=== PATIENT | male | born 1950 | race Two or more races ===

== ENCOUNTER 2016-11-21 19:10 | Inpatient (IN) | payer MEDICARE, OTHER ==
--- NOTE | 2016-11-21 21:05 | RADIOLOGY REPORT (SQ) ---
EXAM DESCRIPTION: CHEST PA/LAT COMPLETED DATE/TIME: 11/21/2016 8:31 pm REASON FOR STUDY: Fever COMPARISON: 01/08/2016. EXAM PARAMETERS: NUMBER OF VIEWS: two views TECHNIQUE: Digital Frontal and Lateral radiographic views of the chest acquired. RADIATION DOSE: NA LIMITATIONS: none FINDINGS: LUNGS AND PLEURA: No opacities, masses or pneumothorax. No pleural effusion. MEDIASTINUM AND HILAR STRUCTURES: No masses or contour abnormalities. HEART AND VASCULAR STRUCTURES: Heart normal size. No evidence for failure. BONES: No acute findings. HARDWARE: None in the chest. OTHER: No other significant finding. IMPRESSION: NO SIGNIFICANT RADIOGRAPHIC FINDING IN THE CHEST. TECHNICAL DOCUMENTATION: JOB ID: [id number] [employer]- All Rights Reserved
[2016-11-21 21:17] LABS: ABSOLUTE LYMPHOCYTES (AUTO) 0.5 10^3/uL (0.5-4.7); ABSOLUTE NEUT (AUTO) 6.3 10^3/uL (1.7-8.2); BASOPHILS % (AUTO) 0.3 % (0-2); EOSINOPHILS % (AUTO) 0.6 % (0-6); HEMOGLOBIN 8.4 g/dL (13.5-17.0); HGB HCT DIFFERENCE 1.2; LYMPHOCYTES % (AUTO) 5.9 % (13-45); MEAN CORPUSCULAR HEMOGLOBIN 34.7 pg (27.0-33.4); MEAN CORPUSCULAR VOLUME 99 fl (80-97); MONOCYTES % (AUTO) 12.4 % (3-13); RED BLOOD COUNT 2.42 10^6/uL (4.35-5.55); SEGMENTED NEUTROPHILS % (AUTO) 80.8 % (42-78); WHITE BLOOD COUNT 7.8 10^3/uL (4.0-10.5)
[2016-11-21 21:34] LABS: ALANINE AMINOTRANSFERASE 192 U/L (21-72); ALBUMIN 3.7 g/dL (3.5-5.0); ALKALINE PHOSPHATASE 188 U/L (38-126); ANION GAP 13 (5-19); ASPARTATE AMINO TRANSFERASE 322 U/L (17-59); BILIRUBIN,DIRECT 2.4 mg/dL (0.0-0.4); BILIRUBIN,TOTAL 5.4 mg/dL (0.2-1.3); BLOOD UREA NITROGEN 41 mg/dL (7-20); CALCIUM 8.4 mg/dL (8.4-10.2); CARBON DIOXIDE 21 mmol/L (22-30); CHLORIDE 99 mmol/L (98-107); GLUCOSE 317 mg/dL (75-110); POTASSIUM 4.7 mmol/L (3.6-5.0); SODIUM 132.8 mmol/L (137-145); TOTAL PROTEIN 7.6 g/dL (6.3-8.2)
[2016-11-21 21:38] LABS: PROTHROMBIN TIME 14.9 SEC (11.4-15.4)
[2016-11-21 22:25] LABS: APPEARANCE,URINE SLIGHTLY-CLOUDY; BILIRUBIN,URINE NEGATIVE (NEGATIVE); GLUCOSE, URINE 50 mg/dL (NEGATIVE); KETONES,URINE NEGATIVE (NEGATIVE); LEUKOCYTE ESTERASE,URINE SMALL (NEGATIVE); NITRITE,URINE NEGATIVE (NEGATIVE); PROTEIN,URINE 30 mg/dL (NEGATIVE); URINE SPECIFIC GRAVITY 1.018
--- NOTE | 2016-11-22 00:22 | ER Document Report ---
ED General - General Chief Complaint: Fever Stated Complaint: FEVER Time Seen by Provider: 11/21/16 19:41 TRAVEL OUTSIDE OF THE [place] IN LAST 30 DAYS: No - HPI Notes: This is a 66-year-old male with hepatocellular cancer of the liver who presents via EMS from home with fever that began yesterday. Fever has been up to 103.6 F. He had a paracentesis yesterday which he does get weekly on . Appears she is getting other treatment chemotherapy or similar as well. He did have some chills but denies any other clear source. He has been a little bit incontinent of urine which is uncommon for him as well he has had no cough or cold symptoms. He did have a exposure to a child with cold yesterday. Exposure otherwise except for his travels to his oncologist Dr. Elisabeth phillips [phone] in [place] where he receives his treatments. He denies abdominal pain or other new discomfort. - Related Data Allergies/Adverse Reactions: Penicillins Allergy (Intermediate, Verified 11/21/16 19:20) Passed out Past Medical History - Social History Smoking Status: Never Smoker Chew tobacco use (# tins/day): No Frequency of alcohol use: None Drug Abuse: None Family History: None Patient has suicidal ideation: No Patient has homicidal ideation: No - Past Medical History Cardiac Medical History: Reports: Hx Hypertension Endocrine Medical History: Reports: Hx Diabetes Mellitus Type 1, Hx Diabetes Mellitus Type 2 Renal/ Medical History: Denies: Hx Peritoneal Dialysis Past Surgical History: Reports: Hx Cardiac Catheterization, Hx Cholecystectomy - Immunizations Hx Diphtheria, Pertussis, Tetanus Vaccination: Yes Review of Systems - Review of Systems -: Yes All other systems reviewed and negative Physical Exam - Vital signs Vitals: Temp Pulse Resp BP Pulse Ox 99.4 F 109 H 20 139/70 H 100 11/21/16 19:20 11/21/16 19:20 11/21/16 19:20 11/21/16 19:20 11/21/16 19:20 Interpretation: Tachycardic - Notes Notes: GENERAL: VS as per nursing doc. chronically ill appearing in no acute distress. Pitcher 99.4F HEAD: Atraumatic, normocephalic. EYES: Pupils equal round and reactive to light, extraocular movements intact, Scleral icterus noted, no conjunctival injection or discharge. ENT: Nares patent, oropharynx clear without exudates, moist mucous membranes. NECK: Normal range of motion, supple without lymphadenopathy. LUNGS: Fine bibasilar crackles but good movement otherwise HEART: Tachycardic, regular without murmur ABDOMEN: Ascites noted, no evidence of tenderness at all even to deep palpation no guarding, no rebound. No masses appreciated. No Hamel sign. BACK: No CVA tenderness. EXTREMITIES: Normal range of motion, no calf tenderness, no edema. NEUROLOGICAL: No meningeal signs, normal speech. Normal sensory and motor exams. PSYCH: Normal mood, normal affect. SKIN: Warm, dry, jaundice noted Course - Re-evaluation Re-evalutation: 11/22/16 00:27 Laboratory studies I have are compared to 10 months ago which is the last we have. He is somewhat more anemic and he has definitely had increases in his liver function tests. I do not see any signs of SBP as he has no tenderness. He is technically afebrile here and appears nontoxic. I have contacted his physician and am awaiting a call back. 11/22/16 01:[address] Leyva from [facility]. They have been unable to get a hold of the patient's regular attending but want to keep trying in particular because their computer system is causing difficulty as they cannot access records apparently. 11/22/16 01:56 I spoke again with Dr. Head whom did talk to Dr. Perez. They felt the patient needed to be admitted for infectious workup and to ensure no development of SBP. Clinically there is no abdominal tenderness. The patient is on Nivolumab given as an infusion every 2 weeks as well. They report you can get some transaminitis as well as fever with this. - Vital Signs Vital signs: Temp Pulse Resp BP Pulse Ox 100.5 F H 97 18 130/58 H 100 11/22/16 00:00 11/22/16 01:00 11/22/16 01:00 11/22/16 01:00 11/22/16 01:00 - Laboratory Result Diagrams: 11/21/16 20:45 11/21/16 20:45 Laboratory results interpreted by me: 11/21/16 11/21/16 11/21/16 20:45 20:45 22:05 RBC 2.42 L Hgb 8.4 L Hct 24.0 L MCV 99 H MCH 34.7 H RDW 16.0 H Plt Count 133 L Seg Neutrophils % 80.8 H Lymphocytes % 5.9 L Sodium 132.8 L Carbon Dioxide 21 L BUN 41 H Creatinine 1.70 H Est GFR ( Amer) 49 L Est GFR (Non-Af Amer) 41 L Glucose 317 H Total Bilirubin 5.4 H Direct Bilirubin 2.4 H AST 322 H ALT 192 H Alkaline Phosphatase 188 H Urine Protein 30 H Urine Glucose (UA) 50 H Urine Urobilinogen 4.0 H Ur Leukocyte Esterase SMALL H Urine Ascorbic Acid 40 H - Diagnostic Test Radiology reviewed: Image reviewed, Reports reviewed - NAD - Consults Dr. Jakub Lofton #1 Time consulted: 01:54 - No answer. Will call again. Reason for consultation: 11/22/16 02:[address] Jakub Lofton #2 Time consulted: 02:20 - Discussed with Dr. Lofton who will evaluate/admit patient Discharge - Discharge Clinical Impression: Acute febrile illness, Malignant neoplasm of liver Ascites Qualifiers: Ascites type: other type Qualified Code(s): R18.8 - Other ascites Condition: Stable Disposition: ADMITTED INPATIENT Admitting Provider: Hospitalist Unit Admitted: Medical Floor
[2016-11-22] MEDS ORDERED: MAGNESIUM HYDROXIDE SUSP 30 ML UDCUP PO PRN (03:02)
[2016-11-22] MEDS ORDERED: DEXTROSE 40% GEL 15 GM TUBE PO PRN ×2 (03:02)
[2016-11-22] MEDS ORDERED: DEXTROSE 50%-WATER 25 GM/50 ML DISP.SYRIN IV PRN ×2 (03:02)
[2016-11-22] MEDS ORDERED: GLUCAGON,HUMAN RECOMB 1 MG INJ IM PRN (03:02)
[2016-11-22] MEDS ORDERED: ONDANSETRON HCL INJ/PF 4 MG/2 ML SDV IV PRN (03:02)
[2016-11-22] MEDS ORDERED: CEFOTAXIME 2 GM IV PRN (03:08)
[2016-11-22] MEDS ORDERED: CEFOTAXIME SODIUM 2 GM in DEXTROSE 5%-WATER 50 ML IV ONE (03:15)
--- NOTE | 2016-11-22 03:28 | PDOC H&P ---
History of Present Illness Admission Date/PCP: 11/22/16 02:51 GEORGIA EMANUEL MD Patient complains of: Fever and anorexia History of Present Illness: VELVET WILLS SR is a 66 year old male with a past medical history of diabetes , Wu and hepatocellular carcinoma who is an oncology patient of Dr. Barber in [place] phone #[phone]. The patient has received 2 cycles of immunotherapy with Nivolumab. Last infusion was approximately 1 week ago, paracentesis with albumin every week most recent 48 hours ago. He subsequently had poor p.o. intake fever and malaise prompting him to seek evaluation emergency room where he found to have a fever of 101.3, markedly abnormal LFTs, jaundice and acute renal failure with a creatinine of 1.7. Patient adamantly denies headache, photophobia, stiff neck, sore throat, chest pain, shortness of breath, nausea, vomiting, abdominal pain, diarrhea, dysuria or joint pain. Given his findings he referred to the hospitalist for admission. Past Medical History Cardiac Medical History: Reports: Hypertension Endocrine Medical History: Reports: Diabetes Mellitus Type 1, Diabetes Mellitus Type 2 Malignancy Medical History: Reports: Liver Cancer GI Medical History: Reports: Cirrhosis Past Surgical History Past Surgical History: Reports: Cardiac Catheterization, Cholecystectomy Social History Information Source: Patient Smoking Status: Never Smoker Frequency of Alcohol Use: Rare Hx Recreational Drug Use: No Drugs: None Hx Prescription Drug Abuse: No - Advance Directive Resuscitation Status: Full Code Family History Family History: Hypertension Parental Family History Reviewed: Yes Children Family History Reviewed: Yes Sibling(s) Family History Reviewed.: Yes Medication/Allergy Home Medications: Amlodipine Besylate 1 tab PO DAILY 10/29/15 Ascorbic Acid [Vitamin C 500 mg Tablet] 3 tab PO DAILY 10/29/15 Cetirizine HCl [Zyrtec] 10 mg PO DAILY 10/29/15 Esomeprazole Magnesium [Nexium] 40 mg PO DAILY 10/29/15 Propranolol HCl 40 mg PO DAILY 10/29/15 Sitagliptin Phos/Metformin HCl [Janumet 50-1,000 mg Tablet] 1 each PO BID Ursodiol 3 tab PO DAILY 10/29/15 Furosemide [Lasix 40 mg Tablet] 40 mg PO BID #180 tablet 11/02/15 Spironolactone [Aldactone 25 mg Tablet] 50 mg PO BID #360 tablet 11/02/15 Allergies/Adverse Reactions: Penicillins Allergy (Intermediate, Verified 11/21/16 19:20) Passed out Review of Systems Constitutional: PRESENT: anorexia, chills, fatigue, fever(s), weakness Eyes: PRESENT: other - Jaundice. ABSENT: visual disturbances Ears: ABSENT: hearing changes Cardiovascular: ABSENT: chest pain, dyspnea on exertion, edema, orthropnea, palpitations Respiratory: ABSENT: cough, hemoptysis Gastrointestinal: ABSENT: abdominal pain, constipation, diarrhea, hematemesis, hematochezia, nausea, vomiting Genitourinary: ABSENT: dysuria, hematuria Integumentary: ABSENT: rash, wounds Neurological: ABSENT: abnormal gait, abnormal speech, confusion, dizziness, focal weakness, syncope Psychiatric: ABSENT: anxiety, depression, homidical ideation, suicidal ideation Endocrine: ABSENT: cold intolerance, heat intolerance, polydipsia, polyuria Hematologic/Lymphatic: ABSENT: easy bleeding, easy bruising Physical Exam Vital Signs: Temp Pulse Resp BP Pulse Ox 99.7 F 90 18 124/39 L 100 11/22/16 03:00 11/22/16 03:00 11/22/16 03:00 11/22/16 03:00 11/22/16 03:00 General appearance: PRESENT: no acute distress, cooperative, other - Chronically ill-appearing and jaundiced Head exam: PRESENT: atraumatic, normocephalic Eye exam: PRESENT: PERRLA, scleral icterus Ear exam: PRESENT: normal external ear exam Mouth exam: PRESENT: moist, tongue midline Neck exam: ABSENT: carotid bruit, JVD, lymphadenopathy, thyromegaly Respiratory exam: PRESENT: clear to auscultation art, crackles, symmetrical. ABSENT: rales, rhonchi, tachypnea, wheezes Cardiovascular exam: PRESENT: RRR. ABSENT: diastolic murmur, rubs, systolic murmur Pulses: PRESENT: normal dorsalis pedis pul GI/Abdominal exam: PRESENT: ascites, diminished bowel sounds, distended, hypoactive bowel sounds. ABSENT: firm, guarding, hernia, rebound, rigid Rectal exam: PRESENT: deferred Extremities exam: PRESENT: full ROM, +1 edema. ABSENT: calf tenderness, clubbing, pedal edema Neurological exam: PRESENT: alert, awake, oriented to person, oriented to place , oriented to time, oriented to situation, CN II-XII grossly intact. ABSENT: motor sensory deficit Psychiatric exam: PRESENT: appropriate affect, normal mood. ABSENT: homicidal ideation, suicidal ideation Skin exam: PRESENT: dry, intact, warm. ABSENT: cyanosis, rash Results Impressions: Chest X-Ray 11/21/16 20:06 IMPRESSION: NO SIGNIFICANT RADIOGRAPHIC FINDING IN THE CHEST. Assessment & Plan - Diagnosis (1) SBP (spontaneous bacterial peritonitis) Is this a current diagnosis for this admission?: YesPlan: Complicated by recent paracentesis blood cultures obtained empiric treatment with cefotaxime initiated. Consider albumin will order paracentesis. Follow- up Chem-12, CBC and consultation with oncologist Dr. Barber. (2) Acute renal failure Is this a current diagnosis for this admission?: YesPlan: Unclear cause though appears significantly prerenal. He received a IV fluid challenge avoiding nephrotoxic meds and doses reevaluation of chemistry. (3) Hepatocellular carcinoma Is this a current diagnosis for this admission?: YesPlan: Consultation with Dr. 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 - Time Time Spent: 50 to 70 Minutes - Inpatient Certification Medical Necessity: Need Close Monitoring Due to Risk of Patient Decompensation
[2016-11-22] MEDS ORDERED: CEFOTAXIME INJ 1 GM VIAL ONE (03:39)
[2016-11-22] MEDS: NORMAL SALINE 1000 ML 1,000 ML IV SCH ×2 (05:37→10:02)
[2016-11-22] MEDS ORDERED: HEPARIN SOD (PORCINE) 5,000 UNIT/ML 1 ML SYRINGE SUBCUT SCH (06:00)
[2016-11-22 08:00] LABS: ABSOLUTE EOSINOPHILS # (AUTO) 0.1 10^3/uL (0.0-0.6); ABSOLUTE LYMPHOCYTES (AUTO) 0.4 10^3/uL (0.5-4.7); ABSOLUTE MONOCYTES (AUTO) 0.9 10^3/uL (0.1-1.4); ABSOLUTE NEUT (AUTO) 5.7 10^3/uL (1.7-8.2); BASOPHILS % (AUTO) 0.2 % (0-2); EOSINOPHILS % (AUTO) 1.7 % (0-6); HEMATOCRIT 20.4 % (37.9-51.0); HGB HCT DIFFERENCE 0.9; LYMPHOCYTES % (AUTO) 5.6 % (13-45); MEAN CORPUSCULAR HEMOGLOBIN 34.8 pg (27.0-33.4); MEAN CORPUSCULAR HGB CONC 34.7 g/dL (32.0-36.0); MEAN CORPUSCULAR VOLUME 100 fl (80-97); MONOCYTES % (AUTO) 13.1 % (3-13); RED BLOOD COUNT 2.04 10^6/uL (4.35-5.55); RED CELL DISTRIBUTION WIDTH 15.8 % (11.5-14.0); SEGMENTED NEUTROPHILS % (AUTO) 79.4 % (42-78); WHITE BLOOD COUNT 7.2 10^3/uL (4.0-10.5)
[2016-11-22 08:19] LABS: ALANINE AMINOTRANSFERASE 147 U/L (21-72); ALBUMIN 2.8 g/dL (3.5-5.0); ALKALINE PHOSPHATASE 146 U/L (38-126); ANION GAP 10 (5-19); ASPARTATE AMINO TRANSFERASE 220 U/L (17-59); BILIRUBIN,DIRECT 2.5 mg/dL (0.0-0.4); BILIRUBIN,TOTAL 5.7 mg/dL (0.2-1.3); BLOOD UREA NITROGEN 41 mg/dL (7-20); CALCIUM 7.7 mg/dL (8.4-10.2); CARBON DIOXIDE 20 mmol/L (22-30); CHLORIDE 100 mmol/L (98-107); CREATININE RESULT 1.45 mg/dL (0.52-1.25); GLUCOSE 234 mg/dL (75-110); HEMOGLOBIN 7.1 g/dL (13.5-17.0); POTASSIUM 4.7 mmol/L (3.6-5.0); SODIUM 130.3 mmol/L (137-145); TOTAL PROTEIN 6.3 g/dL (6.3-8.2)
[2016-11-22] MEDS: CEFOTAXIME SODIUM 2 GM in DEXTROSE 5%-WATER 50 ML IV SCH ×2 (10:01→22:32)
[2016-11-22] MEDS: DOCUSATE SODIUM 100 MG CAPSULE PO SCH ×2 (10:03→17:33)
[2016-11-22] MEDS ORDERED: NORMAL SALINE 250 ML IV PRN ×2 (10:32)
[2016-11-22] MEDS ORDERED: INSULIN GLARGINE,HUM.REC.ANLOG 300 UNIT/3 ML INSULN.PEN SUBCUT PRN (13:49)
[2016-11-22] MEDS ORDERED: CETIRIZINE 10 MG TABLET PO PRN (13:49)
[2016-11-22] MEDS ORDERED: FLUTICASONE NASAL SPRAY 50 MCG/SPRY 120 SPRAY/16 GM NASL PRN (13:49)
--- NOTE | 2016-11-22 14:03 | PDOC PROGRESS REPORT ---
Subjective Progress Note for:: 11/22/16 Subjective:: Patient was seen on morning rounds. He is resting comfortably in bed. His is at the bedside. He denies fevers or chills overnight. He denies cough, congestion or sore throat. He denies nausea, vomiting or abdominal pain. He denies any arthralgias or myalgias. We discussed his anemi. He does have a history of iron deficiency anemia, but had a severe epistaxis when he was in the hospital in [place] on . He has required transfusions previously. Remaining review of systems are negative. Physical Exam Vital Signs: Temp Pulse Resp BP Pulse Ox 98.2 F 88 18 115/54 L 98 11/22/16 11:27 11/22/16 11:27 11/22/16 11:27 11/22/16 11:27 11/22/16 11:27 Intake & Output 11/21/16 11/22/16 11/23/16 06:59 06:59 06:59 Weight 74.3 kg General appearance: PRESENT: no acute distress, well-developed, well-nourished, other Eye exam: PRESENT: conjunctiva pale, scleral icterus Ear exam: PRESENT: normal external ear exam Mouth exam: PRESENT: moist, tongue midline Neck exam: ABSENT: carotid bruit, JVD, lymphadenopathy, thyromegaly Respiratory exam: PRESENT: clear to auscultation atr. ABSENT: rales, rhonchi, wheezes Cardiovascular exam: PRESENT: RRR. ABSENT: diastolic murmur, rubs, systolic murmur Pulses: PRESENT: normal dorsalis pedis pul Vascular exam: PRESENT: normal capillary refill GI/Abdominal exam: PRESENT: normal bowel sounds, soft. ABSENT: distended, guarding, mass, organolmegaly, rebound, tenderness Rectal exam: PRESENT: deferred Extremities exam: PRESENT: full ROM. ABSENT: calf tenderness, clubbing, pedal edema Psychiatric exam: PRESENT: appropriate affect, normal mood. ABSENT: homicidal ideation, suicidal ideation Skin exam: PRESENT: dry, jaundice, warm Results Laboratory Results: 11/22/16 07:15 11/22/16 07:15 11/22/16 11/22/16 11/22/16 07:15 07: 07:15 WBC 7.2 RBC 2.04 L Hgb 7.1 L Hct 20.4 L MCV 100 H MCH 34.8 H MCHC 34.7 RDW 15.8 H Plt Count 113 L Seg Neutrophils % 79.4 H Lymphocytes % 5.6 L Monocytes % 13.1 H Eosinophils % 1.7 Basophils % 0.2 Absolute Neutrophils 5.7 Absolute Lymphocytes 0.4 L Absolute Monocytes 0.9 Absolute Eosinophils 0.1 Absolute Basophils 0.0 Retic Count (auto) 4.00 H Absolute Retic 0.081 Sodium 130.3 L Potassium 4.7 Chloride 100 Carbon Dioxide 20 L Anion Gap 10 BUN 41 H Creatinine 1.45 H Est GFR ( Amer) 59 L Est GFR (Non-Af Amer) 49 L Glucose 234 H Calcium 7.7 L Iron TIBC % Saturation Ferritin Total Bilirubin 5.7 H AST 220 H ALT 147 H Alkaline Phosphatase 146 H Total Protein 6.3 Albumin 2.8 L Vitamin B12 Folate Blood Type Antibody Screen 11/22/16 11/22/16 07:15 10:55 WBC RBC Hgb Hct MCV MCH MCHC RDW Plt Count Seg Neutrophils % Lymphocytes % Monocytes % Eosinophils % Basophils % Absolute Neutrophils Absolute Lymphocytes Absolute Monocytes Absolute Eosinophils Absolute Basophils Retic Count (auto) Absolute Retic Sodium Potassium Chloride Carbon Dioxide Anion Gap BUN Creatinine Est GFR ( Amer) Est GFR (Non-Af Amer) Glucose Calcium Iron 43.3 L TIBC 187 L % Saturation 23 Ferritin 174.00 Total Bilirubin AST ALT Alkaline Phosphatase Total Protein Albumin Vitamin B12 886.0 Folate 19.10 Blood Type O POSITIVE Antibody Screen NEGATIVE Impressions: Chest X-Ray 11/21/16 20:06 IMPRESSION: NO SIGNIFICANT RADIOGRAPHIC FINDING IN THE CHEST. Assessment & Plan - Diagnosis (1) Febrile illness, acute Is this a current diagnosis for this admission?: YesPlan: Patient was started on empiric IV antibiotics for possible SBP. He has no abdominal pain present time. A nausea either. Upper respiratory symptoms or dysuria. Cultures are pending. May be a side effect of his chemotherapy according to his oncologist (2) Acute renal failure Qualifiers: Acute renal failure type: unspecified Qualified Code(s): N17.9 - Acute kidney failure, unspecified Is this a current diagnosis for this admission?: YesPlan: Improving with IV hydration. Likely prerenal secondary to poor oral intake (3) Hyponatremia Is this a current diagnosis for this admission?: YesPlan: Secondary to dehydration (4) SBP (spontaneous bacterial peritonitis) Is this a current diagnosis for this admission?: Yes (5) Anemia Qualifiers: Anemia type: iron deficiency Is this a current diagnosis for this admission?: YesPlan: Patient with history of iron deficiency anemia and recent severe epistaxis. Hgb down to 7.1 from 8.4 most likely dilutional from IV fluids. Patient is agreeable to transfusion (6) Hepatocellular carcinoma Is this a current diagnosis for this admission?: YesPlan: Presently just completed second chemo cycle (7) Ascites Qualifiers: Ascites type: malignant Qualified Code(s): R18.0 - Malignant ascites Is this a current diagnosis for this admission?: YesPlan: Patient underwent paracentesis on in [place] (8) Thrombocytopenia Is this a current diagnosis for this admission?: YesPlan: Secondary to hepatocellular carcinoma - Time Time Spent with patient: 25-34 minutes Critical Time spent with patient: 15-24 minutes Medications reviewed and adjusted accordingly: Yes
[2016-11-22] MEDS ORDERED: ACETAMINOPHEN 325 MG TABLET PO PRN (16:15)
[2016-11-22] MEDS: INSULIN LISPRO 100 UNIT/ML 3 ML VIAL SUBCUT PRN ×2 (16:37→22:48)
[2016-11-22] MEDS: ACETAMINOPHEN 325 MG TABLET PO PRN (16:37)
[2016-11-22] MEDS: RIFAXIMIN 550 MG TABLET PO SCH (17:33)
[2016-11-22] MEDS: FERROUS SULFATE 325 MG TABLET PO SCH (17:34)
[2016-11-22] MEDS ORDERED: XIFAXAN PO SCH (18:00)
[2016-11-23 00:01] LABS: ABSOLUTE EOSINOPHILS # (AUTO) 0.1 10^3/uL (0.0-0.6); ABSOLUTE LYMPHOCYTES (AUTO) 0.4 10^3/uL (0.5-4.7); ABSOLUTE MONOCYTES (AUTO) 0.8 10^3/uL (0.1-1.4); BASOPHILS % (AUTO) 0.3 % (0-2); EOSINOPHILS % (AUTO) 1.7 % (0-6); HEMATOCRIT 24.5 % (37.9-51.0); HEMOGLOBIN 8.6 g/dL (13.5-17.0); HGB HCT DIFFERENCE 1.3; LYMPHOCYTES % (AUTO) 6.8 % (13-45); MEAN CORPUSCULAR HEMOGLOBIN 34.2 pg (27.0-33.4); MEAN CORPUSCULAR HGB CONC 35.3 g/dL (32.0-36.0); MEAN CORPUSCULAR VOLUME 97 fl (80-97); MONOCYTES % (AUTO) 12.2 % (3-13); RED BLOOD COUNT 2.53 10^6/uL (4.35-5.55); RED CELL DISTRIBUTION WIDTH 15.8 % (11.5-14.0); WHITE BLOOD COUNT 6.3 10^3/uL (4.0-10.5)
[2016-11-23] MEDS: CEFOTAXIME SODIUM 2 GM in DEXTROSE 5%-WATER 50 ML IV SCH ×3 (03:35→17:24)
[2016-11-23 05:29] LABS: ABSOLUTE EOSINOPHILS # (AUTO) 0.2 10^3/uL (0.0-0.6); ABSOLUTE LYMPHOCYTES (AUTO) 0.4 10^3/uL (0.5-4.7); ABSOLUTE MONOCYTES (AUTO) 0.8 10^3/uL (0.1-1.4); ABSOLUTE NEUT (AUTO) 5.1 10^3/uL (1.7-8.2); BASOPHILS % (AUTO) 0.2 % (0-2); EOSINOPHILS % (AUTO) 2.6 % (0-6); HEMATOCRIT 26.4 % (37.9-51.0); HGB HCT DIFFERENCE 0.6; LYMPHOCYTES % (AUTO) 5.8 % (13-45); MEAN CORPUSCULAR HEMOGLOBIN 33.5 pg (27.0-33.4); MEAN CORPUSCULAR HGB CONC 34.3 g/dL (32.0-36.0); MEAN CORPUSCULAR VOLUME 98 fl (80-97); MONOCYTES % (AUTO) 12.8 % (3-13); RED CELL DISTRIBUTION WIDTH 16.2 % (11.5-14.0); SEGMENTED NEUTROPHILS % (AUTO) 78.6 % (42-78); WHITE BLOOD COUNT 6.5 10^3/uL (4.0-10.5)
[2016-11-23 05:41] LABS: ALANINE AMINOTRANSFERASE 123 U/L (21-72); ALBUMIN 2.8 g/dL (3.5-5.0); ALKALINE PHOSPHATASE 150 U/L (38-126); ANION GAP 10 (5-19); ASPARTATE AMINO TRANSFERASE 136 U/L (17-59); BILIRUBIN,DIRECT 3.5 mg/dL (0.0-0.4); BILIRUBIN,TOTAL 7.2 mg/dL (0.2-1.3); BLOOD UREA NITROGEN 40 mg/dL (7-20); CALCIUM 7.7 mg/dL (8.4-10.2); CARBON DIOXIDE 18 mmol/L (22-30); CHLORIDE 102 mmol/L (98-107); CREATININE RESULT 1.32 mg/dL (0.52-1.25); GLUCOSE 218 mg/dL (75-110); POTASSIUM 4.7 mmol/L (3.6-5.0); TOTAL PROTEIN 6.4 g/dL (6.3-8.2)
[2016-11-23] MEDS: FERROUS SULFATE 325 MG TABLET PO SCH ×2 (09:55→17:25)
[2016-11-23] MEDS: RIFAXIMIN 550 MG TABLET PO SCH ×2 (09:55→17:25)
[2016-11-23] MEDS: SPIRONOLACTONE 25 MG TABLET PO SCH (09:55)
[2016-11-23] MEDS: LANSOPRAZOLE 15 MG TAB.RAP.DR PO SCH (09:55)
[2016-11-23] MEDS: DOCUSATE SODIUM 100 MG CAPSULE PO SCH ×2 (09:56→17:25)
[2016-11-23] MEDS: INSULIN LISPRO 100 UNIT/ML 3 ML VIAL SUBCUT PRN ×3 (09:56→23:30)
[2016-11-23] MEDS ORDERED: (PENDING PHARMACY ID) (Pantoprazole Sodium [Protonix] 20 MG) PO SCH (10:00)
[2016-11-23] MEDS ORDERED: (PENDING PHARMACY ID) (Spironolactone [Aldactone] 50 MG) PO SCH (10:00)
--- NOTE | 2016-11-23 11:14 | PDOC PROGRESS REPORT ---
Subjective Progress Note for:: 11/23/16 Subjective:: Patient was seen on morning rounds. He is resting comfortably in bed. He states he feels better than he did yesterday, not as weak. He denies fevers or chills overnight. He denies any nausea or abdominal pain. He denies cough, congestion or sore throat. He denies any arthralgias or myalgias. Rest of the review of systems are unremarkable. Physical Exam Vital Signs: Temp Pulse Resp BP Pulse Ox 98.6 F 77 17 109/46 L 99 11/23/16 03:32 11/23/16 07:00 11/23/16 03:32 11/23/16 03:32 11/23/16 03:32 Intake & Output 11/22/16 11/23/16 11/24/16 06:59 06:59 06:59 Intake Total 2730 Output Total 800 Balance 1930 Weight 74.3 kg 79.2 kg General appearance: PRESENT: no acute distress, well-developed, well-nourished Head exam: PRESENT: atraumatic, normocephalic Eye exam: PRESENT: conjunctiva pale, scleral icterus Ear exam: PRESENT: normal external ear exam Mouth exam: PRESENT: moist, tongue midline Neck exam: ABSENT: carotid bruit, JVD, lymphadenopathy, thyromegaly Respiratory exam: PRESENT: clear to auscultation art. ABSENT: rales, rhonchi, wheezes Cardiovascular exam: PRESENT: RRR. ABSENT: diastolic murmur, rubs, systolic murmur Pulses: PRESENT: normal dorsalis pedis pul Vascular exam: PRESENT: normal capillary refill GI/Abdominal exam: PRESENT: normal bowel sounds, soft. ABSENT: distended, guarding, mass, organolmegaly, rebound, tenderness Rectal exam: PRESENT: deferred Extremities exam: PRESENT: full ROM. ABSENT: calf tenderness, clubbing, pedal edema Musculoskeletal exam: PRESENT: ambulatory, full ROM Neurological exam: PRESENT: alert, awake, oriented to person, oriented to place , oriented to time, oriented to situation, CN II-XII grossly intact. ABSENT: motor sensory deficit Psychiatric exam: PRESENT: appropriate affect, normal mood. ABSENT: homicidal ideation, suicidal ideation Skin exam: PRESENT: dry, jaundice, petechiae, warm Results Laboratory Results: 11/23/16 05:12 11/23/16 05:12 11/22/16 11/22/16 11/23/16 10:55 23:50 05:12 WBC 6.3 6.5 RBC 2.53 L 2.70 L Hgb 8.6 L 9.0 L Hct 24.5 L 26.4 L MCV 97 98 H MCH 34.2 H 33.5 H MCHC 35.3 34.3 RDW 15.8 H 16.2 H Plt Count 108 L 117 L Seg Neutrophils % 79.0 H 78.6 H Lymphocytes % 6.8 L 5.8 L Monocytes % 12.2 12.8 Eosinophils % 1.7 2.6 Basophils % 0.3 0.2 Absolute Neutrophils 5.0 5.1 Absolute Lymphocytes 0.4 L 0.4 L Absolute Monocytes 0.8 0.8 Absolute Eosinophils 0.1 0.2 Absolute Basophils 0.0 0.0 Sodium Potassium Chloride Carbon Dioxide Anion Gap BUN Creatinine Est GFR ( Amer) Est GFR (Non-Af Amer) Glucose Calcium Total Bilirubin AST ALT Alkaline Phosphatase Total Protein Albumin Blood Type O POSITIVE Antibody Screen NEGATIVE 11/23/16 05:12 WBC RBC Hgb Hct MCV MCH MCHC RDW Plt Count Seg Neutrophils % Lymphocytes % Monocytes % Eosinophils % Basophils % Absolute Neutrophils Absolute Lymphocytes Absolute Monocytes Absolute Eosinophils Absolute Basophils Sodium 130.0 L Potassium 4.7 Chloride 102 Carbon Dioxide 18 L Anion Gap 10 BUN 40 H Creatinine 1.32 H Est GFR ( Amer) > 60 Est GFR (Non-Af Amer) 54 L Glucose 218 H Calcium 7.7 L Total Bilirubin 7.2 H AST 136 H ALT 123 H Alkaline Phosphatase 150 H Total Protein 6.4 Albumin 2.8 L Blood Type Antibody Screen Impressions: Chest X-Ray 11/21/16 20:06 IMPRESSION: NO SIGNIFICANT RADIOGRAPHIC FINDING IN THE CHEST. Assessment & Plan - Diagnosis (1) Febrile illness, acute Is this a current diagnosis for this admission?: YesPlan: Patient was started on empiric IV antibiotics for possible SBP. He has no abdominal pain at the present time. He has no nausea, vomiting or diarrhea. He has had no upper respiratory symptoms or dysuria. Blood cultures x 2 are negative at 24 hrs. Urine culture shows 10,000-20,000 colonies of gm pos cocci. Fever may be a side effect of his chemotherapy according to his oncologist (2) Acute renal failure Qualifiers: Acute renal failure type: unspecified Qualified Code(s): N17.9 - Acute kidney failure, unspecified Is this a current diagnosis for this admission?: YesPlan: Improving with IV hydration. Likely prerenal secondary to poor oral intake (3) Hyponatremia Is this a current diagnosis for this admission?: YesPlan: It did not improve with hydration. 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 Will check serum osmolality (4) SBP (spontaneous bacterial peritonitis) Is this a current diagnosis for this admission?: YesPlan: Continue claforan for now (5) Anemia Qualifiers: Anemia type: iron deficiency Is this a current diagnosis for this admission?: YesPlan: Patient with history of iron deficiency anemia. He did have severe epistaxis according to his on . He was transfused 2 units or PRBCs yesterday. Hgb 9.0 today. No overt bleeding (6) Hepatocellular carcinoma Is this a current diagnosis for this admission?: Yes (7) Ascites Qualifiers: Ascites type: malignant Qualified Code(s): R18.0 - Malignant ascites Is this a current diagnosis for this admission?: Yes (8) Thrombocytopenia Is this a current diagnosis for this admission?: Yes - Time Time Spent with patient: 25-34 minutes Critical Time spent with patient: 15-24 minutes Medications reviewed and adjusted accordingly: Yes
[2016-11-23] MEDS: ACETAMINOPHEN 325 MG TABLET PO PRN ×2 (17:49→22:23)
[2016-11-24] MEDS: CEFOTAXIME SODIUM 2 GM in DEXTROSE 5%-WATER 50 ML IV SCH ×3 (02:46→16:53)
[2016-11-24] MEDS: INSULIN LISPRO 100 UNIT/ML 3 ML VIAL SUBCUT PRN ×4 (08:08→22:08)
[2016-11-24 08:19] LABS: ABSOLUTE EOSINOPHILS # (AUTO) 0.3 10^3/uL (0.0-0.6); ABSOLUTE LYMPHOCYTES (AUTO) 0.4 10^3/uL (0.5-4.7); ABSOLUTE MONOCYTES (AUTO) 0.8 10^3/uL (0.1-1.4); ABSOLUTE NEUT (AUTO) 4.3 10^3/uL (1.7-8.2); BASOPHILS % (AUTO) 0.2 % (0-2); EOSINOPHILS % (AUTO) 5.3 % (0-6); HEMATOCRIT 27.8 % (37.9-51.0); HEMOGLOBIN 9.6 g/dL (13.5-17.0); LYMPHOCYTES % (AUTO) 6.1 % (13-45); MEAN CORPUSCULAR HEMOGLOBIN 34.1 pg (27.0-33.4); MEAN CORPUSCULAR HGB CONC 34.6 g/dL (32.0-36.0); MEAN CORPUSCULAR VOLUME 99 fl (80-97); MONOCYTES % (AUTO) 13.4 % (3-13); RED BLOOD COUNT 2.81 10^6/uL (4.35-5.55); RED CELL DISTRIBUTION WIDTH 16.4 % (11.5-14.0); WHITE BLOOD COUNT 5.7 10^3/uL (4.0-10.5)
[2016-11-24] MEDS: SPIRONOLACTONE 25 MG TABLET PO SCH (09:38)
[2016-11-24] MEDS: FERROUS SULFATE 325 MG TABLET PO SCH ×2 (09:38→16:52)
[2016-11-24] MEDS: DOCUSATE SODIUM 100 MG CAPSULE PO SCH ×2 (09:39→16:53)
[2016-11-24] MEDS: RIFAXIMIN 550 MG TABLET PO SCH ×2 (09:39→16:52)
[2016-11-24] MEDS: LANSOPRAZOLE 15 MG TAB.RAP.DR PO SCH (09:39)
--- NOTE | 2016-11-24 13:54 | PDOC PROGRESS REPORT ---
Subjective Progress Note for:: 11/24/16 Subjective:: Patient was seen on morning rounds. He is resting comfortably in bed. He states he feels better than he did yesterday. He remains weak. He has a hard time rolling over in bed according to nursing staff without He denies fevers or chills overnight. He denies any nausea, vomiting or diarrhea. His abdomen is beginning to feel full. He underwent paracentesis on , which he states he does every week now. He denies cough, congestion or sore throat. He denies any arthralgias or myalgias. Rest of the review of systems are unremarkable. Physical Exam Vital Signs: Temp Pulse Resp BP Pulse Ox 97.9 F 82 18 127/55 H 96 11/24/16 12:18 11/24/16 12:18 11/24/16 12:18 11/24/16 12:18 11/24/16 12:18 Intake & Output 11/23/16 11/24/16 11/25/16 06:59 06:59 06:59 Intake Total 2730 1300 Output Total 800 225 Balance 1930 1075 Weight 79.2 kg 90.4 kg General appearance: PRESENT: no acute distress, well-developed, well-nourished Head exam: PRESENT: atraumatic, normocephalic Eye exam: PRESENT: PERRLA, scleral icterus Ear exam: PRESENT: normal external ear exam Mouth exam: PRESENT: moist, neck supple, tongue midline Neck exam: ABSENT: carotid bruit, JVD, lymphadenopathy, thyromegaly Respiratory exam: PRESENT: clear to auscultation art. ABSENT: rales, rhonchi, wheezes Cardiovascular exam: PRESENT: RRR. ABSENT: diastolic murmur, rubs, systolic murmur Pulses: PRESENT: normal carotid pulses, normal radial pulses Vascular exam: PRESENT: normal capillary refill GI/Abdominal exam: PRESENT: ascites, normal bowel sounds, soft Rectal exam: PRESENT: deferred Extremities exam: PRESENT: full ROM. ABSENT: calf tenderness, clubbing, pedal edema Musculoskeletal exam: PRESENT: ambulatory, full ROM Neurological exam: PRESENT: alert, awake, oriented to person, oriented to place , oriented to time, oriented to situation, CN II-XII grossly intact. ABSENT: motor sensory deficit Psychiatric exam: PRESENT: appropriate affect, normal mood. ABSENT: homicidal ideation, suicidal ideation Skin exam: PRESENT: dry, intact, jaundice, petechiae, warm Results Laboratory Results: 11/24/16 07:59 11/23/16 05:12 11/24/16 07:59 WBC 5.7 RBC 2.81 L Hgb 9.6 L Hct 27.8 L MCV 99 H MCH 34.1 H MCHC 34.6 RDW 16.4 H Plt Count 133 L Seg Neutrophils % 75.0 Lymphocytes % 6.1 L Monocytes % 13.4 H Eosinophils % 5.3 Basophils % 0.2 Absolute Neutrophils 4.3 Absolute Lymphocytes 0.4 L Absolute Monocytes 0.8 Absolute Eosinophils 0.3 Absolute Basophils 0.0 Impressions: Chest X-Ray 11/21/16 20:06 IMPRESSION: NO SIGNIFICANT RADIOGRAPHIC FINDING IN THE CHEST. Assessment & Plan - Diagnosis (1) Febrile illness, acute Is this a current diagnosis for this admission?: YesPlan: Patient was started on empiric IV antibiotics for possible SBP, they began the day after his paracentesis. He has no abdominal pain at the present time. He has no nausea, vomiting or diarrhea. He has had no upper respiratory symptoms or dysuria. Blood cultures x 2 are negative at 48 hrs. Urine culture shows 10, 000-20,000 colonies of gm pos cocci. Fever may be a side effect of his chemotherapy according to his oncologist. (2) Acute renal failure Qualifiers: Acute renal failure type: unspecified Qualified Code(s): N17.9 - Acute kidney failure, unspecified Is this a current diagnosis for this admission?: YesPlan: Improving with IV hydration. Likely prerenal secondary to poor oral intake (3) Hyponatremia Is this a current diagnosis for this admission?: YesPlan: It did not improve with hydration. 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 Will check serum osmolality (4) SBP (spontaneous bacterial peritonitis) Is this a current diagnosis for this admission?: YesPlan: Continue claforan for now, not likely with no abdominal pain or leucocytosis (5) Anemia Qualifiers: Anemia type: iron deficiency Is this a current diagnosis for this admission?: YesPlan: Patient with history of iron deficiency anemia. He did have severe epistaxis according to his on at his paracentesis. He was transfused 2 units or PRBCs on 11/22. Hgb 9.6 today. No overt bleeding (6) Hepatocellular carcinoma Is this a current diagnosis for this admission?: YesPlan: Presently just completed second chemo cycle and is due for another cycle on Thursday. Attempted to contact his oncologist's office in [place], Dr Perez [phone], line was busy will attempt later (7) Ascites Qualifiers: Ascites type: malignant Qualified Code(s): R18.0 - Malignant ascites Is this a current diagnosis for this admission?: YesPlan: Patient underwent paracentesis on in [place]. He has been doing this now weekly from his cirrhosis from GRACIA for over the last year (8) Thrombocytopenia Is this a current diagnosis for this admission?: YesPlan: Secondary to hepatocellular carcinoma. Presently stable no bleeding (9) GRACIA (nonalcoholic steatohepatitis) Is this a current diagnosis for this admission?: YesPlan: Patient was diagnosed with GRACIA 5 years ago. He has had ascites and esophageal varices that have been banded over the last year. His provider relations advocate is Dr Klein in [place] - Time Time Spent with patient: 25-34 minutes Critical Time spent with patient: 15-24 minutes Medications reviewed and adjusted accordingly: Yes
[2016-11-24] MEDS ORDERED: MAGNESIUM HYDROXIDE SUSP 30 ML UDCUP PO PRN (14:27)
[2016-11-24] MEDS ORDERED: ONDANSETRON HCL INJ/PF 4 MG/2 ML SDV IV PRN (14:28)
[2016-11-24] MEDS: INSULIN GLARGINE,HUM.REC.ANLOG 300 UNIT/3 ML INSULN.PEN SUBCUT SCH (22:08)
[2016-11-25] MEDS: CEFOTAXIME SODIUM 2 GM in DEXTROSE 5%-WATER 50 ML IV SCH (02:56)
[2016-11-25 05:07] LABS: ALANINE AMINOTRANSFERASE 95 U/L (21-72); ALBUMIN 2.7 g/dL (3.5-5.0); ALKALINE PHOSPHATASE 175 U/L (38-126); ANION GAP 10 (5-19); ASPARTATE AMINO TRANSFERASE 101 U/L (17-59); BILIRUBIN,DIRECT 2.3 mg/dL (0.0-0.4); BILIRUBIN,TOTAL 3.5 mg/dL (0.2-1.3); BLOOD UREA NITROGEN 43 mg/dL (7-20); CALCIUM 7.5 mg/dL (8.4-10.2); CARBON DIOXIDE 18 mmol/L (22-30); CHLORIDE 98 mmol/L (98-107); CREATININE RESULT 1.69 mg/dL (0.52-1.25); GLUCOSE 267 mg/dL (75-110); POTASSIUM 4.9 mmol/L (3.6-5.0); SODIUM 125.8 mmol/L (137-145); TOTAL PROTEIN 6.5 g/dL (6.3-8.2)
[2016-11-25] MEDS: LANSOPRAZOLE 15 MG TAB.RAP.DR PO SCH (06:00)
[2016-11-25] MEDS: INSULIN LISPRO 100 UNIT/ML 3 ML VIAL SUBCUT PRN ×3 (06:43→21:31)
[2016-11-25] MEDS ORDERED: PROMETHAZINE HCL 25 MG SUPP.RECT PR PRN (09:03)
[2016-11-25] MEDS: INSULIN GLARGINE,HUM.REC.ANLOG 300 UNIT/3 ML INSULN.PEN SUBCUT SCH ×2 (09:16→21:31)
[2016-11-25] MEDS: RIFAXIMIN 550 MG TABLET PO SCH ×2 (09:20→17:06)
[2016-11-25] MEDS: FERROUS SULFATE 325 MG TABLET PO SCH ×2 (09:20→17:06)
[2016-11-25] MEDS: SPIRONOLACTONE 25 MG TABLET PO SCH (09:21)
[2016-11-25] MEDS: DOCUSATE SODIUM 100 MG CAPSULE PO SCH ×2 (09:21→17:02)
[2016-11-25] MEDS: LEVOFLOXACIN 500 MG TABLET PO SCH (11:21)
--- NOTE | 2016-11-25 14:33 | PROGRESS NOTE E ---
Progress Note NAME: VELVET WILLS : 1950 AGE: 66Y DATE: 11/25/2016 ROOM: 534 SUBJECTIVE: The patient is lying in bed. He states that he does feel much better today than admission. The patient denies any nausea or vomiting. No diarrhea, shortness of breath, dizziness, or chest pain. No fevers or chills. The patient is very stoic. He has been afebrile. His blood pressure has been in a good range and the patient does not voice any other concerns at this time. REVIEW OF SYSTEMS: Rest of the review of systems negative. MEDICATIONS: Have been reviewed. PHYSICAL EXAMINATION: GENERAL: The patient is a 66-year-old male who is awake, alert, and oriented to person, place, time, and situation. He is verbal, conversational, and does not appear to be in any acute distress. VITAL SIGNS: Temperature 98.1, pulse 81, respirations 17, blood pressure 126/60, oxygen saturation is 96% on room air. SKIN: Warm and dry. No rash. He is not diaphoretic. He is jaundiced. HEENT: Sclerae are icterus. JVP is at the level of the right clavicle. Tongue is midline. Neck is supple. CARDIOVASCULAR: Heart is regular. There is no murmur or rub. CHEST: Clear, symmetrical, unlabored. ABDOMEN: Tight with ascites but no area of focal tenderness. EXTREMITIES: No clubbing, cyanosis, edema. PSYCHIATRIC: Appropriate affect. Pleasant mood. DIAGNOSTICS: Lab values are as follow: Hematology obtained on 11/24/2016: WBCs are 5.7, hemoglobin is 9.6, hematocrit is 27.8, platelet count is 133,000. Coagulation obtained on 11/21/2016: PT is 14.9. INR is 1.09. Chemistry obtained on 11/25/2016: Sodium is 125, potassium 4.9, chloride is 98, carbon dioxide 18, BUN 43, creatinine is 1.69, glucose is 67, osmolality is 288, calcium is 7.5, total bilirubin is 3.5, AST 101, ALT is 95, alk phos 175, total protein is 3.5, albumin 2.7. IMPRESSION AND PLAN: 1. HEPATOCELLULAR CARCINOMA. The patient has completed a second chemo cycle and is due for another on Thursday. Have attempted to reach to his oncologist at [place], Dr. Perez, at . Have left a message and awaiting the phone call. 2. ASCITES SECONDARY TO GRACIA. The patient does undergo paracentesis. This is scheduled on in [place]. The patient and family would like this transferred to [place] if possible due to transportation. Will determine who the patient sees in [place] and who orders this and see if this can be done at this facility. Regardless, will go ahead an proceed with this weeks paracentesis and follow. 3. HYPONATREMIA. This appears to be syndrome of inappropriate antidiuretic hormone due to the patient's malignancy. Will just continue to monitor. 4. ACUTE RENAL FAILURE. Appears to be prerenal azotemia secondary to poor intake. This improved with hydration. 5. ENTEROCOCCUS FAECALIS GROUP D URINARY TRACT INFECTION. Will start patient on a renal dose of Levaquin and follow. 6. THROMBOCYTOPENIA SECONDARY TO THE PATIENT'S LIVER DYSFUNCTION. No evidence of garima bleeding. 7. ANEMIA OF UNDERLYING CHRONIC DISEASE. Has improved with transfusion. DISPOSITION: The patient is a FULL CODE. Pending patient's symptomatology and diagnostic findings, will reevaluate in the a.m. for discharge. Do appreciate Palliative Care input on this as this has been recommended by Oncology. Time spent on this followup including assessment, plan, physical examination, patient education, review of records, and collaboration with outside speciality support is 35 minutes. DICTATING PHYSICIAN: VERN KYLE NP [id number] PHY#: [id number] ID: [id number] JOB#: [id number] ACCT: [id number] cc: >
--- NOTE | 2016-11-25 23:24 | Palliative Consultation Report ---
Consultation From:: LATONYA [facility] - [facility] HPI: PM Palliaitve Care Visit 11/25/16 1:15- 2:05 Appreciate consult request for romario unfortunate 66 year old man who has been diagnosed with hepatocellular carcinoma after a very healthy life. He receives treatment from [facility] for his cancer and has been getting paracentesis weekly at [facility] in [place]. Mr. Valle says after his paracentesis last week, he developed a nose bleed. He started feeling very bad and was not even mentally clear. He was told that he could go to ER but he went home instead. After being home and continuing to fell very bad, he also developed a fever. His brought him to [facility] ER where he was admitted with sepsis. It now appears that the etilology may have been from UTI. Mr. Valle says he is feeling better now and is thinking clearly. We discussed his disease, his treatment and his hope that this is helping and he will have more years to enjoy. He said he didnt want to hear the hospice word. In discussion, he told me that his manuela few doctors all said there was nothing they could do and he should just have hospice come help him stay comfortable. Thus he is very opposed to hospice. We discussed that while it may have been premature to recommend hospice at that point, he should not rule it out for the future sa it would be a good way to help his care for him. support them both, and to offer the care he may need later on. He agreed to stay open to the idea in the future. Mr. Valle talked about his family and some life review. We talked about his hope to get better or at least maintain his current condition. We discussed his ideas about advance directives. He said he has a living will and his knows what he wants done. He said he wants CPR and intubation if needed because he is Jehov[employer]'S Witness and his karie dictates that he fight for his life. 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 He said his will know when to withdraw life support if it is ever started. This patient denies having any pain and states he has not had pain since the onset of the disease. He says his appetite is OK and he sleeps fairly well. He has no symptoms to treat at this time. He seemed eager to talk and was relaxed and positive in his conversation. Onset: Just prior to arrival Onset/Duration: Sudden Quality of Pain: No pain Severity: None Pain Level: Denies Past Medical History(Consults) - General Information Source: Patient, [facility] Records Home Medications: Cetirizine HCl [Zyrtec 10 mg Tablet] 10 mg PO DAILYP PRN 11/22/16 Fluticasone Propionate [Flonase Nasal Sobieski 50 Mcg/Sobieski 16 gm] 2 spray NASL DAILYP PRN 11/22/16 Furosemide [Lasix] 20 mg PO DAILY 11/22/16 Insulin Glargine,Hum.rec.anlog [Lantus Solostar] 20 units SQ HSP PRN 11/22/16 Pantoprazole Sodium [Protonix] 20 mg PO DAILY 11/22/16 Spironolactone [Aldactone] 50 mg PO DAILY 11/22/16 Xifaxan 550 550 mg PO BID 11/22/16 Allergies/Adverse Reactions: Penicillins Allergy (Intermediate, Verified 11/21/16 19:20) Passed out - Social History Lives with: Family, Spouse/Significant other Family History: Hypertension Parental Family History Reviewed: No Children Family History Reviewed: No Sibling(s) Family History Reviewed.: No Smoking Status: Never Smoker Frequency of Alcohol Use: Rare Hx Recreational Drug Use: No Drugs: None Hx Prescription Drug Abuse: No - Past Medical History Cardiac Medical History: Reports: Hx Hypertension Pulmonary Medical History: Reports: None EENT History Note: Nose bleed last week Neurological Medical History: Reports: None Endocrine Medical History: Reports: Hx Diabetes Mellitus Type 1, Hx Diabetes Mellitus Type 2 Renal/ Medical History: Denies: Hx Peritoneal Dialysis Malignancy Medical History: Reports Hx Liver Cancer GI Medical History: Reports: Hx Cirrhosis Musculoskeltal Medical History: Reports None Skin Medical History: Reports None Psychiatric Medical History: Reports: None - Surgical History Past Surgical History: Reports: Hx Cardiac Catheterization, Hx Cholecystectomy Review of systems Constitutional: Malaise, Weakness, Weight loss - Nose Bleed EENT: Other - Nose bleed Gastrointestinal: Abdomen distended, Poor appetite Geniturinary: No symptoms reported Hematologic/Lymphatic: Easy bleeding Neurological/Psychological: Confusion Ojective:Exam Vital Signs: Temp Pulse Resp BP Pulse Ox 98.7 F 91 18 125/57 L 96 11/25/16 20:00 11/25/16 20:00 11/25/16 20:00 11/25/16 20:00 11/25/16 20:00 Intake & Output 11/24/16 11/25/16 11/26/16 06:59 06:59 06:59 Intake Total 1300 1306 845 Output Total 225 475 Balance 1075 831 845 Weight 90.4 kg 84.1 kg - General General Appearance: Alert, Anxious In distress: None - HEENT Head: Normocephalic Eyes: Normal Conjunctiva: Normal Nasal: Normal - Respiratory Respiratory Status: No respiratory distress - Cardiovascular Rhythm: Regular Pulses: Normal: Radial - Abdominal Distension: Distended - Neurological Cognition: Normal Orientation: AAOx4 Speech: Normal Cranial nerves: Normal - Psychological Associated symptoms: Normal affect, Anxious Objective-Diagnostic Laboratory: 11/24/16 07:59 11/25/16 04:06 11/25/16 11/25/16 04:06 04:06 Sodium 125.8 L Potassium 4.9 Chloride 98 Carbon Dioxide 18 L Anion Gap 10 BUN 43 H Creatinine 1.69 H Est GFR ( Amer) 50 L Est GFR (Non-Af Amer) 41 L Glucose 267 H Serum Osmolality 288 Calcium 7.5 L Total Bilirubin 3.5 H AST 101 H ALT 95 H Alkaline Phosphatase 175 H Total Protein 6.5 Albumin 2.7 L Plan and Recommendation Plan and Recommendation: Patient wants to continue his immuno therapy at [facility] but treatment has been postponed for this week due to UTI. Mr. Valle is anxious about his condition but tries to stay positive. He was veryopposed to hospice until after we talked some. This gentleman wants to remain full code and says his jose miguel make good decisions for him when needed. I gave him my cell number and card and encouraged him to call or his can call at any time if they ahve concerns, questions or needs. Will follow up on 11/27 if still admitted. Appreciate opportunity to participate in care of this patient. - Time Spent with Patient Time spent with patient: 40 to 60 Minutes Time: 50 min
[2016-11-26 05:00] LABS: PROTHROMBIN TIME 14.1 SEC (11.4-15.4)
[2016-11-26 05:01] LABS: PARTIAL THROMBOPLASTIN TIME 31.7 SEC (23.5-35.8)
[2016-11-26] MEDS: LANSOPRAZOLE 15 MG TAB.RAP.DR PO SCH (06:09)
[2016-11-26] MEDS: FERROUS SULFATE 325 MG TABLET PO SCH (08:30)
[2016-11-26 11:31] LABS: FLUID APPEARANCE SLIGHTLY HAZY
[2016-11-26 11:32] LABS: FLUID RBC AVERAGE 149.5; FLUID RBC DILUENT USED NONE USED; FLUID RBC DILUTION FACTOR 1; FLUID RBC SIDE 1 142; FLUID RBC SIDE 2 157; TOTAL RBC SQUARES COUNTED FLD 75
[2016-11-26] MEDS: SPIRONOLACTONE 25 MG TABLET PO SCH (11:55)
[2016-11-26] MEDS: DOCUSATE SODIUM 100 MG CAPSULE PO SCH (11:55)
[2016-11-26] MEDS: LEVOFLOXACIN 500 MG TABLET PO SCH (11:57)
[2016-11-26] MEDS: RIFAXIMIN 550 MG TABLET PO SCH (11:57)
[2016-11-26] MEDS: INSULIN GLARGINE,HUM.REC.ANLOG 300 UNIT/3 ML INSULN.PEN SUBCUT SCH (11:58)
[2016-11-26] MEDS: ALBUMIN HUMAN 50 ML IV SCH ×4 (12:02→15:22)
--- NOTE | 2016-11-26 13:36 | RADIOLOGY REPORT (SQ) ---
EXAM DESCRIPTION: U/S ABD PARACENTESIS COMPLETED DATE/TIME: 11/26/2016 11:46 am REASON FOR STUDY: Ascites COMPARISON None. LIMITATIONS: None. PROCEDURE: After obtaining informed consent, the patient was brought to the ultrasound suite. The p rocedure was performed with the patient on a gurney. Ultrasound was used to identify a prominent poc ket of ascites in the right lower quadrant. An appropriate access site was selected. The patient wa s prepped and draped in usual sterile fashion. The access site was anesthetized with 5 mL 1% lidoca ine. A Cepq-I-Gwrgazdx needle was advanced into the fluid. After aspiration of fluid the needle, th e catheter was advanced off the needle into the fluid. A total of 12,050 mL of straw-colored fluid w as removed. Fluid was sent to the laboratory for testing. The patient tolerated the procedure well left the department in satisfactory condition. IMPRESSION: SUCCESSFUL ULTRASOUND-GUIDED PARACENTESIS COMMENT: Patient medication list reviewed: Yes- Quality ID# [id number]:Eligible professional attests to doc umenting in the medical record they obtained, updated, or reviewed the patient's current medications. Quality ID #[id number]: The patient was prepped and draped using maximum sterile barrier technique including cap, mask, sterile gown, sterile gloves, a large sterile sheet, hand hygiene, and 2% Chlorhexidine fo r cutaneous antisepsis. When ultrasound is used, sterile ultrasound techniques are followed requiring sterile gel and sterile probes. Quality ID #[id number]: Final reports for procedures using fluoroscopy that document radiation exposure enedina omega, or exposure time and number of fluorographic images (if radiation exposure indices are not avail able) TECHNICAL DOCUMENTATION: JOB ID: [id number] D[employer]- All Rights Reserved
--- NOTE | 2016-11-26 16:39 | DISCHARGE SUMMARY E ---
Discharge Summary NAME: VELVET WILLS : 1950 AGE: 66Y ADMITTED: 11/22/2016 DISCHARGED: 11/26/2016 CODE STATUS: FULL CODE. PRIMARY CARE PROVIDER: Dr. Jackman. OPERATING COMPRESSOR TECHNICIAN: Dr. Klein in [place], [place]. OUTPATIENT ONCOLOGIST: Dr. Barber at [facility]. CONSULTING ELECTRIC METER READER: Megan Elliott. DISCHARGE DIAGNOSES: Include: 1. Hepatocellular carcinoma. 2. Nonalcoholic steatohepatitis. 3. Ascites secondary to the above. 4. SIADH. 5. Acute renal failure on stage-3 chronic kidney disease. 6. Enterococcus faecalis group-D urinary tract infection. 7. Thrombocytopenia secondary to liver dysfunction. 8. Anemia of chronic disease. DISCHARGE MEDICATIONS: Include: 1. Xifaxan 500 mg p.o. b.i.d. 2. Aldactone 50 mg p.o. daily. 3. Protonix 20 mg p.o. daily. 4. Levaquin 500 mg p.o. daily, 9 tablets, 0 refills. 5. Lantus 20 units subcutaneous at hour of sleep. 6. Lasix 20 mg p.o. daily. 7. Flonase 2 sprays daily p.r.n. 8. Zyrtec 10 mg p.o. daily p.r.n. DIET: Low-protein. ACTIVITY: As tolerated. DIAGNOSTICS: Lab values are as follows: Hematology obtained on 11/24/2016; WBCs are 5.7, hemoglobin is 9.6, hematocrit is 27.8, platelet count is 133,000. Coagulation obtained on 11/26/2016: PT is 14.1, INR is 1.02. Chemistry obtained on 11/25/2016: Sodium is 125, potassium 4.9, chloride is 98, carbon dioxide 18, BUN 43, creatinine is 0.69, glucose 267, serum osmolality is 288, calcium is 7.5, total bilirubin 3.5, direct bilirubin is 2.3, AST 101, ALT is 95, alkaline phosphatase 175, total protein is 6.3, albumin 2.7, iron 63, TIBC is 187, percent saturation is 23, ferritin is 174, vitamin B12 is 886, folate is 19. Urine obtained on 11/21/2016: Color orange, appearance slightly cloudy, pH is 5.0, specific gravity is 1.018, protein 30, glucose 60, ketones negative, occult blood negative, nitrite negative, bilirubin negative, urobilinogen is 4.0, leukocyte esterase is, WBCs 6, RBCs 3, casts 3, bacteria trace, epithelial squamous cells 2, mucus rare, ascorbic acid is 40. Microbiology: Blood cultures obtained on 11/21/2016 revealed no growth. Urine culture obtained on 11/21/2016 revealed Enterococcus faecalis group D. Chest x-ray obtained on 11/21/2016 reveals no significant radiographic finding of the chest. Paracentesis obtained on 11/26/2016 reveals a total of 12,050 mL of straw-colored fluid. HISTORY OF PRESENT ILLNESS: The patient is a 66-year-old male with a past medical history of hepatocellular carcinoma. The patient presented to the emergency department with chief complaint of fever and anorexia. The patient has received 2 cycles of immunotherapy of nivolumab. The patient's last infusion was a week prior to presentation. The patient does have scheduled paracentesis with albumin every week. The patient apparently has developed a poor p.o. intake, fever, malaise prompting him to seek evaluation in the emergency room where he was found to have a fever of 101.3, markedly abnormal LFTs, jaundice, and acute renal failure with a creatinine of 1.7. The patient adamantly denied headache, photophobia, stiff neck, sore throat, chest pain, shortness of breath, vomiting, abdominal pain, diarrhea, dysuria, joint pain. The patient was referred to the hospitalist for admission and management. HOSPITAL COURSE: The patient was admitted to continuous telemetry unit. The patient had evidence of an early sepsis. However, the patient had a lingering fever. The patient was initially treated for spontaneous bacterial peritonitis, but findings were not suggestive of this as the patient's urine actually was growing Enterococcus faecalis group D. The patient was placed on the appropriate antibiotic with renally adjusted, and the patient had an excellent response with his symptoms. The patient was seen and evaluated by Palliative Care during his stay which was the recommendation of [facility]. However, the patient adamantly refuses to discuss hospice or any end-of-life planning and wishes to remain a FULL CODE. The patient's prognosis is extremely poor at this time. The patient did have a paracentesis during his stay given that he was so uncomfortable, and the patient is now ready for discharge. The patient did receive 4 amps of albumin post paracentesis. PHYSICAL EXAMINATION: GENERAL: On examination the patient is a frail, chronically ill-appearing, 66-year-old male who is awake, alert. He is oriented to person, place, time, situation, and does not appear to be in any acute distress. VITAL SIGNS: As follows: Temperature is 98.8, pulse 98, respirations 18, blood pressure is 115/59, oxygen saturation 98% on room air. SKIN: Jaundiced, pale, dry. HEENT: The patient does have sclerae that is icteric. Conjunctiva is pale. NECK: No JVP. CARDIOVASCULAR SYSTEM: Heart is irregular. There is no murmur or rub. CHEST: Clear, symmetrical, unlabored. ABDOMEN: Firm, not nearly as distended as yesterday. EXTREMITIES: No clubbing, cyanosis, edema. PSYCHIATRIC: A flat affect. DISCHARGE PLANNIN. The patient is to follow up with [facility] in 1 week post discharge. 2. The patient is to follow up with his campus police officer as already scheduled for paracentesis. Time spent on this discharge including assessment, plan, physical examination, patient education, and outpatient resource alignment, discussing the case with [facility] as well as his campus police officer is 40 minutes. DICTATING PHYSICIAN: VERN KYLE NP [id number] PHY#: [id number] ID: [id number] JOB#: [id number] ACCT: [id number] cc:GABI SERRANO M.D. > MTDD
[2016-11-26 16:57] VITALS: BP 115/59
== END 2016-11-26 18:07 | disposition home health service (06) | DRG 690 ==
LOC: ER 19:10 → EH 11-22 02:51 → UNDOADMIN 11-22 02:51 → EH 11-22 03:03 → 5 11-22 05:28
PROVIDERS: ADMIT Internal Medicine; ATTEND Internal Medicine
PROC: 30233N1 Transfusion of Nonautologous Red Blood Cells into Peripheral Vein, Percutaneous Approach (ICD-10-PCS; 2016-11-22)
PROC: 0W9G3ZX Drainage of Peritoneal Cavity, Percutaneous Approach, Diagnostic (ICD-10-PCS; principal; 2016-11-26)
DX: N39.0 Urinary tract infection, site not specified (principal); N17.9 Acute kidney failure, unspecified; C22.0 Liver cell carcinoma; R18.0 Malignant ascites; E22.2 Syndrome of inappropriate secretion of antidiuretic hormone; Z51.5 Encounter for palliative care; K75.81 Nonalcoholic steatohepatitis (NASH); B95.2 Enterococcus as the cause of diseases classified elsewhere; D69.59 Other secondary thrombocytopenia; D63.1 Anemia in chronic kidney disease; K74.60 Unspecified cirrhosis of liver; E11.9 Type 2 diabetes mellitus without complications; I12.9 Hypertensive chronic kidney disease with stage 1 through stage 4 chronic kidney disease, or unspecified chronic kidney disease; D73.1 Hypersplenism; D63.8 Anemia in other chronic diseases classified elsewhere; D50.9 Iron deficiency anemia, unspecified; Z79.899 Other long term (current) drug therapy; Z88.0 Allergy status to penicillin; Z90.49 Acquired absence of other specified parts of digestive tract; Z82.49 Family history of ischemic heart disease and other diseases of the circulatory system
CPT/HCPCS: 36415; 36430; 49083; 71020; 80053; 81001; 82140; 82607; 82728; 82746; 82962; 83540; 83550; 83930; 85025; 85045; 85610; 85730; 86850; 86900; 86901; 86920; 87040; 87070; 87075; 87086; 87088; 87186; 87205; 89050; 99285; A9270-GY; G8978-GP; G8979-GP; J0698; J1815; J7030; P9016; P9047

== ENCOUNTER 2017-01-01 18:12 | Inpatient (IN) | payer MEDICARE, OTHER ==
--- NOTE | 2017-01-01 18:42 | ER Document Report ---
ED Medical Screen (RME) - General Chief Complaint: Abdominal Pain Stated Complaint: ABSCESS Time Seen by Provider: 01/01/17 18:34 Mode of Arrival: Wheelchair Information source: Patient, Relative Notes: This is a 66-year-old man with hepatocellular cancer who receives immunotherapy at [facility], weekly paracentesis in [place] (Dr. Klein). The patient has a recent hospitalization for sepsis with UTI. He presents today with concerns for rectal abscess. He also states that he was supposed to have his paracentesis today but his GI doctor referred him here because of the rectal abscess. Patient reports chills. He is also having a lot of pain. TRAVEL OUTSIDE OF THE [place] IN LAST 30 DAYS: No - Related Data Allergies/Adverse Reactions: Penicillins Allergy (Intermediate, Verified 01/01/17 18:19) Passed out Past Medical History - Social History Chew tobacco use (# tins/day): No Frequency of alcohol use: None Drug Abuse: None - Past Medical History Cardiac Medical History: Reports: Hx Hypertension Endocrine Medical History: Reports: Hx Diabetes Mellitus Type 1, Hx Diabetes Mellitus Type 2 Renal/ Medical History: Denies: Hx Peritoneal Dialysis Malignancy Medical History: Reports Hx Liver Cancer GI Medical History: Reports: Hx Cirrhosis Past Surgical History: Reports: Hx Cardiac Catheterization, Hx Cholecystectomy - Immunizations Hx Diphtheria, Pertussis, Tetanus Vaccination: Yes Physical Exam - Vital signs Vitals: Temp Pulse Resp BP Pulse Ox 98.1 F 118 H 18 121/51 L 99 01/01/17 18:20 01/01/17 18:20 01/01/17 18:20 01/01/17 18:20 01/01/17 18:20 Course - Vital Signs Vital signs: Temp Pulse Resp BP Pulse Ox 98.1 F 118 H 18 121/51 L 99 01/01/17 18:20 01/01/17 18:20 01/01/17 18:20 01/01/17 18:20 01/01/17 18:20
[2017-01-01] MEDS ORDERED: FENTANYL CITRATE INJ/PF 100 MCG/2 ML AMPUL IV ONE (19:33)
[2017-01-01 19:34] LABS: HEMATOCRIT 23.4 % (37.9-51.0); HEMOGLOBIN 8.1 g/dL (13.5-17.0); HGB HCT DIFFERENCE 0.9; MEAN CORPUSCULAR HEMOGLOBIN 35.8 pg (27.0-33.4); MEAN CORPUSCULAR HGB CONC 34.5 g/dL (32.0-36.0); MEAN CORPUSCULAR VOLUME 104 fl (80-97); RED BLOOD COUNT 2.25 10^6/uL (4.35-5.55); RED CELL DISTRIBUTION WIDTH 17.8 % (11.5-14.0); WHITE BLOOD COUNT 16.9 10^3/uL (4.0-10.5)
[2017-01-01] MEDS ORDERED: ONDANSETRON HCL INJ/PF 4 MG/2 ML SDV IV ONE (19:34)
--- NOTE | 2017-01-01 19:34 | ER Document Report ---
ED Skin Rash/Insect Bite/Abscs - General Mode of Arrival: Wheelchair Information source: Patient TRAVEL OUTSIDE OF THE [place] IN LAST 30 DAYS: No - HPI Patient complains to provider of: Skin rash/lesion, Tender/swollen area Onset: Yesterday Skin Character: Abscess Recently seen / treated by doctor: Yes <AIDEN AL - Last Filed: 01/02/17 00:47> <TYRONE WARD - Last Filed: 01/02/17 03:32> - General Chief Complaint: Abdominal Pain Stated Complaint: ABSCESS Time Seen by Provider: 01/01/17 18:34 Notes: Patient is a 66-year-old male who presents to the emergency department today with complaints of rectal pain. Patient has known hepatocellular carcinoma with weekly paracentesis at [facility]. Patient states he missed his paracentesis yesterday because he was unable to sit in a car due to rectal pain. Patient states his was bathing him and she noticed a "boil" at the patient's rectum. Patient appears chronically ill which is his baseline. (AIDEN AL) - Related Data Allergies/Adverse Reactions: Penicillins Allergy (Intermediate, Verified 01/01/17 18:19) Passed out Past Medical History - General Information source: Patient, Relative - Social History Smoking Status: Never Smoker Cigarette use (# per day): No Chew tobacco use (# tins/day): No Frequency of alcohol use: None Drug Abuse: None Lives with: Family Family History: Reviewed & Not Pertinent, Hypertension - Past Medical History Cardiac Medical History: Reports: Hx Hypertension Endocrine Medical History: Reports: Hx Diabetes Mellitus Type 1, Hx Diabetes Mellitus Type 2 Malignancy Medical History: Reports Hx Liver Cancer GI Medical History: Reports: Hx Cirrhosis Past Surgical History: Reports: Hx Cardiac Catheterization, Hx Cholecystectomy - Immunizations Hx Diphtheria, Pertussis, Tetanus Vaccination: Yes <AIDEN AL - Last Filed: 01/02/17 00:47> Review of Systems - Review of Systems Constitutional: No symptoms reported EENT: No symptoms reported Cardiovascular: No symptoms reported Respiratory: No symptoms reported Gastrointestinal: No symptoms reported Genitourinary: No symptoms reported Male Genitourinary: No symptoms reported Musculoskeletal: No symptoms reported Skin: See HPI, Other - perirectal pain, possible abscess Hematologic/Lymphatic: No symptoms reported Neurological/Psychological: No symptoms reported -: Yes All other systems reviewed and negative <AIDEN AL - Last Filed: 01/02/17 00:47> Physical Exam <AIDEN AL - Last Filed: 01/02/17 00:47> <TYRONE WARD - Last Filed: 01/02/17 03:32> - Vital signs Vitals: Temp Pulse Resp BP Pulse Ox 98.1 F 118 H 18 121/51 L 99 01/01/17 18:20 01/01/17 18:20 01/01/17 18:20 01/01/17 18:20 01/01/17 18:20 - Notes Notes: Physical Exam: General: Alert, appears chronically ill appearing. HEENT: Normocephalic. Atraumatic. PERRL. Extraocular movements intact. Oropharynx clear. Neck: Supple. Non-tender. Respiratory: No respiratory distress. Clear and equal breath sounds bilaterally. Cardiovascular: Tachycardic, regular rhythm. Abdominal: Abdominal ascites. Non-tender. Normal Bowel Sounds. Rectal: Head of abscess noted at the perianal area, no active drainage. No fluctuance appreciated inside the rectum. Back: Non-tender. No deformity or step off. Extremities: Moves all four extremities. Upper extremities: Normal inspection. Normal ROM. Lower extremities: Normal inspection. No edema. Normal ROM. Neurological: Normal cognition. AAOx4. Normal speech. Psychological: Normal affect. Normal Mood. Skin: Warm. Dry. Jaundiced. (MIKAELAAIDEN) Course - Laboratory Result Diagrams: 01/01/17 19:15 01/01/17 23:37 - Consults Surgery Time consulted: 19:30 - Dr. Barnes was in the ED, agrees to see the patient now. Cardiology Time consulted: 20:32 <AIDEN AL - Last Filed: 01/02/17 00:47> - Laboratory Result Diagrams: 01/01/17 19:15 01/01/17 23:37 <TYRONE WARD - Last Filed: 01/02/17 03:32> - Re-evaluation Re-evalutation: 01/01/17 20:38 Patient is chronically ill with hepatocellular carcinoma who receives immune treatment at [facility] and weekly paracentesis. He did not go to his paracentesis 2 days ago because he was having pain in his rectal area his bathe him yesterday and noticed some swelling down by his rectum. On ED arrival he is jaundiced chronically ill-appearing tachycardic and sepsis protocol was instituted. He has abdominal ascites but no emergent respiratory distress. On rectal examination you can see the head of of an abscess developing at the perianal area there is no active pus drainage cellulitis crepitus necrosis rectal examination I do not feel fluctuance inside the rectum. Laboratory evaluation I talked to the surgeon he has seen and evaluated the patient is going to admit him surgically to the hospital did broad -spectrum antibiotics on him. Patient has hyponatremia IV fluids administered. Patient has hyperkalemia EKG faxed to Dr. Mosqueda no acute clinical concerns from that standpoint. Given calcium little bit of renal insufficiency been ordered a repeat of those labs. I spoke with Dr. Lofton and tomorrow the surgeon patient is going to go to the ICU with surgical consultation in critical condition. Patient's potassium level came back elevated. Stat EKG showed some concerning changes but ascended to Dr. Mosqueda crowd controller and he states he thinks this is a lead placement issue and is not concerned about any acute pathology and asked for to be repeated. Also repeating the potassium level given an amp of calcium gluconate. 01/01/17 22:04 (TYRONE WARD) - Vital Signs Vital signs: Temp Pulse Resp BP Pulse Ox 98.8 F 104 H 14 104/57 L 98 01/02/17 01:49 01/02/17 01:49 01/02/17 02:09 01/02/17 01:49 01/02/17 02:09 - Laboratory Laboratory results interpreted by me: 01/01/17 01/01/17 01/01/17 19:15 19:15 19:15 WBC 16.9 H RBC 2.25 L Hgb 8.1 L Hct 23.4 L MCV 104 H MCH 35.8 H RDW 17.8 H Seg Neuts % (Manual) 83 H Band Neutrophils % 1 L Lymphocytes % (Manual) 10 L Abs Neuts (Manual) 14.2 H Sodium 117.3 L* Potassium 6.4 H* Chloride 92 L Carbon Dioxide 13 L BUN 90 H Creatinine 1.77 H Est GFR ( Amer) 47 L Est GFR (Non-Af Amer) 39 L Glucose 232 H Lactic Acid Total Bilirubin 10.0 H Direct Bilirubin 7.7 H AST 518 H ALT 315 H Alkaline Phosphatase 359 H Ammonia < 8.7 L Albumin 2.8 L 01/01/17 01/01/17 19:15 21:25 WBC RBC Hgb Hct MCV MCH RDW Seg Neuts % (Manual) Band Neutrophils % Lymphocytes % (Manual) Abs Neuts (Manual) Sodium Potassium 6.2 H* Chloride Carbon Dioxide BUN Creatinine Est GFR ( Amer) Est GFR (Non-Af Amer) Glucose Lactic Acid 2.5 H Total Bilirubin Direct Bilirubin AST ALT Alkaline Phosphatase Ammonia Albumin - EKG Interpretation by Me Additional EKG results interpreted by me: 01/01/17 22:06 Sinus tachycardia [address] segment elevation or depression also being read by Dr. Mosqueda (TYRONE WARD) Critical Care Note - Critical Care Note Total time excluding time spent on procedures (mins): 65 <TYRONE WARD - Last Filed: 01/02/17 03:32> Discharge <AIDEN AL - Last Filed: 01/02/17 00:47> - Discharge Admitting Provider: Hospitalist Unit Admitted: ICU <TYRONE WARD - Last Filed: 01/02/17 03:32> - Discharge Clinical Impression: Perianal abscess, Anemia of chronic disease, Hyponatremia, Hypokalemia, Renal Insufficiency, Hepatocellular carcinoma Condition: Critical Disposition: ADMITTED INPATIENT Scribe Attestation: 01/01/17 22:03 I personally performed the services described in the documentation reviewed the documentation recorded by my scribe in my presence and it accurately and completely records my words and actions (TYRONE WARD) Scribe Documentation - Scribe Written by Radha:: Radha Patel, 01/02/2017 0050 acting as scribe for :: Raf <AIEDN AL - Last Filed: 01/02/17 00:47>
[2017-01-01] MEDS ORDERED: CEFTRIAXONE INJ 1000 MG VIAL IV ONE (19:35)
[2017-01-01 19:41] LABS: PROTHROMBIN TIME 15.4 SEC (11.4-15.4)
[2017-01-01 19:50] LABS: ALANINE AMINOTRANSFERASE 315 U/L (21-72); ALBUMIN 2.8 g/dL (3.5-5.0); ALKALINE PHOSPHATASE 359 U/L (38-126); ANION GAP 12 (5-19); ASPARTATE AMINO TRANSFERASE 518 U/L (17-59); BILIRUBIN,DIRECT 7.7 mg/dL (0.0-0.4); BLOOD UREA NITROGEN 90 mg/dL (7-20); CALCIUM 8.5 mg/dL (8.4-10.2); CARBON DIOXIDE 13 mmol/L (22-30); CHLORIDE 92 mmol/L (98-107); CREATININE RESULT 1.77 mg/dL (0.52-1.25); GLUCOSE 232 mg/dL (75-110); TOTAL PROTEIN 6.6 g/dL (6.3-8.2)
[2017-01-01 19:57] LABS: POTASSIUM 6.4 mmol/L (3.6-5.0); SODIUM 117.3 mmol/L (137-145)
[2017-01-01 20:08] LABS: BAND NEUTROPHILS % (MANUAL) 1 % (3-5); BASOPHILS % (MANUAL) 0 % (0-2); EOSINOPHILS % (MANUAL) 0 % (0-6); LYMPHOCYTES % (MANUAL) 10 % (13-45); TOTAL CELLS COUNTED 100; TOXIC GRANULATION 1+
[2017-01-01 20:09] LABS: ANISOCYTOSIS 1+; HYPOCHROMASIA 1+
[2017-01-01 20:10] LABS: BURR CELLS 1+; POLYCHROMASIA SLIGHT
[2017-01-01 20:11] LABS: PLATELET CLUMPS PRESENT
[2017-01-01] MEDS: CLINDAMYCIN 600 MG/D5W RTU 600 MG/50 ML RTUPB IV SCH (20:11)
[2017-01-01] MEDS ORDERED: CALCIUM GLUCONATE 1000 MG/10 ML INJ IV ONE (20:24)
--- NOTE | 2017-01-01 20:36 | EKG REPORT ---
SEVERITY:- ABNORMAL ECG - SINUS TACHYCARDIA LEFT POSTERIOR FASCICULAR BLOCK PROBABLE ANTEROSEPTAL INFARCT, AGE INDETERM VS LEAD PLACEMENT ABNORMALITY : Confirmed by: Winter Mosqueda 01-Jan-2017 20:35:41
[2017-01-01] MEDS ORDERED: DEXTROSE 40% GEL 15 GM TUBE PO PRN ×2 (21:37)
[2017-01-01] MEDS ORDERED: DEXTROSE 50%-WATER 25 GM/50 ML DISP.SYRIN IV PRN ×2 (21:37)
[2017-01-01] MEDS ORDERED: GLUCAGON,HUMAN RECOMB 1 MG INJ IM PRN (21:37)
[2017-01-01] MEDS ORDERED: NORMAL SALINE 1000 ML 1,000 ML IV SCH (21:45)
[2017-01-01] MEDS ORDERED: IRON SUCROSE COMPLEX INJ/PF 100 MG/5 ML SDV IV ONE (21:54)
[2017-01-01] MEDS ORDERED: MAG HYDROX/AL HYDROX/SIMETH SUSP 30 ML UDCUP PO PRN (21:55)
--- NOTE | 2017-01-01 21:59 | PDOC CONSULTATION ---
History of Present Illness Admission Date/PCP: GEORGIA EMANUEL MD Patient complains of: Perirectal pain and abdominal pain for the last 4 days. History of Present Illness: VELVET WILLS SR is a 66 year old male who was complaining of abdominal pain and alicia-rectal pain for the past 4 days. Patient has hepatocellular carcinoma and ascites, for which he gets paracentesis weekly. The patient's noted the alicia-anal swelling and brought the patient to the emergency room for this reason. Because of the abdominal and alicia-rectal pain, patient has missed his weekly paracentesis, which was done on Thursday. As a result, his abdominal distention secondary to the ascites is causing significant discomfort. The patient has not had chemotherapy for 1 month. Surgical consult has been requested for drainage of the perirectal abscess. Past Medical History Cardiac Medical History: Reports: Hypertension Endocrine Medical History: Reports: Diabetes Mellitus Type 1, Diabetes Mellitus Type 2 Malignancy Medical History: Reports: Liver Cancer GI Medical History: Reports: Cirrhosis Past Surgical History Past Surgical History: Reports: Cardiac Catheterization, Cholecystectomy Social History Lives with: Family Smoking Status: Never Smoker Frequency of Alcohol Use: Rare Hx Recreational Drug Use: No Drugs: None Hx Prescription Drug Abuse: No Family History Family History: Reviewed & Not Pertinent, Hypertension Parental Family History Reviewed: No Children Family History Reviewed: No Sibling(s) Family History Reviewed.: No Medication/Allergy Home Medications: Cetirizine HCl [Zyrtec 10 mg Tablet] 10 mg PO DAILYP PRN 11/22/16 Fluticasone Propionate [Flonase Nasal Jackson 50 Mcg/Jackson 16 gm] 2 spray NASL DAILYP PRN 11/22/16 Furosemide [Lasix] 20 mg PO DAILY 11/22/16 Insulin Glargine,Hum.rec.anlog [Lantus Solostar] 20 units SQ HSP PRN 11/22/16 Pantoprazole Sodium [Protonix] 20 mg PO DAILY 11/22/16 Spironolactone [Aldactone] 50 mg PO DAILY 11/22/16 Xifaxan 550 550 mg PO BID 11/22/16 Levofloxacin [Levaquin 500 mg Tablet] 500 mg PO DAILY #9 tablet 11/26/16 Allergies/Adverse Reactions: Penicillins Allergy (Intermediate, Verified 01/01/17 18:19) Passed out Physical Exam Vital Signs: Temp Pulse Resp BP Pulse Ox 98.1 F 118 H 17 113/61 98 01/01/17 18:20 01/01/17 18:20 01/01/17 21:01 01/01/17 21:00 01/01/17 21:01 Intake & Output 12/31/16 01/01/17 01/02/17 06:59 06:59 06:59 Weight 72.5 kg General appearance: PRESENT: cooperative, mild distress Eye exam: PRESENT: EOMI, scleral icterus Neck exam: PRESENT: full ROM Respiratory exam: PRESENT: clear to auscultation art Cardiovascular exam: PRESENT: RRR GI/Abdominal exam: PRESENT: ascites, diminished bowel sounds, distended, guarding Results Laboratory Results: 01/01/17 19:15 01/01/17 01/01/17 01/01/17 19:15 19:15 19:15 WBC 16.9 H RBC 2.25 L Hgb 8.1 L Hct 23.4 L MCV 104 H MCH 35.8 H MCHC 34.5 RDW 17.8 H Plt Count 203 Seg Neutrophils % Not Reportable Lymphocytes % Not Reportable Monocytes % Not Reportable Eosinophils % Not Reportable Basophils % Not Reportable Absolute Neutrophils Not Reportable Absolute Lymphocytes Not Reportable Absolute Monocytes Not Reportable Absolute Eosinophils Not Reportable Absolute Basophils Not Reportable Sodium 117.3 L* Potassium 6.4 H* Chloride 92 L Carbon Dioxide 13 L Anion Gap 12 BUN 90 H Creatinine 1.77 H Est GFR ( Amer) 47 L Est GFR (Non-Af Amer) 39 L Glucose 232 H Lactic Acid Calcium 8.5 Total Bilirubin 10.0 H AST 518 H ALT 315 H Alkaline Phosphatase 359 H Ammonia < 8.7 L Total Protein 6.6 Albumin 2.8 L 01/01/17 19:15 WBC RBC Hgb Hct MCV MCH MCHC RDW Plt Count Seg Neutrophils % Lymphocytes % Monocytes % Eosinophils % Basophils % Absolute Neutrophils Absolute Lymphocytes Absolute Monocytes Absolute Eosinophils Absolute Basophils Sodium Potassium Chloride Carbon Dioxide Anion Gap BUN Creatinine Est GFR ( Amer) Est GFR (Non-Af Amer) Glucose Lactic Acid 2.5 H Calcium Total Bilirubin AST ALT Alkaline Phosphatase Ammonia Total Protein Albumin Assessment & Plan - Diagnosis (1) Anemia Qualifiers: Anemia type: iron deficiency (2) Ascites Qualifiers: Ascites type: malignant (3) Hepatocellular carcinoma Is this a current diagnosis for this admission?: Yes (4) Hyponatremia Is this a current diagnosis for this admission?: Yes - Plan Summary Plan Summary: The patient is significantly hyponatremic and hyperkalemic, and represents a prohibitive surgical risk. Incision and drainage of his perirectal abscess cannot be done until these critical electrolyte imbalances are corrected. Have discussed this case with Dr. Jairo Lofton, who has kindly accepted this patient. Will be available to perform the I&D at a later time.
[2017-01-01] MEDS ORDERED: THIAMINE HCL 100 MG, FOLIC ACID 1 MG in NORMAL SALINE 50 ML IV SCH (22:00)
[2017-01-01] MEDS ORDERED: THIAMINE HCL INJ 200 MG/2 ML VIAL ONE (22:24)
[2017-01-01] MEDS ORDERED: FOLIC ACID INJ 5 MG/1 ML 10 ML VIAL ONE (22:25)
[2017-01-01] MEDS ORDERED: INSULIN REG, HUMAN 100 UNIT/ML 3 ML VIAL (PYX) ONE (22:27)
[2017-01-01] MEDS: ALBUMIN HUMAN 50 ML IV SCH (23:28)
[2017-01-01] MEDS: HEPARIN SOD (PORCINE) 5,000 UNIT/ML 1 ML SYRINGE SUBCUT SCH (23:30)
[2017-01-02 00:02] LABS: BLOOD UREA NITROGEN 90 mg/dL (7-20); CALCIUM 8.6 mg/dL (8.4-10.2); CARBON DIOXIDE 14 mmol/L (22-30); CHLORIDE 95 mmol/L (98-107); CREATININE RESULT 1.77 mg/dL (0.52-1.25); GLUCOSE 189 mg/dL (75-110); POTASSIUM 5.8 mmol/L (3.6-5.0)
[2017-01-02 00:10] LABS: ANION GAP 11 (5-19)
[2017-01-02 00:16] LABS: SODIUM 119.7 mmol/L (137-145)
[2017-01-02] MEDS: ALBUMIN HUMAN 50 ML IV SCH ×2 (00:18→01:31)
[2017-01-02] MEDS: INSULIN LISPRO 100 UNIT/ML 3 ML VIAL SUBCUT PRN (00:34)
[2017-01-02] MEDS: IPRATROPIUM/ALBUTEROL 0.5-2.5 MG/3 ML AMPUL NEB SCH ×4 (00:44→19:46)
--- NOTE | 2017-01-02 01:42 | OPERATIVE REPORT E ---
Operative Report NAME: VELVET WILLS : 1950 AGE: 66Y DATE OF SURGERY: 01/02/2017 ROOM: 612 PREOPERATIVE DIAGNOSIS: Need for central venous line insertion to correct hyponatremia with a sodium of 117 and to correct hypokalemia with a potassium of 6.4. POSTOPERATIVE DIAGNOSIS: Need for central venous line insertion to correct hyponatremia with a sodium of 117 and to correct hypokalemia with a potassium of 6.4. PROCEDURE PERFORMED: Insertion of right internal jugular vein triple lumen catheter. SURGEON: REJI NOVA M.D. ANESTHESIA: Local with 1% lidocaine. COMPLICATIONS: None. CONDITION: Stable. DESCRIPTION OF PROCEDURE: After adequate consent had been obtained, the patient's right neck was prepped and draped in the usual sterile manner. Timeout was achieved, and then local anesthesia was injected into the middle of the right anterior triangle. After injection of local anesthesia and the creation of a small wheal, a stab wound incision was made in the middle of the wheal, and then the right internal jugular vein was accessed percutaneously. After a flash of venous blood was noted in the syringe, the syringe was removed and the guidewire was inserted through the needle and advanced accordingly through the internal jugular into the brachiocephalic and ultimately in the superior vena cava presumably. There was no ectopy noted. We then placed a vein dilator over the guidewire, and then using the sterile Seldinger technique, the triple lumen catheter was advanced over the guidewire to the 20 cm lourdes and the guidewire was removed. There was good antegrade and retrograde flow through each lumen and each was flushed with saline. The catheter was secured at the 20 cm lourdes, and portable chest x-ray has been requested. The Biopatch and the Tegaderm was then applied and the procedure was terminated. The patient tolerated the procedure well. Portable chest x-ray shows the catheter in the superior vena cava next to the right atria. DICTATING PHYSICIAN: REJI NOVA M.D. [id number] PHY#: [id number] ID: [id number] JOB#: [id number] ACCT: [id number] cc:REJI NOVA M.D. >
--- NOTE | 2017-01-02 03:31 | RADIOLOGY REPORT (SQ) ---
EXAM DESCRIPTION: CHEST SINGLE VIEW COMPLETED DATE/TIME: 01/02/2017 1:22 am REASON FOR STUDY: sob COMPARISON: ..16, 9.6.16 CT abdomen pelvis, 10/15/2011. EXAM PARAMETERS: NUMBER OF VIEWS: One view. TECHNIQUE: Single frontal radiographic view of the chest acquired. RADIATION DOSE: NA LIMITATIONS: None. FINDINGS: LUNGS AND PLEURA: Moderate lung volumes. Pulmonary vascular congestion. Small chronic op acity/cardiophrenic fat in the lateral left lung base. MEDIASTINUM AND HILAR STRUCTURES: No masses. Contour normal. HEART AND VASCULAR STRUCTURES: Heart normal in size. Normal vasculature. BONES: No acute findings. HARDWARE: Tip of a right internal jugular central line at the inferior right atrium; consider 10 cm r etraction. OTHER: No other significant finding. IMPRESSION: Moderate lung volumes. Tip of a right internal jugular central line at the inferior rig ht atrium; consider 10 cm retraction. TECHNICAL DOCUMENTATION: JOB ID: [id number]
[2017-01-02 04:04] LABS: ANION GAP 11 (5-19); BLOOD UREA NITROGEN 84 mg/dL (7-20); CALCIUM 8.4 mg/dL (8.4-10.2); CARBON DIOXIDE 15 mmol/L (22-30); CHLORIDE 97 mmol/L (98-107); CREATININE RESULT 1.58 mg/dL (0.52-1.25); GLUCOSE 100 mg/dL (75-110); POTASSIUM 5.5 mmol/L (3.6-5.0); SODIUM 122.5 mmol/L (137-145)
[2017-01-02] MEDS: CLINDAMYCIN 600 MG/D5W RTU 600 MG/50 ML RTUPB IV SCH (06:17)
[2017-01-02] MEDS: HEPARIN SOD (PORCINE) 5,000 UNIT/ML 1 ML SYRINGE SUBCUT SCH ×3 (06:18→21:28)
--- NOTE | 2017-01-02 06:29 | PDOC H&P ---
History of Present Illness Admission Date/PCP: 01/01/17 21:55 GEORGIA EMANUEL MD Patient complains of: Abdominal distention History of Present Illness: VELVET WILLS SR is a 66 year old male with a past medical history of diabetes , Wu and hepatocellular carcinoma who is a patient of Dr. Barber in [place] at [phone]. Presents with a chief complaint of perirectal abscess, abdominal distention and shortness of breath. He has continued to receive weekly paracentesis from gastroenterology at [facility] but was unwell and missed his last appointment. Patient was on palliative immunotherapy until last month after toxicity mandated discontinuation. Lasix was recently discontinued, the patient has discontinued prednisone 20 mg twice daily as he is intolerant secondary to insomnia but takes it every morning. In the emergency room he is found jaundiced, hypotensive and tachycardic with leukocytosis, critical hyperkalemia of 6.4 with peak T waves and sodium of 117 with acute renal failure. He receives IV calcium gluconate and referred to the hospitalist for admission. With surgical consultation for perirectal abscess. Past Medical History Cardiac Medical History: Reports: Hypertension Endocrine Medical History: Reports: Diabetes Mellitus Type 1, Diabetes Mellitus Type 2 Malignancy Medical History: Reports: Liver Cancer GI Medical History: Reports: Cirrhosis Psychiatric Medical History: Denies: Depression Past Surgical History Past Surgical History: Reports: Cardiac Catheterization, Cholecystectomy Social History Information Source: Patient, Emergency Med Personnel, [facility] Records Lives with: Family Smoking Status: Never Smoker Frequency of Alcohol Use: None Hx Recreational Drug Use: No Drugs: None Hx Prescription Drug Abuse: No - Advance Directive Resuscitation Status: Full Code Family History Family History: Reviewed & Not Pertinent, Hypertension Parental Family History Reviewed: Yes Children Family History Reviewed: Yes Sibling(s) Family History Reviewed.: Yes Medication/Allergy Home Medications: Cetirizine HCl [Zyrtec 10 mg Tablet] 10 mg PO DAILYP PRN 11/22/16 Fluticasone Propionate [Flonase Nasal [place] 50 Mcg/[place] 16 gm] 2 spray NASL DAILYP PRN 11/22/16 Furosemide [Lasix] 20 mg PO DAILY 11/22/16 Insulin Glargine,Hum.rec.anlog [Lantus Solostar] 20 units SQ HSP PRN 11/22/16 Pantoprazole Sodium [Protonix] 20 mg PO DAILY 11/22/16 Spironolactone [Aldactone] 50 mg PO DAILY 11/22/16 Xifaxan 550 550 mg PO BID 11/22/16 Levofloxacin [Levaquin 500 mg Tablet] 500 mg PO DAILY #9 tablet 11/26/16 Allergies/Adverse Reactions: Penicillins Allergy (Intermediate, Verified 01/01/17 18:19) Passed out Review of Systems Constitutional: PRESENT: as per HPI, anorexia, fatigue, weakness, weight gain. ABSENT: chills, fever(s), headache(s) Eyes: ABSENT: visual disturbances Ears: ABSENT: hearing changes Cardiovascular: PRESENT: edema. ABSENT: chest pain, dyspnea on exertion, orthropnea, palpitations Respiratory: PRESENT: dyspnea. ABSENT: cough Gastrointestinal: PRESENT: abdominal pain, bloating, other - Perirectal abscess. ABSENT: coffee ground emesis, constipation, diarrhea Genitourinary: ABSENT: dysuria, hematuria Musculoskeletal: PRESENT: muscle weakness. ABSENT: joint swelling Integumentary: ABSENT: rash, wounds Neurological: ABSENT: abnormal gait, abnormal speech, confusion, dizziness, focal weakness, syncope Psychiatric: PRESENT: other - Very poor insight Hematologic/Lymphatic: PRESENT: easy bruising Physical Exam Vital Signs: Temp Pulse Resp BP Pulse Ox 98.9 F 104 H 14 104/57 L 98 01/02/17 04:00 01/02/17 01:49 01/02/17 02:09 01/02/17 01:49 01/02/17 02:09 Intake & Output 12/31/16 01/01/17 01/02/17 11:59 11:59 11:59 Output Total 300 Balance -300 Weight 73.6 kg General appearance: PRESENT: cooperative, severe distress, thin. ABSENT: well- developed, well-nourished Head exam: PRESENT: atraumatic, normocephalic Eye exam: PRESENT: PERRLA, scleral icterus. ABSENT: conjunctival injection, conjunctiva pink Ear exam: PRESENT: normal external ear exam Mouth exam: PRESENT: dry mucosa, neck supple, tongue midline Neck exam: ABSENT: carotid bruit, JVD, lymphadenopathy, thyromegaly Respiratory exam: PRESENT: accessory muscle use, crackles, decreased breath sounds, symmetrical, tachypnea. ABSENT: rhonchi, stridor Cardiovascular exam: PRESENT: RRR, tachycardia. ABSENT: diastolic murmur, rubs , systolic murmur Pulses: PRESENT: normal dorsalis pedis pul Vascular exam: PRESENT: normal capillary refill GI/Abdominal exam: PRESENT: ascites, diminished bowel sounds, distended, firm, hypoactive bowel sounds, tenderness. ABSENT: guarding Rectal exam: PRESENT: other - Perirectal abscess without fluctuance Extremities exam: PRESENT: tenderness, +2 edema Neurological exam: PRESENT: alert, awake, oriented to person, oriented to place , oriented to time, oriented to situation, CN II-XII grossly intact. ABSENT: motor sensory deficit Skin exam: PRESENT: dry, intact, warm. ABSENT: cyanosis, rash Results Laboratory Results: 01/02/17 03:30 01/01/17 01/01/17 01/02/17 23:37 23:37 03:30 Sodium 119.7 L* 122.5 L Potassium 5.8 H 5.5 H Chloride 95 L 97 L Carbon Dioxide 14 L 15 L Anion Gap 11 11 BUN 90 H 84 H Creatinine 1.77 H 1.58 H Est GFR ( Amer) 47 L 54 L Est GFR (Non-Af Amer) 39 L 44 L Glucose 189 H 100 Lactic Acid 2.5 H Calcium 8.6 8.4 Impressions: Chest X-Ray 01/02/17 06:00 IMPRESSION: Moderate lung volumes. Tip of a right internal jugular central line at the inferior right atrium; consider 10 cm retraction. Assessment & Plan - Diagnosis (1) Severe sepsis Is this a current diagnosis for this admission?: Yes Plan: Secondary to spontaneous bacterial peritonitis versus perirectal abscess. IV fluid challenge, empiric antibiotics initiated follow-up blood culture and CBC (2) SBP (spontaneous bacterial peritonitis) Is this a current diagnosis for this admission?: Yes Plan: Rocephin initiated paracentesis when stabilized, follow-up blood culture and CBC (3) Hyperkalemia Is this a current diagnosis for this admission?: Yes Plan: Secondary to Aldactone and acute renal failure, calcium gluconate, insulin, albuterol and Kayexalate ordered. Follow-up chemistry (4) Acute renal failure Qualifiers: Acute renal failure type: unspecified Qualified Code(s): N17.9 - Acute kidney failure, unspecified Is this a current diagnosis for this admission?: Yes Plan: Secondary to prerenal intravascular depletion, severe hypoalbuminemia and Aldactone. Albumin and IV fluid challenge initiated avoiding nephrotoxic meds and doses reevaluate chemistry. (5) Hyponatremia Is this a current diagnosis for this admission?: Yes Plan: Most likely secondary to Aldactone though complicated by a hypoalbuminemia and third spacing no neurologic complaints. Normal saline resuscitation reevaluation of chemistry every 6 hours limiting correction to 10 points in 24 hours. (6) Liver cancer Is this a current diagnosis for this admission?: Yes Plan: Failing chemotherapy, immunotherapy and palliative care. Patient wishes a code despite explanation of prognosis. Hospice consulted (7) Thrombocytopenia Is this a current diagnosis for this admission?: Yes Plan: Secondary to hepatic cirrhosis. Reevaluate CBC - Time Time Spent: Greater than 70 Minutes - Inpatient Certification Medical Necessity: Need Close Monitoring Due to Risk of Patient Decompensation
[2017-01-02] MEDS ORDERED: SODIUM POLYSTYRENE SULFONATE 15 GM/60 ML PO ONE (06:37)
--- NOTE | 2017-01-02 08:17 | PDOC PROGRESS REPORT ---
Subjective Progress Note for:: 01/02/17 Subjective:: 66 yom who presents with hypotension, tachycardia, acute renal failure with hyperkalemia and a perirectal abscess. 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 He is currently receiving weekly paracentesis but missed his appt this week due to illness. He has been refractory to chemotherapy. Physical Exam Vital Signs: Temp Pulse Resp BP Pulse Ox 98.9 F 103 H 17 97/50 L 99 01/02/17 04:00 01/02/17 07:51 01/02/17 07:51 01/02/17 05:44 01/02/17 07:51 Intake & Output 01/01/17 01/02/17 01/03/17 06:59 06:59 06:59 Intake Total 1665 Output Total 625 Balance 1040 Weight 73.6 kg General appearance: PRESENT: cooperative Head exam: PRESENT: atraumatic Eye exam: PRESENT: scleral icterus Mouth exam: PRESENT: dry mucosa Respiratory exam: PRESENT: decreased breath sounds, unlabored Cardiovascular exam: PRESENT: systolic murmur GI/Abdominal exam: PRESENT: ascites, distended, hypoactive bowel sounds, soft Rectal exam: PRESENT: mass, tenderness Extremities exam: PRESENT: +2 edema, other - right greater than left edema Results Laboratory Results: 01/02/17 03:30 01/01/17 01/01/17 01/02/17 23:37 23:37 03:30 Sodium 119.7 L* 122.5 L Potassium 5.8 H 5.5 H Chloride 95 L 97 L Carbon Dioxide 14 L 15 L Anion Gap 11 11 BUN 90 H 84 H Creatinine 1.77 H 1.58 H Est GFR ( Amer) 47 L 54 L Est GFR (Non-Af Amer) 39 L 44 L Glucose 189 H 100 Lactic Acid 2.5 H Calcium 8.6 8.4 Impressions: Chest X-Ray 01/02/17 06:00 IMPRESSION: Moderate lung volumes. Tip of a right internal jugular central line at the inferior right atrium; consider 10 cm retraction. Assessment & Plan - Diagnosis (1) Hyperkalemia Is this a current diagnosis for this admission?: Yes (2) Severe sepsis Is this a current diagnosis for this admission?: Yes (3) Acute renal failure Qualifiers: Acute renal failure type: unspecified Qualified Code(s): N17.9 - Acute kidney failure, unspecified Is this a current diagnosis for this admission?: Yes (4) Anemia Qualifiers: Anemia type: iron deficiency (5) Ascites Qualifiers: Ascites type: malignant (6) Hepatocellular carcinoma Is this a current diagnosis for this admission?: Yes (7) Hyponatremia Is this a current diagnosis for this admission?: Yes (10) Thrombocytopenia Is this a current diagnosis for this admission?: Yes - Plan Summary Plan Summary: The patient realizes that he is terminal. However, he wishes to be a full code. I did inform him that if his kidneys fail he will not be a dialysis candidate. He understands and accepts this. For now, we will continue with supportive care. The patient voices that he wishes to be a full code.
[2017-01-02 09:08] LABS: ANION GAP 13 (5-19); BLOOD UREA NITROGEN 82 mg/dL (7-20); CALCIUM 8.5 mg/dL (8.4-10.2); CARBON DIOXIDE 13 mmol/L (22-30); CHLORIDE 98 mmol/L (98-107); CREATININE RESULT 1.72 mg/dL (0.52-1.25); GLUCOSE 119 mg/dL (75-110); POTASSIUM 4.9 mmol/L (3.6-5.0); SODIUM 123.5 mmol/L (137-145)
[2017-01-02] MEDS: MORPHINE SULFATE 10 MG/ML INJ IV PRN ×2 (09:33→13:40)
[2017-01-02] MEDS: NORMAL SALINE 1000 ML 1,000 ML IV PRN (09:34)
[2017-01-02 09:51] LABS: URINE POTASSIUM 39.1 mmol/L (17-99)
[2017-01-02] MEDS ORDERED: INSULIN GLARGINE,HUM.REC.ANLOG 300 UNIT/3 ML INSULN.PEN SUBCUT SCH (10:00)
[2017-01-02] MEDS: LACTULOSE SYRUP 20 GM/30 ML UDCUP PO SCH (15:25)
[2017-01-02] MEDS: DOCUSATE SODIUM 100 MG CAPSULE PO SCH (15:30)
--- NOTE | 2017-01-02 16:58 | OPERATIVE REPORT E ---
Operative Report NAME: VELVET WILLS : 1950 AGE: 66Y DATE OF SURGERY: 01/02/2017 ROOM: 612 PREOPERATIVE DIAGNOSIS: Abscess of the right perianal area. POSTOPERATIVE DIAGNOSIS: Abscess of the right perianal area. PROCEDURE: Incision and drainage of abscess, right perianal area. SURGEON: MICHEAL AMEZCUA M.D. ANESTHESIA: Local. INDICATION: This is a 66-year-old male with history of cirrhosis and noted to have pain in the perianal area. Patient admitted last night with hypotension. He was also noted to have very low sodium at 117 and potassium about 5.6. He was supposed to have paracentesis of his ascites a few days ago but failed to make the appointment because of abdominal pain and perianal pains. DESCRIPTION OF PROCEDURE: The patient was placed in the right lateral decubitus position with the left leg over the right leg. Perianal area was then prepped and draped in the usual sterile fashion. An area on the right perianal area was noted to be with reddish discoloration, roughly about 2 cm in diameter. This was also very tender. The mid part of the abscessed cavity site was then infiltrated with 1% Xylocaine and a small stab incision using 11 blade was used. Next, the stab site was then bluntly enlarged with hemostat and a gush of brownish fluid was noted. Cultures were then obtained. Next, the site of the abscess cavity was then pressed and more purulent material extruded out. Roughly about at least 10 mL of pus was removed. Next, the area was subsequently gently packed with quarter-inch iodoform gauze. Sterile dressings were placed over the incision and drainage site with 4 x 4 and ABD pad. Patient tolerated procedure well. Estimated blood loss was minimal. He might need a more further formal incision and drainage and possible fistulotomy if indeed he continues to have swelling and pain in the perianal area. In the meantime his electrolytes and metabolic status as well as IV antibiotics will be continued. DICTATING PHYSICIAN: MICHEAL AMEZCUA M.D. [id number] PHY#: [id number] ID: [id number] JOB#: [id number] ACCT: [id number] cc:MICHEAL AMEZCUA M.D. >
[2017-01-02] MEDS: CEFTRIAXONE 1 GM/D5W RTU 1 GM/50 ML RTUPB IV SCH (17:56)
[2017-01-02 18:38] LABS: ANION GAP 13 (5-19); BLOOD UREA NITROGEN 77 mg/dL (7-20); CALCIUM 7.9 mg/dL (8.4-10.2); CARBON DIOXIDE 13 mmol/L (22-30); CHLORIDE 97 mmol/L (98-107); CREATININE RESULT 1.49 mg/dL (0.52-1.25); GLUCOSE 123 mg/dL (75-110); SODIUM 122.5 mmol/L (137-145)
[2017-01-02] MEDS ORDERED: NORMAL SALINE 250 ML IV ONE (19:15)
[2017-01-02] MEDS: THIAMINE HCL 100 MG, FOLIC ACID 1 MG in NORMAL SALINE 50 ML IV SCH (21:30)
[2017-01-02] MEDS: METRONIDAZOLE 500 MG/NS RTU 100 ML IV SCH (21:30)
[2017-01-02] MEDS ORDERED: INSULIN REG, HUMAN 100 UNIT/ML 3 ML VIAL (PYX) IV ONE (21:38)
[2017-01-03] MEDS: NORMAL SALINE 1000 ML 1,000 ML IV PRN (01:22)
[2017-01-03] MEDS: IPRATROPIUM/ALBUTEROL 0.5-2.5 MG/3 ML AMPUL NEB SCH ×4 (01:36→19:48)
[2017-01-03] MEDS: HEPARIN SOD (PORCINE) 5,000 UNIT/ML 1 ML SYRINGE SUBCUT SCH ×3 (05:06→21:48)
[2017-01-03] MEDS: METRONIDAZOLE 500 MG/NS RTU 100 ML IV SCH ×3 (05:07→21:50)
[2017-01-03 05:34] LABS: ANION GAP 13 (5-19); BLOOD UREA NITROGEN 75 mg/dL (7-20); CALCIUM 7.8 mg/dL (8.4-10.2); CARBON DIOXIDE 12 mmol/L (22-30); CHLORIDE 98 mmol/L (98-107); CREATININE RESULT 1.46 mg/dL (0.52-1.25); GLUCOSE 99 mg/dL (75-110)
[2017-01-03 06:34] LABS: MEAN CORPUSCULAR HEMOGLOBIN 37.1 pg (27.0-33.4); MEAN CORPUSCULAR HGB CONC 35.2 g/dL (32.0-36.0); MEAN CORPUSCULAR VOLUME 105 fl (80-97); RED BLOOD COUNT 1.61 10^6/uL (4.35-5.55)
[2017-01-03] MEDS ORDERED: GLUCAGON,HUMAN RECOMB 1 MG INJ SUBCUT PRN (08:14)
[2017-01-03] MEDS ORDERED: DEXTROSE 40% GEL 15 GM TUBE PO PRN (08:14)
[2017-01-03] MEDS ORDERED: DEXTROSE 50%-WATER 25 GM/50 ML DISP.SYRIN IV PRN ×2 (08:14)
[2017-01-03] MEDS ORDERED: DIPHENHYDRAMINE HCL 25 MG CAPSULE PO PRN (08:19)
[2017-01-03] MEDS ORDERED: NORMAL SALINE 250 ML IV PRN (08:19)
--- NOTE | 2017-01-03 08:39 | PDOC PROGRESS REPORT ---
Subjective Progress Note for:: 01/03/17 Subjective:: 66 yom who presents with hypotension, tachycardia, acute renal failure with hyperkalemia and a perirectal abscess. 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 He is currently receiving weekly paracentesis but missed his appt this week due to illness. He has been refractory to chemotherapy. General surgery evaluated the patient yesterday. The perirectal abscess was lanced. A culture was obtained. The plan will be to take the patient to the operating room to evaluate for the possibility of a fistula. The patient may go to the operating room later today. The patient states that he feels much better today. The rectal pain is significantly improved. He is passing stool. He september 1199 mL of urine last night. He does have some shortness of breath which he feels is secondary to increasing abdominal girth due to missing his paracentesis. Physical Exam Vital Signs: Temp Pulse Resp BP Pulse Ox 98.2 F 97 13 91/46 L 96 01/03/17 08:00 01/03/17 01:36 01/03/17 07:00 01/03/17 06:44 01/03/17 07:00 Intake & Output 01/02/17 01/03/17 01/04/17 06:59 06:59 06:59 Intake Total 1665 1883 Output Total 625 1200 300 Balance 1040 683 -300 Weight 73.6 kg 75.6 kg General appearance: PRESENT: no acute distress, cooperative Head exam: PRESENT: atraumatic Eye exam: PRESENT: scleral icterus Mouth exam: PRESENT: moist, neck supple Respiratory exam: PRESENT: clear to auscultation art, unlabored Cardiovascular exam: PRESENT: RRR GI/Abdominal exam: PRESENT: distended, firm, hyperactive bowel sounds Neurological exam: PRESENT: alert Psychiatric exam: PRESENT: appropriate affect Additional comments: The size of the perirectal abscesses smaller today. The center of the abscess has a wick placed. Results Laboratory Results: 01/03/17 06:27 01/03/17 05:00 01/02/17 01/02/17 01/02/17 08:30 08:30 18:03 WBC RBC Hgb Hct MCV MCH MCHC RDW Plt Count Sodium 123.5 L 122.5 L Potassium 4.9 4.0 Chloride 98 97 L Carbon Dioxide 13 L 13 L Anion Gap 13 13 BUN 82 H 77 H Creatinine 1.72 H 1.49 H Est GFR ( Amer) 49 L 57 L Est GFR (Non-Af Amer) 40 L 47 L Glucose 119 H 123 H Calcium 8.5 7.9 L Urine Osmolality 408 01/03/17 01/03/17 01/03/17 05:00 05:00 06:27 WBC Cancelled 11.0 H RBC Cancelled 1.61 L Hgb Cancelled 6.0 L D Hct Cancelled 17.0 L MCV Cancelled 105 H MCH Cancelled 37.1 H MCHC Cancelled 35.2 RDW Cancelled 17.0 H Plt Count Cancelled 101 L Sodium 123.0 L Potassium 4.0 Chloride 98 Carbon Dioxide 12 L Anion Gap 13 BUN 75 H Creatinine 1.46 H Est GFR ( Amer) 59 L Est GFR (Non-Af Amer) 48 L Glucose 99 Calcium 7.8 L Urine Osmolality Impressions: Chest X-Ray 01/02/17 06:00 IMPRESSION: Moderate lung volumes. Tip of a right internal jugular central line at the inferior right atrium; consider 10 cm retraction. Assessment & Plan - Diagnosis (1) Severe sepsis Is this a current diagnosis for this admission?: Yes Plan: Blood pressure appears to be stable. I suspect that the patient has a component of low blood pressure secondary to cirrhosis. However, patient does meet criteria for sepsis which was present upon arrival. (2) Hyperkalemia Is this a current diagnosis for this admission?: Yes Plan: Resolved. Potassium is currently 4. Will monitor. (3) Acute renal failure Qualifiers: Acute renal failure type: unspecified Qualified Code(s): N17.9 - Acute kidney failure, unspecified Is this a current diagnosis for this admission?: Yes Plan: Non-oliguric. Slightly improved. High BUN is also suspicious for possible bleeding. Hemoglobin did decrease overnight. However, patient has no evidence of overt bleeding. (4) Anemia Qualifiers: Anemia type: iron deficiency Plan: There is no evidence of overt bleeding at this time. Patient had a large bowel movement without evidence of blood in it. He does not have any hematemesis. I suspect that he is slowly losing blood and that his bone marrow is unable to make blood. In any event, the patient's hemoglobin decreased overnight. This is likely in part secondary to dilution. I have ordered 2 units packed red blood cells today. (5) Ascites Qualifiers: Ascites type: malignant Qualified Code(s): R18.0 - Malignant ascites (6) Hepatocellular carcinoma Is this a current diagnosis for this admission?: Yes Plan: Prognosis is very poor. Hospice services were consulted, the patient's CODE STATUS was readdressed yesterday and he remains a full code. (7) Hyponatremia Is this a current diagnosis for this admission?: Yes Plan: Stable. (8) Lower extremity edema Plan: Not much increased overnight. (10) Thrombocytopenia Is this a current diagnosis for this admission?: Yes Plan: Stable. (11) SBP (spontaneous bacterial peritonitis) Is this a current diagnosis for this admission?: Yes Plan: Patient is on appropriate antibiotics but the source of the sepsis is most likely secondary to the perirectal abscess. Once patient's hemoglobin has been repleted we will consult IR for paracentesis. - Time Time Spent with patient: 25-34 minutes - Inpatient Certification Medical Necessity: Need Close Monitoring Due to Risk of Patient Decompensation, Need for IV Antibiotics, Need for Surgery, Risk of Complication if Not Cared For in Hospital
[2017-01-03] MEDS ORDERED: (PENDING PHARMACY ID) (Cetirizine Hcl [Zyrtec] 10 MG) PO PRN (08:58)
[2017-01-03] MEDS ORDERED: FLUTICASONE NASAL SPRAY 50 MCG/SPRY 120 SPRAY/16 GM NASL PRN (08:58)
[2017-01-03] MEDS ORDERED: CETIRIZINE 10 MG TABLET PO PRN (09:09)
[2017-01-03 09:46] LABS: ANION GAP 10 (5-19); BLOOD UREA NITROGEN 76 mg/dL (7-20); CALCIUM 7.8 mg/dL (8.4-10.2); CARBON DIOXIDE 15 mmol/L (22-30); CHLORIDE 98 mmol/L (98-107); CREATININE RESULT 1.38 mg/dL (0.52-1.25); GLUCOSE 93 mg/dL (75-110); MAGNESIUM 2.2 mg/dL (1.6-2.3); POTASSIUM 3.9 mmol/L (3.6-5.0); SODIUM 122.6 mmol/L (137-145)
[2017-01-03 09:49] LABS: ABSOLUTE EOSINOPHILS # (AUTO) 0.1 10^3/uL (0.0-0.6); ABSOLUTE LYMPHOCYTES (AUTO) 0.7 10^3/uL (0.5-4.7); ABSOLUTE MONOCYTES (AUTO) 0.5 10^3/uL (0.1-1.4); ABSOLUTE NEUT (AUTO) 6.5 10^3/uL (1.7-8.2); BASOPHILS % (AUTO) 0.2 % (0-2); EOSINOPHILS % (AUTO) 1.7 % (0-6); HEMATOCRIT 17.4 % (37.9-51.0); HGB HCT DIFFERENCE 0.9; LYMPHOCYTES % (AUTO) 9.2 % (13-45); MEAN CORPUSCULAR HEMOGLOBIN 37.5 pg (27.0-33.4); MEAN CORPUSCULAR HGB CONC 35.1 g/dL (32.0-36.0); MEAN CORPUSCULAR VOLUME 107 fl (80-97); MONOCYTES % (AUTO) 5.9 % (3-13); RED BLOOD COUNT 1.62 10^6/uL (4.35-5.55); RED CELL DISTRIBUTION WIDTH 17.5 % (11.5-14.0); WHITE BLOOD COUNT 7.8 10^3/uL (4.0-10.5)
[2017-01-03] MEDS: PREDNISONE 20 MG TABLET PO SCH ×3 (09:59→17:27)
[2017-01-03] MEDS: FUROSEMIDE 20 MG TABLET PO SCH (09:59)
[2017-01-03] MEDS ORDERED: (PENDING PHARMACY ID) (Pantoprazole Sodium [Protonix] 20 MG) PO SCH (10:00)
[2017-01-03] MEDS: LANSOPRAZOLE 15 MG TAB.RAP.DR PO SCH (10:00)
[2017-01-03] MEDS: SPIRONOLACTONE 25 MG TABLET PO SCH (10:00)
[2017-01-03] MEDS ORDERED: RIFAXIMIN 200 MG TABLET PO SCH (10:00)
[2017-01-03] MEDS ORDERED: (PENDING PHARMACY ID) (Spironolactone [Aldactone] 50 MG) PO SCH (10:00)
[2017-01-03] MEDS: RIFAXIMIN 550 MG TABLET PO SCH ×2 (10:01→17:27)
[2017-01-03] MEDS: DOCUSATE SODIUM 100 MG CAPSULE PO SCH (10:02)
[2017-01-03] MEDS: LACTULOSE SYRUP 20 GM/30 ML UDCUP PO SCH (10:02)
[2017-01-03 10:07] LABS: HEMOGLOBIN 6.1 g/dL (13.5-17.0)
[2017-01-03] MEDS: NORMAL SALINE 250 ML IV PRN ×2 (10:40→14:33)
[2017-01-03] MEDS: INSULIN LISPRO 100 UNIT/ML 3 ML VIAL SUBCUT PRN (17:00)
[2017-01-03] MEDS: CEFTRIAXONE 1 GM/D5W RTU 1 GM/50 ML RTUPB IV SCH (17:27)
[2017-01-03 18:52] LABS: HEMATOCRIT 22.8 % (37.9-51.0); HGB HCT DIFFERENCE 0.9; MEAN CORPUSCULAR HEMOGLOBIN 35.6 pg (27.0-33.4); MEAN CORPUSCULAR HGB CONC 34.8 g/dL (32.0-36.0); RED BLOOD COUNT 2.23 10^6/uL (4.35-5.55); RED CELL DISTRIBUTION WIDTH 18.9 % (11.5-14.0); WHITE BLOOD COUNT 10.7 10^3/uL (4.0-10.5)
[2017-01-03 19:10] LABS: MEAN CORPUSCULAR VOLUME 102 fl (80-97)
[2017-01-03 19:15] LABS: HEMOGLOBIN 7.9 g/dL (13.5-17.0)
[2017-01-03] MEDS ORDERED: FOLIC ACID INJ 5 MG/1 ML 10 ML VIAL ONE (22:16)
[2017-01-03] MEDS ORDERED: THIAMINE HCL INJ 200 MG/2 ML VIAL ONE (22:17)
[2017-01-03] MEDS: THIAMINE HCL 100 MG, FOLIC ACID 1 MG in NORMAL SALINE 50 ML IV SCH (23:21)
[2017-01-04] MEDS ORDERED: INSULIN REG, HUMAN 100 UNIT/ML 3 ML VIAL (PYX) SUBCUT ONE (01:00)
[2017-01-04] MEDS ORDERED: DEXTROSE 50%-WATER 25 GM/50 ML DISP.SYRIN IV PRN (01:17)
[2017-01-04] MEDS ORDERED: DEXTROSE 40% GEL 15 GM TUBE PO PRN ×2 (01:17)
[2017-01-04] MEDS ORDERED: GLUCAGON,HUMAN RECOMB 1 MG INJ SUBCUT PRN (01:17)
[2017-01-04] MEDS: INSULIN LISPRO 100 UNIT/ML 3 ML VIAL SUBCUT PRN ×4 (01:35→23:44)
[2017-01-04] MEDS: IPRATROPIUM/ALBUTEROL 0.5-2.5 MG/3 ML AMPUL NEB SCH ×4 (01:57→20:45)
[2017-01-04] MEDS: METRONIDAZOLE 500 MG/NS RTU 100 ML IV SCH ×3 (06:38→22:04)
[2017-01-04] MEDS: HEPARIN SOD (PORCINE) 5,000 UNIT/ML 1 ML SYRINGE SUBCUT SCH (06:39)
[2017-01-04 07:31] LABS: HEMATOCRIT 22.8 % (37.9-51.0); HEMOGLOBIN 8.1 g/dL (13.5-17.0); HGB HCT DIFFERENCE 1.5; MEAN CORPUSCULAR HEMOGLOBIN 35.9 pg (27.0-33.4); MEAN CORPUSCULAR HGB CONC 35.6 g/dL (32.0-36.0); MEAN CORPUSCULAR VOLUME 101 fl (80-97); RED BLOOD COUNT 2.26 10^6/uL (4.35-5.55); RED CELL DISTRIBUTION WIDTH 18.7 % (11.5-14.0); WHITE BLOOD COUNT 5.2 10^3/uL (4.0-10.5)
[2017-01-04 07:37] LABS: ANION GAP 12 (5-19); BLOOD UREA NITROGEN 72 mg/dL (7-20); CALCIUM 7.9 mg/dL (8.4-10.2); CARBON DIOXIDE 13 mmol/L (22-30); CHLORIDE 95 mmol/L (98-107); CREATININE RESULT 1.47 mg/dL (0.52-1.25); GLUCOSE 321 mg/dL (75-110)
[2017-01-04 07:45] LABS: BAND NEUTROPHILS % (MANUAL) 2 % (3-5); BASOPHILS % (MANUAL) 0 % (0-2); EOSINOPHILS % (MANUAL) 0 % (0-6); LYMPHOCYTES % (MANUAL) 8 % (13-45); TOTAL CELLS COUNTED 100
[2017-01-04 07:49] LABS: ANISOCYTOSIS 1+; SODIUM 120.3 mmol/L (137-145)
--- NOTE | 2017-01-04 08:39 | PDOC PROGRESS REPORT ---
Subjective Progress Note for:: 01/04/17 Subjective:: 66 yom who presents with hypotension, tachycardia, acute renal failure with hyperkalemia and a perirectal abscess. 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 He is currently receiving weekly paracentesis but missed his appt this week due to illness. He has been refractory to chemotherapy. General surgery evaluated the patient on the day of admission. The perirectal abscess was lanced at bedside. A culture was obtained. The plan will be to take the patient to the operating room to evaluate for the possibility of a fistula. The patient may go to the operating room later today. The patient states that he feels much better today. The rectal pain is significantly improved. He is passing stool. He september 1199 mL of urine two nights ago and 625 last night (if accurate - he did move beds yesterday and does not have a lance). He does have some shortness of breath which he feels is secondary to increasing abdominal girth due to missing his paracentesis late last week. The patient has had worsening of platelet count - this is likely dilutional. I have stopped subQ heparin. He is now hyperglycemic. Lantus was stopped on admission. At this point due to liver failure and renal failure I think that the safest thing to do is continue sliding scale insulin. Tight glycemic control will not benefit this patient in any way. Physical Exam Vital Signs: Temp Pulse Resp BP Pulse Ox 97.7 F 81 16 99/54 L 98 01/04/17 04:54 01/04/17 07:51 01/04/17 07:51 01/04/17 04:54 01/04/17 07:51 Intake & Output 01/03/17 01/04/17 01/05/17 06:59 06:59 06:59 Intake Total 1883 2512 Output Total 1200 1350 Balance 683 1162 Weight 75.6 kg 78.9 kg General appearance: PRESENT: no acute distress, cooperative Head exam: PRESENT: atraumatic Eye exam: PRESENT: EOMI Respiratory exam: PRESENT: clear to auscultation art, unlabored Cardiovascular exam: PRESENT: RRR GI/Abdominal exam: PRESENT: distended, hypoactive bowel sounds, soft Extremities exam: PRESENT: +2 edema - Pedal edmea is worse right leg (baseline per patient) Neurological exam: PRESENT: awake Psychiatric exam: PRESENT: appropriate affect Skin exam: PRESENT: intact Results Laboratory Results: 01/04/17 06:50 01/04/17 06:50 01/03/17 01/03/17 01/03/17 09:00 09:10 09:10 WBC 7.8 RBC 1.62 L Hgb 6.1 L Hct 17.4 L MCV 107 H MCH 37.5 H MCHC 35.1 RDW 17.5 H Plt Count 97 L Seg Neutrophils % 83.0 H Lymphocytes % 9.2 L Monocytes % 5.9 Eosinophils % 1.7 Basophils % 0.2 Absolute Neutrophils 6.5 Absolute Lymphocytes 0.7 Absolute Monocytes 0.5 Absolute Eosinophils 0.1 Absolute Basophils 0.0 Sodium 122.6 L Potassium 3.9 Chloride 98 Carbon Dioxide 15 L Anion Gap 10 BUN 76 H Creatinine 1.38 H Est GFR ( Amer) > 60 Est GFR (Non-Af Amer) 52 L Glucose 93 Calcium 7.8 L Magnesium 2.2 Blood Type O POSITIVE Antibody Screen NEGATIVE 01/03/17 01/04/17 01/04/17 18:39 06:50 06:50 WBC 10.7 H 5.2 RBC 2.23 L 2.26 L Hgb 7.9 L 8.1 L Hct 22.8 L 22.8 L MCV 102 H D 101 H MCH 35.6 H 35.9 H MCHC 34.8 35.6 RDW 18.9 H 18.7 H Plt Count 85 L 78 L Seg Neutrophils % Not Reportable Lymphocytes % Not Reportable Monocytes % Not Reportable Eosinophils % Not Reportable Basophils % Not Reportable Absolute Neutrophils Not Reportable Absolute Lymphocytes Not Reportable Absolute Monocytes Not Reportable Absolute Eosinophils Not Reportable Absolute Basophils Not Reportable Sodium 120.3 L* Potassium 4.0 Chloride 95 L Carbon Dioxide 13 L Anion Gap 12 BUN 72 H Creatinine 1.47 H Est GFR ( Amer) 58 L Est GFR (Non-Af Amer) 48 L Glucose 321 H Calcium 7.9 L Magnesium Blood Type Antibody Screen Impressions: Chest X-Ray 01/02/17 06:00 IMPRESSION: Moderate lung volumes. Tip of a right internal jugular central line at the inferior right atrium; consider 10 cm retraction. Assessment & Plan - Diagnosis (1) Severe sepsis Is this a current diagnosis for this admission?: Yes Plan: Blood pressure appears to be stable. I suspect that the patient has a component of low blood pressure secondary to cirrhosis. However, patient does meet criteria for sepsis which was present upon arrival. (2) Hyperkalemia Is this a current diagnosis for this admission?: Yes Plan: Resolved. Potassium is currently 4. Will monitor. (3) Acute renal failure Qualifiers: Acute renal failure type: unspecified Qualified Code(s): N17.9 - Acute kidney failure, unspecified Is this a current diagnosis for this admission?: Yes Plan: Non-oliguric. Slightly improved. High BUN is also suspicious for possible bleeding. Patient again has no evidence of overt bleeding. Overall, labs are stable but renal failure does significantly worsen the patient's overall prognosis. (4) Anemia Qualifiers: Anemia type: iron deficiency Plan: There is no evidence of overt bleeding at this time. Patient had a large bowel movement without evidence of blood in it. He does not have any hematemesis. I suspect that he is slowly losing blood and that his bone marrow is unable to make blood. In any event, the patient's hemoglobin decreased from admission. This was likely in part due to dilution. The patient received 2 units PRBC yesterday with good effect. (5) Ascites Qualifiers: Ascites type: malignant Qualified Code(s): R18.0 - Malignant ascites Plan: Patient feels uncomfortable but is not in any distress. At this point, the patient is stable for routine large volume paracentesis. (6) Hepatocellular carcinoma Is this a current diagnosis for this admission?: Yes Plan: Prognosis is very poor. Hospice services were consulted, the patient's CODE STATUS was readdressed on admission and he remains a full code. (7) Hyponatremia Is this a current diagnosis for this admission?: Yes Plan: Relatively stable. Slight drop overnight. Will free water restrict to 800 ml. (8) Lower extremity edema Plan: Not much increased overnight. (10) Thrombocytopenia Is this a current diagnosis for this admission?: Yes Plan: There has been a decrease in platelet count overnight. This is likely dilutional due to blood received and IVF. However, I have stopped subQ heparin. (11) SBP (spontaneous bacterial peritonitis) Is this a current diagnosis for this admission?: Yes Plan: Patient is on appropriate antibiotics but the source of the sepsis is most likely secondary to the perirectal abscess. IR has been consulted today for a paracentesis. (12) Hyperglycemia Plan: Patient is currently NPO. Sliding scale insulin was started overnight. Patient uses Lantus at home which was held on admit due to renal and liver failure. At this point in time tight glycemic control will not benefit this patient. I think it is safer to continue with short acting SSI. - Time Time Spent with patient: 35 or more minutes
[2017-01-04] MEDS: LACTULOSE SYRUP 20 GM/30 ML UDCUP PO SCH (09:39)
[2017-01-04] MEDS: DOCUSATE SODIUM 100 MG CAPSULE PO SCH (09:39)
[2017-01-04] MEDS: SPIRONOLACTONE 25 MG TABLET PO SCH (09:49)
[2017-01-04] MEDS: PREDNISONE 20 MG TABLET PO SCH ×3 (09:49→20:06)
[2017-01-04] MEDS: LANSOPRAZOLE 15 MG TAB.RAP.DR PO SCH (09:49)
[2017-01-04] MEDS: FUROSEMIDE 20 MG TABLET PO SCH (09:49)
[2017-01-04] MEDS: RIFAXIMIN 550 MG TABLET PO SCH ×2 (09:50→20:06)
[2017-01-04 10:07] LABS: PROTHROMBIN TIME 16.7 SEC (11.4-15.4)
[2017-01-04] MEDS ORDERED: LIDOCAINE 1% INJ-PF (10 MG/ML) 30 ML SDV ONE (11:54)
--- NOTE | 2017-01-04 14:21 | RADIOLOGY REPORT (SQ) ---
EXAM DESCRIPTION: U/S ABD PARACENTESIS COMPLETED DATE/TIME: 01/04/2017 2:10 pm REASON FOR STUDY: Cirrhosis: requesting large volume paracentesis COMPARISON No paracentesis 11/25/2016 . LIMITATIONS: None. PROCEDURE: After obtaining informed consent, the patient was brought to the ultrasound suite. The p rocedure was performed with the patient on a gurney. Ultrasound was used to identify a prominent poc ket of ascites right lower quadrant. An appropriate access site was selected. The patient was prepp ed and draped in usual sterile fashion. The access site was anesthetized with 3 mL 1% lidocaine. A [id number]-[id number] needle was advanced into the fluid. After aspiration of fluid the needle, the mad[place] ter was advanced off the needle into the fluid. A total of 9,250 mL of yellow straw-colored fluid wa s removed. The patient tolerated the procedure well left the department in satisfactory condition. IMPRESSION: Successful ultrasound-guided paracentesis COMMENT: Patient medication list reviewed: Yes- Quality ID# [id number]:Eligible professional attests to doc umenting in the medical record they obtained, updated, or reviewed the patient's current medications. Quality ID #[id number]: The patient was prepped and draped using maximum sterile barrier technique including cap, mask, sterile gown, sterile gloves, a large sterile sheet, hand hygiene, and 2% Chlorhexidine fo r cutaneous antisepsis. When ultrasound is used, sterile ultrasound techniques are followed requiring sterile gel and sterile probes. Quality ID #[id number]: Final reports for procedures using fluoroscopy that document radiation exposure enedina omega, or exposure time and number of fluorographic images (if radiation exposure indices are not avail able) TECHNICAL DOCUMENTATION: JOB ID: [id number] [employer]- All Rights Reserved
[2017-01-04 14:37] LABS: FLUID APPEARANCE SLIGHTLY HAZY; FLUID RBC AVERAGE 141.5; FLUID RBC SIDE 1 146; FLUID RBC SIDE 2 137; FLUID TYPE PERITONEAL
[2017-01-04 14:38] LABS: FLUID RBC DILUENT USED NONE USED; FLUID RBC DILUTION FACTOR 1; TOTAL RBC SQUARES COUNTED FLD 225
[2017-01-04] MEDS ORDERED: KETAMINE HCL INJ 500 MG/10 ML VIAL ONE (16:25)
[2017-01-04] MEDS ORDERED: LIDOCAINE 2% INJ-PF (20 MG/ML) 10 ML AMPUL ONE (16:25)
[2017-01-04] MEDS ORDERED: MIDAZOLAM 2 MG/2 ML INJ ONE (16:26)
[2017-01-04] MEDS ORDERED: PROPOFOL INJ 200 MG/20 ML VIAL IV ONE ×2 (16:26→18:59)
[2017-01-04] MEDS ORDERED: FENTANYL CITRATE INJ/PF 100 MCG/2 ML AMPUL ONE (16:26)
[2017-01-04] MEDS ORDERED: BUPIVACAINE HCL 0.25 % INJ/PF (2.5 MG/1 ML) 30 ML VIAL ONE (16:36)
[2017-01-04] MEDS ORDERED: BUPIVACAINE HCL 0.25 % INJ/PF (2.5 MG/1 ML) 30 ML VIAL INJ ONE ×3 (16:43→17:15)
[2017-01-04] MEDS ORDERED: PROMETHAZINE HCL INJ 25 MG/1 ML VIAL IV PRN ×2 (17:25)
[2017-01-04] MEDS ORDERED: MEPERIDINE HCL/PF INJ 25 MG/1 ML DISP.SYRIN IV PRN (17:25)
[2017-01-04] MEDS ORDERED: OXYCODONE-ACETAMINOPHEN 5-325 MG TABLET PO PRN ×2 (17:25)
[2017-01-04] MEDS ORDERED: DIPHENHYDRAMINE HCL 50 MG/ML VIAL IV PRN (17:25)
[2017-01-04] MEDS ORDERED: MORPHINE SULFATE 10 MG/ML INJ IV PRN (17:25)
[2017-01-04] MEDS ORDERED: FENTANYL CITRATE INJ/PF 100 MCG/2 ML AMPUL IV PRN ×3 (17:25)
[2017-01-04] MEDS ORDERED: MORPHINE SULFATE 10 MG/ML INJ ONE (18:25)
[2017-01-04] MEDS: CEFTRIAXONE 1 GM/D5W RTU 1 GM/50 ML RTUPB IV SCH (20:05)
--- NOTE | 2017-01-04 21:13 | OPERATIVE REPORT E ---
Operative Report NAME: VELVET WILLS : 1950 AGE: 66Y DATE OF SURGERY: 01/04/2017 ROOM: 323 PREOPERATIVE DIAGNOSIS: Right perirectal abscess. POSTOPERATIVE DIAGNOSIS: Right perirectal abscess. OPERATION: Incision and drainage and debridement of right perirectal abscess. SURGEON: MICHEAL AMEZCUA M.D. ANESTHESIA: Local MAC. INDICATION: This is a 66-year-old male with a history of hepatocellular carcinoma and ascites noted to have a right perirectal abscess. The abscess was initially drained at bedside about 2 days ago. Unfortunately, this continued to drain and therefore needed a bigger, more definitive incision and drainage to identify any possibility of fistula. The patient did have a paracentesis today and drained about 9 L of ascitic fluid. DESCRIPTION OF PROCEDURE: After adequate IV sedation, the patient was placed in lithotomy position and perirectal area prepped and draped in the usual sterile fashion. Local anesthesia infiltrated around the previous I and D site. The incision was then enlarged with the use of cautery, just enough to allow a finger to be inserted and to do digital inspection. This was then performed and cavity appears to be going down just under a external sphincter. The incision was then further enlarged towards the rectum and dividing part of the sphincter. An extensive evaluation of the mucosal area was then performed and no definite evidence of any fistula noted. The abscess cavity was also probed towards the area of the rectum, and no evidence of fistula also noted. Following this, the abscess cavity was then pulse irrigated using 2 L of saline. Further necrotic tissue was then debrided with scissors. The opening was made around 2.5 cm long. The cavity appears to be quite deep, to at least 2.5 cm deep. Next the area was subsequently packed with 1/4-inch Iodoform gauze. This was after hemostasis was obtained with cautery. Sterile dressing was then placed over the operative site. Needle, instrument and sponge counts were all correct. Estimated blood loss was about 5 mL. The patient then brought to recovery room in satisfactory condition. DICTATING PHYSICIAN: MICHEAL AMEZCUA M.D. [id number] PHY#: [id number] ID: [id number] JOB#: [id number] ACCT: [id number] cc:MICHEAL AMEZCUA M.D. >
[2017-01-04] MEDS: THIAMINE HCL 100 MG, FOLIC ACID 1 MG in NORMAL SALINE 50 ML IV SCH (21:28)
[2017-01-05] MEDS: IPRATROPIUM/ALBUTEROL 0.5-2.5 MG/3 ML AMPUL NEB SCH ×2 (01:32→08:46)
[2017-01-05] MEDS: METRONIDAZOLE 500 MG/NS RTU 100 ML IV SCH (05:22)
[2017-01-05 06:21] LABS: PARTIAL THROMBOPLASTIN TIME 31.8 SEC (23.5-35.8); PROTHROMBIN TIME 15.6 SEC (11.4-15.4)
[2017-01-05 07:04] LABS: HEMATOCRIT 25.5 % (37.9-51.0); HEMOGLOBIN 9.1 g/dL (13.5-17.0); HGB HCT DIFFERENCE 1.8; MEAN CORPUSCULAR HEMOGLOBIN 36.2 pg (27.0-33.4); MEAN CORPUSCULAR HGB CONC 35.5 g/dL (32.0-36.0); MEAN CORPUSCULAR VOLUME 102 fl (80-97); WHITE BLOOD COUNT 9.9 10^3/uL (4.0-10.5)
[2017-01-05 07:43] LABS: BAND NEUTROPHILS % (MANUAL) 1 % (3-5); BASOPHILS % (MANUAL) 0 % (0-2); EOSINOPHILS % (MANUAL) 0 % (0-6); LYMPHOCYTES % (MANUAL) 1 % (13-45); TOTAL CELLS COUNTED 100
[2017-01-05 07:44] LABS: ANISOCYTOSIS 2+; BURR CELLS 1+; OVALOCYTES 1+; POIKILOCYTOSIS 1+
[2017-01-05] MEDS: OXYCODONE HCL IR 5 MG TABLET PO PRN ×2 (08:25→14:02)
[2017-01-05] MEDS: INSULIN LISPRO 100 UNIT/ML 3 ML VIAL SUBCUT PRN ×4 (08:26→23:27)
[2017-01-05 08:27] LABS: ANION GAP 13 (5-19); BLOOD UREA NITROGEN 77 mg/dL (7-20); CARBON DIOXIDE 12 mmol/L (22-30); CHLORIDE 96 mmol/L (98-107); CREATININE RESULT 1.35 mg/dL (0.52-1.25); GLUCOSE 306 mg/dL (75-110); POTASSIUM 4.7 mmol/L (3.6-5.0)
[2017-01-05] MEDS: DOCUSATE SODIUM 100 MG CAPSULE PO SCH (10:08)
[2017-01-05] MEDS: FUROSEMIDE 20 MG TABLET PO SCH (10:08)
[2017-01-05] MEDS: PREDNISONE 20 MG TABLET PO SCH ×3 (10:10→18:51)
[2017-01-05] MEDS: SPIRONOLACTONE 25 MG TABLET PO SCH (10:10)
[2017-01-05] MEDS: LANSOPRAZOLE 15 MG TAB.RAP.DR PO SCH (10:11)
[2017-01-05] MEDS: LACTULOSE SYRUP 20 GM/30 ML UDCUP PO SCH (10:11)
[2017-01-05] MEDS: RIFAXIMIN 550 MG TABLET PO SCH ×2 (10:12→18:53)
--- NOTE | 2017-01-05 10:21 | PDOC PROGRESS REPORT ---
Subjective Progress Note for:: 01/05/17 Subjective:: 66 yom who presents with hypotension, tachycardia, acute renal failure with hyperkalemia and a perirectal abscess. 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 He is currently receiving weekly paracentesis but missed his appt this week due to illness. He has been refractory to chemotherapy. General surgery evaluated the patient on the day of admission. The perirectal abscess was lanced at bedside. A culture was obtained. The initial culture from admission is growing Enterobacter cloacae and Enterococcus faecalis. Unfortunately, the patient is allergic to penicillin. The enterococcus species is sensitive to penicillin derivatives but is otherwise only sensitive to daptomycin and vancomycin. The patient has been responding very well to therapy with Rocephin and Flagyl. Therefore, whether or not he needs aggressive antibiotic therapy is questionable. The patient was taken to the operating room for significant debridement. According to the operative note necrotic tissue was present. I will discuss antibiotic management with general surgery today but in the interim we will place the patient on Levaquin and vancomycin. We need to determine a regimen that is appropriate for discharging this patient. In addition to going to the operating room yesterday for extensive I&D of the perirectal abscess the patient had a therapeutic paracentesis and 9 L of ascitic fluid was removed. Currently, the patient's blood sugars are out of control. He was recently started on prednisone 60 mg per day for his hepatocellular carcinoma. Apparently, this was started by the oncology department at [facility] where the patient is currently receiving his care for hepatocellular carcinoma. Physical Exam Vital Signs: Temp Pulse Resp BP Pulse Ox 97.3 F 81 19 100/55 L 98 01/05/17 07:20 01/05/17 07:20 01/05/17 07:20 01/05/17 07:20 01/05/17 07:20 Intake & Output 01/04/17 01/05/17 01/06/17 06:59 06:59 06:59 Intake Total 2512 2882 Output Total 1350 3190 Balance 1162 -308 Weight 78.9 kg 75 kg General appearance: PRESENT: no acute distress, cooperative Head exam: PRESENT: atraumatic Eye exam: PRESENT: EOMI, scleral icterus Respiratory exam: PRESENT: clear to auscultation art, unlabored Cardiovascular exam: PRESENT: RRR GI/Abdominal exam: PRESENT: normal bowel sounds, soft Extremities exam: PRESENT: full ROM Neurological exam: PRESENT: alert, awake Psychiatric exam: PRESENT: appropriate affect Skin exam: PRESENT: jaundice Results Laboratory Results: 01/05/17 05:48 01/05/17 06:19 01/04/17 01/04/17 01/05/17 06:50 12:28 05:48 WBC 9.9 RBC 2.50 L Hgb 9.1 L Hct 25.5 L MCV 102 H MCH 36.2 H MCHC 35.5 RDW 19.0 H Plt Count 103 L Seg Neutrophils % Not Reportable Lymphocytes % Not Reportable Monocytes % Not Reportable Eosinophils % Not Reportable Basophils % Not Reportable Absolute Neutrophils Not Reportable Absolute Lymphocytes Not Reportable Absolute Monocytes Not Reportable Absolute Eosinophils Not Reportable Absolute Basophils Not Reportable Sodium Cancelled Potassium Cancelled Chloride Cancelled Carbon Dioxide Cancelled Anion Gap Cancelled BUN Cancelled Creatinine Cancelled Est GFR ( Amer) Cancelled Est GFR (Non-Af Amer) Cancelled Glucose Cancelled Calcium Cancelled Magnesium 2.3 Fluid Type PERITONEAL Fluid Source ASCITES Fluid Color YELLOW Fluid Appearance SLIGHTLY HAZY Fluid Viscosity LIQUID Fluid WBC 26 Fluid RBC 157 01/05/17 01/05/17 06:19 06:19 WBC RBC Hgb Hct MCV MCH MCHC RDW Plt Count Seg Neutrophils % Lymphocytes % Monocytes % Eosinophils % Basophils % Absolute Neutrophils Absolute Lymphocytes Absolute Monocytes Absolute Eosinophils Absolute Basophils Sodium 121.0 L Potassium 4.7 Chloride 96 L Carbon Dioxide 12 L Anion Gap 13 BUN 77 H Creatinine 1.35 H Est GFR ( Amer) > 60 Est GFR (Non-Af Amer) 53 L Glucose 306 H Calcium 8.0 L Magnesium 2.3 Fluid Type Fluid Source Fluid Color Fluid Appearance Fluid Viscosity Fluid WBC Fluid RBC Impressions: Chest X-Ray 01/02/17 06:00 IMPRESSION: Moderate lung volumes. Tip of a right internal jugular central line at the inferior right atrium; consider 10 cm retraction. Paracentesis Ultrasound 01/04/17 00:00 IMPRESSION: Successful ultrasound-guided paracentesis Assessment & Plan - Diagnosis (1) Severe sepsis Is this a current diagnosis for this admission?: Yes Plan: Blood pressure appears to be stable. I suspect that the patient has a component of low blood pressure secondary to cirrhosis. However, patient does meet criteria for sepsis which was present upon arrival. (2) Hyperkalemia Is this a current diagnosis for this admission?: Yes Plan: Resolved. Potassium is currently 4.7. Will monitor. (3) Acute renal failure Qualifiers: Acute renal failure type: unspecified Qualified Code(s): N17.9 - Acute kidney failure, unspecified Is this a current diagnosis for this admission?: Yes Plan: Non-oliguric. Slightly improved. High BUN is also suspicious for possible bleeding. Patient again has no evidence of overt bleeding. Overall, labs are stable but renal failure does significantly worsen the patient's overall prognosis. (4) Anemia Qualifiers: Anemia type: iron deficiency Plan: There is no evidence of overt bleeding at this time. Patient had a large bowel movement without evidence of blood in it. He does not have any hematemesis. I suspect that he is slowly losing blood and that his bone marrow is unable to make blood. In any event, the patient's hemoglobin decreased from admission. This was likely in part due to dilution. The patient received 2 units PRBC with good effect. (5) Ascites Qualifiers: Ascites type: malignant Qualified Code(s): R18.0 - Malignant ascites Plan: Large volume paracentesis was performed yesterday. 9 L of ascitic fluid was removed. Patient is currently on diuretic therapy with Lasix and Spironolactone. (6) Hepatocellular carcinoma Is this a current diagnosis for this admission?: Yes Plan: Prognosis is very poor. Hospice services were consulted, the patient's CODE STATUS was readdressed on admission and he remains a full code. The patient was currently started on prednisone by the physicians at [facility]. Prednisone is being continued during this hospitalization. Blood sugars are elevated secondary to underlying diabetes and prednisone. (7) Hyponatremia Is this a current diagnosis for this admission?: Yes Plan: Relatively stable. Will free water restrict to 800 ml. (8) Lower extremity edema Plan: Stable. (9) GRACIA (nonalcoholic steatohepatitis) Plan: Continue supportive care. (10) Thrombocytopenia Is this a current diagnosis for this admission?: Yes Plan: The platelet count did transiently decreased to 78. This was after 2 unit packed red blood cell transfusion. This was likely dilutional. Platelet count is back up to 103 today. I did stop the patient's subcu heparin. He is receiving SCDs therapy for VTE prophylaxis. (11) SBP (spontaneous bacterial peritonitis) Is this a current diagnosis for this admission?: Yes Plan: Patient is on appropriate antibiotics but the source of the sepsis is most likely secondary to the perirectal abscess. P.m. and count on parasitic fluid yesterday was 140. However, this was with antibiotics on board. Question significance? (12) Hyperglycemia Plan: Patient is no longer n.p.o. We will restart Lantus. Will start at half the outpatient dose. Tight glycemic control in this patient will be of no benefit secondary to his poor prognosis. - Time Time Spent with patient: 25-34 minutes - Inpatient Certification Medical Necessity: Significant Comorbidiites Make Outpatient Treatment Too Risky , Need Close Monitoring Due to Risk of Patient Decompensation, Need for IV Antibiotics
[2017-01-05] MEDS ORDERED: VANCOMYCIN HCL 0 MG in DEXTROSE 5%-WATER 250 ML IV NR (10:30)
[2017-01-05] MEDS ORDERED: VANCOMYCIN HCL 1,500 MG in DEXTROSE 5%-WATER 250 ML IV ONE (12:00)
[2017-01-05] MEDS ORDERED: IPRATROPIUM/ALBUTEROL 0.5-2.5 MG/3 ML AMPUL NEB PRN (13:05)
--- NOTE | 2017-01-05 13:55 | PDOC PROGRESS REPORT ---
Subjective Progress Note for:: 01/05/17 Subjective:: Patient voices no complaints; nurses have remove packing in 3 pack to the perianal abscess. Yesterday he had 9 L of paracentesis fluid drained. Physical Exam Vital Signs: Temp Pulse Resp BP Pulse Ox 97.4 F 91 18 111/59 L 99 01/05/17 11:25 01/05/17 11:25 01/05/17 11:25 01/05/17 11:25 01/05/17 11:25 Intake & Output 01/04/17 01/05/17 01/06/17 06:59 06:59 06:59 Intake Total 2512 2882 591 Output Total 1350 3190 Balance 1162 -308 591 Weight 78.9 kg 75 kg General appearance: PRESENT: other - Jaundiced GI/Abdominal exam: PRESENT: other - Moderately distended but soft Rectal exam: PRESENT: other - Packing removed by nursing staff, cavity clean no foul smell. Wound repacked Results Laboratory Results: 01/05/17 05:48 01/05/17 06:19 01/04/17 01/05/17 01/05/17 12:28 05:48 06:19 WBC 9.9 RBC 2.50 L Hgb 9.1 L Hct 25.5 L MCV 102 H MCH 36.2 H MCHC 35.5 RDW 19.0 H Plt Count 103 L Seg Neutrophils % Not Reportable Lymphocytes % Not Reportable Monocytes % Not Reportable Eosinophils % Not Reportable Basophils % Not Reportable Absolute Neutrophils Not Reportable Absolute Lymphocytes Not Reportable Absolute Monocytes Not Reportable Absolute Eosinophils Not Reportable Absolute Basophils Not Reportable Sodium Potassium Chloride Carbon Dioxide Anion Gap BUN Creatinine Est GFR ( Amer) Est GFR (Non-Af Amer) Glucose Calcium Magnesium 2.3 Fluid Type PERITONEAL Fluid Source ASCITES Fluid Color YELLOW Fluid Appearance SLIGHTLY HAZY Fluid Viscosity LIQUID Fluid WBC 26 Fluid RBC 157 01/05/17 06:19 WBC RBC Hgb Hct MCV MCH MCHC RDW Plt Count Seg Neutrophils % Lymphocytes % Monocytes % Eosinophils % Basophils % Absolute Neutrophils Absolute Lymphocytes Absolute Monocytes Absolute Eosinophils Absolute Basophils Sodium 121.0 L Potassium 4.7 Chloride 96 L Carbon Dioxide 12 L Anion Gap 13 BUN 77 H Creatinine 1.35 H Est GFR ( Amer) > 60 Est GFR (Non-Af Amer) 53 L Glucose 306 H Calcium 8.0 L Magnesium Fluid Type Fluid Source Fluid Color Fluid Appearance Fluid Viscosity Fluid WBC Fluid RBC Impressions: Chest X-Ray 01/02/17 06:00 IMPRESSION: Moderate lung volumes. Tip of a right internal jugular central line at the inferior right atrium; consider 10 cm retraction. Paracentesis Ultrasound 01/04/17 00:00 IMPRESSION: Successful ultrasound-guided paracentesis Assessment & Plan - Diagnosis (1) Perianal abscess Is this a current diagnosis for this admission?: Yes Plan: Status post operative debridement; no evidence of fistula in ano; wound being packed. Patient clinically improved Plan: 1. Continue local wound care 2. Patient may be a candidate for Pleurx catheter insertion into the peritoneal cavity given his requirements for frequent paracentesis. 3. CODE STATUS be addressed between the patient and his healthcare power of table runner at the appropriate time.
[2017-01-05] MEDS: THIAMINE HCL 100 MG, FOLIC ACID 1 MG in NORMAL SALINE 50 ML IV SCH (21:15)
[2017-01-05] MEDS: VANCOMYCIN HCL 500 MG in DEXTROSE 5%-WATER 100 ML IV SCH (21:51)
[2017-01-05] MEDS ORDERED: INSULIN GLARGINE,HUM.REC.ANLOG 300 UNIT/3 ML INSULN.PEN SUBCUT SCH (22:00)
[2017-01-06 05:36] LABS: MEAN CORPUSCULAR HEMOGLOBIN 35.8 pg (27.0-33.4); MEAN CORPUSCULAR HGB CONC 35.9 g/dL (32.0-36.0); MEAN CORPUSCULAR VOLUME 100 fl (80-97); RED CELL DISTRIBUTION WIDTH 18.9 % (11.5-14.0); WHITE BLOOD COUNT 7.8 10^3/uL (4.0-10.5)
[2017-01-06 05:48] LABS: ANION GAP 10 (5-19); BLOOD UREA NITROGEN 72 mg/dL (7-20); CALCIUM 8.2 mg/dL (8.4-10.2); CARBON DIOXIDE 14 mmol/L (22-30); CHLORIDE 97 mmol/L (98-107); CREATININE RESULT 1.36 mg/dL (0.52-1.25); GLUCOSE 250 mg/dL (75-110); MAGNESIUM 2.4 mg/dL (1.6-2.3); POTASSIUM 5.2 mmol/L (3.6-5.0); SODIUM 121.3 mmol/L (137-145)
[2017-01-06 06:10] LABS: BAND NEUTROPHILS % (MANUAL) 2 % (3-5); BASOPHILS % (MANUAL) 0 % (0-2); EOSINOPHILS % (MANUAL) 0 % (0-6); LYMPHOCYTES % (MANUAL) 6 % (13-45); TOTAL CELLS COUNTED 100
[2017-01-06 06:21] LABS: ANISOCYTOSIS 2+; BURR CELLS 1+; POIKILOCYTOSIS 1+; TOXIC GRANULATION 2+; TOXIC VACUOLATION PRESENT
[2017-01-06] MEDS: INSULIN LISPRO 100 UNIT/ML 3 ML VIAL SUBCUT PRN (07:52)
[2017-01-06] MEDS ORDERED: ONDANSETRON HCL INJ/PF 4 MG/2 ML SDV IV PRN (08:34)
[2017-01-06] MEDS ORDERED: PROMETHAZINE HCL INJ 25 MG/1 ML VIAL IV PRN (08:35)
[2017-01-06] MEDS: LACTULOSE SYRUP 20 GM/30 ML UDCUP PO SCH (10:32)
[2017-01-06] MEDS: PREDNISONE 20 MG TABLET PO SCH ×3 (10:32→17:33)
[2017-01-06] MEDS: DOCUSATE SODIUM 100 MG CAPSULE PO SCH (10:32)
[2017-01-06] MEDS: LANSOPRAZOLE 15 MG TAB.RAP.DR PO SCH (10:32)
[2017-01-06] MEDS: LEVOFLOXACIN 500 MG/D5W RTU 500 MG/100 ML RTUPB IV SCH (10:33)
[2017-01-06] MEDS: VANCOMYCIN HCL 500 MG in DEXTROSE 5%-WATER 100 ML IV SCH ×2 (10:35→22:49)
[2017-01-06] MEDS: RIFAXIMIN 550 MG TABLET PO SCH ×2 (10:35→17:33)
[2017-01-06] MEDS: INSULIN LISPRO 100 UNIT/ML 3 ML VIAL SUBCUT SCH ×3 (11:00→16:00)
[2017-01-06] MEDS ORDERED: INSULIN LISPRO 100 UNIT/ML 3 ML VIAL SUBCUT PRN (16:31)
--- NOTE | 2017-01-06 17:23 | RADIOLOGY REPORT (SQ) ---
EXAM DESCRIPTION: U/S ABD PARACENTESIS COMPLETED DATE/TIME: 01/06/2017 5:02 pm REASON FOR STUDY: ascities abdominal distenstion with discomfort COMPARISON 01/04/2017 LIMITATIONS: None. PROCEDURE: After obtaining informed consent, the patient was brought to the ultrasound suite. The p rocedure was performed with the patient on a gurney. Ultrasound was used to identify a prominent poc ket of ascites in the right lower quadrant. An appropriate access site was selected. The patient wa s prepped and draped in usual sterile fashion. The access site was anesthetized with 5 mL 1% lidoca ine. A [id number] needle was advanced into the fluid. After aspiration of fluid the needle, th e catheter was advanced off the needle into the fluid. A total of 4,800 mL of clear straw-colored fl uid was removed. The patient tolerated the procedure well left the department in satisfactory conditi on. No testing on the fluid. Patient received IV albumin IMPRESSION: Successful ultrasound-guided therapeutic paracentesis COMMENT: Patient medication list reviewed: Yes- Quality ID# [id number]:Eligible professional attests to doc umenting in the medical record they obtained, updated, or reviewed the patient's current medications. Quality ID #[id number]: The patient was prepped and draped using maximum sterile barrier technique including cap, mask, sterile gown, sterile gloves, a large sterile sheet, hand hygiene, and 2% Chlorhexidine fo r cutaneous antisepsis. When ultrasound is used, sterile ultrasound techniques are followed requiring sterile gel and sterile probes. Quality ID #[id number]: Final reports for procedures using fluoroscopy that document radiation exposure enedina omega, or exposure time and number of fluorographic images (if radiation exposure indices are not avail able) TECHNICAL DOCUMENTATION: JOB ID: [id number] [employer]- All Rights Reserved
--- NOTE | 2017-01-06 18:18 | PDOC PROGRESS REPORT ---
Subjective Progress Note for:: 01/06/17 Subjective:: She is lying in bed in no acute distress. Nurse had a long discussion with patient's son regarding his CODE STATUS and his lack of improvement regarding diabetes refractory to paracentesis and medication. Patient was still like everything done. Explained to her that fluid will be taken off of his abdomen as he is distended again and is having some discomfort. She is requesting that he no longer be given pain medication as it is causing him to have change in mentation. Change in his mentation could be due to of course his hepatic failure. Attempt to call patient oncologist Dr. Klein in [place] however he is out of office until January 15. Physical Exam Vital Signs: Temp Pulse Resp BP Pulse Ox 97.5 F 87 18 123/61 100 01/06/17 15:44 01/06/17 15:44 01/06/17 15:44 01/06/17 15:44 01/06/17 15:44 Intake & Output 01/05/17 01/06/17 01/07/17 06:59 06:59 06:59 Intake Total 2882 1378 0 Output Total 3190 980 0 Balance -308 398 0 Weight 75 kg 75.6 kg General appearance: PRESENT: no acute distress, thin Head exam: PRESENT: normocephalic Eye exam: PRESENT: scleral icterus Neck exam: PRESENT: full ROM Respiratory exam: PRESENT: clear to auscultation art, unlabored. ABSENT: accessory muscle use Cardiovascular exam: PRESENT: RRR GI/Abdominal exam: PRESENT: ascites, diminished bowel sounds, distended, soft Rectal exam: PRESENT: deferred Extremities exam: PRESENT: pedal edema Musculoskeletal exam: PRESENT: full ROM Neurological exam: PRESENT: alert, awake, oriented to person, oriented to place , other - Slow to respond Psychiatric exam: PRESENT: depressed Skin exam: PRESENT: jaundice Results Laboratory Results: 01/06/17 05:29 01/06/17 05:29 01/06/17 01/06/17 05:29 05:29 WBC 7.8 RBC 2.50 L Hgb 9.0 L Hct 25.0 L MCV 100 H MCH 35.8 H MCHC 35.9 RDW 18.9 H Plt Count 88 L Seg Neutrophils % Not Reportable Lymphocytes % Not Reportable Monocytes % Not Reportable Eosinophils % Not Reportable Basophils % Not Reportable Absolute Neutrophils Not Reportable Absolute Lymphocytes Not Reportable Absolute Monocytes Not Reportable Absolute Eosinophils Not Reportable Absolute Basophils Not Reportable Sodium 121.3 L Potassium 5.2 H Chloride 97 L Carbon Dioxide 14 L Anion Gap 10 BUN 72 H Creatinine 1.36 H Est GFR ( Amer) > 60 Est GFR (Non-Af Amer) 53 L Glucose 250 H Calcium 8.2 L Magnesium 2.4 H 01/02/17 15:25 Buttocks - Abscess Gram Stain - Final 01/02/17 15:25 Buttocks - Abscess Wound Culture - Final Enterobacter Cloacae Enterococcus Faecalis(Group D) No Anaerobic Organisms Impressions: Chest X-Ray 01/02/17 06:00 IMPRESSION: Moderate lung volumes. Tip of a right internal jugular central line at the inferior right atrium; consider 10 cm retraction. Paracentesis Ultrasound 01/06/17 00:00 IMPRESSION: Successful ultrasound-guided therapeutic paracentesis Assessment & Plan - Diagnosis (1) Severe sepsis Is this a current diagnosis for this admission?: Yes Plan: The hypotension and perianal abscess and mild leukocytosis patient presentation was consistent with sepsis. Patient did have I&D of the. He an abscess and is currently on antibiotics. (2) Hyperkalemia Is this a current diagnosis for this admission?: Yes Plan: Potassium is currently 5.2. Will hold patient spironolactone in the presence of his acute on chronic renal failure. Patient was on spironolactone for his hepatic failure however we will will resort to paracentesis at this time. (3) Acute renal failure Qualifiers: Acute renal failure type: unspecified Qualified Code(s): N17.9 - Acute kidney failure, unspecified Is this a current diagnosis for this admission?: Yes (4) Anemia Qualifiers: Anemia type: iron deficiency Is this a current diagnosis for this admission?: Yes Plan: Type factorial. This is most likely due to his hepatocellular carcinoma. Patient does not have any clear signs of bleeding however will monitor for any signs of bleeding. Patient was given 2 units of packed RBCs on 01/03/2017 and has responded well. (5) Ascites Qualifiers: Ascites type: malignant Qualified Code(s): R18.0 - Malignant ascites Plan: Patient underwent paracentesis and had 9 L removed on 01/04/2017. Patient was having some abdominal distention with discomfort and repeat paracentesis was done removing 4800 mL's. Family is considering a Pleurx catheter to be placed as patient is requiring weekly weekly paracentesis. Attempts were made to speak to patient's oncologist Dr. Klein in [place] however he is out of office until January 15. (6) Hepatocellular carcinoma Is this a current diagnosis for this admission?: Yes Plan: Patient has a very poor prognosis. Hospice was consulted. Patient is still full code. Patient's son is more understanding of his poor condition and is agreeable to palliative care and the placement of a Pleurx catheter however the is not agreeable at this time. Patient was started on prednisone for treatment of his hepatocellular carcinoma despite having elevated blood glucoses. (7) Hyponatremia Is this a current diagnosis for this admission?: Yes Plan: Hyponatremia could be secondary to his malignancy i.e. SIADH versus his decompensated hepatic failure. Sodium was 121.3 we will hold Lasix and spironolactone and monitor. (8) Lower extremity edema Is this a current diagnosis for this admission?: Yes Plan: Stable but most likely due to his hepatic failure. (9) GRACIA (nonalcoholic steatohepatitis) Is this a current diagnosis for this admission?: Yes Plan: Continue supportive care (10) Thrombocytopenia Is this a current diagnosis for this admission?: Yes Plan: Secondary to his hepatic failure. Patient is not on any subcutaneous heparin. Patient on compression stockings for DVT prophylaxis. Despite thrombocytopenia patient does not show any signs of bleeding. (11) SBP (spontaneous bacterial peritonitis) Is this a current diagnosis for this admission?: Yes Plan: Patient is currently on broad-spectrum antibiotics with Cipro and Flagyl for his perianal abscess. His peritoneal fluid does not appear to be infected cultures are pending and have not grown anything as of yet. Patient presentation on admission is most likely due to his perianal abscess and not spontaneous bacterial peritonitis. (12) Hyperglycemia Is this a current diagnosis for this admission?: Yes Plan: Most likely due to his steroids that he is off for his hepatocellular carcinoma. Will adjust his insulin for better glucose control despite patient having poor prognosis as patient is still full code. - Time Time Spent with patient: 15-24 minutes - Had a discussion with that is not excepting patient's prognosis. Patient's son is more realistic and is agreeable to talking with palliative care about Pleurx catheter and possible home with hospice. Did attempt to speak to patient's oncologist however patient oncologist Dr. Klein is out of town until January 15. Anticipated discharge: Home
[2017-01-06] MEDS: THIAMINE HCL 100 MG, FOLIC ACID 1 MG in NORMAL SALINE 50 ML IV SCH (21:56)
--- NOTE | 2017-01-06 22:22 | PROGRESS NOTE E ---
Progress Note NAME: VELVET WILLS : 1950 AGE: 66Y DATE: 01/06/2017 ROOM: 323 SUBJECTIVE: The patient has remained afebrile and no significant pains in the right pararectal area. OBJECTIVE: The wound was inspected and it appears dry. There was a new packing placed. There is no inflammation noted. PLAN: 1. Continue with dressing changes with packing change once a day until the wound heals. 2. Continue with IV antibiotic therapy. DICTATING PHYSICIAN: MICHEAL AMEZCUA M.D. [id number] PHY#: [id number] ID: [id number] JOB#: [id number] ACCT: [id number] cc: >
[2017-01-06] MEDS: INSULIN GLARGINE,HUM.REC.ANLOG 300 UNIT/3 ML INSULN.PEN SUBCUT SCH (22:48)
[2017-01-06] MEDS: OXYCODONE HCL IR 5 MG TABLET PO PRN (23:48)
[2017-01-07] MEDS: INSULIN LISPRO 100 UNIT/ML 3 ML VIAL SUBCUT PRN ×4 (00:15→22:30)
[2017-01-07] MEDS ORDERED: INSULIN LISPRO 100 UNIT/ML 3 ML VIAL SUBCUT ONE ×2 (01:16→22:42)
[2017-01-07 05:03] LABS: ALANINE AMINOTRANSFERASE 126 U/L (21-72); ALBUMIN 2.9 g/dL (3.5-5.0); ALKALINE PHOSPHATASE 325 U/L (38-126); ANION GAP 12 (5-19); ASPARTATE AMINO TRANSFERASE 81 U/L (17-59); BILIRUBIN,DIRECT 5.5 mg/dL (0.0-0.4); BILIRUBIN,TOTAL 6.7 mg/dL (0.2-1.3); BLOOD UREA NITROGEN 79 mg/dL (7-20); CALCIUM 8.7 mg/dL (8.4-10.2); CARBON DIOXIDE 14 mmol/L (22-30); CHLORIDE 96 mmol/L (98-107); CREATININE RESULT 1.38 mg/dL (0.52-1.25); GLUCOSE 356 mg/dL (75-110); MAGNESIUM 2.5 mg/dL (1.6-2.3); POTASSIUM 5.4 mmol/L (3.6-5.0); SODIUM 122.1 mmol/L (137-145); TOTAL PROTEIN 6.5 g/dL (6.3-8.2)
[2017-01-07 05:13] LABS: HEMOGLOBIN 10.8 g/dL (13.5-17.0); HGB HCT DIFFERENCE 1.4; MEAN CORPUSCULAR HEMOGLOBIN 35.4 pg (27.0-33.4); MEAN CORPUSCULAR HGB CONC 34.7 g/dL (32.0-36.0); MEAN CORPUSCULAR VOLUME 102 fl (80-97); RED BLOOD COUNT 3.04 10^6/uL (4.35-5.55); RED CELL DISTRIBUTION WIDTH 18.4 % (11.5-14.0); WHITE BLOOD COUNT 9.7 10^3/uL (4.0-10.5)
[2017-01-07 05:20] LABS: BAND NEUTROPHILS % (MANUAL) 2 % (3-5); BASOPHILS % (MANUAL) 0 % (0-2); EOSINOPHILS % (MANUAL) 0 % (0-6); LYMPHOCYTES % (MANUAL) 6 % (13-45); TOTAL CELLS COUNTED 100; TOXIC GRANULATION SLIGHT; TOXIC VACUOLATION PRESENT
[2017-01-07 05:21] LABS: ANISOCYTOSIS 2+; BURR CELLS 1+; TEAR DROP CELLS SLIGHT
[2017-01-07] MEDS: DOCUSATE SODIUM 100 MG CAPSULE PO SCH (09:26)
[2017-01-07] MEDS: LACTULOSE SYRUP 20 GM/30 ML UDCUP PO SCH (09:26)
[2017-01-07] MEDS: LANSOPRAZOLE 15 MG TAB.RAP.DR PO SCH (09:26)
[2017-01-07] MEDS: RIFAXIMIN 550 MG TABLET PO SCH ×2 (09:26→17:48)
[2017-01-07] MEDS: PREDNISONE 20 MG TABLET PO SCH ×3 (09:27→17:48)
[2017-01-07] MEDS: LEVOFLOXACIN 500 MG/D5W RTU 500 MG/100 ML RTUPB IV SCH (09:27)
[2017-01-07] MEDS: VANCOMYCIN HCL 500 MG in DEXTROSE 5%-WATER 100 ML IV SCH ×2 (11:04→22:10)
--- NOTE | 2017-01-07 13:46 | PDOC PROGRESS REPORT ---
Subjective Progress Note for:: 01/07/17 Subjective:: Patient states he is doing well. Patient did not eat very much today. Patient is agreeable to trying Ensure. No family is at the bedside at the time. Explained to patient that I attempted to call his oncologist however he is out of town. Physical Exam Vital Signs: Temp Pulse Resp BP Pulse Ox 97.4 F 85 19 121/64 100 01/07/17 12:23 01/07/17 12:23 01/07/17 12:23 01/07/17 12:23 01/07/17 12:23 Intake & Output 01/06/17 01/07/17 01/08/17 06:59 06:59 06:59 Intake Total 1378 437 240 Output Total 980 0 Balance 398 437 240 Weight 75.6 kg 70.3 kg General appearance: PRESENT: no acute distress, thin Head exam: PRESENT: normocephalic Eye exam: PRESENT: scleral icterus Respiratory exam: PRESENT: clear to auscultation art, unlabored. ABSENT: accessory muscle use Cardiovascular exam: PRESENT: RRR GI/Abdominal exam: PRESENT: distended, soft. ABSENT: tenderness Rectal exam: PRESENT: deferred Neurological exam: PRESENT: alert, awake, oriented to person, oriented to place , CN II-XII grossly intact Psychiatric exam: PRESENT: flat affect Skin exam: PRESENT: jaundice Results Laboratory Results: 01/07/17 04:20 01/07/17 11:45 01/07/17 01/07/17 01/07/17 04:20 04:20 04:20 WBC 9.7 RBC 3.04 L Hgb 10.8 L Hct 31.0 L MCV 102 H MCH 35.4 H MCHC 34.7 RDW 18.4 H Plt Count 159 Seg Neutrophils % Not Reportable Lymphocytes % Not Reportable Monocytes % Not Reportable Eosinophils % Not Reportable Basophils % Not Reportable Absolute Neutrophils Not Reportable Absolute Lymphocytes Not Reportable Absolute Monocytes Not Reportable Absolute Eosinophils Not Reportable Absolute Basophils Not Reportable Sodium 122.1 L Potassium 5.4 H Chloride 96 L Carbon Dioxide 14 L Anion Gap 12 BUN 79 H Creatinine 1.38 H Est GFR ( Amer) > 60 Est GFR (Non-Af Amer) 52 L Glucose 356 H Calcium 8.7 Magnesium 2.5 H Total Bilirubin 6.7 H AST 81 H ALT 126 H Alkaline Phosphatase 325 H Ammonia 20.8 Total Protein 6.5 Albumin 2.9 L 01/07/17 11:45 WBC RBC Hgb Hct MCV MCH MCHC RDW Plt Count Seg Neutrophils % Lymphocytes % Monocytes % Eosinophils % Basophils % Absolute Neutrophils Absolute Lymphocytes Absolute Monocytes Absolute Eosinophils Absolute Basophils Sodium Potassium Chloride Carbon Dioxide Anion Gap BUN Creatinine 1.40 H Est GFR ( Amer) > 60 Est GFR (Non-Af Amer) 51 L Glucose Calcium Magnesium Total Bilirubin AST ALT Alkaline Phosphatase Ammonia Total Protein Albumin 01/04/17 12:28 Ascities Fluid Gram Stain - Final 01/02/17 15:25 Buttocks - Abscess Gram Stain - Final 01/02/17 15:25 Buttocks - Abscess Wound Culture - Final Enterobacter Cloacae Enterococcus Faecalis(Group D) No Anaerobic Organisms Impressions: Chest X-Ray 01/02/17 06:00 IMPRESSION: Moderate lung volumes. Tip of a right internal jugular central line at the inferior right atrium; consider 10 cm retraction. Paracentesis Ultrasound 01/06/17 00:00 IMPRESSION: Successful ultrasound-guided therapeutic paracentesis Assessment & Plan - Diagnosis (1) Severe sepsis Is this a current diagnosis for this admission?: Yes Plan: The hypotension and perianal abscess and mild leukocytosis patient presentation was consistent with sepsis. Patient did have I&D and he is currently on antibiotics. He is hemodynamically stable and leukocytosis resolved. (2) Hyperkalemia Is this a current diagnosis for this admission?: Yes Plan: Potassium is currently 5.2. Continue holding aldactone. Follow up bmp in the am. (3) Acute renal failure Qualifiers: Acute renal failure type: unspecified Qualified Code(s): N17.9 - Acute kidney failure, unspecified Is this a current diagnosis for this admission?: Yes Plan: Patient appears to have CKD3. Patient may have hepatorenal syndrome. (4) Anemia Qualifiers: Anemia type: iron deficiency Is this a current diagnosis for this admission?: Yes Plan: Multifactorial. This is most likely due to his hepatocellular carcinoma. Patient does not have any clear signs of bleeding however will monitor for any signs of bleeding. Patient was given 2 units of packed RBCs on 01/03/2017 and has responded well. (5) Ascites Qualifiers: Ascites type: malignant Qualified Code(s): R18.0 - Malignant ascites Plan: Patient underwent paracentesis and had 9 L removed on 01/04/2017. Patient was having some abdominal distention with discomfort and repeat paracentesis was done removing 4800 mL's in 01/06. Family is considering a Pleurx catheter to be placed as patient is requiring weekly weekly paracentesis. Attempts were made to speak to patient's oncologist Dr. Klein in [place] however he is out of office until January 15. (6) Hepatocellular carcinoma Is this a current diagnosis for this admission?: Yes Plan: Patient has a very poor prognosis. Hospice was consulted. Patient is still full code. Patient's son is more understanding of his poor condition and is agreeable to palliative care and the placement of a Pleurx catheter however the is not agreeable at this time. Patient was started on prednisone for treatment of his hepatocellular carcinoma. Will continue to steroids for now. (7) Hyponatremia Is this a current diagnosis for this admission?: Yes Plan: Hyponatremia could be secondary to his malignancy i.e. SIADH versus his decompensated hepatic failure. Sodium was 121.3 Continue holding Lasix and spironolactone and monitor. Will follow up BMP in the am. (8) Lower extremity edema Is this a current diagnosis for this admission?: Yes Plan: Stable but most likely due to his hepatic failure. (9) GRACIA (nonalcoholic steatohepatitis) Is this a current diagnosis for this admission?: Yes Plan: Continue supportive care (10) Thrombocytopenia Is this a current diagnosis for this admission?: Yes Plan: Secondary to his hepatic failure. Patient is not on any subcutaneous heparin. Patient on compression stockings for DVT prophylaxis. Despite thrombocytopenia patient does not show any signs of bleeding. Patient platelets are normal. (11) SBP (spontaneous bacterial peritonitis) Is this a current diagnosis for this admission?: Yes Plan: Patient is currently on broad-spectrum antibiotics with Cipro and Flagyl for his perianal abscess. Peritoneal fluid is still without growth. Patient presentation on admission is most likely due to his perianal abscess and not spontaneous bacterial peritonitis. (12) Hyperglycemia Is this a current diagnosis for this admission?: Yes Plan: Most likely due to his steroids that is for his hepatocellular carcinoma. Paitnt last blood glucose was 190. - Time Time Spent with patient: Less than 15 minutes - Family at bedside at this time. Family was contemplating possible hospice with placement of a peritoneal drain.
[2017-01-07] MEDS: THIAMINE HCL 100 MG, FOLIC ACID 1 MG in NORMAL SALINE 50 ML IV SCH (22:13)
[2017-01-07] MEDS: INSULIN GLARGINE,HUM.REC.ANLOG 300 UNIT/3 ML INSULN.PEN SUBCUT SCH (22:14)
[2017-01-08] MEDS: INSULIN LISPRO 100 UNIT/ML 3 ML VIAL SUBCUT PRN ×4 (07:35→22:37)
[2017-01-08 10:02] LABS: HEMATOCRIT 29.6 % (37.9-51.0); HEMOGLOBIN 9.9 g/dL (13.5-17.0); HGB HCT DIFFERENCE 0.1; MEAN CORPUSCULAR HEMOGLOBIN 34.4 pg (27.0-33.4); MEAN CORPUSCULAR HGB CONC 33.4 g/dL (32.0-36.0); MEAN CORPUSCULAR VOLUME 103 fl (80-97); RED BLOOD COUNT 2.87 10^6/uL (4.35-5.55); RED CELL DISTRIBUTION WIDTH 18.6 % (11.5-14.0); WHITE BLOOD COUNT 8.7 10^3/uL (4.0-10.5)
[2017-01-08 10:23] LABS: BASOPHILS % (MANUAL) 0 % (0-2); EOSINOPHILS % (MANUAL) 1 % (0-6); LYMPHOCYTES % (MANUAL) 4 % (13-45); TOTAL CELLS COUNTED 100
[2017-01-08 10:27] LABS: ANISOCYTOSIS 2+; BURR CELLS SLIGHT; TOXIC GRANULATION 1+
[2017-01-08 10:28] LABS: PLATELET CLUMPS PRESENT; POIKILOCYTOSIS SLIGHT; TARGET CELLS SLIGHT
[2017-01-08] MEDS: DOCUSATE SODIUM 100 MG CAPSULE PO SCH (10:37)
[2017-01-08 10:38] LABS: ANION GAP 12 (5-19); BLOOD UREA NITROGEN 81 mg/dL (7-20); CALCIUM 8.3 mg/dL (8.4-10.2); CARBON DIOXIDE 15 mmol/L (22-30); CHLORIDE 95 mmol/L (98-107); CREATININE RESULT 1.54 mg/dL (0.52-1.25); GLUCOSE 219 mg/dL (75-110); POTASSIUM 5.5 mmol/L (3.6-5.0); SODIUM 121.5 mmol/L (137-145)
[2017-01-08] MEDS: PREDNISONE 20 MG TABLET PO SCH ×3 (10:38→17:29)
[2017-01-08] MEDS: RIFAXIMIN 550 MG TABLET PO SCH ×2 (10:39→17:29)
[2017-01-08] MEDS: LACTULOSE SYRUP 20 GM/30 ML UDCUP PO SCH (10:39)
[2017-01-08] MEDS: LEVOFLOXACIN 500 MG/D5W RTU 500 MG/100 ML RTUPB IV SCH (10:40)
[2017-01-08] MEDS: LANSOPRAZOLE 15 MG TAB.RAP.DR PO SCH (10:40)
[2017-01-08] MEDS: VANCOMYCIN HCL 1,000 MG in DEXTROSE 5%-WATER 250 ML IV SCH (13:19)
[2017-01-08] MEDS ORDERED: PROMETHAZINE HCL INJ 25 MG/1 ML VIAL IV PRN (15:00)
[2017-01-08] MEDS ORDERED: ONDANSETRON HCL INJ/PF 4 MG/2 ML SDV IV PRN (15:00)
[2017-01-08] MEDS ORDERED: MAG HYDROX/AL HYDROX/SIMETH SUSP 30 ML UDCUP PO PRN (15:00)
[2017-01-08] MEDS: OXYCODONE HCL IR 5 MG TABLET PO PRN (15:47)
--- NOTE | 2017-01-08 21:12 | PDOC PROGRESS REPORT ---
Subjective Progress Note for:: 01/08/17 Subjective:: Patient states he is doing well. Patient has no complaints. He states that he does not have much of an appetite. Patient denies any pain. Physical Exam Vital Signs: Temp Pulse Resp BP Pulse Ox 97.6 F 87 18 116/58 L 100 01/08/17 20:23 01/08/17 20:23 01/08/17 20:23 01/08/17 20:23 01/08/17 20:23 Intake & Output 01/07/17 01/08/17 01/09/17 06:59 06:59 06:59 Intake Total 007 890 9990 Output Total 0 Balance 479 035 8221 Weight 70.3 kg 71.7 kg General appearance: PRESENT: no acute distress, thin Head exam: PRESENT: normocephalic Eye exam: PRESENT: scleral icterus, other - Wears glasses Respiratory exam: PRESENT: decreased breath sounds, unlabored Cardiovascular exam: PRESENT: RRR GI/Abdominal exam: PRESENT: normal bowel sounds, soft. ABSENT: tenderness Rectal exam: PRESENT: deferred Neurological exam: PRESENT: alert, awake, oriented to person, oriented to place , oriented to time, CN II-XII grossly intact Psychiatric exam: PRESENT: flat affect Skin exam: PRESENT: jaundice Results Laboratory Results: 01/08/17 09:30 01/08/17 09:30 01/08/17 01/08/17 09:30 09:30 WBC 8.7 RBC 2.87 L Hgb 9.9 L Hct 29.6 L MCV 103 H MCH 34.4 H MCHC 33.4 RDW 18.6 H Plt Count 113 L Seg Neutrophils % Not Reportable Lymphocytes % Not Reportable Monocytes % Not Reportable Eosinophils % Not Reportable Basophils % Not Reportable Absolute Neutrophils Not Reportable Absolute Lymphocytes Not Reportable Absolute Monocytes Not Reportable Absolute Eosinophils Not Reportable Absolute Basophils Not Reportable Sodium 121.5 L Potassium 5.5 H Chloride 95 L Carbon Dioxide 15 L Anion Gap 12 BUN 81 H Creatinine 1.54 H Est GFR ( Amer) 55 L Est GFR (Non-Af Amer) 46 L Glucose 219 H Calcium 8.3 L 01/04/17 17:16 Buttocks - Right Side Abscess Gram Stain - Final 01/04/17 17:16 Buttocks - Right Side Abscess Wound Culture - Final Enterobacter Cloacae Enterococcus Faecalis(Group D) Citrobacter Freundii No Anaerobic Organisms 01/04/17 12:28 Ascities Fluid Gram Stain - Final 01/04/17 12:28 Ascities Fluid Body Fluid Culture - Final NO AEROBIC OR ANAEROBIC ORGANISMS RECOVERED Impressions: Chest X-Ray 01/02/17 06:00 IMPRESSION: Moderate lung volumes. Tip of a right internal jugular central line at the inferior right atrium; consider 10 cm retraction. Paracentesis Ultrasound 01/06/17 00:00 IMPRESSION: Successful ultrasound-guided therapeutic paracentesis Assessment & Plan - Diagnosis (1) Severe sepsis Is this a current diagnosis for this admission?: Yes Plan: Presented with attention and leukocytosis and was found to have a perianal abscess which is most likely the cause of his sepsis. I&D done by surgery and he is currently on antibiotics (vancomycin and Levaquin). He is hemodynamically stable and leukocytosis resolved. (2) Hyperkalemia Is this a current diagnosis for this admission?: Yes Plan: Patient potassium is creeping up at 5.5. Will repeat BMP in the morning. If continues to trend the patient may require a dose of Kayexalate. (3) Acute renal failure Qualifiers: Acute renal failure type: unspecified Qualified Code(s): N17.9 - Acute kidney failure, unspecified Is this a current diagnosis for this admission?: Yes Plan: Patient appears to have acute on chronic kidney disease stage III. Patient may have hepatorenal syndrome. Patient creatinine is slightly more elevated despite the discontinuation of patient's Lasix and spironolactone. Will continue to monitor (4) Anemia Qualifiers: Anemia type: iron deficiency Is this a current diagnosis for this admission?: Yes Plan: Multifactorial. This is most likely due to his hepatocellular carcinoma. Patient does not have any clear signs of bleeding however will monitor for any signs of bleeding. Patient was given 2 units of packed RBCs on 01/03/2017. Hemoglobin is 9.9. (5) Ascites Qualifiers: Ascites type: malignant Qualified Code(s): R18.0 - Malignant ascites Is this a current diagnosis for this admission?: Yes Plan: Patient underwent paracentesis and had 9 L removed on 01/04/2017. Patient was having some abdominal distention with discomfort and repeat paracentesis was done removing 4800 mL's in 01/06. Family is considering a Pleurx catheter to be placed as patient is requiring weekly paracentesis. Attempts were made to speak to patient's oncologist Dr. Klein in [place] however he is out of office until January 15. Still awaiting decision from patient's family guarding the placement of Pleurx catheter,CODE STATUS and palliative care. (6) Hepatocellular carcinoma Is this a current diagnosis for this admission?: Yes Plan: Patient has a very poor prognosis. Hospice was consulted. Patient is still full code. Patient's son is more understanding of his poor condition and is agreeable to palliative care and the placement of a Pleurx catheter however the is not agreeable at this time. Patient was started on prednisone for treatment of his hepatocellular carcinoma by his oncologist Dr. Klein. Will continue to steroids for now. (7) Hyponatremia Is this a current diagnosis for this admission?: Yes Plan: Hyponatremia could be secondary to his malignancy i.e. SIADH versus his decompensated hepatic failure. Sodium was 121.3 Continue holding Lasix and spironolactone and monitor. Will follow up BMP in the am. (8) Lower extremity edema Is this a current diagnosis for this admission?: Yes Plan: Stable but most likely due to his hepatic failure. (9) GRACIA (nonalcoholic steatohepatitis) Is this a current diagnosis for this admission?: Yes Plan: Continue supportive care (10) Thrombocytopenia Is this a current diagnosis for this admission?: Yes Plan: Secondary to his hepatic failure. Patient is not on any subcutaneous heparin. Patient on compression stockings for DVT prophylaxis. Despite thrombocytopenia patient does not show any signs of bleeding. Platelets are currently 113 (11) Hyperglycemia Is this a current diagnosis for this admission?: Yes Plan: Most likely due to his steroids that is for his hepatocellular carcinoma. Patient blood glucoses have still been quite elevated. Patient did require additional nighttime coverage Patient long-acting insulin has been increased to 20 units nightly along with sliding scale insulin. - Time Time Spent with patient: Less than 15 minutes - Plan Summary Plan Summary: Still awaiting family's decision whether they would want him to have a Pleurx catheter not and discharged home with hospice palliative care. Patient is not showing much clinical improvement in regards to his jaundice,ascites, natremia and renal failure. Patient remains hyponatremic despite holding his Lasix and spironolactone. Patient blood pressures and leukocytosis have improved however overall his condition is poor.
[2017-01-08 21:58] LABS: HEMATOCRIT 28.6 % (37.9-51.0); HGB HCT DIFFERENCE 1.4; MEAN CORPUSCULAR HEMOGLOBIN 35.9 pg (27.0-33.4); MEAN CORPUSCULAR VOLUME 103 fl (80-97); RED BLOOD COUNT 2.79 10^6/uL (4.35-5.55); WHITE BLOOD COUNT 8.2 10^3/uL (4.0-10.5)
[2017-01-08] MEDS: INSULIN GLARGINE,HUM.REC.ANLOG 300 UNIT/3 ML INSULN.PEN SUBCUT SCH (22:37)
[2017-01-08 22:39] LABS: ANISOCYTOSIS 2+; BASOPHILS % (MANUAL) 0 % (0-2); EOSINOPHILS % (MANUAL) 0 % (0-6); HYPOCHROMASIA 1+; LYMPHOCYTES % (MANUAL) 1 % (13-45); POIKILOCYTOSIS 1+; TOTAL CELLS COUNTED 100; TOXIC GRANULATION SLIGHT
[2017-01-08 22:40] LABS: BURR CELLS 1+; PLATELET CLUMPS PRESENT
[2017-01-09 06:34] LABS: ANION GAP 10 (5-19); BLOOD UREA NITROGEN 86 mg/dL (7-20); CALCIUM 8.5 mg/dL (8.4-10.2); CARBON DIOXIDE 15 mmol/L (22-30); CHLORIDE 94 mmol/L (98-107); CREATININE RESULT 1.49 mg/dL (0.52-1.25); GLUCOSE 259 mg/dL (75-110); MAGNESIUM 2.5 mg/dL (1.6-2.3); POTASSIUM 5.9 mmol/L (3.6-5.0)
[2017-01-09] MEDS ORDERED: INSULIN REG, HUMAN 100 UNIT/ML 3 ML VIAL (PYX) IV ONE ×2 (07:00→23:00)
[2017-01-09] MEDS: LANSOPRAZOLE 15 MG TAB.RAP.DR PO SCH (08:01)
[2017-01-09] MEDS ORDERED: LEVOFLOXACIN 500 MG TABLET PO SCH (10:00)
[2017-01-09] MEDS: RIFAXIMIN 550 MG TABLET PO SCH ×2 (10:02→18:43)
[2017-01-09] MEDS: PREDNISONE 20 MG TABLET PO SCH ×3 (10:03→18:43)
[2017-01-09] MEDS: LACTULOSE SYRUP 20 GM/30 ML UDCUP PO SCH (10:03)
[2017-01-09] MEDS: VANCOMYCIN HCL 1,000 MG in DEXTROSE 5%-WATER 250 ML IV SCH (10:04)
[2017-01-09] MEDS: DOCUSATE SODIUM 100 MG CAPSULE PO SCH (10:05)
[2017-01-09] MEDS: INSULIN LISPRO 100 UNIT/ML 3 ML VIAL SUBCUT PRN ×3 (11:46→22:08)
[2017-01-09] MEDS: IMIPENEM/CILASTATIN SODIUM 500 MG in NORMAL SALINE 100 ML IV SCH ×2 (15:10→21:02)
--- NOTE | 2017-01-09 19:54 | PDOC PROGRESS REPORT ---
Subjective Progress Note for:: 01/09/17 Subjective:: This is a follow-up visit for right buttock abscess. The patient states that he only eats meat and fruits and vegetables. He does not like starches. Therefore, he has not eaten his rice or roll at the bedside. He denies any current chest pain or shortness of breath. The patient did have Enterobacter grow out in his abscess specimen. Physical Exam Vital Signs: Temp Pulse Resp BP Pulse Ox 98.5 F 95 16 121/62 100 01/09/17 17:56 01/09/17 18:52 01/09/17 17:56 01/09/17 17:56 01/09/17 17:56 Intake & Output 01/08/17 01/09/17 01/10/17 06:59 06:59 06:59 Intake Total 810 2007 475 Balance 810 2007 475 Weight 71.7 kg 73.5 kg GENERAL: This is a well-developed and nourished appearing male resting in bed currently in no acute distress but appears ill. HEART: Regular rate and rhythm. No murmurs, rubs or gallops. LUNGS: Clear to auscultation bilaterally with equal rise and fall of the chest. ABDOMEN: Soft, nontender, nondistended with normoactive bowel sounds EXTREMETIES: No clubbing, cyanosis or edema. 2+ peripheral pulses bilaterally. NEURO: Awake, alert and oriented 3. Cranial nerves II through XII are grossly intact. Results Laboratory Results: 01/08/17 21:30 01/09/17 06:05 01/08/17 01/09/17 21:30 06:05 WBC 8.2 RBC 2.79 L Hgb 10.0 L Hct 28.6 L MCV 103 H MCH 35.9 H MCHC 35.0 RDW 18.0 H Plt Count 104 L Seg Neutrophils % Not Reportable Lymphocytes % Not Reportable Monocytes % Not Reportable Eosinophils % Not Reportable Basophils % Not Reportable Absolute Neutrophils Not Reportable Absolute Lymphocytes Not Reportable Absolute Monocytes Not Reportable Absolute Eosinophils Not Reportable Absolute Basophils Not Reportable Sodium 119.0 L* Potassium 5.9 H Chloride 94 L Carbon Dioxide 15 L Anion Gap 10 BUN 86 H Creatinine 1.49 H Est GFR ( Amer) 57 L Est GFR (Non-Af Amer) 47 L Glucose 259 H Calcium 8.5 Magnesium 2.5 H Impressions: Chest X-Ray 01/02/17 06:00 IMPRESSION: Moderate lung volumes. Tip of a right internal jugular central line at the inferior right atrium; consider 10 cm retraction. Paracentesis Ultrasound 01/06/17 00:00 IMPRESSION: Successful ultrasound-guided therapeutic paracentesis Assessment & Plan - Diagnosis (1) Severe sepsis Is this a current diagnosis for this admission?: Yes Plan: Sepsis secondary to perianal abscess. Sepsis as evidenced by hypotension and tachycardia. Patient has not had any fevers and does not meet criteria with FiO2 ratios. Multiple organisms have grown out to include Enterobacter, Citrobacter and enterococcus. Antibiotics will necessitate changing today secondary to intermediate response to levofloxacin. Patient will be changed to Primaxin and continued on Vanco. (2) Perianal abscess Is this a current diagnosis for this admission?: Yes Plan: Management as above. (3) Acute renal failure Qualifiers: Acute renal failure type: unspecified Qualified Code(s): N17.9 - Acute kidney failure, unspecified Is this a current diagnosis for this admission?: Yes Plan: Overall improved from admission. Patient is not currently on IV fluids. These will be restarted today for management of his hyponatremia. Hopefully this will also help with continued improvement of his renal function. Likely this is ATN from sepsis. (4) Anemia Is this a current diagnosis for this admission?: Yes Plan: Acute anemia of blood loss. The patient's hemoglobin was down as low as 6. It appears as though he was transfused at one point. He is currently at 8. Continue to monitor. Back in November his hemoglobin baseline was at 9.6. (5) Hepatocellular carcinoma Is this a current diagnosis for this admission?: Yes Plan: Continue management as an outpatient. Patient follows with Dr. Klein in [facility]. Continue steroids. (6) Hyponatremia Is this a current diagnosis for this admission?: Yes Plan: This is likely multifactorial. The patient has underlying hepatocellular carcinoma and in part his hyponatremia may be due to his underlying malignancy. Patient also has what appears to be decreased p.o. intake. Currently he is not receiving any saline solution we will resume this at a maintenance rate and see if we can help with his hyponatremia we will also check BMP later on this evening. (7) Thrombocytopenia Is this a current diagnosis for this admission?: Yes Plan: This is possibly reactive from his underlying infection in addition to his underlying cancer. Patient's platelet count have come up to just above 100. Continue to monitor. (8) Hyperglycemia Is this a current diagnosis for this admission?: Yes Plan: Likely secondary to underlying steroid use for treatment of his hepatocellular carcinoma. (9) Hyperkalemia Is this a current diagnosis for this admission?: Yes (10) Ascites Qualifiers: Ascites type: malignant Qualified Code(s): R18.0 - Malignant ascites Is this a current diagnosis for this admission?: Yes Plan: Secondary to underlying Gracia and hepatocellular carcinoma. The patient underwent paracentesis and had 9 L removed on 01/04/2017. The patient was having some abdominal distention with discomfort and repeat paracentesis was done removing 4800 mL's in 01/06. The patient and his family are considering a Pleurx catheter to be placed, as patient is requiring weekly paracentesis. Attempts were made by Dr. ba to speak to patient's oncologist Dr. Klein in [place]; however, he is out of office until January 15. Still awaiting decision from patient's family guarding the placement of Pleurx catheter, CODE STATUS and palliative care. (11) Lower extremity edema Is this a current diagnosis for this admission?: Yes Plan: Secondary to liver failure and hepatic cellular carcinoma with volume overload and ascites. Management as above. (12) GRACIA (nonalcoholic steatohepatitis) Is this a current diagnosis for this admission?: Yes Plan: Supportive care. - Time Time Spent with patient: 25-34 minutes - Inpatient Certification Medical Necessity: Need Close Monitoring Due to Risk of Patient Decompensation
[2017-01-09] MEDS ORDERED: FUROSEMIDE INJ/PF 40 MG/4 ML SDV IV ONE (20:30)
[2017-01-09 20:43] LABS: ANION GAP 10 (5-19); BLOOD UREA NITROGEN 88 mg/dL (7-20); CALCIUM 8.1 mg/dL (8.4-10.2); CARBON DIOXIDE 15 mmol/L (22-30); CHLORIDE 91 mmol/L (98-107); CREATININE RESULT 1.57 mg/dL (0.52-1.25); GLUCOSE 369 mg/dL (75-110); POTASSIUM 5.6 mmol/L (3.6-5.0)
[2017-01-09] MEDS: INSULIN GLARGINE,HUM.REC.ANLOG 300 UNIT/3 ML INSULN.PEN SUBCUT SCH (22:07)
[2017-01-10 00:59] LABS: BLOOD UREA NITROGEN 89 mg/dL (7-20); CALCIUM 8.2 mg/dL (8.4-10.2); CARBON DIOXIDE 13 mmol/L (22-30); CHLORIDE 95 mmol/L (98-107); CREATININE RESULT 1.63 mg/dL (0.52-1.25); GLUCOSE 374 mg/dL (75-110); POTASSIUM 5.4 mmol/L (3.6-5.0)
[2017-01-10 01:01] LABS: ANION GAP 10 (5-19)
[2017-01-10 01:08] LABS: SODIUM 118.2 mmol/L (137-145)
[2017-01-10 04:13] LABS: HEMOGLOBIN 9.5 g/dL (13.5-17.0); MEAN CORPUSCULAR HEMOGLOBIN 34.8 pg (27.0-33.4); MEAN CORPUSCULAR HGB CONC 33.8 g/dL (32.0-36.0); MEAN CORPUSCULAR VOLUME 103 fl (80-97); RED BLOOD COUNT 2.72 10^6/uL (4.35-5.55); RED CELL DISTRIBUTION WIDTH 17.9 % (11.5-14.0); WHITE BLOOD COUNT 7.7 10^3/uL (4.0-10.5)
[2017-01-10 04:19] LABS: HGB HCT DIFFERENCE 0.5
[2017-01-10 04:24] LABS: ANION GAP 10 (5-19); BLOOD UREA NITROGEN 88 mg/dL (7-20); CALCIUM 8.4 mg/dL (8.4-10.2); CARBON DIOXIDE 15 mmol/L (22-30); CHLORIDE 95 mmol/L (98-107); CREATININE RESULT 1.71 mg/dL (0.52-1.25); GLUCOSE 290 mg/dL (75-110); MAGNESIUM 2.4 mg/dL (1.6-2.3); POTASSIUM 5.5 mmol/L (3.6-5.0)
[2017-01-10 04:35] LABS: SODIUM 119.7 mmol/L (137-145)
[2017-01-10 04:36] LABS: BASOPHILS % (MANUAL) 0 % (0-2); EOSINOPHILS % (MANUAL) 2 % (0-6); LYMPHOCYTES % (MANUAL) 2 % (13-45); TOTAL CELLS COUNTED 100
[2017-01-10 04:38] LABS: ANISOCYTOSIS 2+; TOXIC GRANULATION 1+; TOXIC VACUOLATION PRESENT
[2017-01-10] MEDS: IMIPENEM/CILASTATIN SODIUM 500 MG in NORMAL SALINE 100 ML IV SCH ×3 (05:06→21:05)
[2017-01-10] MEDS ORDERED: INSULIN REG, HUMAN 100 UNIT/ML 3 ML VIAL (PYX) IV ONE (06:00)
[2017-01-10] MEDS: LANSOPRAZOLE 15 MG TAB.RAP.DR PO SCH (08:38)
[2017-01-10] MEDS: INSULIN LISPRO 100 UNIT/ML 3 ML VIAL SUBCUT PRN ×3 (08:38→18:22)
[2017-01-10] MEDS: DOCUSATE SODIUM 100 MG CAPSULE PO SCH (09:14)
[2017-01-10] MEDS: PREDNISONE 20 MG TABLET PO SCH ×3 (09:15→18:07)
[2017-01-10] MEDS: VANCOMYCIN HCL 1,000 MG in DEXTROSE 5%-WATER 250 ML IV SCH (09:16)
[2017-01-10] MEDS: LACTULOSE SYRUP 20 GM/30 ML UDCUP PO SCH (09:16)
[2017-01-10 10:38] LABS: BLOOD UREA NITROGEN 88 mg/dL (7-20); CALCIUM 8.3 mg/dL (8.4-10.2); CARBON DIOXIDE 13 mmol/L (22-30); CHLORIDE 94 mmol/L (98-107); CREATININE RESULT 1.61 mg/dL (0.52-1.25); GLUCOSE 291 mg/dL (75-110); POTASSIUM 5.3 mmol/L (3.6-5.0)
[2017-01-10 10:40] LABS: ANION GAP 13 (5-19)
[2017-01-10 10:46] LABS: SODIUM 119.5 mmol/L (137-145)
[2017-01-10] MEDS: INSULIN REG, HUMAN 100 UNIT/ML 3 ML VIAL (PYX) SUBCUT SCH ×2 (11:57→18:21)
--- NOTE | 2017-01-10 15:11 | PDOC PROGRESS REPORT ---
Subjective Progress Note for:: 01/10/17 Subjective:: This is a follow-up visit for right buttock abscess. The patient states he did not eat breakfast because he did not like it. He denies any current chest pain or shortness of breath. No acute events overnight. Physical Exam Vital Signs: Temp Pulse Resp BP Pulse Ox 97.7 F 68 16 114/54 L 100 01/10/17 11:32 01/10/17 14:00 01/10/17 11:32 01/10/17 11:32 01/10/17 11:32 Intake & Output 01/09/17 01/10/17 01/11/17 06:59 06:59 06:59 Intake Total 2007 1772 150 Balance 2007 177 150 Weight 73.5 kg 73 kg GENERAL: This is a well-developed and nourished appearing male resting in bed currently in no acute distress but appears ill. HEENT: Normocephalic atraumatic. Scleral icterus is present. HEART: Regular rate and rhythm. No murmurs, rubs or gallops. LUNGS: Clear to auscultation bilaterally with equal rise and fall of the chest. ABDOMEN: Soft, nontender, nondistended with normoactive bowel sounds EXTREMETIES: No clubbing, cyanosis or edema. 2+ peripheral pulses bilaterally. NEURO: Awake, alert and oriented 3. Cranial nerves II through XII are grossly intact. Results Laboratory Results: 01/10/17 04:00 01/10/17 10:01 01/09/17 01/10/17 01/10/17 20:15 00:22 04:00 WBC RBC Hgb Hct MCV MCH MCHC RDW Plt Count Seg Neutrophils % Lymphocytes % Monocytes % Eosinophils % Basophils % Absolute Neutrophils Absolute Lymphocytes Absolute Monocytes Absolute Eosinophils Absolute Basophils Sodium 116.0 L* 118.2 L* 119.7 L* Potassium 5.6 H 5.4 H 5.5 H Chloride 91 L 95 L 95 L Carbon Dioxide 15 L 13 L 15 L Anion Gap 10 10 10 BUN 88 H 89 H 88 H Creatinine 1.57 H 1.63 H 1.71 H Est GFR ( Amer) 54 L 52 L 49 L Est GFR (Non-Af Amer) 45 L 43 L 40 L Glucose 369 H 374 H 290 H Calcium 8.1 L 8.2 L 8.4 Magnesium 2.4 H 01/10/17 01/10/17 04:00 10:01 WBC 7.7 RBC 2.72 L Hgb 9.5 L Hct 28.0 L MCV 103 H MCH 34.8 H MCHC 33.8 RDW 17.9 H Plt Count 93 L Seg Neutrophils % Not Reportable Lymphocytes % Not Reportable Monocytes % Not Reportable Eosinophils % Not Reportable Basophils % Not Reportable Absolute Neutrophils Not Reportable Absolute Lymphocytes Not Reportable Absolute Monocytes Not Reportable Absolute Eosinophils Not Reportable Absolute Basophils Not Reportable Sodium 119.5 L* Potassium 5.3 H Chloride 94 L Carbon Dioxide 13 L Anion Gap 13 BUN 88 H Creatinine 1.61 H Est GFR ( Amer) 52 L Est GFR (Non-Af Amer) 43 L Glucose 291 H Calcium 8.3 L Magnesium Impressions: Chest X-Ray 01/02/17 06:00 IMPRESSION: Moderate lung volumes. Tip of a right internal jugular central line at the inferior right atrium; consider 10 cm retraction. Paracentesis Ultrasound 01/06/17 00:00 IMPRESSION: Successful ultrasound-guided therapeutic paracentesis Assessment & Plan - Diagnosis (1) Severe sepsis Is this a current diagnosis for this admission?: Yes Plan: Sepsis secondary to perianal abscess. Sepsis as evidenced by hypotension and tachycardia. Patient has not had any fevers and does not meet criteria with FiO2 ratios. Multiple organisms have grown out to include Enterobacter, Citrobacter and enterococcus. Continue Primaxin and continued on Vanco. (2) Perianal abscess Is this a current diagnosis for this admission?: Yes Plan: Management as above. (3) Acute renal failure Qualifiers: Acute renal failure type: unspecified Qualified Code(s): N17.9 - Acute kidney failure, unspecified Is this a current diagnosis for this admission?: Yes Plan: Overall improved from admission but worse after dose from yesterday after lasix. Likely this is ATN from sepsis. Check urinary electorlytes. (4) Anemia Is this a current diagnosis for this admission?: Yes Plan: Acute anemia of blood loss. The patient's hemoglobin was down as low as 6. It appears as though he was transfused at one point. He is currently at 8. Continue to monitor. Back in November his hemoglobin baseline was at 9.6. (5) Hepatocellular carcinoma Is this a current diagnosis for this admission?: Yes Plan: Continue management as an outpatient. Patient follows with Dr. Klein in [facility]. Continue steroids. (6) Hyponatremia Is this a current diagnosis for this admission?: Yes Plan: This is likely multifactorial. Hypervolumic hyponatremia and SIADH. The patient has underlying hepatocellular carcinoma and in part his hyponatremia may be due to his underlying malignancy. Patient also has what appears to be decreased p.o. intake. Currently he is not receiving any saline solution. Continue fluid restriction and bid chem 7. (7) Thrombocytopenia Is this a current diagnosis for this admission?: Yes Plan: This is possibly reactive from his underlying infection in addition to his underlying cancer. Patient's platelet count is in 90s (8) Hyperglycemia Is this a current diagnosis for this admission?: Yes Plan: Likely secondary to underlying steroid use for treatment of his hepatocellular carcinoma. Increase Lantus to 30 nightly. We will continue to follow. (9) Hyperkalemia Is this a current diagnosis for this admission?: Yes Plan: continue to monitor. as needed insulin and dextrose (10) Ascites Qualifiers: Ascites type: malignant Qualified Code(s): R18.0 - Malignant ascites Is this a current diagnosis for this admission?: Yes Plan: Secondary to underlying Gracia and hepatocellular carcinoma. The patient underwent paracentesis and had 9 L removed on 01/04/2017. The patient was having some abdominal distention with discomfort and repeat paracentesis was done removing 4800 mL's in 01/06. The patient and his family are considering a Pleurx catheter to be placed, as patient is requiring weekly paracentesis. Attempts were made by Dr. ba to speak to patient's oncologist Dr. Klein in [place]; however, he is out of office until January 15. Still awaiting decision from patient's family guarding the placement of Pleurx catheter, CODE STATUS and palliative care. (11) Lower extremity edema Is this a current diagnosis for this admission?: Yes Plan: Secondary to liver failure and hepatic cellular carcinoma with volume overload and ascites. Management as above. (12) GRACIA (nonalcoholic steatohepatitis) Is this a current diagnosis for this admission?: Yes Plan: Supportive care. - Time Time Spent with patient: 25-34 minutes - Inpatient Certification Medical Necessity: Need Close Monitoring Due to Risk of Patient Decompensation
[2017-01-10] MEDS: INSULIN GLARGINE,HUM.REC.ANLOG 300 UNIT/3 ML INSULN.PEN SUBCUT SCH (21:57)
[2017-01-11 03:17] LABS: URINE CREATININE 52.9 mg/dL (22-328)
[2017-01-11] MEDS: IMIPENEM/CILASTATIN SODIUM 500 MG in NORMAL SALINE 100 ML IV SCH ×2 (05:17→13:53)
[2017-01-11] MEDS: INSULIN REG, HUMAN 100 UNIT/ML 3 ML VIAL (PYX) SUBCUT SCH ×3 (07:52→17:07)
[2017-01-11] MEDS: LANSOPRAZOLE 15 MG TAB.RAP.DR PO SCH (07:52)
[2017-01-11] MEDS: VANCOMYCIN HCL 1,000 MG in DEXTROSE 5%-WATER 250 ML IV SCH (10:18)
[2017-01-11] MEDS: PREDNISONE 20 MG TABLET PO SCH ×3 (10:19→17:34)
[2017-01-11] MEDS: LACTULOSE SYRUP 20 GM/30 ML UDCUP PO SCH (10:19)
[2017-01-11] MEDS: DOCUSATE SODIUM 100 MG CAPSULE PO SCH (10:19)
--- NOTE | 2017-01-11 15:48 | PDOC PROGRESS REPORT ---
Subjective Progress Note for:: 01/11/17 Subjective:: This is a follow-up visit for right buttock abscess. No acute events overnight. I discussed with the patient about the potential of going to intermediate facility. He says he will discuss it with his . Physical Exam Vital Signs: Temp Pulse Resp BP Pulse Ox 97.6 F 90 18 108/65 100 01/11/17 11:10 01/11/17 13:34 01/11/17 11:10 01/11/17 11:10 01/11/17 11:10 Intake & Output 01/10/17 01/11/17 01/12/17 06:59 06:59 06:59 Intake Total 1772 1135 100 Output Total 180 Balance 1772 955 100 Weight 73 kg 73.5 kg GENERAL: This is a well-developed and nourished appearing male resting in bed currently in no acute distress but appears ill. HEENT: Normocephalic atraumatic. Scleral icterus is present. HEART: Regular rate and rhythm. No murmurs, rubs or gallops. LUNGS: Clear to auscultation bilaterally with equal rise and fall of the chest. ABDOMEN: Soft, nontender, nondistended with normoactive bowel sounds EXTREMETIES: No clubbing, cyanosis or edema. 2+ peripheral pulses bilaterally. NEURO: Awake, alert and oriented 3. Cranial nerves II through XII are grossly intact. Results Laboratory Results: 01/10/17 04:00 01/11/17 09:50 01/11/17 09:50 Creatinine 1.70 H Est GFR ( Amer) 49 L Est GFR (Non-Af Amer) 41 L Impressions: Chest X-Ray 01/02/17 06:00 IMPRESSION: Moderate lung volumes. Tip of a right internal jugular central line at the inferior right atrium; consider 10 cm retraction. Paracentesis Ultrasound 01/06/17 00:00 IMPRESSION: Successful ultrasound-guided therapeutic paracentesis Assessment & Plan - Diagnosis (1) Severe sepsis Is this a current diagnosis for this admission?: Yes Plan: Sepsis secondary to perianal abscess. Sepsis as evidenced by hypotension and tachycardia. Patient has not had any fevers and does not meet criteria with FiO2 ratios. Multiple organisms have grown out to include Enterobacter, Citrobacter and enterococcus. Continue Primaxin and continued on Vanco. (2) Perianal abscess Is this a current diagnosis for this admission?: Yes Plan: Management as above. (3) Acute renal failure Qualifiers: Acute renal failure type: unspecified Qualified Code(s): N17.9 - Acute kidney failure, unspecified Is this a current diagnosis for this admission?: Yes Plan: Overall improved from admission but worse after lasix. Likely this is ATN from sepsis. Check urinary electorlytes. (4) Anemia Is this a current diagnosis for this admission?: Yes Plan: Acute anemia of blood loss. Stable (5) Hepatocellular carcinoma Is this a current diagnosis for this admission?: Yes Plan: Continue management as an outpatient. Patient follows with Dr. Klein in [facility]. Continue steroids. I spoke with the patient today about discharge to intermediate facility. I have encouraged him to speak to his about this today. (6) Hyponatremia Is this a current diagnosis for this admission?: Yes Plan: This is likely multifactorial. Hypervolumic hyponatremia and SIADH. The patient has underlying hepatocellular carcinoma and in part his hyponatremia may be due to his underlying malignancy. Patient also has what appears to be decreased p.o. intake. Currently he is not receiving any saline solution. Continue fluid restriction and bid chem 7. (7) Thrombocytopenia Is this a current diagnosis for this admission?: Yes Plan: This is possibly reactive from his underlying infection in addition to his underlying cancer. Patient's platelet count is in 90s (8) Hyperglycemia Is this a current diagnosis for this admission?: Yes Plan: Likely secondary to underlying steroid use for treatment of his hepatocellular carcinoma. Increased Lantus to 30 nightly. We will continue to follow. (9) Hyperkalemia Is this a current diagnosis for this admission?: Yes Plan: continue to monitor. as needed insulin and dextrose (10) Ascites Qualifiers: Ascites type: malignant Qualified Code(s): R18.0 - Malignant ascites Is this a current diagnosis for this admission?: Yes Plan: Secondary to underlying Gracia and hepatocellular carcinoma. The patient underwent paracentesis and had 9 L removed on 01/04/2017. The patient was having some abdominal distention with discomfort and repeat paracentesis was done removing 4800 mL's in 01/06. The patient and his family are considering a Pleurx catheter to be placed, as patient is requiring weekly paracentesis. Attempts were made by Dr. ba to speak to patient's oncologist Dr. Klein in [place]; however, he is out of office until January 15. Still awaiting decision from patient's family guarding the placement of Pleurx catheter, CODE STATUS and palliative care. (11) Lower extremity edema Is this a current diagnosis for this admission?: Yes Plan: Secondary to liver failure and hepatic cellular carcinoma with volume overload and ascites. Management as above. (12) GRACIA (nonalcoholic steatohepatitis) Is this a current diagnosis for this admission?: Yes Plan: Supportive care. - Time Time Spent with patient: 15-24 minutes - Inpatient Certification Medical Necessity: Need Close Monitoring Due to Risk of Patient Decompensation
[2017-01-11] MEDS: IMIPENEM/CILASTATIN SODIUM 500 MG in DEXTROSE 5%-WATER 100 ML IV SCH (22:19)
[2017-01-11] MEDS: INSULIN GLARGINE,HUM.REC.ANLOG 300 UNIT/3 ML INSULN.PEN SUBCUT SCH (22:29)
[2017-01-11] MEDS: INSULIN LISPRO 100 UNIT/ML 3 ML VIAL SUBCUT PRN (22:32)
[2017-01-12 04:37] LABS: HEMATOCRIT 30.7 % (37.9-51.0); HEMOGLOBIN 10.3 g/dL (13.5-17.0); HGB HCT DIFFERENCE 0.2; MEAN CORPUSCULAR HEMOGLOBIN 34.6 pg (27.0-33.4); MEAN CORPUSCULAR HGB CONC 33.6 g/dL (32.0-36.0); MEAN CORPUSCULAR VOLUME 103 fl (80-97); RED BLOOD COUNT 2.98 10^6/uL (4.35-5.55); RED CELL DISTRIBUTION WIDTH 17.9 % (11.5-14.0); WHITE BLOOD COUNT 7.8 10^3/uL (4.0-10.5)
[2017-01-12 04:39] LABS: BLOOD UREA NITROGEN 97 mg/dL (7-20); CALCIUM 8.3 mg/dL (8.4-10.2); CARBON DIOXIDE 14 mmol/L (22-30); CHLORIDE 93 mmol/L (98-107); CREATININE RESULT 1.86 mg/dL (0.52-1.25); GLUCOSE 258 mg/dL (75-110); MAGNESIUM 2.4 mg/dL (1.6-2.3); POTASSIUM 5.9 mmol/L (3.6-5.0)
[2017-01-12 04:40] LABS: ANION GAP 12 (5-19)
[2017-01-12 04:43] LABS: SODIUM 118.6 mmol/L (137-145)
[2017-01-12 04:59] LABS: BASOPHILS % (MANUAL) 0 % (0-2); EOSINOPHILS % (MANUAL) 0 % (0-6); LYMPHOCYTES % (MANUAL) 4 % (13-45); TOTAL CELLS COUNTED 100
[2017-01-12 05:01] LABS: ANISOCYTOSIS 1+; BURR CELLS 1+; PLATELET CLUMPS PRESENT; POIKILOCYTOSIS 1+; TARGET CELLS SLIGHT; TOXIC GRANULATION SLIGHT; TOXIC VACUOLATION PRESENT
[2017-01-12] MEDS: IMIPENEM/CILASTATIN SODIUM 500 MG in DEXTROSE 5%-WATER 100 ML IV SCH ×3 (05:12→21:47)
[2017-01-12] MEDS ORDERED: INSULIN REG, HUMAN 100 UNIT/ML 3 ML VIAL (PYX) IV ONE (05:26)
[2017-01-12] MEDS: INSULIN LISPRO 100 UNIT/ML 3 ML VIAL SUBCUT PRN ×3 (07:55→21:54)
[2017-01-12] MEDS: INSULIN REG, HUMAN 100 UNIT/ML 3 ML VIAL (PYX) SUBCUT SCH ×3 (07:55→16:47)
[2017-01-12] MEDS: LANSOPRAZOLE 15 MG TAB.RAP.DR PO SCH (07:56)
[2017-01-12] MEDS: DOCUSATE SODIUM 100 MG CAPSULE PO SCH (10:11)
[2017-01-12] MEDS: LACTULOSE SYRUP 20 GM/30 ML UDCUP PO SCH (10:12)
[2017-01-12] MEDS: PREDNISONE 20 MG TABLET PO SCH ×3 (10:12→17:33)
[2017-01-12] MEDS ORDERED: SODIUM CHLORIDE 1 GM TABLET PO ONE ×2 (11:00→13:00)
--- NOTE | 2017-01-12 19:32 | PDOC PROGRESS REPORT ---
Subjective Progress Note for:: 01/12/17 Subjective:: This is a follow-up visit for right buttock abscess. No acute events overnight. I discussed with the patient about the potential of going to [facility]. He says his did not come to visit him yesterday. Physical Exam Vital Signs: Temp Pulse Resp BP Pulse Ox 97.8 F 90 19 126/60 H 100 01/12/17 15:05 01/12/17 15:05 01/12/17 15:05 01/12/17 15:05 01/12/17 15:05 Intake & Output 01/11/17 01/12/17 01/13/17 06:59 06:59 06:59 Intake Total 1135 1630 475 Output Total 180 450 Balance 955 1630 25 Weight 73.5 kg 74 kg GENERAL: This is a well-developed and nourished appearing male resting in bed currently in no acute distress but appears ill. HEENT: Normocephalic atraumatic. Scleral icterus is present. HEART: Regular rate and rhythm. No murmurs, rubs or gallops. LUNGS: Clear to auscultation bilaterally with equal rise and fall of the chest. ABDOMEN: Soft, nontender, nondistended with normoactive bowel sounds EXTREMETIES: No clubbing, cyanosis or edema. 2+ peripheral pulses bilaterally. NEURO: Awake. The patient barely wants to speak at all today. His affect is quite flat. He only nods his head yes and no. Results Laboratory Results: 01/12/17 04:08 01/12/17 04:08 01/09/17 01/12/17 01/12/17 20:15 04:08 04:08 WBC 7.8 RBC 2.98 L Hgb 10.3 L Hct 30.7 L MCV 103 H MCH 34.6 H MCHC 33.6 RDW 17.9 H Plt Count 121 L Seg Neutrophils % Not Reportable Lymphocytes % Not Reportable Monocytes % Not Reportable Eosinophils % Not Reportable Basophils % Not Reportable Absolute Neutrophils Not Reportable Absolute Lymphocytes Not Reportable Absolute Monocytes Not Reportable Absolute Eosinophils Not Reportable Absolute Basophils Not Reportable Sodium 116.0 L* 118.6 L* Potassium 5.6 H 5.9 H Chloride 91 L 93 L Carbon Dioxide 15 L 14 L Anion Gap 10 12 BUN 88 H 97 H Creatinine 1.57 H 1.86 H Est GFR ( Amer) 54 L 44 L Est GFR (Non-Af Amer) 45 L 37 L Glucose 369 H 258 H Calcium 8.1 L 8.3 L Magnesium 2.4 H Impressions: Chest X-Ray 01/02/17 06:00 IMPRESSION: Moderate lung volumes. Tip of a right internal jugular central line at the inferior right atrium; consider 10 cm retraction. Paracentesis Ultrasound 01/06/17 00:00 IMPRESSION: Successful ultrasound-guided therapeutic paracentesis Assessment & Plan - Diagnosis (1) Severe sepsis Is this a current diagnosis for this admission?: Yes Plan: Sepsis secondary to perianal abscess. Sepsis as evidenced by hypotension and tachycardia. Patient has not had any fevers and does not meet criteria with FiO2 ratios. Multiple organisms have grown out to include Enterobacter, Citrobacter and enterococcus. Continue Primaxin and continued on Vanco. (2) Perianal abscess Is this a current diagnosis for this admission?: Yes Plan: Management as above. (3) Acute renal failure Qualifiers: Acute renal failure type: unspecified Qualified Code(s): N17.9 - Acute kidney failure, unspecified Is this a current diagnosis for this admission?: Yes Plan: Overall improved from admission but worse after lasix. Likely this is ATN from sepsis. Check urinary electorlytes. (4) Anemia Is this a current diagnosis for this admission?: Yes Plan: Acute anemia of blood loss. Stable (5) Hepatocellular carcinoma Is this a current diagnosis for this admission?: Yes Plan: Continue management as an outpatient. Patient follows with Dr. Klein in [facility]. Continue steroids. I spoke with the patient today about discharge. He says that his did not come in to see him yesterday. I have encouraged him to discuss with her the idea that he most likely will need [facility]. Apparently, his is not ready to discuss end -of-life issues and does not want to speak to the physician until later today or Thursday as per the nursing staff. She might consider allowing her to go to assessment. Currently there is no family at the bedside. (6) Hyponatremia Is this a current diagnosis for this admission?: Yes Plan: This is likely multifactorial. Hypervolumic hyponatremia and SIADH. The patient has underlying hepatocellular carcinoma and in part his hyponatremia may be due to his underlying malignancy. Patient also has what appears to be decreased p.o. intake. Currently he is not receiving any saline solution. Continue fluid restriction and bid chem 7. Add sodium chloride tablets to patient's regimen. (7) Thrombocytopenia Is this a current diagnosis for this admission?: Yes Plan: This is possibly reactive from his underlying infection in addition to his underlying cancer. Patient's platelet count is in 90s (8) Hyperglycemia Is this a current diagnosis for this admission?: Yes Plan: Likely secondary to underlying steroid use for treatment of his hepatocellular carcinoma. Increase Lantus to 30 nightly. We will continue to follow. (9) Hyperkalemia Is this a current diagnosis for this admission?: Yes Plan: continue to monitor. as needed insulin and dextrose (10) Ascites Qualifiers: Ascites type: malignant Qualified Code(s): R18.0 - Malignant ascites Is this a current diagnosis for this admission?: Yes Plan: Secondary to underlying Gracia and hepatocellular carcinoma. The patient underwent paracentesis and had 9 L removed on 01/04/2017. The patient was having some abdominal distention with discomfort and repeat paracentesis was done removing 4800 mL's in 01/06. The patient and his family are considering a Pleurx catheter to be placed, as patient is requiring weekly paracentesis. Attempts were made by Dr. ba to speak to patient's oncologist Dr. Klein in [place]; however, he is out of office until January 15. Still awaiting decision from patient's family guarding the placement of Pleurx catheter, CODE STATUS and palliative care. (11) Lower extremity edema Is this a current diagnosis for this admission?: Yes Plan: Secondary to liver failure and hepatic cellular carcinoma with volume overload and ascites. Management as above. (12) GRACIA (nonalcoholic steatohepatitis) Is this a current diagnosis for this admission?: Yes Plan: Supportive care. - Time Time Spent with patient: 15-24 minutes - Inpatient Certification Medical Necessity: Need Close Monitoring Due to Risk of Patient Decompensation
[2017-01-12] MEDS: INSULIN GLARGINE,HUM.REC.ANLOG 300 UNIT/3 ML INSULN.PEN SUBCUT SCH (21:56)
[2017-01-13] MEDS: IMIPENEM/CILASTATIN SODIUM 500 MG in DEXTROSE 5%-WATER 100 ML IV SCH ×3 (05:56→22:30)
[2017-01-13] MEDS: INSULIN REG, HUMAN 100 UNIT/ML 3 ML VIAL (PYX) SUBCUT SCH ×3 (07:42→17:39)
[2017-01-13] MEDS: INSULIN LISPRO 100 UNIT/ML 3 ML VIAL SUBCUT PRN ×3 (07:44→22:30)
[2017-01-13] MEDS: LANSOPRAZOLE 15 MG TAB.RAP.DR PO SCH (07:45)
[2017-01-13] MEDS ORDERED: SODIUM CHLORIDE 1 GM TABLET PO SCH (10:00)
[2017-01-13] MEDS: PREDNISONE 20 MG TABLET PO SCH ×3 (10:47→17:39)
[2017-01-13] MEDS: DOCUSATE SODIUM 100 MG CAPSULE PO SCH (10:47)
[2017-01-13 12:59] LABS: RED CELL DISTRIBUTION WIDTH 18.1 % (11.5-14.0); WHITE BLOOD COUNT 11.7 10^3/uL (4.0-10.5)
[2017-01-13 13:07] LABS: HEMATOCRIT 31.6 % (37.9-51.0); HEMOGLOBIN 11.2 g/dL (13.5-17.0); MEAN CORPUSCULAR HEMOGLOBIN 35.9 pg (27.0-33.4); MEAN CORPUSCULAR HGB CONC 35.5 g/dL (32.0-36.0); MEAN CORPUSCULAR VOLUME 101 fl (80-97); RED BLOOD COUNT 3.12 10^6/uL (4.35-5.55)
[2017-01-13 13:25] LABS: BLOOD UREA NITROGEN 102 mg/dL (7-20); CALCIUM 8.2 mg/dL (8.4-10.2); CARBON DIOXIDE 12 mmol/L (22-30); CHLORIDE 91 mmol/L (98-107); GLUCOSE 171 mg/dL (75-110); POTASSIUM 5.6 mmol/L (3.6-5.0)
[2017-01-13 13:27] LABS: ANION GAP 14 (5-19)
[2017-01-13 13:29] LABS: BAND NEUTROPHILS % (MANUAL) 3 % (3-5); BASOPHILS % (MANUAL) 0 % (0-2); EOSINOPHILS % (MANUAL) 0 % (0-6); LYMPHOCYTES % (MANUAL) 2 % (13-45); NUCLEATED RED BLOOD CELLS 1 /100 WBC (0); TOTAL CELLS COUNTED 100
[2017-01-13 13:31] LABS: CREATININE RESULT 1.97 mg/dL (0.52-1.25)
[2017-01-13 13:33] LABS: ANISOCYTOSIS 1+; BURR CELLS SLIGHT; POIKILOCYTOSIS SLIGHT; TARGET CELLS SLIGHT
[2017-01-13 13:34] LABS: PLATELET CLUMPS PRESENT
[2017-01-13 13:35] LABS: TOXIC GRANULATION SLIGHT; TOXIC VACUOLATION PRESENT
[2017-01-13 13:36] LABS: HOWELL-JOLLY BODIES PRESENT
[2017-01-13] MEDS: LACTULOSE SYRUP 20 GM/30 ML UDCUP PO SCH ×2 (14:16→22:30)
--- NOTE | 2017-01-13 18:22 | PDOC PROGRESS REPORT ---
Subjective Progress Note for:: 01/13/17 Subjective:: Patient seen with at bedside. Patient reports he feels "okay". He is unable to provide me a review of systems secondary to encephalopathy. Physical Exam Vital Signs: Temp Pulse Resp BP Pulse Ox 97.2 F 96 16 122/61 100 01/13/17 15:13 01/13/17 15:13 01/13/17 15:13 01/13/17 15:13 01/13/17 15:13 Intake & Output 01/12/17 01/13/17 01/14/17 06:59 06:59 06:59 Intake Total 1630 1065 Output Total 450 Balance 1630 615 Weight 74 kg 74.8 kg Exam: General: Chronically ill-appearing, jaundiced, awake alert and oriented x1, no acute respiratory distress HEENT: AT/NC, PERRL, EOMI, oropharynx is moist, pink, significant scleral icterus, no conjunctival injection Neck: No JVD, trachea midline Chest: Clear to auscultation bilaterally, no wheezes rhonchi or rales CV: Regular rate and rhythm, normal S1 and S2, no rub, or gallop Abdomen: Distended, positive fluid wave, nontender to palpation, active bowel sounds; no rebound, rigidity, or guarding Extremities: No cyanosis, clubbing; 3+edema Neuro: Cranial nerves II through XII are grossly intact without focal deficits; slow to respond Psych: flat mood and affect Skin: Jaundiced, multiple ecchymosis Results Laboratory Results: 01/13/17 12:15 01/13/17 12:15 01/13/17 01/13/17 12:15 12:15 WBC 11.7 H RBC 3.12 L Hgb 11.2 L Hct 31.6 L MCV 101 H MCH 35.9 H MCHC 35.5 RDW 18.1 H Plt Count 162 Seg Neutrophils % Not Reportable Lymphocytes % Not Reportable Monocytes % Not Reportable Eosinophils % Not Reportable Basophils % Not Reportable Absolute Neutrophils Not Reportable Absolute Lymphocytes Not Reportable Absolute Monocytes Not Reportable Absolute Eosinophils Not Reportable Absolute Basophils Not Reportable Sodium 117.0 L* Potassium 5.6 H Chloride 91 L Carbon Dioxide 12 L Anion Gap 14 BUN 102 H Creatinine 1.97 H Est GFR ( Amer) 41 L Est GFR (Non-Af Amer) 34 L Glucose 171 H Calcium 8.2 L Impressions: Chest X-Ray 01/02/17 06:00 IMPRESSION: Moderate lung volumes. Tip of a right internal jugular central line at the inferior right atrium; consider 10 cm retraction. Paracentesis Ultrasound 01/06/17 00:00 IMPRESSION: Successful ultrasound-guided therapeutic paracentesis Assessment & Plan - Diagnosis (1) Hepatic encephalopathy Is this a current diagnosis for this admission?: Yes Plan: Increase patient's lactulose. (2) Hyperglycemia Is this a current diagnosis for this admission?: Yes Plan: Taper steroids (3) Hyperkalemia Is this a current diagnosis for this admission?: Yes Plan: Improving. Stopped Aldactone. Continue lactulose and give Bumex. (4) Perianal abscess Is this a current diagnosis for this admission?: Yes Plan: Defer to surgery (5) Severe sepsis Is this a current diagnosis for this admission?: Yes Plan: Patient met criteria secondary to his perianal abscess. Continue imipenem for this and dressing changes. (6) Acute renal failure Qualifiers: Acute renal failure type: unspecified Qualified Code(s): N17.9 - Acute kidney failure, unspecified Is this a current diagnosis for this admission?: Yes Plan: Feel that this is likely patient's new chronic baseline. Patient has hepatorenal syndrome. Patient is not really a good candidate for dialysis. (7) Ascites Qualifiers: Ascites type: malignant Qualified Code(s): R18.0 - Malignant ascites Is this a current diagnosis for this admission?: Yes Plan: We will consider attempting repeat paracentesis. Check INR in a.m. (8) Hepatocellular carcinoma Is this a current diagnosis for this admission?: Yes Plan: Patient has stage IV hepatocellular carcinoma and apparently has been declined for chemotherapy by [facility]. At this time, we will attempt to reach patient's oncologist and/or 1 of his partners to see if they will take this patient in transfer. However, at this time I feel that we are bordering on medical futility for this patient as he is developing hepatorenal syndrome and worsening hepatic failure. At this time, patient's feels that God will heal him. It appears as though multiple providers have had this discussion with her and at this time I will refer this to the ethics committee. (9) Hyponatremia Is this a current diagnosis for this admission?: Yes Plan: Secondary to hypervolemic hyponatremia. Will attempt to use Bumex (10) GRACIA (nonalcoholic steatohepatitis) Is this a current diagnosis for this admission?: Yes Plan: Complicated by hepatocellular carcinoma (11) Thrombocytopenia Is this a current diagnosis for this admission?: Yes Plan: Secondary to underlying liver dysfunction (12) Metabolic acidosis Is this a current diagnosis for this admission?: Yes Plan: Begin patient on sodium bicarbonate tablets 3 times daily - Time Time Spent with patient: 35 or more minutes Medications reviewed and adjusted accordingly: Yes Anticipated discharge: Acute Rehab Within: when bed available
[2017-01-13] MEDS ORDERED: BUMETANIDE INJ/PF 1 MG/4 ML SDV IV ONE (19:00)
[2017-01-13] MEDS: INSULIN GLARGINE,HUM.REC.ANLOG 300 UNIT/3 ML INSULN.PEN SUBCUT SCH (22:30)
[2017-01-14 05:05] LABS: HEMATOCRIT 31.2 % (37.9-51.0); HEMOGLOBIN 10.6 g/dL (13.5-17.0); HGB HCT DIFFERENCE 0.6; MEAN CORPUSCULAR HEMOGLOBIN 34.6 pg (27.0-33.4); MEAN CORPUSCULAR HGB CONC 33.9 g/dL (32.0-36.0); MEAN CORPUSCULAR VOLUME 102 fl (80-97); RED BLOOD COUNT 3.05 10^6/uL (4.35-5.55); RED CELL DISTRIBUTION WIDTH 18.1 % (11.5-14.0); WHITE BLOOD COUNT 10.4 10^3/uL (4.0-10.5)
[2017-01-14 05:13] LABS: PROTHROMBIN TIME 15.8 SEC (11.4-15.4)
[2017-01-14 05:15] LABS: ALANINE AMINOTRANSFERASE 143 U/L (21-72); ALBUMIN 2.6 g/dL (3.5-5.0); ALKALINE PHOSPHATASE 358 U/L (38-126); ASPARTATE AMINO TRANSFERASE 145 U/L (17-59); BILIRUBIN,DIRECT 7.4 mg/dL (0.0-0.4); BILIRUBIN,TOTAL 8.6 mg/dL (0.2-1.3); BLOOD UREA NITROGEN 103 mg/dL (7-20); CALCIUM 8.2 mg/dL (8.4-10.2); CARBON DIOXIDE 13 mmol/L (22-30); CHLORIDE 91 mmol/L (98-107); GLUCOSE 229 mg/dL (75-110); MAGNESIUM 2.5 mg/dL (1.6-2.3); POTASSIUM 5.3 mmol/L (3.6-5.0); TOTAL PROTEIN 5.9 g/dL (6.3-8.2)
[2017-01-14 05:21] LABS: CREATININE RESULT 1.93 mg/dL (0.52-1.25)
[2017-01-14 05:22] LABS: PREALBUMIN 23.9 mg/dL (17.6-36.0)
[2017-01-14 05:26] LABS: ANION GAP 15 (5-19)
[2017-01-14 05:28] LABS: SODIUM 118.8 mmol/L (137-145)
[2017-01-14 05:29] LABS: BASOPHILS % (MANUAL) 0 % (0-2); EOSINOPHILS % (MANUAL) 0 % (0-6); LYMPHOCYTES % (MANUAL) 7 % (13-45); TOTAL CELLS COUNTED 100
[2017-01-14 05:30] LABS: ANISOCYTOSIS 1+; BURR CELLS SLIGHT; POIKILOCYTOSIS SLIGHT
[2017-01-14] MEDS: LACTULOSE SYRUP 20 GM/30 ML UDCUP PO SCH ×3 (06:04→21:34)
[2017-01-14] MEDS: IMIPENEM/CILASTATIN SODIUM 500 MG in DEXTROSE 5%-WATER 100 ML IV SCH ×2 (06:04→13:52)
[2017-01-14] MEDS: SODIUM BICARBONATE 650 MG TABLET PO SCH ×3 (08:06→17:13)
[2017-01-14] MEDS: INSULIN REG, HUMAN 100 UNIT/ML 3 ML VIAL (PYX) SUBCUT SCH ×3 (08:06→17:12)
[2017-01-14] MEDS: LANSOPRAZOLE 15 MG TAB.RAP.DR PO SCH (08:06)
[2017-01-14] MEDS: INSULIN LISPRO 100 UNIT/ML 3 ML VIAL SUBCUT PRN ×4 (08:06→21:33)
[2017-01-14] MEDS: RIFAXIMIN 550 MG TABLET PO SCH ×2 (09:36→17:14)
[2017-01-14] MEDS: BUMETANIDE INJ/PF 1 MG/4 ML SDV IV SCH ×2 (09:36→17:14)
[2017-01-14] MEDS: PREDNISONE 20 MG TABLET PO SCH ×2 (09:37→17:13)
[2017-01-14] MEDS: DOCUSATE SODIUM 100 MG CAPSULE PO SCH (09:37)
[2017-01-14] MEDS: CALCIUM ACETATE 667 MG CAPSULE PO SCH ×2 (12:28→17:13)
--- NOTE | 2017-01-14 12:28 | OPERATIVE REPORT E ---
Operative Report NAME: VELVET WILLS : 1950 AGE: 66Y DATE OF SURGERY: 01/14/2017 ROOM: 323 PREOPERATIVE DIAGNOSIS: Left perirectal abscess site with necrotic tissue. POSTOPERATIVE DIAGNOSIS: Left perirectal abscess site with necrotic tissue. OPERATION: Debridement of necrotic tissue in the left perirectal abscess. SURGEON: MICHEAL AMEZCUA M.D. INDICATIONS: This is a 66-year-old male with history of liver cancer and cirrhosis. He had an incision and drainage of left perianal abscess. On evaluation this morning, the wound appears to be getting a lot smaller and roughly measured about 1 cm in diameter but with some necrotic tissue. DESCRIPTION OF PROCEDURE: The patient was placed in the right lateral decubitus position and right perirectal abscess site debrided sharply of necrotic tissue. The wound has been a lot smaller to about 1 cm in diameter and relatively shallow and pink. The plan is to continue with packing with Iodoform gauze until the wound completely heals. Unfortunately patient appears malnourished because of the cirrhosis and therefore healing is quite slow. DICTATING PHYSICIAN: MICHEAL AMEZCUA M.D. [id number] PHY#: [id number] ID: [id number] JOB#: [id number] ACCT: [id number] cc:MICHEAL AMEZCUA M.D. >
[2017-01-14] MEDS ORDERED: NYSTATIN CREAM 15 GM TP PRN (17:38)
--- NOTE | 2017-01-14 17:43 | PDOC PROGRESS REPORT ---
Subjective Progress Note for:: 01/14/17 Subjective:: Discussed patient's case at length today with Dr. Villafuerte of [facility] oncology, and she reports that this patient was offered hospice approximately 1 month ago. She reports that steroids were administered as an attempt to improve patient's numbers but after discussion with her, she agrees that steroids should currently be stopped. She reports that although regrettable, there is no further intervention available for this patient and the normal course would be for hospice. Patient's is still on amenable to this plan. is amenable to rehab. Patient continues to have diarrhea secondary to Lactulose. Unable to obtain review of systems from patient secondary to his mental status. Physical Exam Vital Signs: Temp Pulse Resp BP Pulse Ox 97.6 F 97 19 120/61 100 01/14/17 03:15 01/14/17 07:00 01/14/17 03:15 01/14/17 03:15 01/14/17 03:15 Intake & Output 01/13/17 01/14/17 01/15/17 06:59 06:59 06:59 Intake Total 1065 1324 Output Total 450 Balance 615 1324 Weight 74.8 kg 75.3 kg Exam: General: Chronically ill-appearing, jaundiced, awake alert and oriented x1, no acute respiratory distress HEENT: AT/NC, PERRL, EOMI, oropharynx is dry, pink, significant scleral icterus , no conjunctival injection Neck: + JVD, trachea midline Chest: Diminished bases bilaterally, poor respiratory effort, clear to auscultation bilaterally, no wheezes rhonchi or rales CV: Regular rate and rhythm, normal S1 and S2, no rub, or gallop Abdomen: Distended, positive fluid wave, nontender to palpation, active bowel sounds; no rebound, rigidity, or guarding Extremities: No cyanosis, clubbing; 3+edema Neuro: Cranial nerves II through XII are grossly intact without focal deficits; slow to respond Psych: flat mood and affect Skin: Jaundiced, multiple ecchymosis Results Laboratory Results: 01/14/17 04:40 01/14/17 04:40 01/13/17 01/13/17 01/14/17 12:15 12:15 04:40 WBC 11.7 H 10.4 RBC 3.12 L 3.05 L Hgb 11.2 L 10.6 L Hct 31.6 L 31.2 L MCV 101 H 102 H MCH 35.9 H 34.6 H MCHC 35.5 33.9 RDW 18.1 H 18.1 H Plt Count 162 119 L Seg Neutrophils % Not Reportable Not Reportable Lymphocytes % Not Reportable Not Reportable Monocytes % Not Reportable Not Reportable Eosinophils % Not Reportable Not Reportable Basophils % Not Reportable Not Reportable Absolute Neutrophils Not Reportable Not Reportable Absolute Lymphocytes Not Reportable Not Reportable Absolute Monocytes Not Reportable Not Reportable Absolute Eosinophils Not Reportable Not Reportable Absolute Basophils Not Reportable Not Reportable Sodium 117.0 L* Potassium 5.6 H Chloride 91 L Carbon Dioxide 12 L Anion Gap 14 BUN 102 H Creatinine 1.97 H Est GFR ( Amer) 41 L Est GFR (Non-Af Amer) 34 L Glucose 171 H Calcium 8.2 L Phosphorus Magnesium Total Bilirubin AST ALT Alkaline Phosphatase Total Protein Albumin Prealbumin 01/14/17 04:40 WBC RBC Hgb Hct MCV MCH MCHC RDW Plt Count Seg Neutrophils % Lymphocytes % Monocytes % Eosinophils % Basophils % Absolute Neutrophils Absolute Lymphocytes Absolute Monocytes Absolute Eosinophils Absolute Basophils Sodium 118.8 L* Potassium 5.3 H Chloride 91 L Carbon Dioxide 13 L Anion Gap 15 BUN 103 H Creatinine 1.93 H Est GFR ( Amer) 42 L Est GFR (Non-Af Amer) 35 L Glucose 229 H Calcium 8.2 L Phosphorus 7.0 H Magnesium 2.5 H Total Bilirubin 8.6 H AST 145 H ALT 143 H Alkaline Phosphatase 358 H Total Protein 5.9 L Albumin 2.6 L Prealbumin 23.9 Impressions: Chest X-Ray 01/02/17 06:00 IMPRESSION: Moderate lung volumes. Tip of a right internal jugular central line at the inferior right atrium; consider 10 cm retraction. Paracentesis Ultrasound 01/06/17 00:00 IMPRESSION: Successful ultrasound-guided therapeutic paracentesis Assessment & Plan - Diagnosis (1) Hepatic encephalopathy Is this a current diagnosis for this admission?: Yes (2) Hyperglycemia Is this a current diagnosis for this admission?: Yes (3) Hyperkalemia Is this a current diagnosis for this admission?: Yes (4) Perianal abscess Is this a current diagnosis for this admission?: Yes (5) Severe sepsis Is this a current diagnosis for this admission?: Yes (6) Acute renal failure Qualifiers: Acute renal failure type: unspecified Qualified Code(s): N17.9 - Acute kidney failure, unspecified Is this a current diagnosis for this admission?: Yes (7) Ascites Qualifiers: Ascites type: malignant Qualified Code(s): R18.0 - Malignant ascites Is this a current diagnosis for this admission?: Yes (8) Hepatocellular carcinoma Is this a current diagnosis for this admission?: Yes (9) Hyponatremia Is this a current diagnosis for this admission?: Yes (10) GRACIA (nonalcoholic steatohepatitis) Is this a current diagnosis for this admission?: Yes (11) Thrombocytopenia Is this a current diagnosis for this admission?: Yes (12) Metabolic acidosis Is this a current diagnosis for this admission?: Yes - Plan Summary Plan Summary: Transition patient to oral antibiotics. At this time, patient has an overall quite poor prognosis. There is regrettably no intervention that can be done for this patient. At this time, an effort to try to rehabilitate him towards being strong enough to go home we will attempt to place him in rehab. However, if patient does clinically worsen, feel that patient should be sent to inpatient hospice as opposed to return to an acute care facility despite family request.
[2017-01-14] MEDS ORDERED: PREDNISONE 20 MG TABLET PO SCH (18:00)
[2017-01-14] MEDS: INSULIN GLARGINE,HUM.REC.ANLOG 300 UNIT/3 ML INSULN.PEN SUBCUT SCH (21:30)
[2017-01-14] MEDS: DOXYCYCLINE HYCLATE 100 MG TABLET PO SCH (21:31)
[2017-01-14] MEDS: METRONIDAZOLE 500 MG TABLET PO SCH (21:34)
[2017-01-15] MEDS: LACTULOSE SYRUP 20 GM/30 ML UDCUP PO SCH ×3 (05:15→22:55)
[2017-01-15] MEDS: METRONIDAZOLE 500 MG TABLET PO SCH ×3 (05:15→22:54)
[2017-01-15] MEDS: ZINC OXIDE 20% OINTMENT 28.35 GM TP PRN ×2 (06:48→13:43)
[2017-01-15] MEDS: CALCIUM ACETATE 667 MG CAPSULE PO SCH ×3 (08:00→16:30)
[2017-01-15] MEDS: SODIUM BICARBONATE 650 MG TABLET PO SCH ×3 (08:00→16:31)
[2017-01-15] MEDS: LANSOPRAZOLE 15 MG TAB.RAP.DR PO SCH (08:00)
[2017-01-15] MEDS: INSULIN REG, HUMAN 100 UNIT/ML 3 ML VIAL (PYX) SUBCUT SCH ×3 (08:00→16:30)
[2017-01-15] MEDS: INSULIN LISPRO 100 UNIT/ML 3 ML VIAL SUBCUT PRN (08:00)
[2017-01-15] MEDS: PREDNISONE 10 MG TABLET PO SCH ×2 (10:04→18:51)
[2017-01-15] MEDS: DOCUSATE SODIUM 100 MG CAPSULE PO SCH (10:04)
[2017-01-15] MEDS: RIFAXIMIN 550 MG TABLET PO SCH ×2 (10:04→18:51)
[2017-01-15] MEDS: DOXYCYCLINE HYCLATE 100 MG TABLET PO SCH ×2 (10:04→22:54)
[2017-01-15] MEDS: BUMETANIDE INJ/PF 1 MG/4 ML SDV IV SCH (10:05)
[2017-01-15] MEDS ORDERED: OXYCODONE HCL IR 5 MG TABLET PO PRN (12:00)
--- NOTE | 2017-01-15 12:58 | PDOC PROGRESS REPORT ---
Subjective Progress Note for:: 01/15/17 Physical Exam Vital Signs: Temp Pulse Resp BP Pulse Ox 97.5 F 105 H 18 108/56 L 100 01/15/17 11:35 01/15/17 11:35 01/15/17 11:35 01/15/17 12:00 01/15/17 11:35 Intake & Output 01/14/17 01/15/17 01/16/17 06:59 06:59 06:59 Intake Total 1324 1157 Balance 1324 1157 Weight 75.3 kg 74.7 kg General appearance: PRESENT: no acute distress, cooperative, disheveled Rectal exam: PRESENT: other - Perianal region wound wide open with no purulent drainage. No surrounding erythema. Results Laboratory Results: 01/14/17 04:40 01/14/17 04:40 Impressions: Chest X-Ray 01/02/17 06:00 IMPRESSION: Moderate lung volumes. Tip of a right internal jugular central line at the inferior right atrium; consider 10 cm retraction. Paracentesis Ultrasound 01/06/17 00:00 IMPRESSION: Successful ultrasound-guided therapeutic paracentesis Assessment & Plan - Diagnosis (1) Perianal abscess Is this a current diagnosis for this admission?: Yes Plan: Status post debridement. No active infection but extremely poor healing due to patient's malnutrition. Recommend sits baths daily and after each bowel movement to keep the area clean.
[2017-01-15] MEDS ORDERED: MORPHINE SULFATE 10 MG/ML INJ IV ONE (15:30)
--- NOTE | 2017-01-15 17:59 | PDOC PROGRESS REPORT ---
Subjective Progress Note for:: 01/15/17 Subjective:: Patient seen earlier today on morning rounds. Patient nurse called me to request pain medication as patient was complaining of pain. Reports that only wants him to be given Tylenol. Patient has liver failure and I have informed her I will not do this. I discussed this with patient's son who requests that we medicate his father with narcotic pain medication as would be the normal standard of care. Patient admits to generalized pain Full review of systems limited by mental status Physical Exam Vital Signs: Temp Pulse Resp BP Pulse Ox 97.4 F 102 H 20 110/61 100 01/15/17 15:02 01/15/17 15:02 01/15/17 15:02 01/15/17 15:02 01/15/17 15:02 Intake & Output 01/14/17 01/15/17 01/16/17 06:59 06:59 06:59 Intake Total 1324 1157 3799 Balance 1324 1157 3799 Weight 75.3 kg 74.7 kg Exam: General: Chronically ill-appearing, jaundiced, awake alert and oriented x1, no acute respiratory distress HEENT: AT/NC, PERRL, EOMI, oropharynx is dry, pink, significant scleral icterus , no conjunctival injection Neck: + JVD, trachea midline Chest: Diminished bases bilaterally, poor respiratory effort, clear to auscultation bilaterally, no wheezes rhonchi or rales CV: Regular rate and rhythm, normal S1 and S2, no rub, or gallop Abdomen: Distended, positive fluid wave, nontender to palpation, active bowel sounds; no rebound, rigidity, or guarding Extremities: No cyanosis, clubbing; 3+edema Neuro: Cranial nerves II through XII are grossly intact without focal deficits; slow to respond Psych: flat mood and affect Skin: Jaundiced, multiple ecchymosis Results Laboratory Results: 01/14/17 04:40 01/14/17 04:40 Impressions: Chest X-Ray 01/02/17 06:00 IMPRESSION: Moderate lung volumes. Tip of a right internal jugular central line at the inferior right atrium; consider 10 cm retraction. Paracentesis Ultrasound 01/06/17 00:00 IMPRESSION: Successful ultrasound-guided therapeutic paracentesis Assessment & Plan - Diagnosis (1) Hepatic encephalopathy Is this a current diagnosis for this admission?: Yes (2) Hyperglycemia Is this a current diagnosis for this admission?: Yes (3) Hyperkalemia Is this a current diagnosis for this admission?: Yes (4) Perianal abscess Is this a current diagnosis for this admission?: Yes (5) Severe sepsis Is this a current diagnosis for this admission?: Yes (6) Acute renal failure Qualifiers: Acute renal failure type: unspecified Qualified Code(s): N17.9 - Acute kidney failure, unspecified Is this a current diagnosis for this admission?: Yes (7) Ascites Qualifiers: Ascites type: malignant Qualified Code(s): R18.0 - Malignant ascites Is this a current diagnosis for this admission?: Yes (8) Hepatocellular carcinoma Is this a current diagnosis for this admission?: Yes (9) Hyponatremia Is this a current diagnosis for this admission?: Yes (10) GRACIA (nonalcoholic steatohepatitis) Is this a current diagnosis for this admission?: Yes (11) Thrombocytopenia Is this a current diagnosis for this admission?: Yes (12) Metabolic acidosis Is this a current diagnosis for this admission?: Yes - Time Time Spent with patient: 25-34 minutes Medications reviewed and adjusted accordingly: Yes Anticipated discharge: Acute Rehab - Plan Summary Plan Summary: At this time, I have discussed this case with patient's GI physician, Dr. Klein, patient's oncologist Dr. Villafuerte, and the preceding 4 physician physicians before me all agree that this patient needs comfort measures and hospice. I am also this opinion. As is his son. I plan to meet with his son tomorrow and have sent this case to the ethics committee for review.
[2017-01-15] MEDS: INSULIN GLARGINE,HUM.REC.ANLOG 300 UNIT/3 ML INSULN.PEN SUBCUT SCH (22:55)
[2017-01-16] MEDS: METRONIDAZOLE 500 MG TABLET PO SCH ×3 (06:35→20:33)
[2017-01-16] MEDS: LACTULOSE SYRUP 20 GM/30 ML UDCUP PO SCH ×3 (06:35→20:33)
[2017-01-16] MEDS: MORPHINE SULFATE 10 MG/ML INJ IV PRN ×3 (08:24→19:43)
[2017-01-16] MEDS: CALCIUM ACETATE 667 MG CAPSULE PO SCH ×3 (08:42→16:12)
[2017-01-16] MEDS: SODIUM BICARBONATE 650 MG TABLET PO SCH ×3 (08:42→15:16)
[2017-01-16] MEDS: LANSOPRAZOLE 15 MG TAB.RAP.DR PO SCH (08:42)
[2017-01-16] MEDS: INSULIN REG, HUMAN 100 UNIT/ML 3 ML VIAL (PYX) SUBCUT SCH ×3 (08:42→15:16)
[2017-01-16] MEDS: DOXYCYCLINE HYCLATE 100 MG TABLET PO SCH ×2 (09:23→20:33)
[2017-01-16] MEDS: RIFAXIMIN 550 MG TABLET PO SCH ×2 (09:23→17:27)
[2017-01-16] MEDS: PREDNISONE 10 MG TABLET PO SCH ×2 (09:23→17:27)
[2017-01-16] MEDS: DOCUSATE SODIUM 100 MG CAPSULE PO SCH (09:23)
[2017-01-16] MEDS: BUMETANIDE INJ/PF 1 MG/4 ML SDV IV SCH (10:24)
--- NOTE | 2017-01-16 17:20 | PDOC PROGRESS REPORT ---
Subjective Progress Note for:: 01/16/17 Subjective:: Patient seen earlier today on morning rounds. Patient was obtunded and minimally responsive to severe pain when I see him. He was moaning in pain. He was tachypneic, tachycardic, and uncomfortable in appearance. Physical Exam Vital Signs: Temp Pulse Resp BP Pulse Ox 97.4 F 95 10 L 89/52 L 100 01/16/17 14:08 01/16/17 14:08 01/16/17 14:08 01/16/17 14:08 01/16/17 14:08 Intake & Output 01/15/17 01/16/17 01/17/17 06:59 06:59 06:59 Intake Total 1157 4900 0 Balance 1157 4900 0 Weight 74.7 kg 72.6 kg Exam: General: Chronically ill-appearing, jaundiced, lethargic and poorly responsive, mild-moderate respiratory distress HEENT: AT/NC, PERRL, EOMI, oropharynx is moist, significant scleral icterus, no conjunctival injection Neck: + JVD, trachea midline Chest: Diminished bases bilaterally, poor respiratory effort, rales bilaterally CV: tachycardic, Regular rate and rhythm, normal S1 and S2, no rub, or gallop Abdomen: Tense, Distended, positive fluid wave, nontender to palpation, hypoactive bowel sounds Extremities: No cyanosis, clubbing; 3+edema Neuro: unable to assess, GCS 4 Psych: unable to assess Skin: Jaundiced, multiple ecchymosis Results Laboratory Results: 01/14/17 04:40 01/14/17 04:40 Impressions: Chest X-Ray 01/02/17 06:00 IMPRESSION: Moderate lung volumes. Tip of a right internal jugular central line at the inferior right atrium; consider 10 cm retraction. Paracentesis Ultrasound 01/06/17 00:00 IMPRESSION: Successful ultrasound-guided therapeutic paracentesis Assessment & Plan - Diagnosis (1) Hepatic encephalopathy Is this a current diagnosis for this admission?: Yes (2) Hyperglycemia Is this a current diagnosis for this admission?: Yes (3) Hyperkalemia Is this a current diagnosis for this admission?: Yes (4) Perianal abscess Is this a current diagnosis for this admission?: Yes (5) Severe sepsis Is this a current diagnosis for this admission?: Yes (6) Acute renal failure Qualifiers: Acute renal failure type: unspecified Qualified Code(s): N17.9 - Acute kidney failure, unspecified Is this a current diagnosis for this admission?: Yes (7) Ascites Qualifiers: Ascites type: malignant Qualified Code(s): R18.0 - Malignant ascites Is this a current diagnosis for this admission?: Yes (8) Hepatocellular carcinoma Is this a current diagnosis for this admission?: Yes (9) Hyponatremia Is this a current diagnosis for this admission?: Yes (10) GRACIA (nonalcoholic steatohepatitis) Is this a current diagnosis for this admission?: Yes (11) Thrombocytopenia Is this a current diagnosis for this admission?: Yes (12) Metabolic acidosis Is this a current diagnosis for this admission?: Yes - Plan Summary Plan Summary: I have discussed this case personally with patient's GI physician, Dr. Klein, patient's oncologist Dr. Villafuerte, and they are in agreement that patient should be comfort measures. Patient family was offered hospice approximately one month ago by Dr. Villafuerte. The preceding four physicians before me all agree that this patient needs comfort measures and hospice. I am also this opinion as are his two sons. Despite this, his did not want this patient medicated despite explanation for comfort because "God would heal him". I discussed this with the hospital human resources manager manufacturing who advised me to take a consensus of the family and go with the majority. Sons would like him medicated. Will do this. Patient unable to take po.
[2017-01-16] MEDS: INSULIN GLARGINE,HUM.REC.ANLOG 300 UNIT/3 ML INSULN.PEN SUBCUT SCH (22:34)
[2017-01-17] MEDS: LACTULOSE SYRUP 20 GM/30 ML UDCUP PO SCH ×3 (05:07→21:14)
[2017-01-17] MEDS: METRONIDAZOLE 500 MG TABLET PO SCH ×3 (05:07→21:14)
[2017-01-17] MEDS: DEXTROSE 50%-WATER 25 GM/50 ML DISP.SYRIN IV PRN (06:48)
[2017-01-17] MEDS: INSULIN REG, HUMAN 100 UNIT/ML 3 ML VIAL (PYX) SUBCUT SCH ×3 (10:01→15:10)
[2017-01-17] MEDS: SODIUM BICARBONATE 650 MG TABLET PO SCH ×3 (10:57→17:05)
[2017-01-17] MEDS: CALCIUM ACETATE 667 MG CAPSULE PO SCH ×3 (10:57→17:05)
[2017-01-17] MEDS: LANSOPRAZOLE 15 MG TAB.RAP.DR PO SCH (10:57)
[2017-01-17] MEDS: DOCUSATE SODIUM 100 MG CAPSULE PO SCH (10:57)
[2017-01-17] MEDS: BUMETANIDE INJ/PF 1 MG/4 ML SDV IV SCH (15:10)
[2017-01-17] MEDS: DOXYCYCLINE HYCLATE 100 MG TABLET PO SCH ×2 (15:10→21:14)
[2017-01-17] MEDS: RIFAXIMIN 550 MG TABLET PO SCH ×2 (15:10→17:05)
[2017-01-17] MEDS: PREDNISONE 10 MG TABLET PO SCH ×2 (15:10→17:05)
--- NOTE | 2017-01-17 16:00 | PDOC PROGRESS REPORT ---
Subjective Progress Note for:: 01/17/17 Subjective:: Patient seen with at bedside. Patient was obtunded at morning med pass and unable to take his morning meds according to nursing. This afternoon, patient is awake and denies pain. He is really unable to answer many questions. Physical Exam Vital Signs: Temp Pulse Resp BP Pulse Ox 94.4 F L 90 11 L 110/60 100 01/17/17 12:00 01/17/17 13:37 01/17/17 11:36 01/17/17 11:36 01/17/17 11:36 Intake & Output 01/16/17 01/17/17 01/18/17 06:59 06:59 06:59 Intake Total 4900 95 0 Output Total 1 Balance 4900 94 0 Weight 72.6 kg 75.1 kg Exam: General: Chronically ill-appearing, jaundiced, awake and answers some questions coherently HEENT: AT/NC, PERRL, EOMI, oropharynx is dry, significant scleral icterus, no conjunctival injection Neck: + JVD, trachea midline Chest: Diminished bases bilaterally, poor respiratory effort, rales bilaterally CV: tachycardic, Regular rate and rhythm, normal S1 and S2, no rub, or gallop Abdomen: Tense, Distended, positive fluid wave, nontender to palpation, hypoactive bowel sounds Extremities: No cyanosis, clubbing; 3+edema Neuro: GCS 8 Psych: flat Skin: Jaundiced, multiple ecchymosis lower abdominal wall, upper chest Results Laboratory Results: 01/14/17 04:40 01/14/17 04:40 Impressions: Chest X-Ray 01/02/17 06:00 IMPRESSION: Moderate lung volumes. Tip of a right internal jugular central line at the inferior right atrium; consider 10 cm retraction. Paracentesis Ultrasound 01/06/17 00:00 IMPRESSION: Successful ultrasound-guided therapeutic paracentesis Assessment & Plan - Diagnosis (1) Hepatic encephalopathy Is this a current diagnosis for this admission?: Yes (2) Hyperglycemia Is this a current diagnosis for this admission?: Yes (3) Hyperkalemia Is this a current diagnosis for this admission?: Yes (4) Perianal abscess Is this a current diagnosis for this admission?: Yes (5) Severe sepsis Is this a current diagnosis for this admission?: Yes (6) Acute renal failure Qualifiers: Acute renal failure type: unspecified Qualified Code(s): N17.9 - Acute kidney failure, unspecified Is this a current diagnosis for this admission?: Yes (7) Ascites Qualifiers: Ascites type: malignant Qualified Code(s): R18.0 - Malignant ascites Is this a current diagnosis for this admission?: Yes (8) Hepatocellular carcinoma Is this a current diagnosis for this admission?: Yes (9) Hyponatremia Is this a current diagnosis for this admission?: Yes (10) GRACIA (nonalcoholic steatohepatitis) Is this a current diagnosis for this admission?: Yes (11) Thrombocytopenia Is this a current diagnosis for this admission?: Yes (12) Metabolic acidosis Is this a current diagnosis for this admission?: Yes - Plan Summary Plan Summary: At this time, will provide care to patient as would be the standard. Standard of care currently for this patient would be to be on hospice. Patient will not be forced to take medication, and he can eat ad freddy. as long as he is awake. Morphine is available for pain. understands that he received morphine yesterday and is doing okay today. She seems to be okay with this. She is okay with her current plan. Anticipate soon for this patient.
[2017-01-17] MEDS: INSULIN GLARGINE,HUM.REC.ANLOG 300 UNIT/3 ML INSULN.PEN SUBCUT SCH (22:49)
[2017-01-18] MEDS: LACTULOSE SYRUP 20 GM/30 ML UDCUP PO SCH (05:19)
[2017-01-18] MEDS: METRONIDAZOLE 500 MG TABLET PO SCH (05:19)
[2017-01-18] MEDS: DOCUSATE SODIUM 100 MG CAPSULE PO SCH (10:39)
[2017-01-18] MEDS: LANSOPRAZOLE 15 MG TAB.RAP.DR PO SCH (10:39)
[2017-01-18] MEDS: INSULIN REG, HUMAN 100 UNIT/ML 3 ML VIAL (PYX) SUBCUT SCH ×3 (10:39→15:52)
[2017-01-18] MEDS ORDERED: LACTULOSE SYRUP 20 GM/30 ML UDCUP PO SCH (14:00)
--- NOTE | 2017-01-18 15:07 | PDOC PROGRESS REPORT ---
Subjective Progress Note for:: 01/18/17 Subjective:: Patient is awake and resting comfortably. He denies any pain. He answers questions somewhat appropriately Physical Exam Vital Signs: Temp Pulse Resp BP Pulse Ox 97.5 F 90 20 115/65 100 01/18/17 11:48 01/18/17 14:00 01/18/17 11:48 01/18/17 11:48 01/18/17 11:48 Intake & Output 01/17/17 01/18/17 01/19/17 06:59 06:59 06:59 Intake Total 95 480 0 Output Total 1 0 Balance 94 480 0 Weight 75.1 kg 77.9 kg Exam: General: Chronically ill-appearing, jaundiced, awake and oriented x1 HEENT: AT/NC, PERRL, EOMI, oropharynx is dry, significant scleral icterus, no conjunctival injection Neck: + JVD, trachea midline Chest: Diminished bases bilaterally, poor respiratory effort, otherwise clear CV: tachycardic, Regular rate and rhythm, normal S1 and S2, no rub, or gallop Abdomen: Tense, Distended, positive fluid wave, nontender to palpation, hypoactive bowel sounds Extremities: No cyanosis, clubbing; 3+edema Neuro: awake and oriented x1 Psych: flat Skin: Jaundiced, multiple ecchymosis lower abdominal wall, upper chest Results Laboratory Results: 01/14/17 04:40 01/14/17 04:40 Impressions: Chest X-Ray 01/02/17 06:00 IMPRESSION: Moderate lung volumes. Tip of a right internal jugular central line at the inferior right atrium; consider 10 cm retraction. Paracentesis Ultrasound 01/06/17 00:00 IMPRESSION: Successful ultrasound-guided therapeutic paracentesis Assessment & Plan - Diagnosis (1) Hepatic encephalopathy Is this a current diagnosis for this admission?: Yes Plan: Patient is currently more oriented after not taking lactulose for 2 days and he has been in some time. We will hold lactulose (2) Hyperglycemia Is this a current diagnosis for this admission?: Yes Plan: stop steroids (3) Hyperkalemia Is this a current diagnosis for this admission?: Yes (4) Perianal abscess Is this a current diagnosis for this admission?: Yes (5) Severe sepsis Is this a current diagnosis for this admission?: Yes Plan: Patient met criteria secondary to his perianal abscess. Stop antibiotics and continue dressing changes. Patient has been on antibiotics for 17 days. (6) Acute renal failure Qualifiers: Acute renal failure type: unspecified Qualified Code(s): N17.9 - Acute kidney failure, unspecified Is this a current diagnosis for this admission?: Yes Plan: Feel that this is likely patient's new chronic baseline. Patient has hepatorenal syndrome. Patient is not a candidate for dialysis. (7) Ascites Qualifiers: Ascites type: malignant Qualified Code(s): R18.0 - Malignant ascites Is this a current diagnosis for this admission?: Yes (8) Hepatocellular carcinoma Is this a current diagnosis for this admission?: Yes (9) Hyponatremia Is this a current diagnosis for this admission?: Yes (10) GRACIA (nonalcoholic steatohepatitis) Is this a current diagnosis for this admission?: Yes (11) Thrombocytopenia Is this a current diagnosis for this admission?: Yes (12) Metabolic acidosis Is this a current diagnosis for this admission?: Yes - Time Time Spent with patient: 25-34 minutes
[2017-01-18] MEDS: INSULIN GLARGINE,HUM.REC.ANLOG 300 UNIT/3 ML INSULN.PEN SUBCUT SCH (21:28)
[2017-01-19] MEDS: LANSOPRAZOLE 15 MG TAB.RAP.DR PO SCH (08:59)
[2017-01-19] MEDS: INSULIN REG, HUMAN 100 UNIT/ML 3 ML VIAL (PYX) SUBCUT SCH ×3 (08:59→16:04)
[2017-01-19] MEDS: DOCUSATE SODIUM 100 MG CAPSULE PO SCH (09:02)
--- NOTE | 2017-01-19 13:56 | PDOC TRANSFER SUMMARY ---
General - Admit/Disc Date/PCP Admission Date/Primary Care Provider: 01/01/17 21:55 GEORGIA EMANUEL MD Discharge Date: 01/19/17 - Discharge Diagnosis (1) Severe sepsis Is this a current diagnosis for this admission?: Yes (2) Acute renal failure Is this a current diagnosis for this admission?: Yes (3) Hepatorenal failure Is this a current diagnosis for this admission?: Yes (4) Hepatocellular carcinoma Is this a current diagnosis for this admission?: Yes (5) Hepatic encephalopathy Is this a current diagnosis for this admission?: Yes (6) Hyperglycemia Is this a current diagnosis for this admission?: Yes (7) Hyperkalemia Is this a current diagnosis for this admission?: Yes (8) Perianal abscess Is this a current diagnosis for this admission?: Yes (9) Ascites Is this a current diagnosis for this admission?: Yes (10) Hyponatremia Is this a current diagnosis for this admission?: Yes (11) WU (nonalcoholic steatohepatitis) Is this a current diagnosis for this admission?: Yes (12) Thrombocytopenia Is this a current diagnosis for this admission?: Yes (13) Metabolic acidosis Is this a current diagnosis for this admission?: Yes - Additional Information Resuscitation Status: Full Code Discharge Diet: As Tolerated, Regular Discharge Activity: Activity As Tolerated Home Medications: Cetirizine HCl [Zyrtec] 10 mg PO DAILYP PRN 01/02/17 Fluticasone Propionate [Flonase Nasal [place] 50 Mcg/[place]oring 16 gm] 2 spray NASL DAILYP PRN 01/02/17 Pantoprazole Sodium [Protonix] 20 mg PO DAILY 01/02/17 Rifaximin [Xifaxan] 550 mg PO BID 01/02/17 Insulin Glargine,Hum.rec.anlog [Lantus Insulin 100 Unit/mL] 35 unit SUBCUT QHS insuln.pen 01/19/17 Insulin Regular, Human [Humulin R (Reg) Insulin 100 unit/mL] 5 unit SUBCUT AC unit 01/19/17 Lactulose 10 gm PO TIDP PRN #1 bottle 01/19/17 Nystatin [Mycostatin Cream 15 gm] 1 applic TP TIDP PRN tube 01/19/17 Oxycodone HCl [Oxy-Ir 5 mg Tablet] 5 mg PO Q4HP PRN #10 tablet 01/19/17 Zinc Oxide [Zinc Oxide 20% Ointment 28.35 gm] 1 applic TP TIDP PRN tube History of Present Illness Admission Date/PCP: 01/01/17 21:55 GEORGIA EMANUEL MD History of Present Illness: VELVET WILLS SR is a 66 year old male with a past medical history of diabetes , Wu and hepatocellular carcinoma who is a patient of Dr. Barber in [place] at [phone]. Presents with a chief complaint of perirectal abscess, abdominal distention and shortness of breath. He has continued to receive weekly paracentesis from gastroenterology at [facility] but was unwell and missed his last appointment. Patient was on palliative immunotherapy until last month after toxicity mandated discontinuation. Lasix was recently discontinued, the patient has discontinued prednisone 20 mg twice daily as he is intolerant secondary to insomnia but takes it every morning. In the emergency room he is found jaundiced, hypotensive and tachycardic with leukocytosis, critical hyperkalemia of 6.4 with peak T waves and sodium of 117 with acute renal failure. He receives IV calcium gluconate and referred to the hospitalist for admission. With surgical consultation for perirectal abscess. Hospital Course Hospital Course: Patient was initially admitted to the ICU for his severe sepsis and surgery was consulted. Patient underwent I&D by surgery. He was started on broad-spectrum antibiotics. Patient has been receiving weekly paracentesis prior to admission. Patient had initially come in on steroids and these were tapered off. Patient underwent paracentesis on 01/06/2017 with suspicion for SBP due to his abdominal pain. Patient however continued to have significant ascites. This is been refractory to diuretic therapy and paracentesis. His peritoneal fluid did not grow out any organisms. Patient was on appropriate broad-spectrum antibiotics at this time. These have since been tapered off. Patient completed 16 days of antibiotics for his abscess. Currently he is undergoing wound care. Patient does have significant edema due to his liver failure. I discussed his care with both Dr. Klein of GI in [place] and Dr. Villafuerte of [facility] oncology and they both felt the patient should be made comfort measures/ hospice. I have discussed this with his and she is not in agreement. She prefers that he goes to rehabilitation in order to get stronger before going home. Patient has been referred for rehabilitation. Patient will need to have wound changes 3 times daily and with each bowel movement/urination. This should be packed with iodoform gauze after being thoroughly cleansed with equal parts Hibiclens and sterile water or wound cleaner and presser. Zinc oxide applied as needed. Patient will need Accu-Cheks prior to insulin administration. Physical Exam Vital Signs: Temp Pulse Resp BP Pulse Ox 97.3 F 88 16 108/86 H 100 01/19/17 07:34 01/19/17 07:34 01/19/17 07:34 01/19/17 07:34 01/19/17 07:34 Intake & Output 01/18/17 01/19/17 01/20/17 06:59 06:59 06:59 Intake Total 480 1061 Output Total 0 0 Balance 480 1061 Weight 77.9 kg 75.8 kg Exam: General: Chronically ill-appearing, jaundiced, awake and oriented x2 HEENT: AT/NC, PERRL, EOMI, oropharynx is dry, significant scleral icterus, no conjunctival injection Neck: + JVD, trachea midline Chest: Diminished bases bilaterally, poor respiratory effort, otherwise clear CV: tachycardic, Regular rate and rhythm, normal S1 and S2, no rub, or gallop Abdomen: Tense, Distended, positive fluid wave, nontender to palpation, hypoactive bowel sounds Extremities: No cyanosis, clubbing; 2+edema Neuro: Slow to respond, awake and oriented x2 Psych: flat Skin: Jaundiced, multiple ecchymosis lower abdominal wall, upper chest Results Laboratory Results: 01/14/17 04:40 01/14/17 04:40 Impressions: Chest X-Ray 01/02/17 06:00 IMPRESSION: Moderate lung volumes. Tip of a right internal jugular central line at the inferior right atrium; consider 10 cm retraction. Paracentesis Ultrasound 01/06/17 00:00 IMPRESSION: Successful ultrasound-guided therapeutic paracentesis Transfer Plan - Time Spent with Patient Time spent with patient: Greater than 30 Minutes Qualifiers PATEINT BEING DISCHARGED WITH ANY OF THE FOLLOWING DIAGNOSIS?: No Plan Time Spent: Greater than 30 Minutes
[2017-01-19] MEDS: INSULIN GLARGINE,HUM.REC.ANLOG 300 UNIT/3 ML INSULN.PEN SUBCUT SCH (23:40)
[2017-01-20] MEDS ORDERED: NORMAL SALINE 1000 ML 1,000 ML IV PRN (05:15)
[2017-01-20] MEDS: INSULIN REG, HUMAN 100 UNIT/ML 3 ML VIAL (PYX) SUBCUT SCH ×3 (08:58→16:31)
[2017-01-20] MEDS: LANSOPRAZOLE 15 MG TAB.RAP.DR PO SCH (08:58)
[2017-01-20] MEDS ORDERED: VANCOMYCIN HCL 0 MG in DEXTROSE 5%-WATER 250 ML IV NR (10:00)
--- NOTE | 2017-01-20 10:09 | PDOC PROGRESS REPORT ---
Subjective Progress Note for:: 01/20/17 Subjective:: This is a follow-up visit for right buttock abscess. Since I last saw the patient efforts have been made to try and get the patient to a hospice type of setting. Apparently, his oncologist was contacted and he agrees that the patient should be made hospice. Unfortunately, off going attending reports that the patient's is not in agreement with this. Overnight, the patient developed decreased blood pressure down to the 50s. Ranging from the 50s to the 80s. He received IV fluids at 250 cc/h. Unfortunately, his blood pressure has not been responsive. I did try to address CODE STATUS with the patient himself. Unfortunately, he is not oriented and I do not believe that he is capable of making a conscientious decision for himself. However, when given the details of intubation or having chest compressions done, he does say that he would not like to be intubated or have chest compressions. When asked if he wants to be left alone and go to [facility], he does not respond and asks to be pulled up in his bed. In fact, with any questions using the words or dying, the patient does not respond and simply asks to be pulled up in bed. The patiently currently denies any pain. Physical Exam Vital Signs: Temp Pulse Resp BP Pulse Ox 95.5 F L 89 18 51/28 L 100 01/20/17 08:00 01/20/17 07:00 01/20/17 03:53 01/20/17 03:53 01/20/17 08:00 Intake & Output 01/19/17 01/20/17 01/21/17 06:59 06:59 06:59 Intake Total 1061 2242 Output Total 0 Balance 1061 2242 Weight 75.8 kg 79.2 kg GENERAL: This is a well-developed, under nourished, chronically ill appearing male resting in bed in no distress. HEENT: Normocephalic, atraumatic. Scleral icterus is present. HEART: Regular rate and rhythm. No murmurs, rubs or gallops. LUNGS: Clear to auscultation bilaterally with equal rise and fall of the chest. He has nonlabored breathing. ABDOMEN: Soft, nontender, distended with hypoactive bowel sounds EXTREMETIES: No clubbing, cyanosis. 2+ pitting edema. Pedal pulses not palpated secondary to edema. RECTAL: The patient has a black tarry bowel movement in his diaper. NEURO: Awake, alert. the patient is not oriented. He does not know the year. He thinks the month is February. He will not tell me where he is and looks around the room staring into space at times. The patient cannot tell me whether or not he has cancer or any of his medical history. Skin: The patient's wound was examined. He has a left buttock opening that is packed with gauze. Results Laboratory Results: 01/14/17 04:40 01/14/17 04:40 Impressions: Chest X-Ray 01/02/17 06:00 IMPRESSION: Moderate lung volumes. Tip of a right internal jugular central line at the inferior right atrium; consider 10 cm retraction. Paracentesis Ultrasound 01/06/17 00:00 IMPRESSION: Successful ultrasound-guided therapeutic paracentesis Assessment & Plan - Diagnosis (1) Severe sepsis Is this a current diagnosis for this admission?: Yes Plan: Sepsis secondary to perianal abscess. Sepsis as evidenced by hypotension and tachycardia. Patient has not had any fevers and currently is hypothermic with a temperature at 95. Multiple organisms have grown out to include Enterobacter , Citrobacter and enterococcus. He is status post Primaxin and Vanco. No labs have been checked since January 14, As the patient had improved. Will recheck stat CBC, CMP, ammonia level, lactic acid level, and magnesium. The patient is extremely hypotensive, Possibly from septic shock. We will reinitiate broad-spectrum antibiotics and transfer him to the ICU for pressor support. We will also go ahead and repeat the chest x-ray, blood cultures and urine cultures. (2) Perianal abscess Is this a current diagnosis for this admission?: Yes Plan: s/p antibiotic treatment and debridement. (3) Acute renal failure Qualifiers: Acute renal failure type: unspecified Qualified Code(s): N17.9 - Acute kidney failure, unspecified Is this a current diagnosis for this admission?: Yes Plan: Last known creatinine was 1.9. Will check a stat CMP. (4) Anemia Is this a current diagnosis for this admission?: Yes Plan: Acute anemia of blood loss prior in this hospitalization. Recheck stat CBC. Patient has obvious melena in his diaper. (5) Hepatocellular carcinoma Is this a current diagnosis for this admission?: Yes Plan: Continue management as an outpatient. Patient follows with Dr. Klein in [facility] who concurs with a hospice approach at this point. Unfortunately this is not sentiment of his and the patient has plans to be discharged to a alf facility when a bed is available. I suspect that the patient will not likely survive this hospitalization to make it to a alf facility. Even if he did, most likely he would be transferred back here for further medical treatment as he continues to fail. (6) Hyponatremia Is this a current diagnosis for this admission?: Yes Plan: This is likely multifactorial. Hypervolumic hyponatremia and SIADH. The patient has underlying hepatocellular carcinoma and in part his hyponatremia may be due to his underlying malignancy. Patient also has what appears to be decreased p.o. intake. Most recently, he received multiple boluses overnight to assist with getting his blood pressure up. His last known sodium was at 118. Stat recheck is pending. (7) Thrombocytopenia Is this a current diagnosis for this admission?: Yes Plan: This is possibly reactive from his underlying infection in addition to his underlying cancer. Patient's last platelet count was 119. (8) Hyperglycemia Is this a current diagnosis for this admission?: Yes Plan: Likely secondary to underlying steroid use for treatment of his hepatocellular carcinoma. Steroids have since been discontinued. He still continues to have elevated blood sugars. He is now on Lantus 35 units nightly, sliding scale insulin, before meals 5 units. We will continue to follow. Check A1c. (9) Hyperkalemia Is this a current diagnosis for this admission?: Yes Plan: continue to monitor. as needed insulin and dextrose recheck stat Chem-7. (10) Ascites Qualifiers: Ascites type: malignant Qualified Code(s): R18.0 - Malignant ascites Is this a current diagnosis for this admission?: Yes Plan: Secondary to underlying Gracia and hepatocellular carcinoma. The patient underwent paracentesis and had 9 L removed on 01/04/2017. The patient was having some abdominal distention with discomfort and repeat paracentesis was done removing 4800 mL's in 01/06. The patient and his family were considering a Pleurx catheter. No decision about this was ever reached by his family. (11) Lower extremity edema Is this a current diagnosis for this admission?: Yes Plan: Secondary to liver failure and hepatic cellular carcinoma with volume overload and ascites. Unfortunately given his hypotension we have to continue to support him with fluids until pressors can be started. Hopefully we will reach a point where we can diurese him again. (12) GRACIA (nonalcoholic steatohepatitis) Is this a current diagnosis for this admission?: Yes Plan: Supportive care. - Time Critical Time spent with patient: 35 or more minutes - Plan Summary Plan Summary: The plan was to have this patient discharged to SNF. However, overnight the patient has developed hypothermia and hypotension. I have concerns for sepsis with shock. Any plans for sniff placement at this point can be placed on hold. I have recommended that the patient pursue hospice care/comfort measures. Unfortunately, the patient is not oriented and cannot make his own decisions at this point. His is not in agreement with any DNR status or with comfort measures. He will be transferred to the ICU for further support as per the assessment and plan. To discharge him now with subject him to decompensation and worsening of his condition.
[2017-01-20] MEDS ORDERED: NORMAL SALINE 500 ML IV ONE (11:00)
[2017-01-20] MEDS ORDERED: NOREPINEPHRINE BITARTRATE INJ/PF 4 MG/4 ML SDV IV ONE (11:21)
--- NOTE | 2017-01-20 11:58 | RADIOLOGY REPORT (SQ) ---
EXAM DESCRIPTION: CHEST SINGLE VIEW COMPLETED DATE/TIME: 01/20/2017 11:05 am REASON FOR STUDY: septic shock COMPARISON: 01/02/2017. EXAM PARAMETERS: NUMBER OF VIEWS: One view. TECHNIQUE: Single frontal radiographic view of the chest acquired. RADIATION DOSE: NA LIMITATIONS: None. FINDINGS: LUNGS AND PLEURA: No opacities, masses or pneumothorax. No pleural effusion. Incidental s kin fold overlying the left chest. MEDIASTINUM AND HILAR STRUCTURES: No masses. Contour normal. HEART AND VASCULAR STRUCTURES: Heart normal in size. Normal vasculature. BONES: No acute findings. HARDWARE: None in the chest. OTHER: No other significant finding. IMPRESSION: NO ACUTE RADIOGRAPHIC FINDING IN THE CHEST. TECHNICAL DOCUMENTATION: JOB ID: [id number]
[2017-01-20 12:02] LABS: AMORPHOUS SEDIMENT,URINE TRACE /HPF; APPEARANCE,URINE SLIGHTLY-CLOUDY; BILIRUBIN,URINE NEGATIVE (NEGATIVE); GLUCOSE, URINE NEGATIVE (NEGATIVE); KETONES,URINE NEGATIVE (NEGATIVE); LEUKOCYTE ESTERASE,URINE TRACE (NEGATIVE); NITRITE,URINE NEGATIVE (NEGATIVE); PROTEIN,URINE 30 mg/dL (NEGATIVE); UROBILINOGEN,URINE NEGATIVE mg/dL (<2.0)
--- NOTE | 2017-01-20 12:11 | PDOC CONSULTATION ---
Consultation Consult Date: 01/20/17 Attending physician:: QUENTIN CARL Consult reason:: Central venous catheterization for resuscitation History of Present Illness Admission Date/PCP: 01/01/17 21:55 GEORGIA EMANUEL MD Patient complains of: Hypotension History of Present Illness: Mr Valle is a 66 year old male admitted to [facility] on 01/01 for sepsis perirectal abscess and history of GRACIA and HCC. Doing fair on the floor yesturday with CVC removed from RIJ patient decompensated overnight with hypotension and hypothermia, concerns for septic shock given history. CVC access needed for resuscitation. Consent obtained from family, patient interactive but confused. Past Medical History Cardiac Medical History: Reports: Hypertension Endocrine Medical History: Reports: Diabetes Mellitus Type 1, Diabetes Mellitus Type 2 Malignancy Medical History: Reports: Liver Cancer GI Medical History: Reports: Cirrhosis Psychiatric Medical History: Denies: Depression Past Surgical History Past Surgical History: Reports: Cardiac Catheterization, Cholecystectomy Social History Lives with: Family Smoking Status: Never Smoker Frequency of Alcohol Use: None Hx Recreational Drug Use: No Drugs: None Hx Prescription Drug Abuse: No - Advance Directive Resuscitation Status: Full Code Family History Family History: Reviewed & Not Pertinent, Hypertension Parental Family History Reviewed: Yes Children Family History Reviewed: Yes Sibling(s) Family History Reviewed.: Yes Medication/Allergy Home Medications: Cetirizine HCl [Zyrtec] 10 mg PO DAILYP PRN 01/02/17 Fluticasone Propionate [Flonase Nasal [place] 50 Mcg/[place] 16 gm] 2 spray NASL DAILYP PRN 01/02/17 Pantoprazole Sodium [Protonix] 20 mg PO DAILY 01/02/17 Rifaximin [Xifaxan] 550 mg PO BID 01/02/17 Insulin Glargine,Hum.rec.anlog [Lantus Insulin 100 Unit/mL] 35 unit SUBCUT QHS insuln.pen 01/19/17 Insulin Regular, Human [Humulin R (Reg) Insulin 100 unit/mL] 5 unit SUBCUT AC unit 01/19/17 Lactulose 10 gm PO TIDP PRN #1 bottle 01/19/17 Nystatin [Mycostatin Cream 15 gm] 1 applic TP TIDP PRN tube 01/19/17 Oxycodone HCl [Oxy-Ir 5 mg Tablet] 5 mg PO Q4HP PRN #10 tablet 01/19/17 Zinc Oxide [Zinc Oxide 20% Ointment 28.35 gm] 1 applic TP TIDP PRN tube Allergies/Adverse Reactions: Penicillins Allergy (Intermediate, Verified 01/01/17 18:19) Passed out Review of Systems ROS unobtainable: Due to mental status - patient actively being resuscitated Physical Exam Vital Signs: Temp Pulse Resp BP Pulse Ox 94.3 F L 86 17 92/50 L 100 01/20/17 11:32 01/20/17 11:32 01/20/17 11:32 01/20/17 11:32 01/20/17 11:32 Intake & Output 01/19/17 01/20/17 01/21/17 06:59 06:59 06:59 Intake Total 1061 2242 Output Total 0 Balance 1061 2242 Weight 75.8 kg 79.2 kg General appearance: PRESENT: mild distress, thin Head exam: PRESENT: atraumatic, normocephalic Eye exam: PRESENT: conjunctiva pale, scleral icterus Mouth exam: PRESENT: moist, neck supple Neck exam: ABSENT: tenderness, thyromegaly, tracheal deviation Pulses: PRESENT: normal dorsalis pedis pul GI/Abdominal exam: PRESENT: distended, soft. ABSENT: guarding, hernia, tenderness Rectal exam: PRESENT: bloody stool Extremities exam: PRESENT: other - echymosis throughout given history of TCP and history of liver pathology Neurological exam: PRESENT: awake, CN II-XII grossly intact. ABSENT: oriented to person, oriented to place Results Laboratory Results: 01/14/17 04:40 01/14/17 04:40 01/20/17 10:20 Lactic Acid 1.9 Impressions: Paracentesis Ultrasound 01/06/17 00:00 IMPRESSION: Successful ultrasound-guided therapeutic paracentesis Chest X-Ray 01/20/17 09:52 IMPRESSION: NO ACUTE RADIOGRAPHIC FINDING IN THE CHEST. Status: Imported from PACS Assessment & Plan - Diagnosis (1) Severe sepsis Is this a current diagnosis for this admission?: Yes Plan: CVC to be placed at bedside femoral given history of GIB acutely, echymosis throughout and bleeding from skin access sites Patient agreeable but consent from Pain controlled Okay to use Femoral line given location - Time Time Spent: 30 to 50 Minutes Critical Time spent with patient: 15-24 minutes - cvc insertion
--- NOTE | 2017-01-20 12:16 | Operative Report ---
Operative Report DATE OF SURGERY: 01/20/17 Operative Report: Patient was sterily prepped and draped in the usual manner. Given patient presentation of generalized bleeding option for right inguinal region for CVC access. Local was instilled medially to palpable femoral artery and cannulation was accomplished with the first attempt. Guidewire advanced with removal of introducer needle, guidewire was monitored at all times manually. Site was enlarged and dilated with subsequent placement of 12Fr TLC over wire with recovery of the wire in its entirety. Sites aspirated and flushed easily. Suture approximated to skin surface using accompanying silk suture and covered with an opsite and antimicrobial barrier. Site is useable immediately for continued resuscitation given location. PREOPERATIVE DIAGNOSIS: Sever sepsis POSTOPERATIVE DIAGNOSIS: Severe sepsis OPERATION: right femoral CVC SURGEON: BECKY HOLLIDAY ANESTHESIA: Local COMPLICATIONS: None ESTIMATED BLOOD LOSS: Minimal
[2017-01-20] MEDS ORDERED: VANCOMYCIN HCL 1,250 MG in DEXTROSE 5%-WATER 250 ML IV ONE (13:00)
[2017-01-20 13:11] LABS: ABSOLUTE EOSINOPHILS # (AUTO) 0.1 10^3/uL (0.0-0.6); ABSOLUTE LYMPHOCYTES (AUTO) 0.8 10^3/uL (0.5-4.7); ABSOLUTE NEUT (AUTO) 12.2 10^3/uL (1.7-8.2); BASOPHILS % (AUTO) 0.1 % (0-2); EOSINOPHILS % (AUTO) 0.6 % (0-6); LYMPHOCYTES % (AUTO) 5.5 % (13-45); MONOCYTES % (AUTO) 6.8 % (3-13)
[2017-01-20 13:25] LABS: PROTHROMBIN TIME 22.1 SEC (11.4-15.4)
[2017-01-20 13:26] LABS: ALANINE AMINOTRANSFERASE 212 U/L (21-72); ALBUMIN 1.9 g/dL (3.5-5.0); ALKALINE PHOSPHATASE 297 U/L (38-126); ANION GAP 13 (5-19); ASPARTATE AMINO TRANSFERASE 584 U/L (17-59); BILIRUBIN,DIRECT 8.8 mg/dL (0.0-0.4); BILIRUBIN,TOTAL 9.9 mg/dL (0.2-1.3); CALCIUM 7.4 mg/dL (8.4-10.2); CARBON DIOXIDE 13 mmol/L (22-30); CHLORIDE 86 mmol/L (98-107); GLUCOSE 77 mg/dL (75-110); MAGNESIUM 2.1 mg/dL (1.6-2.3); PARTIAL THROMBOPLASTIN TIME 38.7 SEC (23.5-35.8); POTASSIUM 5.1 mmol/L (3.6-5.0); TOTAL PROTEIN 4.5 g/dL (6.3-8.2)
[2017-01-20] MEDS ORDERED: PHENYLEPHRINE HCL INJ/PF 10 MG/1 ML SDV ONE (13:31)
[2017-01-20 13:33] LABS: RED BLOOD COUNT 2.17 10^6/uL (4.35-5.55); WHITE BLOOD COUNT 13.9 10^3/uL (4.0-10.5)
[2017-01-20 13:34] LABS: HEMATOCRIT 21.5 % (37.9-51.0); HEMOGLOBIN 7.6 g/dL (13.5-17.0); HGB HCT DIFFERENCE 1.3; MEAN CORPUSCULAR HGB CONC 35.2 g/dL (32.0-36.0); MEAN CORPUSCULAR VOLUME 99 fl (80-97); RED CELL DISTRIBUTION WIDTH 17.5 % (11.5-14.0)
[2017-01-20 13:35] LABS: CREATININE RESULT 3.59 mg/dL (0.52-1.25)
[2017-01-20 13:37] LABS: BLOOD UREA NITROGEN 150 mg/dL (7-20)
[2017-01-20 13:44] LABS: SODIUM 112.3 mmol/L (137-145)
[2017-01-20] MEDS ORDERED: NORMAL SALINE 250 ML IV PRN ×2 (13:55)
[2017-01-20] MEDS: DEXTROSE 5%-WATER 250 ML with NOREPINEPHRINE BITARTRATE 4 MG IV PRN ×6 (13:57→22:30)
[2017-01-20] MEDS: AZTREONAM 1.5 GM in DEXTROSE 5%-WATER 100 ML IV SCH ×2 (14:04→21:21)
[2017-01-20] MEDS ORDERED: SODIUM CHLORIDE 3% 500 ML IV ONE (14:45)
--- NOTE | 2017-01-20 14:54 | Progress Note ---
Provider Note Provider Note: 1235:The patient was seen 2 more times thus far today. After he arrived in the ICU his new temperature was found to be at 93. He was initiated on a bear hugger and an additional central venous line was also placed by the surgical service. This is much appreciated. I did discuss the patient's current circumstances with his at the time of my conversation with her no labs had returned. However, I did express to her that the patient does not look good and that I feel as though he will not survive this admission. The patient trusts in the Lord to heal him. We did discuss her face and I did express understanding of her face as well as her wishes for her . I also expressed that from a medical perspective my recommendation still stands that he be made comfort care. The patient states that his oncologist has been saying this "forever". She would like to continue to have him at full CODE STATUS because she says that that is what he wanted when he first came into the hospital. Additional 20 minutes was spent during this conversation. 1310 I note that the patient's labs came back and I note that his sodium is now 112, his creatinine is now 3.5. It was also reported to me by the nursing staff that his blood pressure is 93 systolic and that he is maxed out on Levophed. Tomy-Synephrine was initiated as well. The patient is also being started on hypertonic saline at 46 mL/h. Blood transfusion is also been initiated as the patient's hemoglobin is now down to 7.6. I suspect this is likely due to the melena found in his diaper earlier this morning as well as his underlying chronic conditions. An additional 45 minutes was spent to address these issues. 1428. I reached out again to the patient's and updated her on the above findings. The patient still remains full code. I then called the patient's son who expresses to me that he disagrees with his mother and that he feels that his father should be made comfort care. He is at a loss at what to do and how to approach his mother and away that she will agreed to make him comfort care. I have also notified him of the above new findings. I have explained to both him and his mother that I do not think the patient will survive this hospitalization and that he appears to be shutting down slowly. Additional 20 minutes spent Additional diagnoses: Acute worsening of renal failure. no nephrology consult available today. hyponatremia requiring 3% salin. no nephrology consult available for today acute on chronic anemia of blood loss requiring transfusion Septic shock requiring vasopressor support 2 hydrocortisone has been initiated GI bleed/melena initiation of Protonix. No GI consult available today. However , the patient would be too unstable for elective endoscopy. If his anemia continues to worsen or if profuse bleeding occurs, then we will need to reconsider endoscopy and perhaps consider transferral if the patient is stable. Additionally CT GI bleed can be considered.
[2017-01-20] MEDS: HYDROCORTISONE SOD SUCCINATE INJ/PF 100 MG/2 ML SDV IV SCH ×2 (16:28→22:21)
[2017-01-20 17:06] LABS: ANION GAP 12 (5-19); CALCIUM 7.3 mg/dL (8.4-10.2); CARBON DIOXIDE 13 mmol/L (22-30); CHLORIDE 86 mmol/L (98-107); GLUCOSE 134 mg/dL (75-110)
[2017-01-20 17:18] LABS: CREATININE RESULT 3.48 mg/dL (0.52-1.25)
[2017-01-20 17:35] LABS: BLOOD UREA NITROGEN 153 mg/dL (7-20)
[2017-01-20 17:39] LABS: SODIUM 111.2 mmol/L (137-145)
[2017-01-20 20:10] LABS: ANION GAP 13 (5-19); CALCIUM 7.4 mg/dL (8.4-10.2); CARBON DIOXIDE 13 mmol/L (22-30); CHLORIDE 86 mmol/L (98-107); GLUCOSE 165 mg/dL (75-110); POTASSIUM 5.2 mmol/L (3.6-5.0)
[2017-01-20 20:16] LABS: CREATININE RESULT 3.48 mg/dL (0.52-1.25)
[2017-01-20 20:19] LABS: BLOOD UREA NITROGEN 153 mg/dL (7-20)
[2017-01-20 20:32] LABS: SODIUM 111.8 mmol/L (137-145)
[2017-01-20] MEDS: PANTOPRAZOLE SODIUM 40 MG VIAL IV SCH (22:21)
[2017-01-20 22:48] LABS: ANION GAP 12 (5-19); CALCIUM 7.4 mg/dL (8.4-10.2); CARBON DIOXIDE 12 mmol/L (22-30); CHLORIDE 89 mmol/L (98-107); GLUCOSE 193 mg/dL (75-110); POTASSIUM 5.5 mmol/L (3.6-5.0)
[2017-01-20 22:54] LABS: CREATININE RESULT 3.48 mg/dL (0.52-1.25)
[2017-01-20 23:08] LABS: BLOOD UREA NITROGEN 155 mg/dL (7-20)
[2017-01-20 23:12] LABS: SODIUM 112.5 mmol/L (137-145)
[2017-01-20] MEDS: INSULIN GLARGINE,HUM.REC.ANLOG 300 UNIT/3 ML INSULN.PEN SUBCUT SCH (23:17)
[2017-01-20] MEDS: DEXTROSE 5%-WATER 250 ML with PHENYLEPHRINE HCL 40 MG IV PRN ×2 (23:20)
[2017-01-20] MEDS ORDERED: INSULIN GLARGINE,HUM.REC.ANLOG 1,000 UNIT/10 ML UNIT SUBCUT ONE (23:27)
[2017-01-21 01:05] LABS: HEMATOCRIT 26.1 % (37.9-51.0); HEMOGLOBIN 9.2 g/dL (13.5-17.0); HGB HCT DIFFERENCE 1.5; MEAN CORPUSCULAR HEMOGLOBIN 32.9 pg (27.0-33.4); MEAN CORPUSCULAR HGB CONC 35.2 g/dL (32.0-36.0); RED BLOOD COUNT 2.79 10^6/uL (4.35-5.55); RED CELL DISTRIBUTION WIDTH 20.5 % (11.5-14.0)
[2017-01-21 01:10] LABS: MEAN CORPUSCULAR VOLUME 94 fl (80-97)
[2017-01-21 01:24] LABS: ANION GAP 12 (5-19); CALCIUM 7.4 mg/dL (8.4-10.2); CARBON DIOXIDE 12 mmol/L (22-30); CHLORIDE 89 mmol/L (98-107); GLUCOSE 218 mg/dL (75-110); POTASSIUM 5.6 mmol/L (3.6-5.0)
[2017-01-21 01:33] LABS: BASOPHILS % (MANUAL) 0 % (0-2); EOSINOPHILS % (MANUAL) 1 % (0-6); LYMPHOCYTES % (MANUAL) 2 % (13-45); NUCLEATED RED BLOOD CELLS 1 /100 WBC (0); TOTAL CELLS COUNTED 100
[2017-01-21 01:34] LABS: ANISOCYTOSIS 2+; BURR CELLS 1+; OVALOCYTES SLIGHT; POIKILOCYTOSIS 1+; POLYCHROMASIA SLIGHT; TARGET CELLS 1+; TOXIC GRANULATION SLIGHT
[2017-01-21 01:52] LABS: SODIUM 112.9 mmol/L (137-145)
[2017-01-21 01:56] LABS: CREATININE RESULT 3.41 mg/dL (0.52-1.25)
[2017-01-21 01:58] LABS: BLOOD UREA NITROGEN 156 mg/dL (7-20)
[2017-01-21] MEDS: SODIUM CHLORIDE 3% 500 ML IV PRN ×2 (02:35→14:37)
[2017-01-21] MEDS: DEXTROSE 5%-WATER 250 ML with NOREPINEPHRINE BITARTRATE 4 MG IV PRN ×8 (03:24→23:04)
[2017-01-21 03:52] LABS: ANION GAP 12 (5-19); CALCIUM 7.2 mg/dL (8.4-10.2); CARBON DIOXIDE 12 mmol/L (22-30); CHLORIDE 91 mmol/L (98-107); GLUCOSE 229 mg/dL (75-110); POTASSIUM 5.7 mmol/L (3.6-5.0)
[2017-01-21 04:01] LABS: CREATININE RESULT 3.47 mg/dL (0.52-1.25)
[2017-01-21 04:06] LABS: BLOOD UREA NITROGEN 160 mg/dL (7-20)
[2017-01-21 04:08] LABS: SODIUM 115.3 mmol/L (137-145)
[2017-01-21] MEDS: AZTREONAM 1.5 GM in DEXTROSE 5%-WATER 100 ML IV SCH ×3 (05:56→22:23)
[2017-01-21] MEDS: HYDROCORTISONE SOD SUCCINATE INJ/PF 100 MG/2 ML SDV IV SCH ×3 (05:56→22:25)
[2017-01-21 06:26] LABS: CALCIUM 7.3 mg/dL (8.4-10.2); CHLORIDE 92 mmol/L (98-107); GLUCOSE 235 mg/dL (75-110); HEMATOCRIT 23.7 % (37.9-51.0); HEMOGLOBIN 8.5 g/dL (13.5-17.0); HGB HCT DIFFERENCE 1.8; MEAN CORPUSCULAR HEMOGLOBIN 33.3 pg (27.0-33.4); MEAN CORPUSCULAR HGB CONC 35.7 g/dL (32.0-36.0); MEAN CORPUSCULAR VOLUME 93 fl (80-97); POTASSIUM 5.7 mmol/L (3.6-5.0); RED BLOOD COUNT 2.54 10^6/uL (4.35-5.55); RED CELL DISTRIBUTION WIDTH 20.9 % (11.5-14.0); WHITE BLOOD COUNT 9.7 10^3/uL (4.0-10.5)
[2017-01-21 06:33] LABS: CREATININE RESULT 3.47 mg/dL (0.52-1.25)
[2017-01-21 06:35] LABS: BLOOD UREA NITROGEN 158 mg/dL (7-20)
[2017-01-21 06:49] LABS: ANION GAP 13 (5-19); CARBON DIOXIDE 11 mmol/L (22-30)
[2017-01-21 06:55] LABS: SODIUM 115.7 mmol/L (137-145)
[2017-01-21 07:17] LABS: BASOPHILS % (MANUAL) 0 % (0-2); EOSINOPHILS % (MANUAL) 0 % (0-6); LYMPHOCYTES % (MANUAL) 4 % (13-45); TOTAL CELLS COUNTED 100
[2017-01-21 07:18] LABS: ANISOCYTOSIS 2+; TARGET CELLS 1+; TOXIC GRANULATION 1+
[2017-01-21 07:21] LABS: BURR CELLS 2+
[2017-01-21] MEDS ORDERED: CALCIUM GLUCONATE 1000 MG/10 ML INJ IV ONE (08:11)
[2017-01-21] MEDS ORDERED: DEXTROSE 50%-WATER 25 GM/50 ML DISP.SYRIN IV ONE (08:12)
[2017-01-21] MEDS ORDERED: INSULIN REG, HUMAN 100 UNIT/ML 3 ML VIAL (PYX) IV ONE (08:13)
--- NOTE | 2017-01-21 09:28 | PDOC PROGRESS REPORT ---
Subjective Progress Note for:: 01/21/17 Subjective:: This is a follow-up visit for right buttock abscess and shock. Overnight the patient's sodium jose francisco from 112-115. He was transfused 2 units of packed red blood cells yesterday with an increase of his hemoglobin from 7-9. Unfortunately, he still remains on 2 pressors with a blood pressure currently at 96/57. The patient is more awake today. He answers appropriately and seems to be oriented. I have rediscussed with him his CODE STATUS. I have updated him as to what has happened over the last 24 hours. Instrestingly, The patient has no questions. He is able to tell me that he has cancer and that is at [facility]. He answers that the years 2016. I discussed with him his options of being made comfortable and potentially dying on this hospitalization versus continuing with current therapy and the risk of suffering and what seems to be a very futile situation. The patient responded that he wants to continue full therapy. I asked him a second time to be sure. Before I could finish the sentence the patient tells me quite clearly that he wants to continue with treatment. Physical Exam Vital Signs: Temp Pulse Resp BP Pulse Ox 97.3 F 98 11 L 108/55 L 99 01/20/17 22:12 01/20/17 22:12 01/20/17 22:12 01/20/17 22:12 01/20/17 22:12 Intake & Output 01/20/17 01/21/17 01/22/17 06:59 06:59 06:59 Intake Total 2242 5464 Output Total 643 Balance 2242 4821 Weight 79.2 kg 74.7 kg Drips: Levophed and Tomy-Synephrine. 3% saline solution Lines: right femoral central venous line Antibiotics: Aztreonam, vancomycin. GENERAL: This is a well-developed, under nourished, chronically ill appearing male resting in bed in no distress. HEENT: Normocephalic, atraumatic. Scleral icterus is present. HEART: Regular rate and rhythm. No murmurs, rubs or gallops. The patient remains hypotensive in the 90s. LUNGS: Clear to auscultation anteriorly and bilaterally with equal rise and fall of the chest. He has nonlabored breathing. ABDOMEN: Soft, nontender, distended with hypoactive bowel sounds EXTREMETIES: No clubbing, cyanosis. 1.5 + pitting edema. Pedal pulses 1+ RECTAL: Deferred NEURO: Awake, alert and oriented. He knows that it is 2017, that he is in [facility], and that he has cancer. Skin: Deferred. Results Laboratory Results: 01/21/17 05:57 01/21/17 05:57 01/20/17 01/20/17 01/20/17 10:20 11:30 12:40 WBC RBC Hgb Hct MCV MCH MCHC RDW Plt Count Seg Neutrophils % Lymphocytes % Monocytes % Eosinophils % Basophils % Absolute Neutrophils Absolute Lymphocytes Absolute Monocytes Absolute Eosinophils Absolute Basophils Sodium Potassium Chloride Carbon Dioxide Anion Gap BUN Creatinine Est GFR ( Amer) Est GFR (Non-Af Amer) Glucose Lactic Acid 1.9 Calcium Magnesium Total Bilirubin AST ALT Alkaline Phosphatase Ammonia < 8.7 L Total Protein Albumin Urine Color SKIP Urine Appearance SLIGHTLY-CLOUDY Urine pH 5.0 Ur Specific [place] 1.010 Urine Protein 30 H Urine Glucose (UA) NEGATIVE Urine Ketones NEGATIVE Urine Blood NEGATIVE Urine Nitrite NEGATIVE Ur Leukocyte Esterase TRACE H Urine WBC (Auto) 12 Urine RBC (Auto) 2 Blood Type Antibody Screen 01/20/17 01/20/17 01/20/17 12:40 12:40 14:30 WBC 13.9 H RBC 2.17 L Hgb 7.6 L Hct 21.5 L MCV 99 H MCH 35.0 H MCHC 35.2 RDW 17.5 H Plt Count 66 L Seg Neutrophils % 87.0 H Lymphocytes % 5.5 L Monocytes % 6.8 Eosinophils % 0.6 Basophils % 0.1 Absolute Neutrophils 12.2 H Absolute Lymphocytes 0.8 Absolute Monocytes 1.0 Absolute Eosinophils 0.1 Absolute Basophils 0.0 Sodium 112.3 L* Potassium 5.1 H Chloride 86 L Carbon Dioxide 13 L Anion Gap 13 BUN 150 H Creatinine 3.59 H Est GFR ( Amer) 21 L Est GFR (Non-Af Amer) 17 L Glucose 77 Lactic Acid Calcium 7.4 L Magnesium 2.1 Total Bilirubin 9.9 H AST 584 H ALT 212 H Alkaline Phosphatase 297 H Ammonia Total Protein 4.5 L Albumin 1.9 L Urine Color Urine Appearance Urine pH Ur Specific [place] Urine Protein Urine Glucose (UA) Urine Ketones Urine Blood Urine Nitrite Ur Leukocyte Esterase Urine WBC (Auto) Urine RBC (Auto) Blood Type O POSITIVE Antibody Screen NEGATIVE 01/20/17 01/20/17 01/20/17 16:48 19:35 22:20 WBC RBC Hgb Hct MCV MCH MCHC RDW Plt Count Seg Neutrophils % Lymphocytes % Monocytes % Eosinophils % Basophils % Absolute Neutrophils Absolute Lymphocytes Absolute Monocytes Absolute Eosinophils Absolute Basophils Sodium 111.2 L* 111.8 L* 112.5 L* Potassium 5.0 5.2 H 5.5 H Chloride 86 L 86 L 89 L Carbon Dioxide 13 L 13 L 12 L Anion Gap 12 13 12 BUN 153 H 153 H 155 H Creatinine 3.48 H 3.48 H 3.48 H Est GFR ( Amer) 22 L 22 L 22 L Est GFR (Non-Af Amer) 18 L 18 L 18 L Glucose 134 H 165 H 193 H Lactic Acid Calcium 7.3 L 7.4 L 7.4 L Magnesium Total Bilirubin AST ALT Alkaline Phosphatase Ammonia Total Protein Albumin Urine Color Urine Appearance Urine pH Ur Specific [place] Urine Protein Urine Glucose (UA) Urine Ketones Urine Blood Urine Nitrite Ur Leukocyte Esterase Urine WBC (Auto) Urine RBC (Auto) Blood Type Antibody Screen 01/21/17 01/21/17 01/21/17 00:50 00:50 03:25 WBC 13.0 H RBC 2.79 L Hgb 9.2 L Hct 26.1 L MCV 94 D MCH 32.9 MCHC 35.2 RDW 20.5 H Plt Count 69 L Seg Neutrophils % Not Reportable Lymphocytes % Not Reportable Monocytes % Not Reportable Eosinophils % Not Reportable Basophils % Not Reportable Absolute Neutrophils Not Reportable Absolute Lymphocytes Not Reportable Absolute Monocytes Not Reportable Absolute Eosinophils Not Reportable Absolute Basophils Not Reportable Sodium 112.9 L* 115.3 L* Potassium 5.6 H 5.7 H Chloride 89 L 91 L Carbon Dioxide 12 L 12 L Anion Gap 12 12 BUN 156 H 160 H Creatinine 3.41 H 3.47 H Est GFR ( Amer) 22 L 22 L Est GFR (Non-Af Amer) 18 L 18 L Glucose 218 H 229 H Lactic Acid Calcium 7.4 L 7.2 L Magnesium Total Bilirubin AST ALT Alkaline Phosphatase Ammonia Total Protein Albumin Urine Color Urine Appearance Urine pH Ur Specific [place] Urine Protein Urine Glucose (UA) Urine Ketones Urine Blood Urine Nitrite Ur Leukocyte Esterase Urine WBC (Auto) Urine RBC (Auto) Blood Type Antibody Screen 01/21/17 01/21/1701/21/17 05:57 05:57 05:57 WBC 9.7 RBC 2.54 L Hgb 8.5 L Hct 23.7 L MCV 93 MCH 33.3 MCHC 35.7 RDW 20.9 H Plt Count 68 L Seg Neutrophils % Not Reportable Lymphocytes % Not Reportable Monocytes % Not Reportable Eosinophils % Not Reportable Basophils % Not Reportable Absolute Neutrophils Not Reportable Absolute Lymphocytes Not Reportable Absolute Monocytes Not Reportable Absolute Eosinophils Not Reportable Absolute Basophils Not Reportable Sodium 115.7 L* Potassium 5.7 H Chloride 92 L Carbon Dioxide 11 L Anion Gap 13 BUN 158 H Creatinine 3.47 H Est GFR ( Amer) 22 L Est GFR (Non-Af Amer) 18 L Glucose 235 H Lactic Acid Calcium 7.3 L Magnesium 2.0 Total Bilirubin AST ALT Alkaline Phosphatase Ammonia < 8.7 L Total Protein Albumin Urine Color Urine Appearance Urine pH Ur Specific [place] Urine Protein Urine Glucose (UA) Urine Ketones Urine Blood Urine Nitrite Ur Leukocyte Esterase Urine WBC (Auto) Urine RBC (Auto) Blood Type Antibody Screen Impressions: Paracentesis Ultrasound 01/06/17 00:00 IMPRESSION: Successful ultrasound-guided therapeutic paracentesis Chest X-Ray 01/20/17 09:52 IMPRESSION: NO ACUTE RADIOGRAPHIC FINDING IN THE CHEST. Assessment & Plan - Diagnosis (1) Severe sepsis Is this a current diagnosis for this admission?: Yes Plan: Patient has severe sepsis with shock. Cultures are still pending. He remains on 2 vasopressors. We will try and wean off the Tomy-Synephrine. As long as we can keep his map greater than 65 with 1 pressor that would be preferable. Hopefully we can eventually wean off all pressors. Patient also remains on hydrocortisone 100 mg 3 times a day. Lactic acid level did come back normal. His shock in part is likely also due to acute anemia blood loss from the GI tract, as melena was noted yesterday in his diaper. This has improved overnight with transfusion. His hypothermia has resolved and his white blood cell count has come back down to normal at 9. Continue on current antibiotics of aztreonam, levofloxacin, and vancomycin. Hopefully we can scale back on these once cultures result. (2) Perianal abscess Is this a current diagnosis for this admission?: Yes Plan: s/p antibiotic treatment and debridement. I do not suspect that his sepsis is related to this, as opposed to a new infection. (3) Acute renal failure Qualifiers: Acute renal failure type: unspecified Qualified Code(s): N17.9 - Acute kidney failure, unspecified Is this a current diagnosis for this admission?: Yes Plan: Creatinine is now up to 3.5. This is likely ATN secondary to shock. Will check urine electrolytes. Unfortunately the patient is quite volume overloaded and the addition of anymore fluid would likely worsen his hyponatremia. I think that a nephrology consult is in order. Unfortunately there is no sofa cover inspector quality control associate. I will try and reach out nonetheless. (4) Anemia Is this a current diagnosis for this admission?: Yes Plan: Acute on chronic anemia of blood loss prior in this hospitalization. Unfortunately, the patient continues to have blood loss. Melena was noted yesterday in his diaper. He required 2 units packed red blood cell transfusion. His hemoglobin came up from 7-9. Unfortunately, because of his hyponatremia we still have to perform every 2 hour blood draws. Ultimately he may need another unit before this is over. GI is available today. Again, I am not sure how much they can offer considering the patient current instability. There is still does not seem to be profuse bleeding at this time. (5) Hepatocellular carcinoma Is this a current diagnosis for this admission?: Yes Plan: Continue management as an outpatient. Patient follows with Dr. Klein in [facility] who concurs with a hospice approach at this point. Unfortunately this is not sentiment of his and the patient has plans to be discharged to a assisted facility when a bed is available. I suspect that the patient will not likely survive this hospitalization to make it to a assisted facility. Even if he did, most likely he would be transferred back here for further medical treatment as he continues to fail. (6) Hyponatremia Is this a current diagnosis for this admission?: Yes Plan: This is likely multifactorial. Hypervolumic hyponatremia and SIADH. The patient has underlying hepatocellular carcinoma and in part his hyponatremia may be due to his underlying malignancy. Patient also has what appears to be decreased p.o. intake. Patient's sodium was at 112 yesterday and is come up to 115. Continue 3% hypertonic saline solution until 3 PM today. Continue every 2 hour Chem-7 checks. I am going to reach out to nephrology for any assistance that they would be willing to offer despite no nephrology service being quality control associate. (7) Thrombocytopenia Is this a current diagnosis for this admission?: Yes Plan: This is possibly reactive from his underlying infection in addition to his underlying cancer. Currently the patient's platelets are 66. This is a reduction by nearly half. Some of this course is likely due to his underlying sepsis. The patient is not currently on any heparin products. I believe he was taken off of this from low platelets earlier in his hospital stay not to mention because of his coagulopathy due to liver failure. (8) Hyperglycemia Is this a current diagnosis for this admission?: Yes Plan: Likely secondary to underlying steroid use for treatment of his hepatocellular carcinoma. He still continues to have elevated blood sugars. He is now on Lantus 35 units nightly, sliding scale insulin, before meals 5 units. We will continue to follow. Hemoglobin A1c is normal. We will try and let the patient eat this morning. (9) Hyperkalemia Is this a current diagnosis for this admission?: Yes Plan: The patient's potassium is going up with every blood draw. Is currently at 5.7. I want to give him some calcium gluconate, dextrose and insulin. Recheck a potassium will occur 2 hours from the previous check. (10) Ascites Qualifiers: Ascites type: malignant Qualified Code(s): R18.0 - Malignant ascites Is this a current diagnosis for this admission?: Yes Plan: Secondary to underlying Gracia and hepatocellular carcinoma. The patient underwent paracentesis and had 9 L removed on 01/04/2017. The patient was having some abdominal distention with discomfort and repeat paracentesis was done removing 4800 mL's in 01/06. The patient and his family were considering a Pleurx catheter. No decision about this was ever reached by his family. Ascites is still present but is not interfering with the patient's respiratory status. (11) Lower extremity edema Is this a current diagnosis for this admission?: Yes Plan: Secondary to liver failure and hepatic cellular carcinoma with volume overload and ascites. Fluids have been held. Caution with Lasix use as patient's renal failure has worsened. Hopefully we will reach a point where we can diurese him again. (12) GRACIA (nonalcoholic steatohepatitis) Is this a current diagnosis for this admission?: Yes Plan: Supportive care. (13) GI bleed Qualifiers: GI bleed type/associated pathology: anorectal hemorrhage Qualified Code(s) : K62.5 - Hemorrhage of anus and rectum Plan: Continue Protonix twice a day. I witnessed a melanotic stool yesterday. No report of stool overnight. Patient remains on 2 vasopressors. At this point I would consider him to be unstable for any sort of endoscopy. Also his bleeding does not seem to be profuse at the bedside yesterday. He did have a declination in hemoglobin to 7. He is status post transfusion with increase of hemoglobin to 9. If he drops again or we think that the bleeding is picked up we could certainly pursue CT bleed study. I will consult GI to make sure that we have not overlooked anything. (14) End of life care Plan: I have discussed the patient's poor prognosis with his twice yesterday with his son once. I did attempt to speak with the patient himself yesterday but unfortunately he was mentally compromised because of his underlying medical conditions. This morning he seems to be more awake and oriented. He frankly tells me that he wants to move forward with full treatment. Please see the subjective part of this note for details. Therefore, we will continue at full CODE STATUS. (15) Acute metabolic encephalopathy Plan: Multifactorial. Likely secondary to underlying shock and hyponatremia. This seems to have resolved this morning. - Time Time Spent with patient: 35 or more minutes - Inpatient Certification Medical Necessity: Need Close Monitoring Due to Risk of Patient Decompensation
[2017-01-21] MEDS: INSULIN REG, HUMAN 100 UNIT/ML 3 ML VIAL (PYX) SUBCUT SCH ×3 (10:36→19:31)
[2017-01-21] MEDS: PANTOPRAZOLE SODIUM 40 MG VIAL IV SCH ×2 (11:19→22:25)
--- NOTE | 2017-01-21 12:09 | PDOC CONSULTATION ---
Consultation Consult Date: 01/21/17 Attending physician:: THUY RICHARDSON Consult reason:: hepatocellular carcinoma, ascites, possible GI bleeding. thrombocytopenia, elevated coagulation profile. hyponatremia History of Present Illness Admission Date/PCP: 01/01/17 21:55 GEORGIA EMANUEL MD History of Present Illness: I was asked to see this patient who has been at [facility] for a few days patient does have a history of hepatocellular carcinoma and likely has cirrhosis he does have thrombocytopenia as well as an elevated coagulation profile patient does have hyponatremia and mental status changes although that has seemingly resolved patient has been having melena requiring blood transfusion he recently had a paracentesis he does have an allergy to PCN patient is followed by GI at [facility] in addition to some very grave GI issues, he also has ongoing renal failure and hyponatremia he wants to have aggressive care I would recommend transferring to a tertiary situation he certainly is not a candidate for any endoscopic procedure clinically may have had a variceal bleeding however hyponatremia needs to be addressed renal function needs attention his coagulopathy and plt count needs to be addressed his is on BP support I have recommended to start with octreotide for now also would need gram negative coverage, since he did have paracentesis, could be having SBP which then precipitated GI bleeding Past Medical History Cardiac Medical History: Reports: Hypertension Endocrine Medical History: Reports: Diabetes Mellitus Type 1, Diabetes Mellitus Type 2 Malignancy Medical History: Reports: Liver Cancer GI Medical History: Reports: Cirrhosis Psychiatric Medical History: Denies: Depression Past Surgical History Past Surgical History: Reports: Cardiac Catheterization, Cholecystectomy Social History Lives with: Family Smoking Status: Never Smoker Frequency of Alcohol Use: None Hx Recreational Drug Use: No Drugs: None Hx Prescription Drug Abuse: No - Advance Directive Resuscitation Status: Full Code Family History Family History: Reviewed & Not Pertinent, Hypertension Parental Family History Reviewed: Yes Children Family History Reviewed: Unknown Sibling(s) Family History Reviewed.: Unknown Medication/Allergy Home Medications: Cetirizine HCl [Zyrtec] 10 mg PO DAILYP PRN 01/02/17 Fluticasone Propionate [Flonase Nasal [place] 50 Mcg/[place] 16 gm] 2 spray NASL DAILYP PRN 01/02/17 Pantoprazole Sodium [Protonix] 20 mg PO DAILY 01/02/17 Rifaximin [Xifaxan] 550 mg PO BID 01/02/17 Insulin Glargine,Hum.rec.anlog [Lantus Insulin 100 Unit/mL] 35 unit SUBCUT QHS insuln.pen 01/19/17 Insulin Regular, Human [Humulin R (Reg) Insulin 100 unit/mL] 5 unit SUBCUT AC unit 01/19/17 Lactulose 10 gm PO TIDP PRN #1 bottle 01/19/17 Nystatin [Mycostatin Cream 15 gm] 1 applic TP TIDP PRN tube 01/19/17 Oxycodone HCl [Oxy-Ir 5 mg Tablet] 5 mg PO Q4HP PRN #10 tablet 01/19/17 Zinc Oxide [Zinc Oxide 20% Ointment 28.35 gm] 1 applic TP TIDP PRN tube Allergies/Adverse Reactions: Penicillins Allergy (Intermediate, Verified 01/01/17 18:19) Passed out Review of Systems Constitutional: PRESENT: fatigue. ABSENT: night sweats, weakness Eyes: ABSENT: visual disturbances Ears: ABSENT: hearing changes Nose, Mouth, and Throat: ABSENT: mouth pain, sore throat Cardiovascular: ABSENT: chest pain, palpitations Respiratory: PRESENT: dyspnea. ABSENT: hemoptysis Gastrointestinal: PRESENT: melena. ABSENT: vomiting Genitourinary: ABSENT: dysuria, hematuria Musculoskeletal: ABSENT: deformity Neurological: PRESENT: weakness. ABSENT: syncope, tingling, tremor(s), vertigo Psychiatric: ABSENT: hallucinations Endocrine: ABSENT: polydipsia, polyphagia, polyuria Hematologic/Lymphatic: ABSENT: easy bruising Physical Exam Vital Signs: Temp Pulse Resp BP Pulse Ox 97.3 F 98 11 L 108/55 L 99 01/20/17 22:12 01/20/17 22:12 01/20/17 22:12 01/20/17 22:12 01/20/17 22:12 Intake & Output 01/20/17 01/21/17 01/22/17 06:59 06:59 06:59 Intake Total 2242 5464 Output Total 643 Balance 2242 4821 Weight 79.2 kg 74.7 kg General appearance: PRESENT: well-developed, well-nourished Head exam: PRESENT: atraumatic, normocephalic Eye exam: PRESENT: EOMI, PERRLA. ABSENT: nystagmus, periorbital swelling Mouth exam: PRESENT: neck supple Throat exam: ABSENT: tonsillar exudate, tonsillogmegaly Neck exam: ABSENT: meningismus, tenderness, thyromegaly Respiratory exam: PRESENT: crackles, symmetrical, tachypnea. ABSENT: wheezes Cardiovascular exam: PRESENT: RRR, +S1, +S2 GI/Abdominal exam: PRESENT: ascites, distended, soft. ABSENT: Gutiérrez's sign, rebound, rigid Extremities exam: ABSENT: calf tenderness, clubbing Neurological exam: PRESENT: oriented to time, oriented to situation, CN II-XII grossly intact Skin exam: PRESENT: normal color. ABSENT: mottled, urticaria, vesicles Results Laboratory Results: 01/21/17 05:57 01/20/17 01/20/17 01/20/17 11:30 12:40 12:40 WBC 13.9 H RBC 2.17 L Hgb 7.6 L Hct 21.5 L MCV 99 H MCH 35.0 H MCHC 35.2 RDW 17.5 H Plt Count 66 L Seg Neutrophils % 87.0 H Lymphocytes % 5.5 L Monocytes % 6.8 Eosinophils % 0.6 Basophils % 0.1 Absolute Neutrophils 12.2 H Absolute Lymphocytes 0.8 Absolute Monocytes 1.0 Absolute Eosinophils 0.1 Absolute Basophils 0.0 Sodium Potassium Chloride Carbon Dioxide Anion Gap BUN Creatinine Est GFR ( Amer) Est GFR (Non-Af Amer) Glucose Calcium Magnesium Total Bilirubin AST ALT Alkaline Phosphatase Ammonia < 8.7 L Total Protein Albumin Urine Color SKIP Urine Appearance SLIGHTLY-CLOUDY Urine pH 5.0 Ur Specific [place] 1.010 Urine Protein 30 H Urine Glucose (UA) NEGATIVE Urine Ketones NEGATIVE Urine Blood NEGATIVE Urine Nitrite NEGATIVE Ur Leukocyte Esterase TRACE H Urine WBC (Auto) 12 Urine RBC (Auto) 2 Blood Type Antibody Screen 01/20/17 01/20/17 01/20/17 12:40 14:30 16:48 WBC RBC Hgb Hct MCV MCH MCHC RDW Plt Count Seg Neutrophils % Lymphocytes % Monocytes % Eosinophils % Basophils % Absolute Neutrophils Absolute Lymphocytes Absolute Monocytes Absolute Eosinophils Absolute Basophils Sodium 112.3 L* 111.2 L* Potassium 5.1 H 5.0 Chloride 86 L 86 L Carbon Dioxide 13 L 13 L Anion Gap 13 12 BUN 150 H 153 H Creatinine 3.59 H 3.48 H Est GFR ( Amer) 21 L 22 L Est GFR (Non-Af Amer) 17 L 18 L Glucose 77 134 H Calcium 7.4 L 7.3 L Magnesium 2.1 Total Bilirubin 9.9 H AST 584 H ALT 212 H Alkaline Phosphatase 297 H Ammonia Total Protein 4.5 L Albumin 1.9 L Urine Color Urine Appearance Urine pH Ur Specific [place] Urine Protein Urine Glucose (UA) Urine Ketones Urine Blood Urine Nitrite Ur Leukocyte Esterase Urine WBC (Auto) Urine RBC (Auto) Blood Type O POSITIVE Antibody Screen NEGATIVE 01/20/17 01/20/17 01/21/17 19:35 22:20 00:50 WBC 13.0 H RBC 2.79 L Hgb 9.2 L Hct 26.1 L MCV 94 D MCH 32.9 MCHC 35.2 RDW 20.5 H Plt Count 69 L Seg Neutrophils % Not Reportable Lymphocytes % Not Reportable Monocytes % Not Reportable Eosinophils % Not Reportable Basophils % Not Reportable Absolute Neutrophils Not Reportable Absolute Lymphocytes Not Reportable Absolute Monocytes Not Reportable Absolute Eosinophils Not Reportable Absolute Basophils Not Reportable Sodium 111.8 L* 112.5 L* Potassium 5.2 H 5.5 H Chloride 86 L 89 L Carbon Dioxide 13 L 12 L Anion Gap 13 12 BUN 153 H 155 H Creatinine 3.48 H 3.48 H Est GFR ( Amer) 22 L 22 L Est GFR (Non-Af Amer) 18 L 18 L Glucose 165 H 193 H Calcium 7.4 L 7.4 L Magnesium Total Bilirubin AST ALT Alkaline Phosphatase Ammonia Total Protein Albumin Urine Color Urine Appearance Urine pH Ur Specific [place] Urine Protein Urine Glucose (UA) Urine Ketones Urine Blood Urine Nitrite Ur Leukocyte Esterase Urine WBC (Auto) Urine RBC (Auto) Blood Type Antibody Screen 01/21/17 01/21/17 01/21/17 00:50 03:25 05:57 WBC RBC Hgb Hct MCV MCH MCHC RDW Plt Count Seg Neutrophils % Lymphocytes % Monocytes % Eosinophils % Basophils % Absolute Neutrophils Absolute Lymphocytes Absolute Monocytes Absolute Eosinophils Absolute Basophils Sodium 112.9 L* 115.3 L* Potassium 5.6 H 5.7 H Chloride 89 L 91 L Carbon Dioxide 12 L 12 L Anion Gap 12 12 BUN 156 H 160 H Creatinine 3.41 H 3.47 H Est GFR ( Amer) 22 L 22 L Est GFR (Non-Af Amer) 18 L 18 L Glucose 218 H 229 H Calcium 7.4 L 7.2 L Magnesium Total Bilirubin AST ALT Alkaline Phosphatase Ammonia < 8.7 L Total Protein Albumin Urine Color Urine Appearance Urine pH Ur Specific [place] Urine Protein Urine Glucose (UA) Urine Ketones Urine Blood Urine Nitrite Ur Leukocyte Esterase Urine WBC (Auto) Urine RBC (Auto) Blood Type Antibody Screen 01/21/17 01/21/17 05:57 05:57 WBC 9.7 RBC 2.54 L Hgb 8.5 L Hct 23.7 L MCV 93 MCH 33.3 MCHC 35.7 RDW 20.9 H Plt Count 68 L Seg Neutrophils % Not Reportable Lymphocytes % Not Reportable Monocytes % Not Reportable Eosinophils % Not Reportable Basophils % Not Reportable Absolute Neutrophils Not Reportable Absolute Lymphocytes Not Reportable Absolute Monocytes Not Reportable Absolute Eosinophils Not Reportable Absolute Basophils Not Reportable Sodium 115.7 L* Potassium 5.7 H Chloride 92 L Carbon Dioxide 11 L Anion Gap 13 BUN 158 H Creatinine 3.47 H Est GFR ( Amer) 22 L Est GFR (Non-Af Amer) 18 L Glucose 235 H Calcium 7.3 L Magnesium 2.0 Total Bilirubin AST ALT Alkaline Phosphatase Ammonia Total Protein Albumin Urine Color Urine Appearance Urine pH Ur Specific [place] Urine Protein Urine Glucose (UA) Urine Ketones Urine Blood Urine Nitrite Ur Leukocyte Esterase Urine WBC (Auto) Urine RBC (Auto) Blood Type Antibody Screen Impressions: Paracentesis Ultrasound 01/06/17 00:00 IMPRESSION: Successful ultrasound-guided therapeutic paracentesis Chest X-Ray 01/20/17 09:52 IMPRESSION: NO ACUTE RADIOGRAPHIC FINDING IN THE CHEST. Assessment & Plan - Diagnosis (1) Acute metabolic encephalopathy Plan: seems to have resolved and appears to understand how serious the situation is he does want aggressive treatment, he should be transferred to a tertiary institution. (2) GI bleed Qualifiers: GI bleed type/associated pathology: anorectal hemorrhage Qualified Code(s) : K62.5 - Hemorrhage of anus and rectum Plan: could be due to esophageal varices transfuse with PRBC if hyponatremia, coagulopathy and plt can be managed, then would consider EGD otherwise start Octreotide for now (3) Hepatorenal failure Is this a current diagnosis for this admission?: Yes Plan: could be having heptorenal syndrome would consult nephrology which is in progress (4) Ascites Qualifiers: Ascites type: malignant Qualified Code(s): R18.0 - Malignant ascites Is this a current diagnosis for this admission?: Yes Plan: recently had paracentesis will need antibiotics to cover for gram negative organisms he does have allergy to PCN, otherwise Cefttriaxone would have been ideal may have SBP (5) Hepatocellular carcinoma Is this a current diagnosis for this admission?: Yes Plan: does have history of NAFLD as well will need definitive diagnosis, ? if due to primary or secondary causes will need to get records from his primary GI (6) Hyponatremia Is this a current diagnosis for this admission?: Yes Plan: very severe, could be cause of his MS change, will need to be corrected (7) GRACIA (nonalcoholic steatohepatitis) Is this a current diagnosis for this admission?: Yes Plan: as noted per the history, get records for confirmation (8) Thrombocytopenia Is this a current diagnosis for this admission?: Yes (9) SBP (spontaneous bacterial peritonitis) Is this a current diagnosis for this admission?: Yes Plan: as noted above, patient desiring aggressive treatment, would recommend transfer to tertiary hospital - Time Time Spent: Greater than 70 Minutes
[2017-01-21 12:11] LABS: ANION GAP 15 (5-19); CALCIUM 7.4 mg/dL (8.4-10.2); CHLORIDE 93 mmol/L (98-107); GLUCOSE 259 mg/dL (75-110); POTASSIUM 5.7 mmol/L (3.6-5.0)
[2017-01-21 12:18] LABS: CREATININE RESULT 3.47 mg/dL (0.52-1.25)
[2017-01-21 12:22] LABS: BLOOD UREA NITROGEN 160 mg/dL (7-20)
[2017-01-21 12:24] LABS: CARBON DIOXIDE 9 mmol/L (22-30)
[2017-01-21 12:25] LABS: SODIUM 117.3 mmol/L (137-145)
--- NOTE | 2017-01-21 12:41 | Progress Note ---
Provider Note Provider Note: I contacted multiple consultants earlier this morning around 945. I have spoken with Dr. Parnell who is recommended the addition of octreotide. Also spoke to the patient again and asked him what he be willing to undergo dialysis if that turns out to be necessary and he says yes. At this point I think the better part of valor is to reach out and see if there is another institution that will be willing to accept him in transfer as I do not have a cardroom supervisor here should the patient need dialysis and there is no interventional rosin barrel filler. [id number] I have contacted [facility] ICU and request for transfer. I spoke with Dr. Padmini Santizo who has respectfully declined the patient for admission there secondary to medical futility and likely in eligible for dialysis because of need for pressor support. I will try make contact with [facility].
--- NOTE | 2017-01-21 13:05 | Progress Note ---
Provider Note Provider Note: I have reached out to [facility] and spoke with Dr. Silva in the MICU there. He was gracious and listen to this case. His opinion is that we have reached the point of medical futility and he has declined transfer to that facility. In his opinion he would not have anything more to offer than what we are already doing here. I will arrange for another family meeting with the patient's and son. My recommendation stands that we pursue hospice/ comfort measures.
[2017-01-21] MEDS: NORMAL SALINE 500 ML with OCTREOTIDE ACETATE 500 MCG IV PRN ×2 (13:20)
[2017-01-21] MEDS: DEXTROSE 5%-WATER 250 ML with PHENYLEPHRINE HCL 40 MG IV PRN ×4 (13:21→22:24)
[2017-01-21 13:57] LABS: ANION GAP 13 (5-19); CALCIUM 7.5 mg/dL (8.4-10.2); CHLORIDE 95 mmol/L (98-107); GLUCOSE 253 mg/dL (75-110); POTASSIUM 5.3 mmol/L (3.6-5.0)
[2017-01-21 14:05] LABS: BLOOD UREA NITROGEN 159 mg/dL (7-20); CREATININE RESULT 3.48 mg/dL (0.52-1.25)
[2017-01-21] MEDS: DEXTROSE 5%-WATER 1000 ML 1,000 ML with SODIUM BICARBONATE 150 MEQ IV PRN ×2 (14:33)
[2017-01-21 14:47] LABS: CARBON DIOXIDE 9 mmol/L (22-30); SODIUM 117.3 mmol/L (137-145)
[2017-01-21 16:12] LABS: VENOUS BLOOD BASE EXCESS -12.5 mmol/L; VENOUS BLOOD HCO3 12.4 mmol/L (20-32); VENOUS BLOOD PH 7.31 (7.30-7.42)
[2017-01-21 16:50] LABS: ANION GAP 13 (5-19); CALCIUM 7.5 mg/dL (8.4-10.2); CHLORIDE 94 mmol/L (98-107); GLUCOSE 267 mg/dL (75-110); POTASSIUM 5.4 mmol/L (3.6-5.0)
[2017-01-21 16:56] LABS: CREATININE RESULT 3.55 mg/dL (0.52-1.25)
[2017-01-21 17:04] LABS: BLOOD UREA NITROGEN 159 mg/dL (7-20)
[2017-01-21 17:06] LABS: CARBON DIOXIDE 10 mmol/L (22-30); SODIUM 117.3 mmol/L (137-145)
--- NOTE | 2017-01-21 18:05 | Progress Note ---
Provider Note Provider Note: I met with the patient's , son at at 16:40 PM today. Also in attendance was Ms. Boogie from the ethics committee as well as Ms Varghese from discharge planning and health care social worker and the patient's nurse Ms Arreola. About the patient's and his son up to speed with everything that is transpired through the day including his elevated lactic acid and need to be on a bicarb drip now. Also informed them that I reached out to [facility] as well as [facility] and that they declined acceptance of this patient's because of medical futility. We discussed CODE STATUS again. We also discussed hospice. I have expressed that we have reached the end of what we can offer and that the 2 other facilities that I called have declined transfer because they do not have anything to offer. I have again recommended comfort measures the patient' s is highly resistant to this. At the mention of hospice his displays strong convictions against it. I have suggested that we withdraw all medications and that we send him home into the end of his life. During our conversation home health was discussed. It was also expressed that she would likely not receive as much support as she would need to home health. Therefore palliative care was discussed. On palliative care the patient can remain full code. The patient' was more agreeable to this. I have disclosed that once medications are withdrawn and the patient was transported home that he would be in the same position to bounce right back to the hospital because of his underlying medical illnesses - Especially since he is still full code. I have also explained that if we withdraw the medications that he could turn for the worse even more quickly than what I would anticipate. Under those circumstances, I would not discharge him I would prefer him to stay and comfortably here in the hospital. His nurse has informed me that when she tries to stop the medications even to change out bags or whenever she tries to titrate them down his blood pressure drops sharply down into the 50s and 60s. I have also informed the patient prior to this conversation that we have reached the end of medical therapy that we can offer. I have explained to all parties that if his GI bleed were to mixing picker tender that we would have no way to help him, given his low blood pressure and low sodium. the patient's stated during the conversation that she would prefer him not to be in this hospital anyway and that taking him home was fine with her. She feels that she would at least need a medical bed but nothing more than this. The patient's son, Placido Valle, had very little to say during this conversation, stating that nothing he says will make a difference anyway. He does however have concern about his dad coming home before medical equipment and arrangements with home health palliative care have been made. I have offered reassurance that I would certainly not send him home prior to having things in place. I have asked Ms. Boogie for a formal ethics consult and she has agreed to pass this on to the ethics committee for review. I have also reached out to Ms. Ortiz and risk management to make her aware of what is going on. She has recommended that a second physician review the case and off for a formal opinion. I will try make arrangements for that. The meeting ended at 0484.
[2017-01-21 18:46] LABS: CALCIUM 7.4 mg/dL (8.4-10.2); CHLORIDE 96 mmol/L (98-107); GLUCOSE 273 mg/dL (75-110); POTASSIUM 5.4 mmol/L (3.6-5.0)
[2017-01-21 18:51] LABS: ANION GAP 12 (5-19)
[2017-01-21 18:52] LABS: CREATININE RESULT 3.47 mg/dL (0.52-1.25)
[2017-01-21 18:56] LABS: BLOOD UREA NITROGEN 162 mg/dL (7-20)
[2017-01-21 18:58] LABS: CARBON DIOXIDE 10 mmol/L (22-30); SODIUM 118.4 mmol/L (137-145)
--- NOTE | 2017-01-21 19:05 | Progress Note ---
Provider Note Provider Note: Ongoing discussion is noted. patient has been declined at both [facility] and [facility] today. previously noted that discussion with Dr Wu with both [facility] and [place] ; ( see Dr Wu's note ) they have recommended comfort care. in fact patient had palliative immunotherapy withdrawn at [facility] since it was not making any improvement in patient's functional status. patient is too unstable to undergo any endoscopic procedures at this point. I would concur with the other physicians,( 2 hospitalists, patient' s primary GI , patient's oncologist at [facility],) that it would be medical futility to pursue aggressive medical care.
[2017-01-21] MEDS: INSULIN LISPRO 100 UNIT/ML 3 ML VIAL SUBCUT PRN ×2 (20:00→23:37)
[2017-01-21 20:44] LABS: ANION GAP 13 (5-19); CALCIUM 7.3 mg/dL (8.4-10.2); CHLORIDE 95 mmol/L (98-107); GLUCOSE 358 mg/dL (75-110); POTASSIUM 5.1 mmol/L (3.6-5.0)
[2017-01-21 20:49] LABS: CREATININE RESULT 3.43 mg/dL (0.52-1.25)
[2017-01-21 21:16] LABS: BLOOD UREA NITROGEN 158 mg/dL (7-20)
[2017-01-21 21:19] LABS: CARBON DIOXIDE 10 mmol/L (22-30); SODIUM 117.8 mmol/L (137-145)
[2017-01-21 22:53] LABS: ANION GAP 12 (5-19); CALCIUM 7.2 mg/dL (8.4-10.2); CHLORIDE 95 mmol/L (98-107); POTASSIUM 4.9 mmol/L (3.6-5.0)
[2017-01-21 22:59] LABS: CREATININE RESULT 3.48 mg/dL (0.52-1.25)
[2017-01-21 23:21] LABS: BLOOD UREA NITROGEN 159 mg/dL (7-20)
[2017-01-21 23:24] LABS: CARBON DIOXIDE 10 mmol/L (22-30); GLUCOSE 446 mg/dL (75-110); SODIUM 117.3 mmol/L (137-145)
[2017-01-21] MEDS: INSULIN GLARGINE,HUM.REC.ANLOG 300 UNIT/3 ML INSULN.PEN SUBCUT SCH (23:25)
[2017-01-21] MEDS ORDERED: INSULIN GLARGINE,HUM.REC.ANLOG 1,000 UNIT/10 ML UNIT SUBCUT ONE (23:34)
[2017-01-22 01:07] LABS: ANION GAP 11 (5-19); CALCIUM 7.3 mg/dL (8.4-10.2); CARBON DIOXIDE 11 mmol/L (22-30); CHLORIDE 95 mmol/L (98-107); POTASSIUM 4.9 mmol/L (3.6-5.0)
[2017-01-22 01:13] LABS: CREATININE RESULT 3.43 mg/dL (0.52-1.25)
[2017-01-22 01:16] LABS: BLOOD UREA NITROGEN 158 mg/dL (7-20)
[2017-01-22 01:18] LABS: GLUCOSE 463 mg/dL (75-110); SODIUM 116.8 mmol/L (137-145)
[2017-01-22] MEDS ORDERED: NORMAL SALINE 100 ML with INSULIN REGULAR, HUMAN 100 UNIT IV PRN ×2 (01:25)
[2017-01-22] MEDS ORDERED: INSULIN REG, HUMAN 100 UNIT/ML 3 ML VIAL (PYX) ONE (01:47)
[2017-01-22] MEDS ORDERED: SODIUM CHLORIDE 3% 500 ML IV PRN (01:56)
[2017-01-22] MEDS ORDERED: VANCOMYCIN HCL 1,000 MG in DEXTROSE 5%-WATER 250 ML IV ONE (02:00)
[2017-01-22] MEDS ORDERED: VANCOMYCIN HCL 750 MG in DEXTROSE 5%-WATER 250 ML IV SCH (02:00)
[2017-01-22] MEDS: MORPHINE SULFATE 10 MG/ML INJ IV PRN (02:19)
[2017-01-22 02:44] LABS: ANION GAP 11 (5-19); CALCIUM 7.3 mg/dL (8.4-10.2); CARBON DIOXIDE 11 mmol/L (22-30); CHLORIDE 98 mmol/L (98-107); POTASSIUM 4.9 mmol/L (3.6-5.0)
[2017-01-22 03:28] LABS: BLOOD UREA NITROGEN 160 mg/dL (7-20)
[2017-01-22 03:30] LABS: GLUCOSE 404 mg/dL (75-110); SODIUM 120.1 mmol/L (137-145)
[2017-01-22 04:29] LABS: CALCIUM 7.3 mg/dL (8.4-10.2); CARBON DIOXIDE 11 mmol/L (22-30); CHLORIDE 96 mmol/L (98-107); GLUCOSE 364 mg/dL (75-110); POTASSIUM 4.8 mmol/L (3.6-5.0)
[2017-01-22 04:31] LABS: ANION GAP 12 (5-19)
[2017-01-22 04:35] LABS: CREATININE RESULT 3.53 mg/dL (0.52-1.25)
[2017-01-22 04:41] LABS: BLOOD UREA NITROGEN 161 mg/dL (7-20)
[2017-01-22 04:42] LABS: SODIUM 119.2 mmol/L (137-145)
[2017-01-22] MEDS: HYDROCORTISONE SOD SUCCINATE INJ/PF 100 MG/2 ML SDV IV SCH ×3 (05:51→21:01)
[2017-01-22] MEDS: AZTREONAM 1.5 GM in DEXTROSE 5%-WATER 100 ML IV SCH ×3 (05:53→21:02)
[2017-01-22 07:06] LABS: ANION GAP 12 (5-19); CALCIUM 7.4 mg/dL (8.4-10.2); CARBON DIOXIDE 11 mmol/L (22-30); CHLORIDE 96 mmol/L (98-107); GLUCOSE 288 mg/dL (75-110); POTASSIUM 4.5 mmol/L (3.6-5.0)
[2017-01-22 07:12] LABS: CREATININE RESULT 3.47 mg/dL (0.52-1.25)
[2017-01-22 07:17] LABS: BLOOD UREA NITROGEN 161 mg/dL (7-20)
[2017-01-22 07:19] LABS: SODIUM 119.4 mmol/L (137-145)
[2017-01-22 08:38] LABS: ANION GAP 13 (5-19); CALCIUM 7.4 mg/dL (8.4-10.2); CARBON DIOXIDE 11 mmol/L (22-30); CHLORIDE 96 mmol/L (98-107); GLUCOSE 232 mg/dL (75-110); POTASSIUM 4.4 mmol/L (3.6-5.0)
[2017-01-22 08:46] LABS: CREATININE RESULT 3.53 mg/dL (0.52-1.25)
[2017-01-22 08:53] LABS: BLOOD UREA NITROGEN 159 mg/dL (7-20)
[2017-01-22 08:57] LABS: SODIUM 119.8 mmol/L (137-145)
--- NOTE | 2017-01-22 09:33 | PDOC PROGRESS REPORT ---
Subjective Progress Note for:: 01/22/17 Subjective:: This is a follow-up visit for cardiovascular shock/possible septic shock. Overnight the patient's 3% saline was discontinued due to increase in his sodium. Unfortunately, his blood sugars continue to rise necessitating initiation of an insulin drip. Patient also had a rectal tube placed overnight for continuing loose stools. At the bedside the patient is responsive to his name. When I salute him he says good morning and then goes back to staring into space. I have asked him other questions such as "do you know why you are. He recognizes place?" The patient does not respond and looks confused. Therefore, review of systems cannot be obtained this morning. Physical Exam Vital Signs: Temp Pulse Resp BP Pulse Ox 97.3 F 97 9 L 91/57 L 99 01/22/17 06:21 01/22/17 07:03 01/22/17 06:21 01/22/17 06:21 01/22/17 06:21 Intake & Output 01/21/17 01/22/17 01/23/17 06:59 06:59 06:59 Intake Total 5464 3939 Output Total 643 685 20 Balance 4821 3254 -20 Weight 74.7 kg 77.8 kg Lines: right femoral Drips: Bicarb, octreotide, Tomy-Synephrine, Levophed, insulin. Off 3% saline as of today. Antibiotics: Aztreonam, levofloxacin, vancomycin GENERAL: This is a well-developed, under nourished, chronically ill appearing male resting in bed in no distress. HEENT: Normocephalic, atraumatic. Scleral icterus is present. HEART: Regular rate and rhythm. No murmurs, rubs or gallops. The patient remains hypotensive in the 90s. LUNGS: Clear to auscultation anteriorly and bilaterally with equal rise and fall of the chest. He has nonlabored breathing. ABDOMEN: Soft, nontender, distended with hypoactive bowel sounds EXTREMETIES: No clubbing, cyanosis. 1.5 + pitting edema. Pedal pulses 1+ RECTAL: Rectal tube and bag are in place. The patient has 500 cc of black, bloody stool in the bag. NEURO: Awake and responds to his name. He cannot tell me his name, or where he is. He stares into space and then doses off. Skin: Abscess not examined today. The patient has ecchymoses which appear new and old on his abdomen. He is currently on the bear hugger and his skin feels warm. Results Laboratory Results: 01/21/17 05:57 01/22/17 08:04 01/21/17 01/21/17 01/21/17 11:00 13:35 13:35 VBG pH VBG pCO2 VBG HCO3 VBG Base Excess Sodium 117.3 L* 117.3 L* Potassium 5.7 H 5.3 H Chloride 93 L 95 L Carbon Dioxide 9 L* 9 L* Anion Gap 15 13 BUN 160 H 159 H Creatinine 3.47 H 3.48 H Est GFR ( Amer) 22 L 22 L Est GFR (Non-Af Amer) 18 L 18 L Glucose 259 H 253 H Lactic Acid 2.3 H Calcium 7.4 L 7.5 L 01/21/17 01/21/17 01/21/17 16:00 16:00 18:15 VBG pH 7.31 VBG pCO2 25.0 L VBG HCO3 12.4 L VBG Base Excess -12.5 Sodium 117.3 L* 118.4 L* Potassium 5.4 H 5.4 H Chloride 94 L 96 L Carbon Dioxide 10 L* 10 L* Anion Gap 13 12 BUN 159 H 162 H Creatinine 3.55 H 3.47 H Est GFR ( Amer) 21 L 22 L Est GFR (Non-Af Amer) 17 L 18 L Glucose 267 H 273 H Lactic Acid Calcium 7.5 L 7.4 L 01/21/17 01/21/17 01/22/17 20:15 22:15 00:10 VBG pH VBG pCO2 VBG HCO3 VBG Base Excess Sodium 117.8 L* 117.3 L* 116.8 L* Potassium 5.1 H 4.9 4.9 Chloride 95 L 95 L 95 L Carbon Dioxide 10 L* 10 L* 11 L Anion Gap 13 12 11 BUN 158 H 159 H 158 H Creatinine 3.43 H 3.48 H 3.43 H Est GFR ( Amer) 22 L 22 L 22 L Est GFR (Non-Af Amer) 18 L 18 L 18 L Glucose 358 H 446 H* 463 H* Lactic Acid Calcium 7.3 L 7.2 L 7.3 L 01/22/17 01/22/17 01/22/17 02:10 04:11 06:15 VBG pH VBG pCO2 VBG HCO3 VBG Base Excess Sodium 120.1 L* 119.2 L* 119.4 L* Potassium 4.9 4.8 4.5 Chloride 98 96 L 96 L Carbon Dioxide 11 L 11 L 11 L Anion Gap 11 12 12 BUN 160 H 161 H 161 H Creatinine 3.50 H 3.53 H 3.47 H Est GFR ( Amer) 21 L 21 L 22 L Est GFR (Non-Af Amer) 18 L 17 L 18 L Glucose 404 H* 364 H 288 H Lactic Acid Calcium 7.3 L 7.3 L 7.4 L 01/22/17 08:04 VBG pH VBG pCO2 VBG HCO3 VBG Base Excess Sodium 119.8 L* Potassium 4.4 Chloride 96 L Carbon Dioxide 11 L Anion Gap 13 BUN 159 H Creatinine 3.53 H Est GFR ( Amer) 21 L Est GFR (Non-Af Amer) 17 L Glucose 232 H Lactic Acid Calcium 7.4 L Impressions: Paracentesis Ultrasound 01/06/17 00:00 IMPRESSION: Successful ultrasound-guided therapeutic paracentesis Chest X-Ray 01/20/17 09:52 IMPRESSION: NO ACUTE RADIOGRAPHIC FINDING IN THE CHEST. Assessment & Plan - Diagnosis (1) Hypovolemic shock Plan: At this point it appears that the patient likely is suffering from more of a hypovolemic shock from blood loss. His BUN is elevated at 160 and has been steadily climbing over the last few days. He has a rectal bag full of melanotic liquid stool. The patient's hemoglobin has dropped by point overnight. It is now down to 8. I will recheck it later on in the afternoon. I fully expect for it to continue to decline. Unfortunately, the patient is too unstable for endoscopy. Not to mention the patient has a terminal illness and it would likely be futile to pursue aggressive measures at this point. He still remains on 2 pressors. His map at the bedside is 71. I have given instructions to the nursing staff to keep his map at 65 or above. We will try and wean off the tomy-today again. However, it should be noted that with titration down of either 1 of the pressors, the patient's blood pressure drops sharply. (2) Severe sepsis Is this a current diagnosis for this admission?: Yes Plan: Sepsis secondary to perianal abscess. Sepsis with shock is still a possibility in this case. Thus far the patient's repeat cultures are negative to date. The patient still remains hypothermic. By sepsis standards, he is still tachycardic with a heart rate greater than 90. However, it should be noted that the patient in the past has been able to mount heart rates greater than 100. Continue empiric coverage with current antibiotics of aztreonam, vancomycin, and add levofloxacin. (3) Perianal abscess Is this a current diagnosis for this admission?: Yes Plan: The patient is receiving wound care. He is status post debridement earlier in the hospitalization. (4) Acute renal failure Qualifiers: Acute renal failure type: unspecified Qualified Code(s): N17.9 - Acute kidney failure, unspecified Is this a current diagnosis for this admission?: Yes Plan: The patient's renal failure has acutely worsened. Creatinine is still at 3.5. His elevated BUN is mostly due to his underlying GI bleed. He has had decreased urinary output with only 643 cc put out yesterday. That would be an average of 26.7 cc/h. This morning he is only put out 20 cc in total. (5) Anemia Is this a current diagnosis for this admission?: Yes Plan: Acute anemia of blood loss. This is from the patient's GI bleed. Patient is status post 2 units of packed red blood cells 2 days ago. His hemoglobin is falling again. He has a rectal bag filled with liquid melanotic stools. Again endoscopy cannot be pursued in this patient. Repeat CBC later on this afternoon. (6) Hepatocellular carcinoma Is this a current diagnosis for this admission?: Yes Plan: Patient is status post palliative immunotherapy. His oncologist had recommended hospice. But the patient and his declined. There is no further intervention for this patient's hepatocellular carcinoma. (7) Hyponatremia Is this a current diagnosis for this admission?: Yes Plan: This is likely multifactorial. Hypervolumic hyponatremia and SIADH. The patient has underlying hepatocellular carcinoma and in part his hyponatremia may be due to his underlying malignancy. He is status post 3% saline with rise of his sodium up to 119 this morning. This is essentially been his baseline at its best on this admission. Will decrease the interval at which we are checking sodiums. (8) Thrombocytopenia Is this a current diagnosis for this admission?: Yes Plan: This is possibly reactive from his underlying infection in addition to his underlying cancer. Patient's platelet count is in the 60s (9) Hyperglycemia Is this a current diagnosis for this admission?: Yes Plan: Likely secondary to underlying steroid use for treatment of of his hypotension. The patient's blood sugars have been in the 400s. He was started on an insulin drip overnight. For now we will continue the insulin drip. His blood sugar checks should be every 6 hours. (10) Hyperkalemia Is this a current diagnosis for this admission?: Yes Plan: Patient is status post calcium gluconate with insulin and dextrose yesterday. His potassium is now normal. (11) Lactic acidosis Plan: The patient's body is slowly shutting down. The lactic acidosis that we see is from ensuing ischemia from shock and electrolyte derangements. His bicarbonate dropped down to 9 yesterday. The patient is currently on a bicarb drip. Bicarb is currently at 11. (12) Acute metabolic encephalopathy Plan: Multifactorial. Likely secondary to underlying shock, hepatic encephalopathy and hyponatremia. (13) GI bleed Qualifiers: GI bleed type/associated pathology: anorectal hemorrhage Qualified Code(s) : K62.5 - Hemorrhage of anus and rectum Plan: Continue Protonix twice a day. Continue octreotide. I suspect this is variceal bleeding considering that the patient has underlying hepatocellular carcinoma and underlying liver failure. Again, at this point there is no further intervention to offer endoscopically because of the patient's instability. Management as above. (14) Hepatic failure Plan: The patient's AST and ALT have trended upward for this admission. There is nothing to be done as the patient has underlying hepatocellular carcinoma. He also has shock. And this may be evidence of shock liver. (15) End of life care Plan: I have discussed with the patient's and son, as well as the patient when his level of alertness would allow, my recommendations for comfort care measures. Please see my notes on previous days as well as notes from the family conference that was held yesterday. At this point his does not want to make him DNR and she does not like the word hospice or comfort measures. An ethics consult has been placed. The patient is slowly winding down as evidenced by his oliguria GI bleed leading to hypovolemic shock and need for 2 pressors, octreotide drip and IV Protonix. It is also evidenced by worsening hepatic failure, slight slowing down of his heart rate, hypothermia persistent hyponatremia and worsening renal failure. - Time Critical Time spent with patient: 35 or more minutes - Plan Summary Plan Summary: The patient remains hospitalized because he obviously cannot be discharged under his current circumstances. He is nearing and at this point he remains hospitalized until the end of his life. My expectation is that the patient will likely not survive for another few days.
[2017-01-22] MEDS: PANTOPRAZOLE SODIUM 40 MG VIAL IV SCH ×2 (09:42→21:02)
[2017-01-22] MEDS ORDERED: LEVOFLOXACIN 500 MG/D5W RTU 500 MG/100 ML RTUPB IV ONE (10:00)
[2017-01-22] MEDS: DEXTROSE 5%-WATER 250 ML with NOREPINEPHRINE BITARTRATE 4 MG IV PRN ×6 (10:16→22:11)
[2017-01-22 14:59] LABS: ABSOLUTE LYMPHOCYTES (AUTO) 0.7 10^3/uL (0.5-4.7); ABSOLUTE MONOCYTES (AUTO) 1.5 10^3/uL (0.1-1.4); ABSOLUTE NEUT (AUTO) 9.2 10^3/uL (1.7-8.2); BASOPHILS % (AUTO) 0.1 % (0-2); EOSINOPHILS % (AUTO) 0.2 % (0-6); HEMATOCRIT 18.1 % (37.9-51.0); HGB HCT DIFFERENCE 1.1; LYMPHOCYTES % (AUTO) 5.7 % (13-45); MEAN CORPUSCULAR HEMOGLOBIN 33.3 pg (27.0-33.4); MEAN CORPUSCULAR HGB CONC 35.6 g/dL (32.0-36.0); MEAN CORPUSCULAR VOLUME 94 fl (80-97); MONOCYTES % (AUTO) 13.2 % (3-13); RED BLOOD COUNT 1.93 10^6/uL (4.35-5.55); SEGMENTED NEUTROPHILS % (AUTO) 80.8 % (42-78); WHITE BLOOD COUNT 11.4 10^3/uL (4.0-10.5)
[2017-01-22] MEDS: DEXTROSE 5%-WATER 250 ML with PHENYLEPHRINE HCL 40 MG IV PRN ×2 (15:34)
[2017-01-22 16:23] LABS: HEMOGLOBIN 6.4 g/dL (13.5-17.0)
[2017-01-22] MEDS: NORMAL SALINE 500 ML with OCTREOTIDE ACETATE 500 MCG IV PRN ×2 (17:26)
[2017-01-22] MEDS: DEXTROSE 5%-WATER 1000 ML 1,000 ML with SODIUM BICARBONATE 150 MEQ IV PRN ×2 (17:26)
[2017-01-22] MEDS: DEXTROSE 50%-WATER 25 GM/50 ML DISP.SYRIN IV PRN (18:20)
[2017-01-22] MEDS ORDERED: NORMAL SALINE 250 ML IV PRN ×2 (18:46)
[2017-01-22 22:28] LABS: ANION GAP 13 (5-19); CARBON DIOXIDE 11 mmol/L (22-30); CHLORIDE 90 mmol/L (98-107); GLUCOSE 230 mg/dL (75-110); POTASSIUM 4.5 mmol/L (3.6-5.0)
[2017-01-22 22:35] LABS: CREATININE RESULT 3.38 mg/dL (0.52-1.25)
[2017-01-22 22:42] LABS: BLOOD UREA NITROGEN 152 mg/dL (7-20)
[2017-01-22 22:44] LABS: SODIUM 113.8 mmol/L (137-145)
[2017-01-22 22:45] LABS: CALCIUM 6.9 mg/dL (8.4-10.2)
[2017-01-23] MEDS: DEXTROSE 5%-WATER 250 ML with PHENYLEPHRINE HCL 40 MG IV PRN ×4 (00:16→12:22)
[2017-01-23] MEDS ORDERED: SODIUM CHLORIDE 3% 200 ML IV ONE (00:30)
--- NOTE | 2017-01-23 00:31 | Palliative Consultation Report ---
Consultation From:: LATONYA KING Consult Reason: Palliative Care - HPI HPI: Palliative Care visit 01/22/17 1:55- 2:40 PM Appreciate palliative care consult request for this 66 year old patient who has been hospitalized since 01/01/17 with hepatocellular cancer, perianal abscess, Renal failure, and diabetes requiring insulin drip. He had episode of shock two days ago and was transferred to the ICU where he remains on two pressors to maintain his blood pressure at 94/40, antibiotics, insulin. Mr Valle looks straight ahead with eyes open and no expression. and children are at bedside. states she was going to take patient home, but then relates her disdain that patient was "left in bed with no medication". She refuses to acknowledge his terminal condition and says it is up to God to heal him. She says she is still wanting to take him home but refuses home health or hospice care. She cannot tell me how she plans to care for him or control symptoms. I discussed fact of his need for pressors and medications (as she had admitted ) to keep him alive, but she calmly insists she wants to stop all of it and take him home. I told her there is very good chance if the medications are stopped he will within hours and never make it home. She refused to accept that. I explained, as I am sure many others have, that as long as she wants full resuscitation efforts, we cannot stop his medications as she requests and throw him into arrest. Although she says she understands , she reverts back to same request to stop meds and take him home. The conversation was led to explain that she is "in charge:" of making decisons to help her and protect him from treatment that will only prolong his suffering. I asked her to let us know when she feels he has been put thorough enough and with the realization that he cannot survive and we can see that he is kept comfortable until he passes. This was met with her obvious dislike of the term comfort care. and her changing the subject back to stopping his medications and taking him home. She insists that God is going to heal him and take care of him. After this long conversation, it was obvious that she was not going to change her mind about code status. I feel she understands more than she admits to and will not allow DNR to be written. RN caring for patient tells me the Ethics team has been consulted for this patient. Onset/Duration: Gradual Past Medical History(Consults) - General Information Source: Relative, OM Records Home Medications: Cetirizine HCl [Zyrtec] 10 mg PO DAILYP PRN 01/02/17 Fluticasone Propionate [Flonase Nasal [place] 50 Mcg/[place] 16 gm] 2 spray NASL DAILYP PRN 01/02/17 Pantoprazole Sodium [Protonix] 20 mg PO DAILY 01/02/17 Rifaximin [Xifaxan] 550 mg PO BID 01/02/17 Insulin Glargine,Hum.rec.anlog [Lantus Insulin 100 Unit/mL] 35 unit SUBCUT QHS insuln.pen 01/19/17 Insulin Regular, Human [Humulin R (Reg) Insulin 100 unit/mL] 5 unit SUBCUT AC unit 01/19/17 Lactulose 10 gm PO TIDP PRN #1 bottle 01/19/17 Nystatin [Mycostatin Cream 15 gm] 1 applic TP TIDP PRN tube 01/19/17 Oxycodone HCl [Oxy-Ir 5 mg Tablet] 5 mg PO Q4HP PRN #10 tablet 01/19/17 Zinc Oxide [Zinc Oxide 20% Ointment 28.35 gm] 1 applic TP TIDP PRN tube Allergies/Adverse Reactions: Penicillins Allergy (Intermediate, Verified 01/01/17 18:19) Passed out - Social History Lives with: Family Family History: Reviewed & Not Pertinent, Hypertension Parental Family History Reviewed: No Children Family History Reviewed: No Sibling(s) Family History Reviewed.: No Smoking Status: Never Smoker Frequency of Alcohol Use: None Hx Recreational Drug Use: No Drugs: None Hx Prescription Drug Abuse: No - Past Medical History Cardiac Medical History: Reports: Hx Hypertension Endocrine Medical History: Reports: Hx Diabetes Mellitus Type 1, Hx Diabetes Mellitus Type 2 Renal/ Medical History: Denies: Hx Peritoneal Dialysis Malignancy Medical History: Reports Hx Liver Cancer GI Medical History: Reports: Hx Cirrhosis Psychiatric Medical History: Denies: Hx Depression - Surgical History Past Surgical History: Reports: Hx Cardiac Catheterization, Hx Cholecystectomy Review of systems ROS unobtainable: due to mental statu Ojective:Exam Vital Signs: Temp Pulse Resp BP Pulse Ox 97.2 F 92 14 119/56 L 98 01/22/17 23:34 01/22/17 23:34 01/22/17 23:34 01/22/17 23:34 01/22/17 23:34 Intake & Output 01/21/17 01/22/17 01/23/17 06:59 06:59 06:59 Intake Total 5462 3939 2683 Output Total 643 685 713 Balance 4821 8994 1970 Weight 74.7 kg 77.8 kg - General General Appearance: Unresponsive - IN bed with pressors runnig IV but B/P still in 90's. Respirations shallow Staring straight ahead with no change with verbal stimuli. Jaundiced, no spontaneous movement. No respiratory distress, shallow, regular respirations - Neurological Cognition: Inattentive Orientation: Disoriented to person, Disoriented to place, Disoriented to time, Disoriented to events Objective-Diagnostic Laboratory: 01/22/17 14:24 01/22/17 21:49 01/20/17 01/22/17 01/22/17 14:30 00:10 02:10 WBC RBC Hgb Hct MCV MCH MCHC RDW Plt Count Seg Neutrophils % Lymphocytes % Monocytes % Eosinophils % Basophils % Absolute Neutrophils Absolute Lymphocytes Absolute Monocytes Absolute Eosinophils Absolute Basophils Sodium 116.8 L* 120.1 L* Potassium 4.9 4.9 Chloride 95 L 98 Carbon Dioxide 11 L 11 L Anion Gap 11 11 BUN 158 H 160 H Creatinine 3.43 H 3.50 H Est GFR ( Amer) 22 L 21 L Est GFR (Non-Af Amer) 18 L 18 L Glucose 463 H* 404 H* Calcium 7.3 L 7.3 L Ammonia Albumin Blood Type O POSITIVE Antibody Screen NEGATIVE 01/22/17 01/22/17 01/22/17 04:11 06:15 08:04 WBC RBC Hgb Hct MCV MCH MCHC RDW Plt Count Seg Neutrophils % Lymphocytes % Monocytes % Eosinophils % Basophils % Absolute Neutrophils Absolute Lymphocytes Absolute Monocytes Absolute Eosinophils Absolute Basophils Sodium 119.2 L* 119.4 L* 119.8 L* Potassium 4.8 4.5 4.4 Chloride 96 L 96 L 96 L Carbon Dioxide 11 L 11 L 11 L Anion Gap 12 12 13 BUN 161 H 161 H 159 H Creatinine 3.53 H 3.47 H 3.53 H Est GFR ( Amer) 21 L 22 L 21 L Est GFR (Non-Af Amer) 17 L 18 L 17 L Glucose 364 H 288 H 232 H Calcium 7.3 L 7.4 L 7.4 L Ammonia Albumin Blood Type Antibody Screen 01/22/17 01/22/17 01/22/17 09:46 14:24 21:49 WBC 11.4 H RBC 1.93 L Hgb 6.4 L D Hct 18.1 L MCV 94 MCH 33.3 MCHC 35.6 RDW 21.0 H Plt Count 66 L Seg Neutrophils % 80.8 H Lymphocytes % 5.7 L Monocytes % 13.2 H Eosinophils % 0.2 Basophils % 0.1 Absolute Neutrophils 9.2 H Absolute Lymphocytes 0.7 Absolute Monocytes 1.5 H Absolute Eosinophils 0.0 Absolute Basophils 0.0 Sodium 113.8 L* Potassium 4.5 Chloride 90 L Carbon Dioxide 11 L Anion Gap 13 BUN 152 H Creatinine 3.38 H Est GFR ( Amer) 22 L Est GFR (Non-Af Amer) 18 L Glucose 230 H Calcium 6.9 L* Ammonia 16.1 Albumin Blood Type Antibody Screen 01/22/17 21:49 WBC RBC Hgb Hct MCV MCH MCHC RDW Plt Count Seg Neutrophils % Lymphocytes % Monocytes % Eosinophils % Basophils % Absolute Neutrophils Absolute Lymphocytes Absolute Monocytes Absolute Eosinophils Absolute Basophils Sodium Potassium Chloride Carbon Dioxide Anion Gap BUN Creatinine Est GFR ( Amer) Est GFR (Non-Af Amer) Glucose Calcium Ammonia Albumin 1.4 L Blood Type Antibody Screen 01/20/17 11:30 Catheterized Urine Urine Culture - Final NO GROWTH 2 DAYS Plan and Recommendation Plan and Recommendation: Mrs. Valle is not accepting of conversation about changing code status, accepting his terminality or changing to comfort care measures. She is insisting that she will take him home. I gave her my number to call and will be happy to follow with her next week if patient is still alive. As ethically wrong as it is, this patient may have to continue with aggressive medications to maintain B/P for a while longer until Mrs. Valle can agree to DNR and comfort measures. I will follow and try to gain her trust which might have been easier earlier in the admission since she seems to be a little defensive now. I know everyone has tried their best to advocate for this patient and I appreciate the difficulty and pain this has caused for patient and staff alike. - Time Spent with Patient Time spent with patient: 40 to 60 Minutes Time: 50 minutes in chart review, discussion with and consultaiton with RN. Greater then 50% spent on Counseling & Coordination of Care: 35 min
[2017-01-23 03:19] LABS: HEMATOCRIT 23.8 % (37.9-51.0); HEMOGLOBIN 8.4 g/dL (13.5-17.0); HGB HCT DIFFERENCE 1.4; MEAN CORPUSCULAR HEMOGLOBIN 32.5 pg (27.0-33.4); MEAN CORPUSCULAR HGB CONC 35.4 g/dL (32.0-36.0); MEAN CORPUSCULAR VOLUME 92 fl (80-97); RED CELL DISTRIBUTION WIDTH 18.6 % (11.5-14.0); WHITE BLOOD COUNT 12.4 10^3/uL (4.0-10.5)
[2017-01-23 03:53] LABS: BASOPHILS % (MANUAL) 0 % (0-2); EOSINOPHILS % (MANUAL) 0 % (0-6); LYMPHOCYTES % (MANUAL) 3 % (13-45); TOTAL CELLS COUNTED 100
[2017-01-23 03:56] LABS: ANISOCYTOSIS 2+; BURR CELLS 3+; OVALOCYTES SLIGHT; POIKILOCYTOSIS 1+; TARGET CELLS SLIGHT; TEAR DROP CELLS SLIGHT; TOXIC GRANULATION 1+
[2017-01-23 04:19] LABS: ANION GAP 10 (5-19); CARBON DIOXIDE 13 mmol/L (22-30); CHLORIDE 94 mmol/L (98-107); GLUCOSE 228 mg/dL (75-110); POTASSIUM 4.4 mmol/L (3.6-5.0)
[2017-01-23 04:25] LABS: CREATININE RESULT 3.39 mg/dL (0.52-1.25)
[2017-01-23] MEDS: DEXTROSE 5%-WATER 250 ML with NOREPINEPHRINE BITARTRATE 4 MG IV PRN ×8 (04:25→21:20)
[2017-01-23 04:27] LABS: BLOOD UREA NITROGEN 151 mg/dL (7-20)
[2017-01-23 04:29] LABS: CALCIUM 6.8 mg/dL (8.4-10.2)
[2017-01-23 04:30] LABS: SODIUM 116.7 mmol/L (137-145)
[2017-01-23] MEDS: AZTREONAM 1.5 GM in DEXTROSE 5%-WATER 100 ML IV SCH ×3 (05:00→21:20)
[2017-01-23] MEDS: HYDROCORTISONE SOD SUCCINATE INJ/PF 100 MG/2 ML SDV IV SCH ×3 (05:00→21:20)
--- NOTE | 2017-01-23 09:26 | PDOC PROGRESS REPORT ---
Subjective Progress Note for:: 01/23/17 Subjective:: This is a follow-up visit for cardiovascular shock/possible septic shock. Overnight the patient's 3% saline was resumed due to decrease in his sodium to 113. This was continued for about 4 hours and then stopped once he reached 116. Yesterday afternoon into the morning the patient put out an additional 560 cc of bloody liquid stools. He did receive his 2 units of blood. He was able to be weaned off of Tomy-Synephrine for the last couple of hours. Blood sugars are much better controlled with sliding scale insulin. Continue due to increase in his sodium. Unfortunately, his blood sugars continue to rise necessitating initiation of an insulin drip. Physical Exam Vital Signs: Temp Pulse Resp BP Pulse Ox 97.5 F 101 H 13 106/50 L 96 01/23/17 06:05 01/23/17 07:52 01/23/17 06:05 01/23/17 06:05 01/23/17 06:05 Intake & Output 01/22/17 01/23/17 01/24/17 06:59 06:59 06:59 Intake Total 3939 4903 Output Total 685 1038 20 Balance 3254 3865 -20 Weight 77.8 kg 82.1 kg Lines: right femoral Drips: Bicarb, octreotide, Tomy-Synephrine is off for now, Levophed, Off 3% saline for the last 4 hours. Antibiotics: Aztreonam, levofloxacin, vancomycin GENERAL: This is a well-developed, under nourished, chronically ill appearing male resting in bed in no distress. HEENT: Normocephalic, atraumatic. Scleral icterus is present. HEART: Tachycardic. No murmurs, rubs or gallops. BP is currently 96 systolic at bedside. LUNGS: Clear to auscultation anteriorly with equal rise and fall of the chest. He has nonlabored breathing. ABDOMEN: Soft, nontender, distended with hypoactive bowel sounds EXTREMETIES: No clubbing, cyanosis. 2 + pitting edema. Pedal pulses 1+ RECTAL: Rectal tube and bag are in place. The bag was just changed and no fluid has yet collected. NEURO: Awake and responds to his name. He says good morning in response to my salutation. He does not speak further to any other questions and stares into space. Skin: Abscess not examined today. The patient has ecchymoses which appear new and old on his abdomen. He is currently on the bear hugger and his skin feels warm. Results Laboratory Results: 01/23/17 03:00 01/23/17 04:00 01/20/17 01/22/17 01/22/17 14:30 08:04 09:46 WBC RBC Hgb Hct MCV MCH MCHC RDW Plt Count Seg Neutrophils % Lymphocytes % Monocytes % Eosinophils % Basophils % Absolute Neutrophils Absolute Lymphocytes Absolute Monocytes Absolute Eosinophils Absolute Basophils Sodium 119.8 L* Potassium 4.4 Chloride 96 L Carbon Dioxide 11 L Anion Gap 13 BUN 159 H Creatinine 3.53 H Est GFR ( Amer) 21 L Est GFR (Non-Af Amer) 17 L Glucose 232 H Calcium 7.4 L Ammonia 16.1 Albumin Blood Type O POSITIVE Antibody Screen NEGATIVE 01/22/17 01/22/17 01/22/17 14:24 21:49 21:49 WBC 11.4 H RBC 1.93 L Hgb 6.4 L D Hct 18.1 L MCV 94 MCH 33.3 MCHC 35.6 RDW 21.0 H Plt Count 66 L Seg Neutrophils % 80.8 H Lymphocytes % 5.7 L Monocytes % 13.2 H Eosinophils % 0.2 Basophils % 0.1 Absolute Neutrophils 9.2 H Absolute Lymphocytes 0.7 Absolute Monocytes 1.5 H Absolute Eosinophils 0.0 Absolute Basophils 0.0 Sodium 113.8 L* Potassium 4.5 Chloride 90 L Carbon Dioxide 11 L Anion Gap 13 BUN 152 H Creatinine 3.38 H Est GFR ( Amer) 22 L Est GFR (Non-Af Amer) 18 L Glucose 230 H Calcium 6.9 L* Ammonia Albumin 1.4 L Blood Type Antibody Screen 01/23/17 01/23/17 03:00 04:00 WBC 12.4 H RBC 2.60 L Hgb 8.4 L Hct 23.8 L MCV 92 MCH 32.5 MCHC 35.4 RDW 18.6 H Plt Count 45 L Seg Neutrophils % Not Reportable Lymphocytes % Not Reportable Monocytes % Not Reportable Eosinophils % Not Reportable Basophils % Not Reportable Absolute Neutrophils Not Reportable Absolute Lymphocytes Not Reportable Absolute Monocytes Not Reportable Absolute Eosinophils Not Reportable Absolute Basophils Not Reportable Sodium 116.7 L* Potassium 4.4 Chloride 94 L Carbon Dioxide 13 L Anion Gap 10 BUN 151 H Creatinine 3.39 H Est GFR ( Amer) 22 L Est GFR (Non-Af Amer) 18 L Glucose 228 H Calcium 6.8 L* Ammonia Albumin Blood Type Antibody Screen 01/20/17 11:30 Catheterized Urine Urine Culture - Final NO GROWTH 2 DAYS Impressions: Paracentesis Ultrasound 01/06/17 00:00 IMPRESSION: Successful ultrasound-guided therapeutic paracentesis Chest X-Ray 01/20/17 09:52 IMPRESSION: NO ACUTE RADIOGRAPHIC FINDING IN THE CHEST. Assessment & Plan - Diagnosis (1) Hypovolemic shock Plan: At this point it appears that the patient likely is suffering from more of a hypovolemic shock from blood loss. His BUN is elevated in the 150s today. It has declined a bit from yesterday. Hopefully this will reflect slowing of his bleeding. Unfortunately, the patient is too unstable for endoscopy. Not to mention the patient has a terminal illness and it would likely be futile to pursue aggressive measures at this point. He now remains on 1 pressor. (2) Severe sepsis Is this a current diagnosis for this admission?: Yes Plan: Sepsis secondary to perianal abscess. Sepsis with shock is still a possibility in this case. Thus far the patient's repeat cultures are negative to date. The patient is currently euthermic on a bear hugger. Continue empiric coverage with current antibiotics of aztreonam, vancomycin, and add levofloxacin. (3) Perianal abscess Is this a current diagnosis for this admission?: Yes Plan: The patient is receiving wound care. He is status post debridement earlier in the hospitalization. (4) Acute renal failure Qualifiers: Acute renal failure type: unspecified Qualified Code(s): N17.9 - Acute kidney failure, unspecified Is this a current diagnosis for this admission?: Yes Plan: The patient's renal failure has acutely worsened. Creatinine is slightly improved at 3.39. His elevated BUN is mostly due to his underlying GI bleed. His urinary output has picked up to approximately 43 cc an hour. I think the slight improvement in his function is secondary to receiving blood. Continue to monitor. (5) Anemia Is this a current diagnosis for this admission?: Yes Plan: Acute anemia of blood loss. This is from the patient's GI bleed. Patient is status post 2 units of packed red blood cells 2 days ago. His hemoglobin is falling again. He continues to have melanotic stools. Although the rectal bag is currently empty because it is been changed this morning, the tube itself still has bloody stool retained. Again endoscopy cannot be pursued in this patient. Repeat CBC later on this afternoon. (6) Hepatocellular carcinoma Is this a current diagnosis for this admission?: Yes Plan: Patient is status post palliative immunotherapy. His oncologist had recommended hospice. But the patient and his declined. There is no further intervention for this patient's hepatocellular carcinoma. (7) Hyponatremia Is this a current diagnosis for this admission?: Yes Plan: This is likely multifactorial. Hypervolumic hyponatremia and SIADH. The patient has underlying hepatocellular carcinoma and in part his hyponatremia may be due to his underlying malignancy. He is status post 3% saline with rise of his sodium up to 116 this morning. Sodium checks to every 8 hours. (8) Thrombocytopenia Is this a current diagnosis for this admission?: Yes Plan: This is possibly reactive from his underlying infection in addition to his underlying cancer. Patient's platelet count remains low. (9) Hyperglycemia Is this a current diagnosis for this admission?: Yes Plan: Likely secondary to underlying steroid use for treatment of of his hypotension. The patient's blood sugars have been in the 200. Continue sliding scale insulin. Resume Lantus. His blood sugar checks should be every 6 hours. (10) Hyperkalemia Is this a current diagnosis for this admission?: Yes Plan: Patient is status post calcium gluconate with insulin and dextros. His potassium is now normal. (11) Lactic acidosis Plan: The patient's body is slowly shutting down. The lactic acidosis that we see is from ensuing ischemia from shock and electrolyte derangements. The patient is currently on a bicarb drip. Bicarb is currently at 13. Continue bicarb drip. (12) Acute metabolic encephalopathy Plan: Multifactorial. Likely secondary to underlying shock, hepatic encephalopathy and hyponatremia. (13) GI bleed Qualifiers: GI bleed type/associated pathology: anorectal hemorrhage Qualified Code(s) : K62.5 - Hemorrhage of anus and rectum Plan: Continue Protonix twice a day. Continue octreotide. I suspect this is variceal bleeding considering that the patient has underlying hepatocellular carcinoma and underlying liver failure. Again, at this point there is no further intervention to offer endoscopically because of the patient's instability. Management as above. (14) Hepatic failure Plan: The patient's AST and ALT have trended upward for this admission. There is nothing to be done as the patient has underlying hepatocellular carcinoma. He also has shock. And this may be evidence of shock liver. Recheck CMP later today. (15) End of life care Plan: I have discussed with the patient's and son, as well as the patient when his level of alertness would allow, my recommendations for comfort care measures. Please see my notes on previous days as well as notes from the family conference that was held 01/21. At this point his does not want to make him DNR and she does not like the word hospice or comfort measures. An ethics consult has been placed. In the committee has recommended that the patient's must sign him out AMA if she intends to take him home while he was still full code and not comfort measures. (16) Severe protein-calorie malnutrition Plan: The patient has severe protein calorie malnutrition secondary to his underlying cancer and multiple co-morbid medical conditions. His BMI is not reflective of this. But his BMI is falsely elevated secondary to the amount of fluid retention and ascites that he has. His albumin is 1.4. The patient is not eating at all. Since he remains full code and severely malnourished and has not eaten much in over a week. I think we have to consult dietary and perhaps putting a feeding tube and start tube feeds. - Time Critical Time spent with patient: 35 or more minutes - Inpatient Certification Based on my medical assessment, after consideration of the patient's comorbidities, presenting symptoms, or acuity I expect that the services needed warrant INPATIENT care.: Yes Medical Necessity: Need Close Monitoring Due to Risk of Patient Decompensation
--- NOTE | 2017-01-23 09:31 | Progress Note ---
Provider Note Provider Note: This is a late entry. I met with the ethics committee yesterday at 11:30 AM to discuss this patient's case. The final decision of that meeting with that the could not take her home unless she agreed to sign out AMA or made him DNR with comfort measures and normal discharge process. The reason for this is that ethically if the patient codes when we remove the medications we will be obligated to try and resuscitate him. At this point removal of the medications will most certainly lead to the patient's ultimate demise. Palliative care consult was recommended. And I did place this yesterday. The patient was able to speak to the palliative care loan representative. Please see that note for details. Additional 30 minutes was spent at the meeting coordinating the care of this patient.
[2017-01-23] MEDS: PANTOPRAZOLE SODIUM 40 MG VIAL IV SCH (10:41)
[2017-01-23] MEDS: LEVOFLOXACIN 250 MG/D5W RTU 250 MG/50 ML RTUPB IV SCH (10:42)
[2017-01-23 14:32] LABS: ALANINE AMINOTRANSFERASE 232 U/L (21-72); ALBUMIN 1.5 g/dL (3.5-5.0); ALKALINE PHOSPHATASE 285 U/L (38-126); ASPARTATE AMINO TRANSFERASE 431 U/L (17-59); BILIRUBIN,TOTAL 13.5 mg/dL (0.2-1.3); CALCIUM 7.1 mg/dL (8.4-10.2); CARBON DIOXIDE 14 mmol/L (22-30); CHLORIDE 90 mmol/L (98-107); GLUCOSE 300 mg/dL (75-110); POTASSIUM 4.6 mmol/L (3.6-5.0); TOTAL PROTEIN 3.6 g/dL (6.3-8.2)
[2017-01-23 14:42] LABS: ANION GAP 11 (5-19)
[2017-01-23 15:10] LABS: CREATININE RESULT 3.45 mg/dL (0.52-1.25)
[2017-01-23 15:11] LABS: BLOOD UREA NITROGEN 152 mg/dL (7-20)
[2017-01-23 15:12] LABS: SODIUM 115.3 mmol/L (137-145)
[2017-01-23] MEDS: DEXTROSE 5%-WATER 1000 ML 1,000 ML with SODIUM BICARBONATE 150 MEQ IV PRN ×2 (16:04)
[2017-01-23] MEDS: NORMAL SALINE 500 ML with OCTREOTIDE ACETATE 500 MCG IV PRN ×2 (16:08)
[2017-01-23] MEDS ORDERED: INSULIN REG, HUMAN 100 UNIT/ML 3 ML VIAL (PYX) SUBCUT ONE (16:45)
[2017-01-23] MEDS ORDERED: INSULIN GLARGINE,HUM.REC.ANLOG 1,000 UNIT/10 ML UNIT SUBCUT ONE (21:26)
[2017-01-23] MEDS: INSULIN GLARGINE,HUM.REC.ANLOG 300 UNIT/3 ML INSULN.PEN SUBCUT SCH (21:30)
[2017-01-23 22:01] LABS: ANION GAP 14 (5-19); CALCIUM 7.1 mg/dL (8.4-10.2); CARBON DIOXIDE 13 mmol/L (22-30); CHLORIDE 87 mmol/L (98-107); GLUCOSE 350 mg/dL (75-110); POTASSIUM 4.6 mmol/L (3.6-5.0)
[2017-01-23 22:07] LABS: CREATININE RESULT 3.55 mg/dL (0.52-1.25)
[2017-01-23 22:13] LABS: BLOOD UREA NITROGEN 154 mg/dL (7-20)
[2017-01-23 22:14] LABS: SODIUM 114.4 mmol/L (137-145)
[2017-01-24] MEDS: DEXTROSE 5%-WATER 250 ML with NOREPINEPHRINE BITARTRATE 4 MG IV PRN ×8 (03:08→20:56)
[2017-01-24] MEDS ORDERED: PHENYLEPHRINE HCL INJ/PF 10 MG/1 ML SDV ONE (03:28)
[2017-01-24] MEDS: AZTREONAM 1.5 GM in DEXTROSE 5%-WATER 100 ML IV SCH ×3 (05:44→21:38)
[2017-01-24] MEDS: HYDROCORTISONE SOD SUCCINATE INJ/PF 100 MG/2 ML SDV IV SCH ×3 (05:45→21:38)
[2017-01-24] MEDS: INSULIN REG, HUMAN 100 UNIT/ML 3 ML VIAL (PYX) SUBCUT SCH ×3 (07:00→16:12)
[2017-01-24] MEDS: LEVOFLOXACIN 250 MG/D5W RTU 250 MG/50 ML RTUPB IV SCH (09:06)
[2017-01-24 10:33] LABS: ANION GAP 15 (5-19); CALCIUM 7.1 mg/dL (8.4-10.2); CARBON DIOXIDE 11 mmol/L (22-30); CHLORIDE 86 mmol/L (98-107)
[2017-01-24 10:38] LABS: CREATININE RESULT 3.52 mg/dL (0.52-1.25)
[2017-01-24 10:48] LABS: BLOOD UREA NITROGEN 157 mg/dL (7-20)
[2017-01-24 10:50] LABS: GLUCOSE 419 mg/dL (75-110); SODIUM 112.3 mmol/L (137-145)
[2017-01-24] MEDS: DEXTROSE 5%-WATER 250 ML with PHENYLEPHRINE HCL 40 MG IV PRN ×8 (11:12→23:49)
[2017-01-24] MEDS ORDERED: GLUCAGON,HUMAN RECOMB 1 MG INJ IM PRN (11:21)
[2017-01-24] MEDS ORDERED: DEXTROSE 40% GEL 15 GM TUBE PO PRN (11:21)
[2017-01-24] MEDS ORDERED: DEXTROSE 40% GEL 15 GM TUBE X 2 PO PRN (11:21)
[2017-01-24] MEDS ORDERED: DEXTROSE 50%-WATER SYRINGE 25 GM/50 ML DOSE IV PRN (11:21)
[2017-01-24] MEDS ORDERED: DEXTROSE 50%-WATER SYRINGE 12.5 GM/25 ML DOSE IV PRN (11:21)
[2017-01-24] MEDS: INSULIN REG, HUMAN 100 UNIT/ML 3 ML VIAL (PYX) SUBCUT PRN ×2 (12:47→22:34)
[2017-01-24] MEDS ORDERED: EPINEPHRINE INJ 1 MG/10 ML DISP.SYRIN ONE (13:53)
--- NOTE | 2017-01-24 14:03 | PDOC PROGRESS REPORT ---
Subjective Progress Note for:: 01/24/17 Subjective:: Patient was awake but would not answer questions for me. Physical Exam Vital Signs: Temp Pulse Resp BP Pulse Ox 98.2 F 113 H 18 89/50 L 99 01/24/17 12:00 01/24/17 12:00 01/24/17 12:00 01/24/17 12:00 01/24/17 12:00 Intake & Output 01/23/17 01/24/17 01/25/17 06:59 06:59 06:59 Intake Total 4903 3199 Output Total 1038 353 30 Balance 3865 2846 -30 Weight 82.1 kg 86 kg General appearance: PRESENT: no acute distress Eye exam: PRESENT: conjunctiva pink. ABSENT: scleral icterus Mouth exam: PRESENT: moist, tongue midline Neck exam: ABSENT: JVD Respiratory exam: PRESENT: clear to auscultation art. ABSENT: rales, rhonchi, wheezes Cardiovascular exam: PRESENT: RRR. ABSENT: diastolic murmur, rubs, systolic murmur GI/Abdominal exam: PRESENT: ascites, soft. ABSENT: distended, guarding, mass, organolmegaly, rebound, tenderness Extremities exam: ABSENT: calf tenderness, clubbing, pedal edema Neurological exam: PRESENT: other - Patient would not answer questions or interact with me. Psychiatric exam: PRESENT: flat affect Skin exam: PRESENT: dry, intact, warm. ABSENT: cyanosis, rash Results Laboratory Results: 01/23/17 03:00 01/24/17 10:00 01/23/17 01/23/17 01/24/17 13:50 21:30 10:00 Sodium 115.3 L* 114.4 L* 112.3 L* Potassium 4.6 4.6 5.0 Chloride 90 L 87 L 86 L Carbon Dioxide 14 L 13 L 11 L Anion Gap 11 14 15 BUN 152 H 154 H 157 H Creatinine 3.45 H 3.55 H 3.52 H Est GFR ( Amer) 22 L 21 L 21 L Est GFR (Non-Af Amer) 18 L 17 L 18 L Glucose 300 H 350 H 419 H* Calcium 7.1 L 7.1 L 7.1 L Total Bilirubin 13.5 H AST 431 H ALT 232 H Alkaline Phosphatase 285 H Total Protein 3.6 L Albumin 1.5 L 01/20/17 14:30 Neck - Right Side Gram Stain - Final 01/20/17 14:30 Neck - Right Side Wound Culture - Final NO GROWTH 3 DAYS Impressions: Paracentesis Ultrasound 01/06/17 00:00 IMPRESSION: Successful ultrasound-guided therapeutic paracentesis Chest X-Ray 01/20/17 09:52 IMPRESSION: NO ACUTE RADIOGRAPHIC FINDING IN THE CHEST. Assessment & Plan - Diagnosis (1) Hypovolemic shock Is this a current diagnosis for this admission?: Yes Plan: Patient's blood pressure is still requiring Tomy-Synephrine. (2) Severe sepsis Is this a current diagnosis for this admission?: Yes Plan: Continue vancomycin, Levaquin, aztreonam. (3) Perianal abscess Is this a current diagnosis for this admission?: Yes Plan: Continue with antibiotic as per above. He has had this debrided previous during this hospitalization. (4) GI bleed Qualifiers: GI bleed type/associated pathology: anorectal hemorrhage Qualified Code(s) : K62.5 - Hemorrhage of anus and rectum Is this a current diagnosis for this admission?: Yes Plan: Patient's hemoglobin has improved overnight. (5) Hepatic encephalopathy Is this a current diagnosis for this admission?: Yes Plan: Patient is still confused. (6) Acute renal failure Qualifiers: Acute renal failure type: unspecified Qualified Code(s): N17.9 - Acute kidney failure, unspecified Is this a current diagnosis for this admission?: Yes Plan: Creatinine has remained stable. (7) Anemia Is this a current diagnosis for this admission?: Yes Plan: Patient's hemoglobin has improved overnight. (8) Hepatocellular carcinoma Is this a current diagnosis for this admission?: Yes Plan: The is so far been unreceptive to hospice care. Will discuss with her today. (9) Hyponatremia Is this a current diagnosis for this admission?: Yes Plan: Secondary liver disease (10) Thrombocytopenia Is this a current diagnosis for this admission?: Yes Plan: Secondary to liver disease. - Time Time Spent with patient: 25-34 minutes - Inpatient Certification Medical Necessity: Need Close Monitoring Due to Risk of Patient Decompensation
[2017-01-24] MEDS: NORMAL SALINE 500 ML with OCTREOTIDE ACETATE 500 MCG IV PRN ×2 (17:04)
[2017-01-24] MEDS ORDERED: PHARMACY COMMUNICATION ORDER MC SCH (18:00)
[2017-01-24 22:17] LABS: CALCIUM 7.2 mg/dL (8.4-10.2); CARBON DIOXIDE 11 mmol/L (22-30); CHLORIDE 83 mmol/L (98-107); POTASSIUM 4.7 mmol/L (3.6-5.0)
[2017-01-24 22:22] LABS: CREATININE RESULT 3.73 mg/dL (0.52-1.25)
[2017-01-24 22:25] LABS: BLOOD UREA NITROGEN 153 mg/dL (7-20)
[2017-01-24] MEDS ORDERED: INSULIN GLARGINE,HUM.REC.ANLOG 300 UNIT/3 ML INSULN.PEN SUBCUT ONE (22:25)
[2017-01-24 22:26] LABS: ANION GAP 13 (5-19)
[2017-01-24 22:27] LABS: GLUCOSE 416 mg/dL (75-110); SODIUM 107.3 mmol/L (137-145)
[2017-01-24] MEDS: INSULIN GLARGINE,HUM.REC.ANLOG 300 UNIT/3 ML INSULN.PEN SUBCUT SCH (22:27)
[2017-01-24] MEDS ORDERED: NORMAL SALINE 100 ML with INSULIN REGULAR, HUMAN 100 UNIT IV PRN ×2 (22:48)
[2017-01-24] MEDS ORDERED: SODIUM CHLORIDE 3% 300 ML IV ONE (23:30)
[2017-01-24] MEDS ORDERED: INSULIN REG, HUMAN 100 UNIT/ML 3 ML VIAL (PYX) ONE (23:57)
[2017-01-25] MEDS: DEXTROSE 5%-WATER 250 ML with NOREPINEPHRINE BITARTRATE 4 MG IV PRN ×2 (02:51)
[2017-01-25] MEDS: DEXTROSE 5%-WATER 250 ML with PHENYLEPHRINE HCL 40 MG IV PRN ×2 (03:49)
[2017-01-25] MEDS ORDERED: DEXTROSE 5%-NORMAL SALINE 250 ML IV PRN (04:49)
[2017-01-25] MEDS: HYDROCORTISONE SOD SUCCINATE INJ/PF 100 MG/2 ML SDV IV SCH (05:11)
[2017-01-25] MEDS: AZTREONAM 1.5 GM in DEXTROSE 5%-WATER 100 ML IV SCH (06:32)
[2017-01-25 07:28] LABS: HEMATOCRIT 15.8 % (37.9-51.0); HGB HCT DIFFERENCE 0.7; MEAN CORPUSCULAR HGB CONC 35.1 g/dL (32.0-36.0); MEAN CORPUSCULAR VOLUME 94 fl (80-97); RED BLOOD COUNT 1.68 10^6/uL (4.35-5.55); RED CELL DISTRIBUTION WIDTH 19.4 % (11.5-14.0); WHITE BLOOD COUNT 15.8 10^3/uL (4.0-10.5)
[2017-01-25 07:35] LABS: ANION GAP 14 (5-19); CALCIUM 7.3 mg/dL (8.4-10.2); CARBON DIOXIDE 11 mmol/L (22-30); CHLORIDE 85 mmol/L (98-107); GLUCOSE 310 mg/dL (75-110); POTASSIUM 5.1 mmol/L (3.6-5.0)
[2017-01-25 07:41] LABS: CREATININE RESULT 3.78 mg/dL (0.52-1.25)
[2017-01-25 07:45] LABS: BLOOD UREA NITROGEN 155 mg/dL (7-20)
[2017-01-25 07:48] LABS: SODIUM 110.2 mmol/L (137-145)
[2017-01-25 07:53] LABS: BAND NEUTROPHILS % (MANUAL) 2 % (3-5); BASOPHILS % (MANUAL) 0 % (0-2); EOSINOPHILS % (MANUAL) 0 % (0-6); LYMPHOCYTES % (MANUAL) 5 % (13-45); TOTAL CELLS COUNTED 100
[2017-01-25 08:00] LABS: ANISOCYTOSIS 1+; BURR CELLS 1+; HYPOCHROMASIA 1+; NUCLEATED RED BLOOD CELLS 8 /100 WBC (0); OVALOCYTES SLIGHT; POIKILOCYTOSIS 2+; POLYCHROMASIA SLIGHT; TEAR DROP CELLS SLIGHT
[2017-01-25 08:04] LABS: HEMOGLOBIN 5.5 g/dL (13.5-17.0)
[2017-01-25 08:13] VITALS: BP 56/34
--- NOTE | 2017-01-25 08:42 | PDOC DISCHARGE SUMMARY ---
General - Admit/Disc Date/PCP Admission Date/Primary Care Provider: 01/01/17 21:55 GEORGIA EMANUEL MD Discharge Date: 01/25/17 - Discharge Diagnosis (1) Hypovolemic shock Is this a current diagnosis for this admission?: Yes (2) Severe sepsis Is this a current diagnosis for this admission?: Yes (3) Perianal abscess Is this a current diagnosis for this admission?: Yes (4) Acute renal failure Is this a current diagnosis for this admission?: Yes (5) Anemia Is this a current diagnosis for this admission?: Yes (6) Hepatocellular carcinoma Is this a current diagnosis for this admission?: Yes (7) Hyponatremia Is this a current diagnosis for this admission?: Yes (8) Thrombocytopenia Is this a current diagnosis for this admission?: Yes (9) Hyperglycemia Is this a current diagnosis for this admission?: Yes (10) Hyperkalemia Is this a current diagnosis for this admission?: Yes (13) GI bleed Is this a current diagnosis for this admission?: Yes - Additional Information Resuscitation Status: Full Code Discharge Diet: As Tolerated, Regular Discharge Activity: Activity As Tolerated Home Medications: Cetirizine HCl [Zyrtec] 10 mg PO DAILYP PRN 01/02/17 Fluticasone Propionate [Flonase Nasal [place] 50 Mcg/[place] 16 gm] 2 spray NASL DAILYP PRN 01/02/17 Pantoprazole Sodium [Protonix] 20 mg PO DAILY 01/02/17 Rifaximin [Xifaxan] 550 mg PO BID 01/02/17 Insulin Glargine,Hum.rec.anlog [Lantus Insulin 100 Unit/mL] 35 unit SUBCUT QHS insuln.pen 01/19/17 Insulin Regular, Human [Humulin R (Reg) Insulin 100 unit/mL] 5 unit SUBCUT AC unit 01/19/17 Lactulose 10 gm PO TIDP PRN #1 bottle 01/19/17 Nystatin [Mycostatin Cream 15 gm] 1 applic TP TIDP PRN tube 01/19/17 Oxycodone HCl [Oxy-Ir 5 mg Tablet] 5 mg PO Q4HP PRN #10 tablet 01/19/17 Zinc Oxide [Zinc Oxide 20% Ointment 28.35 gm] 1 applic TP TIDP PRN tube History of Present Illness History of Present Illness: SA Mr. Leonard Leggett is a 66-year-old male with a past medical history significant for hepatocellular carcinoma who presented to the service with perirectal abscess, abdominal distention and shortness of breath. The patient had been followed by Dr. Barber in [place] as well as Dr. Klein with oncology down in [place]. On presentation here he was found to be hypotensive, jaundiced, tachycardic with leukocytosis and a critical hyperkalemia of 6.4 with EKG changes. He was on palliative immunotherapy prior to presentation here. His last dose, from my understanding, was 4-6 weeks prior to presentation. The patient did receive attention to his abscess with debridement and wound care. He also underwent paracentesis while here and had been receiving it routinely as an outpatient. The patient was also aggressively diuresed for his volume overload. The patient had been on an insulin drip at one point on the floor secondary to elevated blood sugars. He was found to have a low sodium and was treated at times with normal saline solution couple with diuresis. On the floor the patient was initially stable. Multiple conversations were had with his about end-of-life care. I also tried speaking with the patient about end-of-life care directly. At that time he was more lucid. Over the course of time the patient mental state began to dwindle. I as well as multiple other attending physicians for this patient spoke with the patient's on multiple instances to explain the severity of the patient's condition and expected outcome. Unfortunately these efforts were met with resistance. His remained firm that she wanted the patient to remain full code and have full treatment. Hospital Course Hospital Course: On January 20, 2017, the patient became hypotensive requiring multiple fluid boluses. The fluid resuscitation did not help with his hypotension. Blood pressures at that time arranging systolic 51-80. No labs have been checked since January 14. I also noted a melanotic stool in the patient's diaper. The patient was therefore transferred to the ICU at that time. He received an additional fluid bolus and was started on levophed. Unfortunately one pressor was not enough to support his blood pressure and Tomy-Synephrine had to be started as well. It was noted that his hemoglobin was down to 6. I suspect that the patient likely had an upper GI bleed possibly from esophageal varices. His sodium check at that time revealed a value of 113. The patient was started on 3% hypertonic saline, at one point it was noted that his lactic acid has climbed up to 6 and he was started on a bicarb drip as well. He also received 2 units of blood. This brought his hemoglobin up to 8. Unfortunately , the patient's hemoglobin dropped again necessitating another 2 units. At one point he was able to come off of hypertonic saline but had to go right back on twice because of declining sodiums. His blood sugars became erratic necessitating intermittent use of an insulin drip. Patient was also started on octreotide in addition to IV Protonix. Multiple conversations were held with his family about his grim prognosis. DNR status and hospice care were urged. His chose to pursue continued treatment. Therefore, 2 attempts were made to have the patient transferred. One call was placed to [facility] and the other to [facility]. I spoke with each ICU attending at these respective hospitals. Each hospital declined transfer citing medical futility. I brought this information back to the patient's family. In addition to this the patient's own oncologist and physicians at [facility] how long ago recommended DNR status and comfort care measures/hospice. A consult was placed to the ethics committee to ensure that appropriate standard of care had been ethically met. It was determined that it had been met; but unfortunately, without the 's permission we could not make this patient comfortable. Therefore palliative care consult was placed with the thinking that their service might help facilitate a better understanding of Mr. Valle's situation. Ultimately, patient's remained in denial. His sons, however well intended , could not convince his either. Unfortunately, the patient remained in and out of consciousness and continued on multiple drips until 01/25/2017 when he began to have respiratory distress. The nursing staff attempted to call his but could not get a hold of her. They did get a hold of his eldest son and they let him know that he was now in respiratory distress. The patient went into PEA. A code was called and CPR was initiated. Respiratory therapy was called for intubation. The patient received 1 round of CPR and 1 round of epinephrine. Unfortunately with chest compressions, the patient began to spew blood from his mouth (I suspect a ruptured variceal). At this point, I ended resuscitative efforts secondary to medical futility. Please see the code sheet for documentation. The patient had no spontaneous breathing, rise and fall of the chest, pulse via telemetry, audible heart tones or palpable pulse. He was pronounced at 7:55 AM. I called his twice and got her voicemail. I felt it was inappropriate to leave a message regarding her 's demise on her voicemail. Therefore, I called her son. I received a voicemail as well. Shortly after the cold ended his son arrived at the hospital and I gave him the news that his father . Physical Exam Vital Signs: Temp Pulse Resp BP Pulse Ox 98.6 F 118 H 27 H 95/51 L 97 01/25/17 06:15 01/25/17 06:00 01/25/17 06:15 01/25/17 06:09 01/25/17 06:15 Intake & Output 01/24/17 01/25/17 01/26/17 06:59 06:59 06:59 Intake Total 3199 3758 Output Total 353 504 Balance 2846 3254 Weight 86 kg 90.1 kg GENERAL: Critically ill, jaundiced appearing patient undergoing CPR with blood coming out of his mouth with each compression. HEART: PEA. LUNGS: Bag valve mask in place and respirations are being given as per ACLS protocol. ABDOMEN: [Distended] EXTREMETIES: Cool, anasarca NEURO: Obtunded Results Laboratory Results: 01/25/17 06:55 01/24/17 01/24/17 01/25/17 10:00 21:50 06:55 Seg Neutrophils % Lymphocytes % Monocytes % Eosinophils % Basophils % Absolute Neutrophils Absolute Lymphocytes Absolute Monocytes Absolute Eosinophils Absolute Basophils Sodium 112.3 L* 107.3 L* 110.2 L* Potassium 5.0 4.7 5.1 H Chloride 86 L 83 L 85 L Carbon Dioxide 11 L 11 L 11 L Anion Gap 15 13 14 BUN 157 H 153 H 155 H Creatinine 3.52 H 3.73 H 3.78 H Est GFR ( Amer) 21 L 20 L 20 L Est GFR (Non-Af Amer) 18 L 16 L 16 L Glucose 419 H* 416 H* 310 H Calcium 7.1 L 7.2 L 7.3 L 01/25/17 06:55 Seg Neutrophils % Not Reportable Lymphocytes % Not Reportable Monocytes % Not Reportable Eosinophils % Not Reportable Basophils % Not Reportable Absolute Neutrophils Not Reportable Absolute Lymphocytes Not Reportable Absolute Monocytes Not Reportable Absolute Eosinophils Not Reportable Absolute Basophils Not Reportable Sodium Potassium Chloride Carbon Dioxide Anion Gap BUN Creatinine Est GFR ( Amer) Est GFR (Non-Af Amer) Glucose Calcium Impressions: Paracentesis Ultrasound 01/06/17 00:00 IMPRESSION: Successful ultrasound-guided therapeutic paracentesis Chest X-Ray 01/20/17 09:52 IMPRESSION: NO ACUTE RADIOGRAPHIC FINDING IN THE CHEST. Qualifiers PATEINT BEING DISCHARGED WITH ANY OF THE FOLLOWING DIAGNOSIS?: No - [id number]
[2017-01-25] MEDS ORDERED: VANCOMYCIN HCL 750 MG in DEXTROSE 5%-WATER 250 ML IV SCH (10:00)
[2017-01-26 11:26] LABS: PATH REVIEW PATHOLOGIST REVIEWED
== END 2017-01-25 07:55 | disposition expired | DRG 853 ==
LOC: ER 18:12 → EH 21:55 → UNDOADMIN 22:12 → ICU 01-02 00:24 → 3W 01-03 15:33 → ICU 01-20 11:07
PROVIDERS: ADMIT Internal Medicine; ATTEND Internal Medicine
PROC: 0D9Q0ZZ Drainage of Anus, Open Approach (ICD-10-PCS; 2017-01-02)
PROC: 02HV33Z Insertion of Infusion Device into Superior Vena Cava, Percutaneous Approach (ICD-10-PCS; 2017-01-02)
PROC: 0D9P0ZZ Drainage of Rectum, Open Approach (ICD-10-PCS; 2017-01-04)
PROC: 0W9G3ZZ Drainage of Peritoneal Cavity, Percutaneous Approach (ICD-10-PCS; 2017-01-04)
PROC: 0W9G3ZZ Drainage of Peritoneal Cavity, Percutaneous Approach (ICD-10-PCS; 2017-01-06)
PROC: 0HD9XZZ Extraction of Perineum Skin, External Approach (ICD-10-PCS; principal; 2017-01-14)
PROC: 04HK33Z Insertion of Infusion Device into Right Femoral Artery, Percutaneous Approach (ICD-10-PCS; 2017-01-20)
DX: A41.9 Sepsis, unspecified organism (principal); R65.21 Severe sepsis with septic shock; G93.41 Metabolic encephalopathy; K76.7 Hepatorenal syndrome; K65.2 Spontaneous bacterial peritonitis; E43 Unspecified severe protein-calorie malnutrition; N17.9 Acute kidney failure, unspecified; K61.0 Anal abscess; E87.1 Hypo-osmolality and hyponatremia; K92.2 Gastrointestinal hemorrhage, unspecified; C22.0 Liver cell carcinoma; R18.0 Malignant ascites; Z51.5 Encounter for palliative care; I10 Essential (primary) hypertension; K74.60 Unspecified cirrhosis of liver; K75.81 Nonalcoholic steatohepatitis (NASH); D69.6 Thrombocytopenia, unspecified; E87.5 Hyperkalemia; D64.9 Anemia, unspecified; E11.65 Type 2 diabetes mellitus with hyperglycemia; Z79.899 Other long term (current) drug therapy; Z79.4 Long term (current) use of insulin; Z88.0 Allergy status to penicillin; Z90.49 Acquired absence of other specified parts of digestive tract
CPT/HCPCS: 36415; 36430; 49083; 71010; 80048; 80053; 80202; 81001; 82040; 82140; 82565; 82570; 82803; 82962; 83036; 83605; 83735; 83930; 83935; 84100; 84132; 84133; 84134; 84300; 85025; 85027; 85610; 85730; 86850; 86900; 86901; 86920; 87040; 87070; 87075; 87077; 87086; 87186; 87205; 89050; 902; 93005; 93010; 94640; 96365; 96367; 96368; 96375; 99291; A6266; A9270-GY; C1751; J0171; J0610; J0696; J0743; J1644; J1720; J1756; J1815; J1940; J1956; J2250; J2270; J2354; J2370; J2405; J2704; J3010; J3370; J3411; J3490; J7030; J7040; J7050; J7060; J7512; J7620; P9016; P9047; S0164